=== PATIENT | female | born 1935 | race Caucasian/White ===

== ENCOUNTER → 2017-02-26 | Outpatient (CLI) | payer OTHER ==
[~2017-02-26] MED LIST: ASCO500T3 PO; ASPI-435 PO; ATV/1 PO; B-COTAB18 PO; BNC/40 PO; CALC0.2510 PO; CHOL2000 PO; CITA20TA9 PO; CYAN100020 PO; CYCL0.052 OP; FLAX12003 PO; FURO-85 PO; GABA-112 PO; GARL400T4 PO; GARLTAB3 PO; HYDR25TA4 PO; ISOS-10 PO; LEVO50TA6 PO; LORA0.5T12 PO; LYSI500C2 PO; MECL1TAB42 PO; METO-478 PO; NITR1CAP16 PO; NTRSL3 UT; OLME40TA30 PO; OMEG10007 PO; OMEP20CA59 PO; OXYC-57 PO; PHEN-939 PO; PRAM1TAB47; PTDOPS OP; ROPI1TAB PO; SIMV40TA4 PO; TOLT4CAP PO; ZNTT/150 PO
[2017-02-26 13:13] LABS: ALT/SGPT 25 U/L (12-78); BLOOD UREA NITROGEN 36 mg/dl (7-18); BUN/CREATININE RATIO 25.5 (10-20); CALCIUM 9.7 mg/dl (8.5-10.1); CARBON DIOXIDE 28 mmol/L (21-32); CHLORIDE 105 mmol/L (98-107); CHOLESTEROL 147 mg/dl (0-200); GLUCOSE 88 mg/dl (70-99); POTASSIUM 4.1 mmol/L (3.5-5.1); SODIUM 140 mmol/L (136-145); TRIGLYCERIDES 190 mg/dl (0-150); VERY LOW DENSITY LIPOPROT CALC 38 mg/dl
[2017-02-26 13:14] LABS: ESTIMATED AVERAGE GLUCOSE 123 mg/dl; HA1C FLAG Normal (Normal)
[2017-02-26 13:24] LABS: ALB/GLOB RATIO 1.3 (0.9-2); ALKALINE PHOSPHATASE 35 U/L (45-117); AST/SGOT 17 U/L (15-37); CHOLESTEROL/HDL RATIO 3.5; HDL CHOLESTEROL 42 mg/dl; LDL CHOLESTEROL CALCULATED 67 mg/dl
== END | disposition home or self-care (01) ==
LOC: C.LABPVFM 09:07
PROVIDERS: ATTEND Nurse Practitioner
DX: E03.9 Hypothyroidism, unspecified (principal); E78.5 Hyperlipidemia, unspecified; E55.9 Vitamin D deficiency, unspecified; I10 Essential (primary) hypertension; R73.01 Impaired fasting glucose

== ENCOUNTER → 2017-04-19 | Outpatient (CLI) | payer OTHER ==
[2017-04-19 12:26] LABS: URINE EPITHELIAL CELL AUTO 0-5 /lpf (0-5); ZZInitiateTest Complete
[2017-04-19 12:39] LABS: MANUAL MICROSCOPIC REQUIRED? NO; REVIEW REQ? NO
== END | disposition home or self-care (01) ==
LOC: C.LABPVFM 14:46
PROVIDERS: ATTEND Family Medicine
DX: N39.0 Urinary tract infection, site not specified (principal)

== ENCOUNTER → 2017-06-20 | Outpatient (CLI) | payer OTHER ==
[~2017-06-20] MED LIST changes: -METO-478 PO; +METO1TAB31 PO
== END | disposition home or self-care (01) ==
LOC: C.LABPVFM 11:03
PROVIDERS: ATTEND Nurse Practitioner Family
DX: N39.0 Urinary tract infection, site not specified (principal)

== ENCOUNTER → 2017-06-27 | Outpatient (CLI) | payer OTHER ==
[2017-06-27 17:24] LABS: ZZInitiateTest Complete
[2017-06-27 17:26] LABS: MANUAL MICROSCOPIC REQUIRED? NO; REVIEW REQ? NO
== END | disposition home or self-care (01) ==
LOC: C.LABPVFM 12:17
PROVIDERS: ATTEND Nurse Practitioner Family
DX: N39.0 Urinary tract infection, site not specified (principal)

== ENCOUNTER → 2017-07-24 | Outpatient (CLI) | payer OTHER ==
[2017-07-24 17:58] LABS: BLOOD UREA NITROGEN 36 mg/dl (7-18)
== END | disposition home or self-care (01) ==
LOC: C.LAB 16:23
PROVIDERS: ATTEND Nurse Practitioner Family
DX: R31.0 Gross hematuria (principal)

== ENCOUNTER → 2017-08-01 | Outpatient (CLI) | payer OTHER ==
[~2017-08-01] MED LIST changes: +OPTIRAY 320 IV PRN
--- NOTE | 2017-08-01 14:41 | DIAGNOSTIC IMAGING REPORT ---
ABDOMEN AND PELVIS CT WITH AND WITHOUT IV CONTRAST, UROGRAM PROTOCOL CT DOSE: 2246.18 mGycm HISTORY: R31.0 Gross hematuria TECHNIQUE: Multiaxial CT images of the abdomen and pelvis were performed both before and after the use of intravenous contrast to evaluate the urinary system. Maximal intensity projection images were performed at the workstation by the radiologist. A dose lowering technique was utilized adhering to the principles of ALARA. COMPARISON STUDY: Abdominal ultrasound 09/21/2011. FINDINGS: No renal or ureteral calculi. No hydronephrosis. Best seen on axial image 46 of 106 of the delayed pelvic series there is suggestion of a 9 mm filling defect within the left posterior bladder wall near the ureteral orifice. There are few subcentimeter hypodense lesions within the right kidney which are too small to characterize. The left kidney enhances normally. There are a few small peripelvic cysts within the lower pole of the left kidney. The ureters are normal and course and caliber. No suspicious filling defects seen within the bilateral renal collecting systems or ureters. Bibasilar linear densities favor atelectasis are scarring. The liver, gallbladder, spleen, adrenal glands, and pancreas are unremarkable. No retroperitoneal lymphadenopathy. Hysterectomy. Colonic diverticulosis. No bowel wall thickening or obstruction. IMPRESSION: 1. A possible 9 mm filling defect seen within the left posterior bladder. This may represent a small urothelial neoplasm. Follow-up cystoscopy is recommended for further evaluation. 2. No renal or ureteral stones. No hydronephrosis. 3. Additional findings as described above. Electronically signed by: Rufus Hernández M.D. 08/01/2017 2:39 PM Dictated Date/Time: 08/01/2017 2:25 PM
== END | disposition home or self-care (01) ==
LOC: C.CTS 13:36
PROVIDERS: ATTEND Nurse Practitioner Family
DX: R31.0 Gross hematuria (principal); R93.41 Abnormal radiologic findings on diagnostic imaging of renal pelvis, ureter, or bladder

== ENCOUNTER → 2017-09-06 | Day surgery (SDC) | payer OTHER ==
[2017-08-22 11:13] VITALS: BMI 34.0
--- NOTE | 2017-08-22 11:56 | PAT Medication Instructions ---
Service Date Aug 22, 2017. Current Home Medication List Ascorbic Acid (Vitamin C), 500 MG PO BID Aspirin (Aspirin 81), 81 MG PO BID B-Complex Vitamins (Vitamin B Complex), 1 TAB PO NOON Calcitriol (Rocaltrol Cap), 0.5 MCG PO BID Cholecalciferol (Vitamin D3), 1 CAP PO NOON/HS Citalopram Hydrobromide (Celexa), 20 MG PO HS Cyanocobalamin (Vitamin B12), 500 MCG PO 3XWEEK Cyclosporine (Ophth) (Restasis), 1 DROP OP BID Fish Oil ([place]-3), 1 CAP PO NOON Flaxseed (Linseed) (Flaxseed Oil), 1 TAB PO NOON Furosemide (Lasix), 20 MG PO PRN Gabapentin (Neurontin), 300 MG PO QID Isosorbide Mononitrate (Isosorbide Mononitrate ER), 60 MG PO QAM Levothyroxine Sodium (Levothyroxine Sodium), 1 TAB PO QAM Lysine (Lysine), 500 MG PO PRN Meclizine Hcl (Meclizine Hcl), 25 MG PO DAILY PRN for VERTIGO Metoprolol Succinate (Toprol Xl), 25 MG PO QAM Nitroglycerin (Nitrostat), 0.3 MG UT PRN Olmesartan/Hctz (Benicar Hct 40/12.5), 1 TAB PO QAM Olopatadine Hydrochloride (Pataday), 1 DROPS OP DAILY Omeprazole (Prilosec), 20 MG PO PRN Ranitidine (Zantac), 150 MG PO BID PRN for PRN Ropinirole (Requip), 1 MG PO NOON Ropinirole Hydrochloride (Requip), 2 MG PO HS Simvastatin (Zocor), 40 MG PO QPM Tolterodine Tartrate (Detrol La), 4 MG PO DAILY PRN for FREQ. URINATION [Garlic], 1 TAB PO PRN Medication Instructions For Your Scheduled Surgery - Check with surgeon and pastry decorator for instructions: Aspirin (Aspirin 81), 81 MG PO BID - Hold the following medications 2 weeks prior to surgery: [Garlic], 1 TAB PO PRN Fish Oil ([place]-3), 1 CAP PO NOON Flaxseed (Linseed) (Flaxseed Oil), 1 TAB PO NOON - Hold the following medications 24 hours prior to surgery: Ropinirole Hydrochloride (Requip), 2 MG PO HS Ropinirole (Requip), 1 MG PO NOON - Hold the following medications the morning of surgery: Tolterodine Tartrate (Detrol La), 4 MG PO DAILY PRN for FREQ. URINATION Ranitidine (Zantac), 150 MG PO BID PRN for PRN Olmesartan/Hctz (Benicar Hct 40/12.5), 1 TAB PO QAM Furosemide (Lasix), 20 MG PO PRN Cyanocobalamin (Vitamin B12), 500 MCG PO 3XWEEK Calcitriol (Rocaltrol Cap), 0.5 MCG PO BID B-Complex Vitamins (Vitamin B Complex), 1 TAB PO NOON Ascorbic Acid (Vitamin C), 500 MG PO BID - Take the following medications the morning of surgery with a sip of water: Omeprazole (Prilosec), 20 MG PO PRN Olopatadine Hydrochloride (Pataday), 1 DROPS OP DAILY Nitroglycerin (Nitrostat), 0.3 MG UT PRN Metoprolol Succinate (Toprol Xl), 25 MG PO QAM Meclizine Hcl (Meclizine Hcl), 25 MG PO DAILY PRN for VERTIGO Lysine (Lysine), 500 MG PO PRN Levothyroxine Sodium (Levothyroxine Sodium), 1 TAB PO QAM Isosorbide Mononitrate (Isosorbide Mononitrate ER), 60 MG PO QAM Gabapentin (Neurontin), 300 MG PO QID Cyclosporine (Ophth) (Restasis), 1 DROP OP BID - Take the following medications as scheduled the night before surgery: Tolterodine Tartrate (Detrol La), 4 MG PO DAILY PRN for FREQ. URINATION Simvastatin (Zocor), 40 MG PO QPM Ranitidine (Zantac), 150 MG PO BID PRN for PRN Olmesartan/Hctz (Benicar Hct 40/12.5), 1 TAB PO QAM Nitroglycerin (Nitrostat), 0.3 MG UT PRN Meclizine Hcl (Meclizine Hcl), 25 MG PO DAILY PRN for VERTIGO Lysine (Lysine), 500 MG PO PRN Gabapentin (Neurontin), 300 MG PO QID Furosemide (Lasix), 20 MG PO PRN Cyclosporine (Ophth) (Restasis), 1 DROP OP BID Citalopram Hydrobromide (Celexa), 20 MG PO HS Cholecalciferol (Vitamin D3), 1 CAP PO NOON/HS Calcitriol (Rocaltrol Cap), 0.5 MCG PO BID Ascorbic Acid (Vitamin C), 500 MG PO BID If you have any questions please call us at [phone] or [phone] or [phone]
--- NOTE | 2017-08-22 12:35 | DIAGNOSTIC IMAGING REPORT ---
CHEST PREADMISSION(PA/LAT) HISTORY: Preop. COMPARISON: Chest 07/01/2016. FINDINGS: Small linear scarlike density within left lung base, unchanged. The lungs are otherwise clear. No pleural effusions. No pneumothorax. The heart is normal in size. IMPRESSION: No significant change compared to the prior study. No acute process. Electronically signed by: Rufus Hernández M.D. 08/22/2017 12:34 PM Dictated Date/Time: 08/22/2017 12:32 PM
[2017-08-22 12:41] LABS: BASO % 0.5 %; BASO ABS # 0.03 K/uL (0-0.2); COMPLETE YES; EOS % 4.8 %; HEMATOCRIT 37.6 % (37-47); IG% 0.2 %; LYMPH % 38.1 %; LYMPH ABS # 2.15 K/uL (1.2-3.4); MEAN CELL VOLUME 96.9 fL (80-100); MEAN CORPUSCULAR HEMOGLOBIN 32.2 pg (25-34); MEAN CORPUSCULAR HGB CONC 33.2 g/dl (32-36); MEAN PLATELET VOLUME 9.8 fL (7.4-10.4); MONO % 9.9 %; NEUT % 46.5 %; PLATELET COUNT 234 K/uL (130-400); RED BLOOD COUNT 3.88 M/uL (4.2-5.4); WHITE BLOOD COUNT 5.65 K/uL (4.8-10.8)
[2017-08-22 12:47] LABS: URINE APPEARANCE CLEAR (CLEAR); URINE BILIRUBIN NEG (NEG); URINE COLOR YELLOW; URINE EPITHELIAL CELL AUTO 0-5 /lpf (0-5); URINE NITRITE NEG (NEG); URINE SPECIFIC GRAVITY 1.007 (1.000-1.030); UROBILINOGEN NEG (NEG)
[2017-08-22 12:49] LABS: MANUAL MICROSCOPIC REQUIRED? NO; REVIEW REQ? NO
[2017-08-22 12:56] LABS: BUN/CREATININE RATIO 20.1 (10-20); CALCIUM 9.5 mg/dl (8.5-10.1); CREATININE 1.3 mg/dl (0.60-1.20)
[~2017-09-06] VITALS: Ht 160 cm; Wt 89.3 kg
[~2017-09-06] MED LIST changes: +ATROPINE SULFATE 0.1 MG/ML 5ML SYR IV PRN; -ATV/1 PO; -BNC/40 PO; +CIPROFLOXACIN / D5W 400 MG IV SCH; +EpHEDrine SULFATE 50MG/5ML SYR ONE; +EpHEDrine SULFATE INJ 50 MG/ML AMP IV PRN; +FAMOTIDINE 10 MG/ML 2ML VIAL IV STA; +FENTANYL CITRATE INJ 50 MCG/1 ML 2 ML VIAL IV PRN; +FENTANYL CITRATE INJ 50 MCG/1 ML 2 ML VIAL ONE; -GARL400T4 PO; -HYDR25TA4 PO; +LACTATED RINGER'S 1000ML 1,000 ML IV SCH; +LIDOCAINE HCL 2% 2 ML VIAL (20MG/ML) ONE; -LORA0.5T12 PO; +METOCLOPRAMIDE HCL INJ 5 MG/ML 2 ML VIAL IV STA; +MITOMYCIN FOR IR SCH; +ONDANSETRON INJ 2 MG/ML 2 ML VIAL IV PRN; -OPTIRAY 320 IV PRN; +OXYCODONE/ACETAMINOPHEN 5-325 TAB PO PRN; +PHENAZOPYRIDINE HCL 100 MG TAB PO PRN; -PRAM1TAB47; +PROPOFOL IV EMULSION 10 MG/ML 20 ML VIAL IV ONE
--- NOTE | 2017-09-06 08:07 | History & Physical Bridge Note ---
H&P Re-Evaluation Bridge Note: I have examined the patient, reviewed the History & Physical and in the interval since the performance of the History & Physical I have noted the following changes of clinical significance: No changes noted
[2017-09-06 08:16] VITALS: BP 155/77; PULSE 55; TEMP 37.2; O2SAT 94; Ht 160 cm; Wt 89.3 kg
--- NOTE | 2017-09-06 08:25 | Discharge Instructions ---
Discharge Instructions Date of Service Sep 06, 2017. Admission Reason for Admission: Bladder Tumor Discharge Discharge Diagnosis / Problem: Bladder tumor s/p TURBT, instillation Mitomycin C Discharge Goals Goal(s): Improve disease control, Diagnostic testing, Therapeutic intervention Activity Recommendations Activity Limitations: as noted below Lifting Limitations: no more than 25 pounds, gradually increase as tolerated ( over 3 days) Exercise/Sports Limitations: rest today, gradually increase as tolerated May Resume Sexual Activity: after two weeks Shower/Bathe: no limitations Driving or Machine Use: resume 1 day after discharge . Instructions / Follow-Up Instructions / Follow-Up Antibiotics provided to extend course by 5 days Follow-up in office as scheduled Discharge Diet Recommended Diet: Regular Diet (good fluid intake) Procedures Procedures Performed: Transurethral resection of bladder tumor, instillation of Mitomycin C Pending Studies Studies pending at discharge: yes List of pending studies: Pathology report Medical Emergencies . Who to Call and When: Medical Emergencies: If at any time you feel your situation is an emergency, please call 911 immediately. . Non-Emergent Contact Non-Emergency issues call your: Urologist Call Non-Emergent contact if: you have a fever, temperature is above 101, your pain is not controlled, your pain is worsening, your pain is unusual for you, your pain is concerning you, you have any medication questions . . "Provider Documentation" section prepared by Shlomo Cisse. . VTE Core Measure Inpt VTE Proph given/why not?: SCD's [place] Drug Monitoring Program Search Results: patient reviewed within database, no issues identified
--- NOTE | 2017-09-06 10:31 | [facility] Post Operative Brief Note ---
Immediate Operative Summary Operative Date Sep 06, 2017. Pre-Operative Diagnosis Bladder Tumor Post-Operative Diagnosis Bladder Tumor Procedure(s) Performed Transurethral resection of bladder tumor, instillation of Mitomycin C Surgeon Dr. Isela Cisse Dry Roaster Surgeon(s) None Estimated Blood Loss Miminal Findings 1 cm papillary mass proximolateral to left UO resected in its entirety, 20 mg of Mitomycin in 40 mg instilled Specimens A. LEFT BLADDER MASS Drains 16 fr 10 cc H2O Anesthesia GALMA Complication(s) None Disposition Recovery Room / PACU
--- NOTE | 2017-09-06 10:35 | [facility] Operative Report ---
Operative Report Operative Date Sep 06, 2017. Pre-Operative Diagnosis Bladder Tumor Post-Operative Diagnosis 1 cm Bladder Tumor Procedure(s) Performed Transurethral resection of bladder tumor, instillation of Mitomycin C Surgeon Dr. Isela Cisse Mixing And Dispensing Supervisor Surgeon(s) None Estimated Blood Loss Miminal Findings 1 cm papillary mass proximolateral to left UO resected in its entirety, 20 mg of Mitomycin in 40 mg instilled Specimens A. 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 Please see H&P for further details. She is here today for resection for diagnosis and therapy for her disease. Intravenous ciprofloxacin was provided for antibiotic coverage and SCDs used for DVT prophylaxis. She's been pretreated with nitrofurantoin for a positive culture with enterococcus, 20,000 organisms preoperatively. Description of Procedure Patient was properly identified and brought to the operative suite after identification of appropriate consent of the chart. General anesthesia with laryngeal mask was initiated and patient was prepped and draped in the standard fashion for this procedure. Full timeout procedure was followed. 27 Fijian resectoscope was introduced into the bladder under direct visualization using a visual obturator. Bladder was surveyed in its entirety demonstrating no other intravesical lesions, papillary masses or mucosal abnormalities save for the previously noted left-sided papillary bladder mass. This was estimated to be 1 cm in size. Ureteral orifice was noted to be clear of direct involvement with the tumor. Both ureteral orifices were noted to be effluxing clear urine. Using a bipolar loop the tumor was resected in its entirety. Small amounts of residual tumor were sampled using cold cup and all was sent as left-sided bladder mass. Ureteral orifice was noted to be uninjured at the end of the case. Loop cautery was used as necessary to obtain hemostasis and fulgurate surrounding mucosa. No evidence of bladder perforation was appreciated. Bladder was drained resectoscope was removed. 16 Fijian Sands catheter was placed and 20 mg of mitomycin C and 40 mL of water were instilled bladder which was then clamped. Anesthesia was reversed and patient was transferred to the recovery room in stable condition. Follow-up care: We'll extend the patient's course of nitrofurantoin for approximate 5 days postoperatively. Prescription for Percocet and Pyridium is also provided. Will drained the bladder after approximately 2 hours of mitomycin instillation and proceed with a trial of void prior to discharge home today. Outpatient appointments are confirmed. Patient's instructed to contact us sooner should she note any fevers, chills, nausea, vomiting or other significant difficulties in postoperative period. I attest to the content of the Intraoperative Record and any orders documented therein. Any exceptions are noted below.
[2017-09-06 10:50] VITALS: BP 155/75; PULSE 58; TEMP 36.7; O2SAT 93
--- NOTE | 2017-09-06 10:52 | Anesthesiology Progress Note ---
Anesthesia Post Op Note Date & Time Sep 06, 2017 at 10:52 Vital Signs Pain Intensity: 0 Vital Signs Past 12 Hours Date Time Temp Pulse Resp B/P (MAP) Pulse Ox O2 Delivery O2 Flow Rate FiO2 09/06/17 10:43 36.1 60 17 126/84 95 Room Air 09/06/17 10:35 62 18 139/80 95 Room Air 09/06/17 10:25 61 20 123/77 99 Nasal Cannula 4 09/06/17 10:15 65 20 131/70 99 Nasal Cannula 4 09/06/17 10:07 36.2 68 16 120/68 97 Oxymask 8 09/06/17 08:16 37.2 55 20 155/77 (103) 94 Room Air Notes Mental Status: alert / awake / arousable, participated in evaluation Pt Amnestic to Procedure: Yes Nausea / Vomiting: adequately controlled Pain: adequately controlled Airway Patency, RR, SpO2: stable & adequate BP & HR: stable & adequate Hydration State: stable & adequate Anesthetic Complications: no major complications apparent
[2017-09-06 11:20] VITALS: BP 168/72; PULSE 60; O2SAT 94
[2017-09-06 11:50] VITALS: BP 131/72; PULSE 62; TEMP 36.9; O2SAT 95
[2017-09-06 12:20] VITALS: BP 130/68; PULSE 57; O2SAT 94
== END | disposition home or self-care (01) ==
LOC: C.ACU 07:54
PROVIDERS: ATTEND Urology
DX: C67.9 Malignant neoplasm of bladder, unspecified (principal); R31.0 Gross hematuria; N32.89 Other specified disorders of bladder; I25.10 Atherosclerotic heart disease of native coronary artery without angina pectoris; I10 Essential (primary) hypertension; K21.9 Gastro-esophageal reflux disease without esophagitis; E78.5 Hyperlipidemia, unspecified; E21.3 Hyperparathyroidism, unspecified; E03.9 Hypothyroidism, unspecified; Z98.41 Cataract extraction status, right eye; Z98.42 Cataract extraction status, left eye; Z86.73 Personal history of transient ischemic attack (TIA), and cerebral infarction without residual deficits; Z90.710 Acquired absence of both cervix and uterus; Z96.659 Presence of unspecified artificial knee joint; Z90.89 Acquired absence of other organs; Z79.82 Long term (current) use of aspirin; Z79.899 Other long term (current) drug therapy; E66.9 Obesity, unspecified; Z68.34 Body mass index [BMI] 34.0-34.9, adult; Z82.49 Family history of ischemic heart disease and other diseases of the circulatory system

== ENCOUNTER → 2017-12-17 | Outpatient (CLI) | payer OTHER ==
[~2017-12-17] MED LIST changes: -ATROPINE SULFATE 0.1 MG/ML 5ML SYR IV PRN; -CIPROFLOXACIN / D5W 400 MG IV SCH; -EpHEDrine SULFATE 50MG/5ML SYR ONE; -EpHEDrine SULFATE INJ 50 MG/ML AMP IV PRN; -FAMOTIDINE 10 MG/ML 2ML VIAL IV STA; -FENTANYL CITRATE INJ 50 MCG/1 ML 2 ML VIAL IV PRN; -FENTANYL CITRATE INJ 50 MCG/1 ML 2 ML VIAL ONE; -LACTATED RINGER'S 1000ML 1,000 ML IV SCH; -LIDOCAINE HCL 2% 2 ML VIAL (20MG/ML) ONE; +METO-478 PO; -METO1TAB31 PO; -METOCLOPRAMIDE HCL INJ 5 MG/ML 2 ML VIAL IV STA; -MITOMYCIN FOR IR SCH; -NITR1CAP16 PO; -ONDANSETRON INJ 2 MG/ML 2 ML VIAL IV PRN; -OXYCODONE/ACETAMINOPHEN 5-325 TAB PO PRN; -PHEN-939 PO; -PHENAZOPYRIDINE HCL 100 MG TAB PO PRN; -PROPOFOL IV EMULSION 10 MG/ML 20 ML VIAL IV ONE
--- NOTE | 2017-12-17 10:28 | DIAGNOSTIC IMAGING REPORT ---
LEFT SHOULDER 3 VIEWS HISTORY: Left Shoulder pain, left Muscle spasms of neck left COMPARISON: None. FINDINGS: There is no fracture or dislocation. Soft tissues are unremarkable. The left clavicle is intact. Moderate AC joint arthrosis. IMPRESSION: 1. No fracture or dislocation within the left shoulder. 2. Moderate AC joint arthrosis. Electronically signed by: Rufus Hernández M.D. 12/17/2017 10:27 AM Dictated Date/Time: 12/17/2017 10:26 AM
== END | disposition home or self-care (01) ==
LOC: C.RADPV 10:03
PROVIDERS: ATTEND Nurse Practitioner
DX: M62.838 Other muscle spasm (principal); M25.512 Pain in left shoulder

== ENCOUNTER → 2018-04-09 | Outpatient (CLI) | payer OTHER ==
[~2018-04-09] MED LIST changes: -OXYC-57 PO; +RANI150T85 PO; -ZNTT/150 PO
[2018-04-09 14:45] LABS: ALBUMIN 4.2 gm/dl (3.4-5.0); ALT/SGPT 24 U/L (12-78); AST/SGOT 18 U/L (15-37); BLOOD UREA NITROGEN 35 mg/dl (7-18); CALCIUM 9.6 mg/dl (8.5-10.1); CARBON DIOXIDE 31 mmol/L (21-32); CREATININE 1.34 mg/dl (0.60-1.20); GLUCOSE 91 mg/dl (70-99); POTASSIUM 4.2 mmol/L (3.5-5.1); SODIUM 140 mmol/L (136-145)
[2018-04-09 14:56] LABS: ALKALINE PHOSPHATASE 50 U/L (45-117); CHOLESTEROL 129 mg/dl (0-200); LDL CHOLESTEROL CALCULATED 48 mg/dl; TOTAL PROTEIN 7.1 gm/dl (6.4-8.2)
== END | disposition home or self-care (01) ==
LOC: C.LABPVFM 08:01
PROVIDERS: ATTEND Nurse Practitioner
DX: I10 Essential (primary) hypertension (principal); E78.5 Hyperlipidemia, unspecified; E03.9 Hypothyroidism, unspecified

== ENCOUNTER → 2018-04-11 | Outpatient (CLI) | payer OTHER ==
--- NOTE | 2018-04-11 10:44 | DIAGNOSTIC IMAGING REPORT ---
RIBS UNILATERAL WITH PA CHEST CLINICAL HISTORY: 83 years-old Female presenting with Rib pain on right side right. TECHNIQUE: Frontal and oblique views of the right ribs as well as PA view of the chest were obtained. COMPARISON: 08/22/2017. FINDINGS: Atherosclerosis of aortic arch. Cardiac silhouette mildly enlarged, unchanged. Mild bronchial wall thickening may be present along with mild pulmonary vascular prominence. No focal infiltrate. No large effusion or pneumothorax. Degenerative changes of the spine. Upper abdomen normal. No displaced right rib fracture. IMPRESSION: 1. Cardiomegaly. Mild volume overload or congestive change may be present. 2. No displaced right rib fracture. Electronically signed by: Harjeet Stein M.D. 04/11/2018 10:42 AM Dictated Date/Time: 04/11/2018 10:41 AM
[2018-04-11 12:39] LABS: BASO % 0.5 %; BASO ABS # 0.03 K/uL (0-0.2); EOS % 4.8 %; EOS ABS # 0.28 K/uL (0-0.5); HEMATOCRIT 38.7 % (37-47); HEMOGLOBIN 12.9 g/dL (12.0-16.0); IG# 0.01 K/uL (0.00-0.02); LYMPH % 41.6 %; LYMPH ABS # 2.44 K/uL (1.2-3.4); MEAN CELL VOLUME 97.7 fL (80-100); MEAN CORPUSCULAR HEMOGLOBIN 32.6 pg (25-34); MEAN CORPUSCULAR HGB CONC 33.3 g/dl (32-36); MEAN PLATELET VOLUME 10.3 fL (7.4-10.4); MONO % 9.5 %; MONO ABS # 0.56 K/uL (0.11-0.59); NEUT % 43.4 %; NEUT ABS # 2.55 K/uL (1.4-6.5); PLATELET COUNT 227 K/uL (130-400); RED CELL DISTRIBUTION WIDTH CV 13.2 % (11.5-14.5); WHITE BLOOD COUNT 5.87 K/uL (4.8-10.8)
== END | disposition home or self-care (01) ==
LOC: C.LABPVFM 10:13
PROVIDERS: ATTEND Nurse Practitioner
DX: R07.81 Pleurodynia (principal); I50.9 Heart failure, unspecified; R39.9 Unspecified symptoms and signs involving the genitourinary system; I51.7 Cardiomegaly

== ENCOUNTER 2021-05-18 21:33 | Observation (INO) ==
[2021-05-18] MEDS ORDERED: PIPERACILLIN/TAZOBACTAM 4.5 GM/120 ML BAG IV ONE (21:46)
[2021-05-18] MEDS ORDERED: PIPERACILL/TAZOBAC CONSULT ACTIVE PRN (21:46)
[2021-05-18] MEDS ORDERED: SODIUM CHLORIDE 0.9% 1000ML 1,000 ML IV SCH (22:00)
[2021-05-18 22:08] LABS: Hematocrit (blood only) 38.1 % (37-47); Hemoglobin 12.9 g/dL (12.0-16.0); Mean Corpuscular Hemoglobin 32.7 pg (25-34); Mean Corpuscular Hgb Conc 33.9 g/dL (32-36); Mean Corpuscular Volume 96.5 fL (80-100); Mean Platelet Volume 10.3 fL (7.4-10.4); Platelet Count 183 K/uL (130-400); RDW Coefficient of Variation 14.1 % (11.5-14.5); RDW Standard Deviation 50.4 fL (36.4-46.3); Red Blood Count 3.95 M/uL (4.2-5.4); White Blood Count 17.82 K/uL (4.8-10.8)
[2021-05-18 22:24] LABS: Albumin Level 3.4 gm/dl (3.4-5.0); BUN Creatinine Ratio 17.6 (10-20); Calcium 9.9 mg/dl (8.5-10.1); Creatinine Clr Calc Pharmacy 30.3 ml/min; Est GFR (African American) 38.3 ml/min; Magnesium 1.9 mg/dl (1.8-2.4); Potassium 3.4 mmol/L (3.5-5.1)
[2021-05-18 22:25] LABS: INR 1.1 (0.9-1.1); Partial Thromboplastin Ratio 1.1; Partial Thromboplastin Time 28.5 Seconds (21.0-31.0); Prothrombin Time 11.3 Seconds (9.0-12.0)
[2021-05-18 22:28] LABS: Basophils # (auto) 0.01 K/uL (0-0.2); Basophils % (auto) 0.1 %; Immature Granulocytes # (auto) 0.07 K/uL (0.00-0.02); Immature Granulocytes % (auto) 0.4 %; Lymphocytes # (auto) 1.04 K/uL (1.2-3.4); Lymphocytes % (auto) 5.8 %; Monocytes # (auto) 0.57 K/uL (0.11-0.59); Monocytes % (auto) 3.2 %; Neutrophils # (auto) 16.13 K/uL (1.4-6.5); Neutrophils % (auto) 90.5 %
[2021-05-18 22:29] LABS: Albumin Globulin Ratio 0.9 (0.9-2); Bilirubin,Total 0.4 mg/dl (0.2-1); Globulin 3.8 gm/dl (2.5-4.0); Total Protein 7.2 gm/dl (6.4-8.2); Troponin I 0.025 ng/ml (0-0.045)
[2021-05-18 23:42] LABS: Appearance Urine Clear (Clear); Bacteria Urine Automated Negative (Negative); Bilirubin Urine Negative (Negative); Blood Urine Trace (Negative); Cast Urine Automated 0 /lpf (0-5); Color Urine Yellow; Glucose Urine UA Negative (Negative); Ketones Urine Negative (Negative); Leukocyte Esterase Urine Negative (Negative); Nitrite Urine Negative (Negative); Protein Urine 2+ (Negative); Specific Gravity Urine 1.016 (1.000-1.030); Urobilinogen Urine Negative (Negative); WBC Urine Automated 0 /hpf (0-5)
--- NOTE | 2021-05-19 00:58 | Emergency Department Note ---
History of Present Illness General Chief complaint: Fever Stated complaint: Altered mental status, Lethargic History of Present Illness Maximum Pain Intensity: 0 This 86-year-old from home presents to the ER complaining of fever, lethargy and increased confusion today Location: Generalized Quality: Febrile Severity: Moderate Duration: Today Timing: Today Context: Family was concerned and called EMS Modifying factors: better with rest; worse with activity Patient states that she feels fatigued and achy all over. Patient denies chest pain, abdominal pain, vomiting, diarrhea, urinary symptoms. The redness to her leg is new per patient. Home Medications Medication Instructions Recorded Confirmed Type cyanocobalamin (vitamin B-12) 500 mcg PO QAM 11/14/18 05/18/21 History [Vitamin B-12] nitroglycerin [Nitrostat] 0.3 mg SUBLINGUAL DIRECTED PRN 11/14/18 05/18/21 History MDD 3 DOSES metoprolol succinate 25 mg 25 mg PO QAM #90 tab 07/30/20 05/18/21 Rx tablet,extended release 24 hr levothyroxine 50 mcg tablet 50 mcg PO DAILY #90 tab 09/02/20 05/18/21 Rx famotidine 20 mg tablet 20 mg PO DAILY #90 tab 10/18/20 05/18/21 Rx isosorbide mononitrate 60 mg 60 mg PO QAM #90 tab 11/15/20 05/18/21 Rx tablet,extended release 24 hr meclizine 25 mg tablet 12.5 - 25 mg PO QID PRN #30 tab 11/15/20 05/18/21 Rx simvastatin 40 mg tablet 40 mg PO HS #90 tab 11/15/20 05/18/21 Rx gabapentin 100 mg capsule 200 mg PO TID #180 cap 01/04/21 05/18/21 Rx losartan 50 mg tablet 50 mg PO DAILY #90 tab 01/04/21 05/18/21 Rx aspirin 81 mg PO DAILY 02/28/21 05/18/21 History furosemide 20 mg PO DAILY 02/28/21 05/18/21 History hydrochlorothiazide 12.5 mg PO DAILY 02/28/21 05/18/21 History lifitegrast [Xiidra] 1 drp OPB BID 02/28/21 05/18/21 History mirabegron [Myrbetriq] 25 mg PO DAILY 02/28/21 05/18/21 History ropinirole 1 mg PO QDL 02/28/21 05/18/21 History ropinirole 3 mg PO HS 02/28/21 05/18/21 History tramadol 50 mg tablet 50 mg PO BID PRN #20 tab 03/17/21 05/18/21 Rx diclofenac sodium 1 % topical gel 2 g TOPICAL QID #100 g 04/11/21 05/18/21 Rx Allergies Allergy/AdvReac Type Severity Reaction Status Date / Time atorvastatin [From Lipitor] Allergy Unknown ON [facility] Verified 05/18/21 23:00 LIST celecoxib [From Celebrex] Allergy Unknown ON [facility] Verified 05/18/21 23:00 LIST Iodine and Iodide Containing Allergy Unknown ON [facility] Verified 05/18/21 23:00 Produc LIST Past Med/Surg History Medical History (Updated 05/19/21 @ 00:58 by Carol Eller PA-C) Carotidynia Congestive heart failure Dyspnea on exertion Hypercalcemia Sciatic leg pain Urinary incontinence Surgical History History of appendectomy History of carpal tunnel surgery History of dilatation and curettage History of partial colectomy History of total abdominal hysterectomy and bilateral salpingo-oophorectomy History of total knee arthroplasty Status post laser cataract surgery of both eyes Family History Father Prostate cancer Myocardial infarction Mother Cancer Other No significant family history Denies family history of Ovarian cancer Kidney disease Breast cancer Colorectal cancer Social History Smoking Status: Unknown if ever smoked Second Hand Exposure: No; Hx Alcohol Use: No Hx Substance Use: No marital status: Current Living Situation: Spouse current occupational status: other current occupation: housewife Feels Safe at Home: Yes Childhood Exposure to Second-Hand Smoke: Yes caffeine: Yes Dental Care, Regularly: No Seatbelt Use: sometimes Sunscreen Use: No Review of Systems A total of 10 systems reviewed and were otherwise negative Physical Exam Vital Signs Vital Signs - 24 hr 05/18/21 22:06 05/18/21 22:22 Temperature 37.7 C H Temperature Source Oral Pulse Rate 87 Pulse Rate [Apical] 87 85 Respiratory Rate 29 H 20 Blood Pressure 120/56 L Blood Pressure [Right Arm] 120/56 L Blood Pressure Mean 77 Blood Pressure Mean [Right Arm] 77 Pulse Oximetry 95 96 Oxygen Delivery Method Nasal Cannula Nasal Cannula Oxygen Flow Rate 3 3 Sepsis Recent Fever Within 48 Hours Yes Sepsis New/Unexplained Change in Mental Status Yes Sepsis Action Taken by Nursing Physician Notified VITALS: Vitals are noted on the nurse's note and reviewed by myself. Vital signs febrile, EMS gave Tylenol just prior to arrival. GENERAL: Elderly female ill-appearing SKIN: The skin was without rashes, erythema, edema, or bruising. There is no tenting of the skin. Capillary reflex less than 2 seconds. HEAD: Normocephalic atraumatic. EARS: External auditory canals clear, tympanic membranes pearly craig without erythema or effusion bilaterally. EYES: Pupils equal round and reactive to light and accommodation. Conjunctivae without injection, sclerae without icterus. Extraocular movements intact. NOSE: Patent, turbinates without inflammation or discharge. No sinus tenderness. MOUTH: Mucous membranes mildly dry. Pharynx without erythema or exudate. Uvula midline. Airway patent. Tongue does not deviate. NECK: Supple without nuchal rigidity. No lymphadenopathy. No thyromegaly. Cervical spine is nontender. No JVD. HEART: Regular rate and rhythm LUNGS: Clear to auscultation bilaterally without wheezes, rales or rhonchi. No retractions or accessory muscle use. ABDOMEN: Positive bowel sounds x 4. Normal tympanic percussion. Soft, mild diffuse tenderness, without masses or organomegaly. Gardner sign negative. No guarding or rebound tenderness. No CVA tenderness MUSCULOSKELETAL: No muscle atrophy, noted. Right lower leg erythematous and e dematous concerning for cellulitis. NEURO: Patient was alert and oriented to person place and time. Normal sensation to light and sharp touch. No focal neurological deficits. Course Administered Medications Discontinued Medications Sodium Chloride (Nss 1000ml) 1,000 mls @ 999 mls/hr IV .Q1H1M THI Stop: 05/18/21 23:00 Last Infusion: 05/19/21 00:14 Dose: 0 mls/hr Documented by: [id number] Admin: 05/18/21 22:50 Dose: 999 mls/hr Documented by: [id number] Piperacillin Sod/Tazobactam Sod (Zosyn) 4.5 gm in 120 mls @ 240 mls/hr IV NOW ONE Stop: 05/18/21 22:15 Last Infusion: 05/19/21 00:13 Dose: 0 mls/hr Documented by: [id number] Admin: 05/18/21 22:50 Dose: 240 mls/hr Documented by: [id number] Medical Decision Making Medical Records Attestation: I reviewed the patient's medical records. Home Medications Current Medication List: was personally reviewed by me Laboratory Data Attestation: I reviewed the patient's lab results. Result diagrams: 05/18/21 20:50 05/18/21 20:50 Lab Results 05/18/21 05/18/21 05/18/21 Range/Units 20:50 20:50 20:50 WBC 17.82 H (4.8-10.8) K/uL RBC 3.95 L (4.2-5.4) M/uL Hgb 12.9 (12.0-16.0) g/dL Hct 38.1 (37-47) % MCV 96.5 (80-100) fL MCH 32.7 (25-34) pg MCHC 33.9 (32-36) g/dL RDW Std Deviation 50.4 H (36.4-46.3) fL RDW Coeff of [place] 14.1 (11.5-14.5) % Plt Count 183 (130-400) K/uL MPV 10.3 (7.4-10.4) fL Immature Gran % (Auto) 0.4 % Neut % (Auto) 90.5 % Lymph % (Auto) 5.8 % [place] % (Auto) 3.2 % Eos % (Auto) 0.0 % Baso % (Auto) 0.1 % Neut # (Auto) 16.13 H (1.4-6.5) K/uL Lymph # (Auto) 1.04 L (1.2-3.4) K/uL [place] # (Auto) 0.57 (0.11-0.59) K/uL Eos # (Auto) 0.00 (0-0.5) K/uL Baso # (Auto) 0.01 (0-0.2) K/uL Immature Gran # (Auto) 0.07 H (0.00-0.02) K/uL PT 11.3 (9.0-12.0) Seconds INR 1.1 (0.9-1.1) APTT 28.5 (21.0-31.0) Seconds PTT Ratio 1.1 Sodium 136 (136-145) mmol/L Potassium 3.4 L (3.5-5.1) mmol/L Chloride 104 (98-107) mmol/L Carbon Dioxide 24 (21-32) mmol/L Anion Gap 9.0 (3-11) BUN 25 H (7-18) mg/dl Creatinine 1.44 H (0.6-1.2) mg/dl Est Cr Clr Drug Dosing 30.3 ml/min Est GFR ( Amer) 38.3 ml/min Est GFR (Non-Af Amer) 33.0 ml/min BUN/Creatinine Ratio 17.6 (10-20) Glucose 186 H (70-99) mg/dl Lactate (0.4-2.0) mmol/L Calcium 9.9 (8.5-10.1) mg/dl Magnesium 1.9 (1.8-2.4) mg/dl Total Bilirubin 0.4 (0.2-1) mg/dl AST 14 L (15-37) U/L ALT 19 (12-78) U/L Alkaline Phosphatase 50 (45-117) U/L Troponin I 0.025 (0-0.045) ng/ml Total Protein 7.2 (6.4-8.2) gm/dl Albumin 3.4 (3.4-5.0) gm/dl Globulin 3.8 (2.5-4.0) gm/dl Albumin/Globulin Ratio 0.9 (0.9-2) Urine Color Urine Appearance (Clear) Urine pH (4.5-7.5) Ur Specific [place] (1.000-1.030) Urine Protein (Negative) Urine Glucose (UA) (Negative) Urine Ketones (Negative) Urine Blood (Negative) Urine Nitrite (Negative) Urine Bilirubin (Negative) Urine Urobilinogen (Negative) Ur Leukocyte Esterase (Negative) Urine WBC (Auto) (0-5) /hpf Urine RBC (Auto) (0-4) /hpf U Hyaline Cast (Auto) (0-5) /lpf U Epithel Cells (Auto) (0-5) /lpf Urine Bacteria (Auto) (Negative) COVID-19 Eval Order SARS-CoV-2 (PCR) (Negative) 05/18/21 05/18/21 05/18/21 Range/Units 22:39 22:41 22:41 WBC (4.8-10.8) K/uL RBC (4.2-5.4) M/uL Hgb (12.0-16.0) g/dL Hct (37-47) % MCV (80-100) fL MCH (25-34) pg MCHC (32-36) g/dL RDW Std Deviation (36.4-46.3) fL RDW Coeff of [place] (11.5-14.5) % Plt Count (130-400) K/uL MPV (7.4-10.4) fL Immature Gran % (Auto) % Neut % (Auto) % Lymph % (Auto) % [place] % (Auto) % Eos % (Auto) % Baso % (Auto) % Neut # (Auto) (1.4-6.5) K/uL Lymph # (Auto) (1.2-3.4) K/uL [place] # (Auto) (0.11-0.59) K/uL Eos # (Auto) (0-0.5) K/uL Baso # (Auto) (0-0.2) K/uL Immature Gran # (Auto) (0.00-0.02) K/uL PT (9.0-12.0) Seconds INR (0.9-1.1) APTT (21.0-31.0) Seconds PTT Ratio Sodium (136-145) mmol/L Potassium (3.5-5.1) mmol/L Chloride (98-107) mmol/L Carbon Dioxide (21-32) mmol/L Anion Gap (3-11) BUN (7-18) mg/dl Creatinine (0.6-1.2) mg/dl Est Cr Clr Drug Dosing ml/min Est GFR ( Amer) ml/min Est GFR (Non-Af Amer) ml/min BUN/Creatinine Ratio (10-20) Glucose (70-99) mg/dl Lactate 1.8 (0.4-2.0) mmol/L Calcium (8.5-10.1) mg/dl Magnesium (1.8-2.4) mg/dl Total Bilirubin (0.2-1) mg/dl AST (15-37) U/L ALT (12-78) U/L Alkaline Phosphatase (45-117) U/L Troponin I (0-0.045) ng/ml Total Protein (6.4-8.2) gm/dl Albumin (3.4-5.0) gm/dl Globulin (2.5-4.0) gm/dl Albumin/Globulin Ratio (0.9-2) Urine Color Urine Appearance (Clear) Urine pH (4.5-7.5) Ur Specific [place] (1.000-1.030) Urine Protein (Negative) Urine Glucose (UA) (Negative) Urine Ketones (Negative) Urine Blood (Negative) Urine Nitrite (Negative) Urine Bilirubin (Negative) Urine Urobilinogen (Negative) Ur Leukocyte Esterase (Negative) Urine WBC (Auto) (0-5) /hpf Urine RBC (Auto) (0-4) /hpf U Hyaline Cast (Auto) (0-5) /lpf U Epithel Cells (Auto) (0-5) /lpf Urine Bacteria (Auto) (Negative) COVID-19 Eval Order Covid19 at [facility] SARS-CoV-2 (PCR) NEGATIVE (Negative) 05/18/21 Range/Units 23:00 WBC (4.8-10.8) K/uL RBC (4.2-5.4) M/uL Hgb (12.0-16.0) g/dL Hct (37-47) % MCV (80-100) fL MCH (25-34) pg MCHC (32-36) g/dL RDW Std Deviation (36.4-46.3) fL RDW Coeff of Makeda (11.5-14.5) % Plt Count (130-400) K/uL MPV (7.4-10.4) fL Immature Gran % (Auto) % Neut % (Auto) % Lymph % (Auto) % [place] % (Auto) % Eos % (Auto) % Baso % (Auto) % Neut # (Auto) (1.4-6.5) K/uL Lymph # (Auto) (1.2-3.4) K/uL [place] # (Auto) (0.11-0.59) K/uL Eos # (Auto) (0-0.5) K/uL Baso # (Auto) (0-0.2) K/uL Immature Gran # (Auto) (0.00-0.02) K/uL PT (9.0-12.0) Seconds INR (0.9-1.1) APTT (21.0-31.0) Seconds PTT Ratio Sodium (136-145) mmol/L Potassium (3.5-5.1) mmol/L Chloride (98-107) mmol/L Carbon Dioxide (21-32) mmol/L Anion Gap (3-11) BUN (7-18) mg/dl Creatinine (0.6-1.2) mg/dl Est Cr Clr Drug Dosing ml/min Est GFR ( Amer) ml/min Est GFR (Non-Af Amer) ml/min BUN/Creatinine Ratio (10-20) Glucose (70-99) mg/dl Lactate (0.4-2.0) mmol/L Calcium (8.5-10.1) mg/dl Magnesium (1.8-2.4) mg/dl Total Bilirubin (0.2-1) mg/dl AST (15-37) U/L ALT (12-78) U/L Alkaline Phosphatase (45-117) U/L Troponin I (0-0.045) ng/ml Total Protein (6.4-8.2) gm/dl Albumin (3.4-5.0) gm/dl Globulin (2.5-4.0) gm/dl Albumin/Globulin Ratio (0.9-2) Urine Color Yellow Urine Appearance Clear (Clear) Urine pH 7.0 (4.5-7.5) Ur Specific [place] 1.016 (1.000-1.030) Urine Protein 2+ H (Negative) Urine Glucose (UA) Negative (Negative) Urine Ketones Negative (Negative) Urine Blood Trace H (Negative) Urine Nitrite Negative (Negative) Urine Bilirubin Negative (Negative) Urine Urobilinogen Negative (Negative) Ur Leukocyte Esterase Negative (Negative) Urine WBC (Auto) 0 (0-5) /hpf Urine RBC (Auto) 5-10 H (0-4) /hpf U Hyaline Cast (Auto) 0 (0-5) /lpf U Epithel Cells (Auto) 5-10 H (0-5) /lpf Urine Bacteria (Auto) Negative (Negative) COVID-19 Eval Order SARS-CoV-2 (PCR) (Negative) Imaging Data Attestation: I personally reviewed and interpreted this imaging study as follows: MDM Narrative Prior records/ancillary studies reviewed. Triage Nursing notes reviewed. Additional history obtained from EMS. The patient's history was concerning for fever. Differential diagnosis: Etiologies such as sepsis, UTI, pneumonia, metabolic, electrolyte abnormalities, cardiac sources, intracerebral event, toxicologic, neurologic, as well as others were entertained. Physical examination: As above. Pertinent findings were cellulitis. Vital signs reviewed and revealed febrile. ER treatment provided: IV fluid resuscitation with Normal saline solution, 1000 mL bolus. Zosyn, EMS gave Tylenol in route An order was placed for continuous cardiac monitoring. The monitor shows a rate of 60-1 10 with a sinus rhythm. On reassessment the patient vital signs improved. Diagnostics interpretation by me: ECG: Ordered for sepsis EKG: Normal sinus, normal intervals, no acute ST-T wave changes, rate of 88. Impression normal sinus rhythm interpreted myself I think arrhythmia is unlikely. EKG shows normal sinus rhythm with no interval abnormalities such as QT prolongation or WPW. There are no findings to suggest Brugada syndrome. Cardiac monitoring in the emergency department reveals no tachycardic or bradycardic dysrhythmia. Hypertrophic cardiomyopathy was considered but there are no clear historical elements pointing toward this. EKG is not suggestive. The QRS voltage is not extremely large and there are no suggestive Q waves. The labs revealed leukocytosis on CBC. Chemistry panel revealed creatinine 1.44. LFTs revealed. Cardiac enzymes were negative. Serum Lactate measurement was negative. Blood and urine cultures are pending. Negative Covid Imaging studies: Chest xray revealed no acute consolidation, pneumothorax or free air per my interpretation. CT ABDOMEN & PELVIS Without Contrast: Subcutaneous fat stranding in the right inguinal region as well as along the right pelvic sidewall. Enlarged right inguinal lymph node measuring 1.4 cm in short axis. Small no nspecific lymph nodes along the right pelvic sidewall. The findings may be related to infectious/inf lammatory cellulitis, trauma, or procedure such as recent femoral vein catheter placement. No locula mindy fluid collection in this region. No free fluid, pneumoperitoneum, or loculated fluid collection. Diverticulosis without evidence of acute diverticulitis. No findings to suggest acute appendicitis. Nonspecific distended gallbladder without pericholecystic fat stranding or fluid. No calcified gallstones. No evidence of biliary ductal dilatation on noncontrast CT. Gallbladder distention could be related to fasting state. No hydronephrosis or nephrolithiasis. No acute osseous findings. Radiologist: Shahnaz Mclaughlin M.D. CT CHEST Without Contrast: Mild dependent and streaky opacities in lung bases, likely subsegmental atelectasis or scarring. No pulmonary consolidation. No pleural effusion. No pericardial effusion. Diffuse coronary artery atherosclerotic calcifications. No pathologically enlarged mediastinal or axillary lymph nodes. Aorta is non-aneurysmal. No acute osseous findings. Radiologist: Shahnaz Mclaughlin M.D. US VENOUS RIGHT LOWER EXTREMITY: No evidence of deep venous thrombosis. Radiologist: Shahnaz Mclaughlin M.D. Consultation: A consultation was placed with the hospitalist. The case was discussed and diagnostics were reviewed. The patient was evaluated in the ER for further treatment. Exam and history seem consistent with sepsis from right lower leg cellulitis. Patient no signs of cellulitis on abdominal exam or pelvic external exam. Library Clerical Assistant Carrol nurse present. Patient was started on antibiotics. Medicine was consulted. She will be evaluated for admission. Patient and family are agreeable. Impression & Plan Sepsis, Cellulitis of leg Discharge Plan Visit Data Chief Complaint: Fever Stated Complaint: Altered mental status, Lethargic ED Provider: Danilo Salmeron ED Midlevel Provider: Carol Eller Discharge Problem: Sepsis, Cellulitis of leg Patient Disposition: Being Evaluated by Hospitalist Condition: Fair Forms Stand Alone Forms: [facility] [place] [employer] Prescriptions Prescriptions: No Action metoprolol succinate 25 mg tablet extended release 24 hr 25 mg PO QAM Qty: 90 RF: 3 levothyroxine 50 mcg tablet 50 mcg PO DAILY Qty: 90 RF: 3 famotidine 20 mg tablet 20 mg PO DAILY Qty: 90 RF: 3 isosorbide mononitrate 60 mg tablet extended release 24 hr 60 mg PO QAM Qty: 90 RF: 3 meclizine 25 mg tablet 12.5 - 25 mg PO QID PRN (Reason: Dizziness Or Vertigo) Qty: 30 RF: 5 simvastatin 40 mg tablet 40 mg PO HS Qty: 90 RF: 3 gabapentin 100 mg capsule 200 mg PO TID Qty: 180 RF: 3 losartan 50 mg tablet 50 mg PO DAILY Qty: 90 RF: 3 tramadol 50 mg tablet 50 mg PO BID PRN (Reason: pain) Qty: 20 RF: 0 diclofenac sodium 1 % gel 2 g topical QID Qty: 100 RF: 2 nitroglycerin [Nitrostat] 0.3 mg Tablet, Sublingual 0.3 mg Sublingual DIRECTED MDD 3 DOSES PRN (Reason: Chest Pain) RF: 0 cyanocobalamin (vitamin B-12) [Vitamin B-12] 500 mcg Tablet 500 mcg PO QAM RF: 0 ropinirole 1 mg Tablet 3 mg PO HS RF: 0 aspirin 81 mg Tablet,Delayed Release (Dr/Ec) 81 mg PO DAILY RF: 0 furosemide 20 mg tablet 20 mg PO DAILY RF: 0 hydrochlorothiazide 12.5 mg tablet 12.5 mg PO DAILY RF: 0 Xiidra 5 % dropperette 1 drp OPB BID RF: 0 ropinirole 1 mg tablet 1 mg PO QDL RF: 0 Myrbetriq 25 mg tablet extended release 24 hr 25 mg PO DAILY RF: 0 Referrals Referrals: Salena Ruelas CRNP [Primary Care Provider] - Discharge Problem: Sepsis Qualifiers: Sepsis type: sepsis due to unspecified organism Sepsis acute organ dysfunction status: unspecified Qualified Code(s): A41.9 - Sepsis, unspecified organism Cellulitis of leg Qualifiers: Laterality: right Qualified Code(s): L03.115 - Cellulitis of right lower limb
--- NOTE | 2021-05-19 01:05 | Emergency Department Note ---
ED Visit Note Patient was seen by our PA/BLUNGER MACHINE OPERATOR. I was involved in the patient's care and did evaluate the patient myself. I was involved in the care throughout the ER stay. The patient appears to have a right lower extremity cellulitis. This has caused her leukocytosis and presentation. Hospitalization is warranted. . : Sepsis Qualifiers: Sepsis type: sepsis due to unspecified organism Sepsis acute organ dysfunction status: unspecified Qualified Code(s): A41.9 - Sepsis, unspecified organism Cellulitis of leg Qualifiers: Laterality: right Qualified Code(s): L03.115 - Cellulitis of right lower limb
--- NOTE | 2021-05-19 02:50 | History & Physical Report ---
Date of Service May 19, 2021 Assessment & Plan (1) Sepsis: Mrs. Yu is an 86 yo woman with a PMHX of low grade bladder cancer who presented with malaise, lethargy and confusion several hours after having a surveillance cystoscopy. - SIRS criteria met on admission (WBC, RR) - source: appears to be R LE cellulitis. CXR neg for consolidation. UA without evidence of infection. Cat scan of abdomen and pelvis also noted fat stranding along right pelvic wall with some enlarged lymph nodes in R inguinal region, suggestive of an infectious/inflammatory process. Appendix appeared normal. Given cystoscopy earlier in the day, I will consult urology to have their opinion on possible procedure complication/involvement. - I demarcated the skin to show boundary of erythema on R LE - trend CBC, follow blood cultures - lactate not elevated - procal ordered - continue IVF - continue Zosyn (covers gram positive, which is likely source of cellulitis and anaerobes, which is potentially necessary given findings in pelvis on CT scan) (2) Cellulitis of leg: (3) Hypertension: - continue home HCTZ, losartan (4) Hypothyroidism: - continue home synthroid (5) CAD (coronary artery disease): - history of stent placement - continue ASA, statin, imdur and metoprolol (6) GERD (gastroesophageal reflux disease): - continue home famotidine (7) Peripheral neuropathy: - continue home gabapentin (8) Urinary incontinence: - continue home myrbetriq Diet: Heart Healthy Dispo: Med/Surg DVT ppx: Heparin Code: DNR/DNI History of Present Illness Primary Care Provider: ROSALIE Lopez Mrs. Yu is an 86 yo woman with a PMHx of low grade bladder cancer who presented for lethargy, confusion, malaise and chills. Of note, she underwent a surveillance cystoscopy with Dr. Fowler on 05/18/21 which showed mild urethritis/irritation at bladder neck, but no masses lesions tumors or other areas concern throughout bladder. No complications were noted with this procedure. Presumably, symptoms started after she returned home from the procedure. She denies any known sick contacts. No known recent tick bites. She is a non- smoker, no Etoh use. In the ED, she was mildly febrile to 37.7, HR was normal, sys BP was 120 and RR was 29. Her WBC 17 with neutrophil predom. Her Lactate was 1.8. UA showed no concern for infection. COVID neg. Blood cultures were drawn. Trop was undetectable. Creatine was 1.4 (near her baseline). K was low at 3.4. CXR showed no consolidation. Chest CT showed evidence of dependent atelectasis. A/P CT showed subcutaneous fat stranding in the R inguinal region as well ass R pelvic sidewall inflammation. No abscess formation. No free fluid in the pelvis. A right LE venous duplex showed no evidence of DVT.. She was given 1 liter of NSS and started on Zosyn. Allergies Allergy/AdvReac Type Severity Reaction Status Date / Time atorvastatin [From Lipitor] Allergy Unknown ON [facility] Verified 05/18/21 23:00 LIST celecoxib [From Celebrex] Allergy Unknown ON [facility] Verified 05/18/21 23:00 LIST Iodine and Iodide Containing Allergy Unknown ON [facility] Verified 05/18/21 23:00 Produc LIST Home Medications Medication Instructions Recorded Confirmed Type cyanocobalamin (vitamin B-12) 500 mcg PO QAM 11/14/18 05/18/21 History [Vitamin B-12] nitroglycerin [Nitrostat] 0.3 mg SUBLINGUAL DIRECTED PRN 11/14/18 05/18/21 History MDD 3 DOSES metoprolol succinate 25 mg 25 mg PO QAM #90 tab 07/30/20 05/18/21 Rx tablet,extended release 24 hr levothyroxine 50 mcg tablet 50 mcg PO DAILY #90 tab 09/02/20 05/18/21 Rx famotidine 20 mg tablet 20 mg PO DAILY #90 tab 10/18/20 05/18/21 Rx isosorbide mononitrate 60 mg 60 mg PO QAM #90 tab 11/15/20 05/18/21 Rx tablet,extended release 24 hr meclizine 25 mg tablet 12.5 - 25 mg PO QID PRN #30 tab 11/15/20 05/18/21 Rx simvastatin 40 mg tablet 40 mg PO HS #90 tab 11/15/20 05/18/21 Rx gabapentin 100 mg capsule 200 mg PO TID #180 cap 01/04/21 05/18/21 Rx losartan 50 mg tablet 50 mg PO DAILY #90 tab 01/04/21 05/18/21 Rx aspirin 81 mg PO DAILY 02/28/21 05/18/21 History furosemide 20 mg PO DAILY 02/28/21 05/18/21 History hydrochlorothiazide 12.5 mg PO DAILY 02/28/21 05/18/21 History lifitegrast [Xiidra] 1 drp OPB BID 02/28/21 05/18/21 History mirabegron [Myrbetriq] 25 mg PO DAILY 02/28/21 05/18/21 History ropinirole 1 mg PO QDL 02/28/21 05/18/21 History ropinirole 3 mg PO HS 02/28/21 05/18/21 History tramadol 50 mg tablet 50 mg PO BID PRN #20 tab 03/17/21 05/18/21 Rx diclofenac sodium 1 % topical gel 2 g TOPICAL QID #100 g 04/11/21 05/18/21 Rx Past Med/Surg History Medical History (Updated 05/19/21 @ 17:57 by Verónica Serrato) Carotidynia Congestive heart failure Dyspnea on exertion Hypercalcemia Sciatic leg pain Urinary incontinence Surgical History History of appendectomy History of carpal tunnel surgery History of dilatation and curettage History of partial colectomy History of total abdominal hysterectomy and bilateral salpingo-oophorectomy History of total knee arthroplasty Status post laser cataract surgery of both eyes Family History Father Prostate cancer Myocardial infarction Mother Cancer Other No significant family history Denies family history of Ovarian cancer Kidney disease Breast cancer Colorectal cancer Social History Smoking Status: Never smoker Second Hand Exposure: No; Hx Alcohol Use: No Hx Substance Use: No Preferred Language: Tongan Communication Ability: Effective Goldsmith Apprentice Required: No Beliefs That Will Affect Care: None marital status: Current Living Situation: Spouse Current Living Situation Comment: with current occupational status: other current occupation: housewife How many Children do You have: 3 Other Information That Helps Us Care for You: No Feels Safe at Home: Yes Safety Concerns: Feels Safe At This Time Childhood Exposure to Second-Hand Smoke: Yes caffeine: Yes Dental Care, Regularly: No Seatbelt Use: sometimes Sunscreen Use: No Assistive Devices: Denture - Upper and Denture - Lower Review of Systems Constitutional: + chills, + body aches, + malaise and + weakness Respiratory: no cough Cardiovascular: no chest pain and no dyspnea on exertion Gastrointestinal: no abdominal pain, no nausea, no vomiting and no diarrhea/loose stools Physical Exam Constitutional: WD/WN, vitals as above cooperative; no acute distress Eyes: + anicteric sclerae ENMT: external ear and nose normal, oropharynx normal Neck: normal visual inspection and trachea midline Respiratory: normal respiratory effort; no respiratory distress Auscultation: + wheezes (on expiration in b/l lower lung barakat) Cardiovascular: Rate/Rhythm: regular rate and regular rhythm Heart Sounds: normal S1, normal S2 and + murmur (systolic ejection, radiates to neck) Gastrointestinal (Abdomen): Inspection/Auscultation: abdomen normal to inspection and normal bowel sounds Percussion/Palpation: + abdomen tender (RLQ) and abdomen soft; no guarding Skin: + erythema (confluent area on R LE below the knee. Warm to the touch) Neurologic: moves all extremities Psychiatric: A+Ox3, euthymic affect Genitourinary: There is a pure-wick system in place Results & Data Results & Data ([facility]) Vital Signs (Past 12 Hours) Vital Signs Temp Pulse Pulse Resp BP BP Pulse Ox 05/18/21 22:22 85 20 96 05/18/21 22:06 37.7 C H 87 87 29 H 120/56 L 120/56 L 95 Supervising Physician Co-Signing Physician Notes Attending addendum: I have physically seen this patient, have supervised the medical residents activities, and agree with the H&P unless as otherwise noted. Assessment and Plan: Sepsis/right lower extremity cellulitis- Zosyn 4.5 g IV every 8 hours Famotidine 20 mg IV every 12 hours Zofran 4 mg IV every 6 hours as needed IV fluids CAD/stent placement/hypertension- Continue aspirin, Imdur, losartan and metoprolol with hold parameters Hold HCTZ Remaining orders and notations as noted Resident Activity Tracking Resident Involvement: Resident Care Provided Care Provided: Adult Hospital Medicine (1) Cellulitis of leg Laterality: right Qualified Code(s): L03.115 - Cellulitis of right lower limb (2) Sepsis Sepsis acute organ dysfunction status: unspecified Sepsis type: sepsis due to unspecified organism Qualified Code(s): A41.9 - Sepsis, unspecified organism
[2021-05-19] MEDS ORDERED: NSS + 20MEQ KCL 20 MEQ/1,000 ML BAG IV SCH (03:43)
[2021-05-19] MEDS ORDERED: ONDANSETRON INJ 2 MG/ML 2 ML VIAL IV PRN (03:43)
[2021-05-19] MEDS ORDERED: POLYETHYLENE (MIRALAX) 17 GM PACK PO PRN (03:43)
[2021-05-19] MEDS ORDERED: ACETAMINOPHEN 325 MG TAB PO PRN (03:43)
[2021-05-19] MEDS: LEVOTHYROXINE SODIUM 50 MCG TABLET PO SCH (05:26)
[2021-05-19] MEDS: PIPERACILLIN/TAZOBACTAM 4.5 GM in DEXTROSE 5% 100 ML IV SCH ×2 (05:26→12:22)
--- NOTE | 2021-05-19 06:55 | Ultrasound Report ---
US venous doppler LE RT HISTORY: 86 years-old Female pain/swelling acute pain and swelling of the right lower extremity COMPARISON: 06/06/2016 TECHNIQUE: Multiple real-time sonographic images of the right lower extremity deep venous structures were obtained assessing grayscale appearance, color and spectral flow FINDINGS: Normal flow, compressibility, phasicity and augmentation. IMPRESSION: No sonographic evidence of deep venous thrombosis. ACT 112: Negative or not required by law. The above report was generated using voice recognition software. It may contain grammatical, syntax o r spelling errors. Electronically signed by: Christiano Ricketts M.D. 05/19/2021 6:54 AM
[2021-05-19] MEDS: HEPARIN SOD 5,000 UNIT/0.5 ML VIAL SQ SCH ×2 (08:06→20:30)
[2021-05-19] MEDS: METOPROLOL SUCC 25MG EXT REL TAB PO SCH (08:07)
[2021-05-19] MEDS: hydroCHLOROthiazide 25 MG TAB PO SCH (08:07)
[2021-05-19] MEDS: GABAPENTIN 100 MG CAP PO SCH ×3 (08:07→20:30)
[2021-05-19] MEDS: LOSARTAN POTASSIUM 50 MG TAB PO SCH (08:07)
[2021-05-19] MEDS: ISOSORBIDE MONO EXTENDED REL 60 MG TABCR PO SCH (08:07)
[2021-05-19] MEDS: MIRABEGRON ER 25 MG TAB PO SCH (08:07)
[2021-05-19] MEDS: CYANOCOBALAMIN 500 MCG TABLET (VITAMIN B-12) PO SCH (08:08)
[2021-05-19] MEDS: FAMOTIDINE 20 MG TAB PO SCH (08:08)
[2021-05-19] MEDS: FUROSEMIDE 20 MG TAB PO SCH (08:08)
[2021-05-19] MEDS: ASPIRIN 81 MG ECTAB PO SCH (08:08)
--- NOTE | 2021-05-19 08:26 | XRay Report ---
SINGLE VIEW CHEST CLINICAL HISTORY: Sepsis. FINDINGS: An AP, portable, upright chest radiograph is compared to study dated 04/12/2021. The examina tion is degraded by portable technique and patient rotation. The heart is top normal for projection noting atherosclerotic calcification of the thoracic aorta. There is bibasilar scarring/atelectasis. No airspace consolidation or large pleural effusion is identified. No pneumothorax is seen. The skel etal structures are osteopenic. The bony thorax is grossly intact. IMPRESSION: No active disease in the chest. ACT 112: Negative or not required by law. Electronically signed by: Danilo Benjamin M.D. 05/19/2021 8:24 AM
--- NOTE | 2021-05-19 08:47 | CT Scan Report ---
CT SCAN OF THE CHEST WITHOUT IV CONTRAST CLINICAL HISTORY: Sepsis. COMPARISON STUDY: Chest CT dated 09/25/2018. Chest x-ray dated 05/18/2021. TECHNIQUE: CT scan of the thorax was performed from the thoracic inlet to the upper abdomen. Images are reviewed in the axial, sagittal, and coronal planes. IV contrast was not administered for this ex amination as per the referring clinician. A dose lowering technique was utilized adhering to the reading [facility] of OLIVIA. FINDINGS: Thyroid: Mildly enlarged and heterogeneous. Low-attenuation thyroid nodules measure up to 2 cm. These are similar to the 2018 examination. Thoracic aorta: There is atherosclerotic calcification of the thoracic aorta, which is normal in [place] and demonstrates standard 3-vessel arch anatomy. Heart: The heart is top normal in size and without pericardial effusion. The coronary arteries are de nsely calcified. Lungs and pleural spaces: Evaluation of the lung parenchyma is modestly degraded by motion artifact. There is no airspace consolidation or pleural effusion. The trachea and central airways are clear. Sc arring/atelectasis is noted at the lung bases. Mediastinum: There is no mediastinal lymphadenopathy. Ivonne: Not well assessed without IV contrast. Axillae: There is no axillary lymphadenopathy. Upper abdomen: There is a tiny hiatal hernia. The liver is steatotic. See report of abdominal CT perf ormed concurrently for detailed intra-abdominal findings. Skeletal structures: The skeletal structures are osteopenic. Spondylotic change is seen throughout th e thoracic spine. Arthritic change is noted in the shoulders. No lytic or blastic bony lesions are se en. IMPRESSION: 1. There is no airspace consolidation typical for pneumonia or pleural effusion. 2. No mediastinal adenopathy is identified. 3. Advanced coronary artery calcification. 4. Hepatic steatosis. 5. Additional findings as above. ACT 112: Negative or not required by law. Electronically signed by: Danilo Benjamin M.D. 05/19/2021 8:46 AM
--- NOTE | 2021-05-19 08:49 | CT Scan Report ---
ABDOMEN AND PELVIS CT WITHOUT CONTRAST CT DOSE: 1346.41 mGy.cm HISTORY: Acute fever with generalized abdominal pain fever, abd pain TECHNIQUE: Multiaxial CT images of the abdomen and pelvis were performed without contrast. A dose lo wering technique was utilized adhering to the principles of ALARA. COMPARISON STUDY: Chest CT of same day, CT abdomen and pelvis 08/01/2017 FINDINGS: Limited evaluation of the solid abdominal organs without the use of IV contrast. Hepatic st eatosis. Mildly distended gallbladder. No cholelithiasis or gallbladder wall thickening. Indeterminat e ill-defined 1.6 cm hypoattenuating lesion of the mid to inferior spleen which appears similar in si ze to the 2017 exam, likely benign. Moderate generalized pancreatic atrophy. Unremarkable adrenal gla nds. Nonspecific perinephric stranding is noted bilaterally. No renal or ureteral calculi or hydronephrosi s. Decompressed urinary bladder with mild wall thickening. Air within the nondependent bladder. Uteru s appears surgically absent. Calcified plaque the abdominal aorta. Unremarkable IVC. There are a few prominent iliac chain lymph nodes on the right measuring up to 8 mm. Prominent and mildly enlarged ri ght inguinal chain lymph nodes measure up to 1.8 x 1.1 cm. Mild subcutaneous stranding of the right i nguinal tissues. No fluid collection. There is no bowel obstruction or bowel wall thickening. Extensive colonic diverticulosis. There is mi ld inflammatory stranding adjacent to a diverticulum within the proximal sigmoid on image 197. The ap pendix is not definitively seen. Scattered small large bowel air-fluid levels. Degenerative changes o f the spine, pelvis and hips. Lumbar levoscoliosis. IMPRESSION: 1. Extensive colonic diverticulosis. Mild inflammatory stranding adjacent to the proximal sigmoid is suspicious for acute diverticulitis. This finding was called/faxed to the emergency department at [facility]. 2. Right iliac and inguinal chain adenopathy with inflammatory stranding of the right inguinal tissue s is suspicious for cellulitis. No abscess. 3. Hepatic steatosis. 4. Distended gallbladder without cholelithiasis identified. 5. Air within the urinary bladder may be secondary to recent instrumentation versus gas forming organ ism. Correlate with urinalysis. 6. Additional findings as above. ACT 112: Negative or not required by law. The above report was generated using voice recognition software. It may contain grammatical, syntax o r spelling errors. Electronically signed by: Christiano Ricketts M.D. 05/19/2021 8:47 AM
--- NOTE | 2021-05-19 11:00 | Urology Consultation ---
Date of Consultation May 19, 2021 Assessment & Plan (1) Bladder cancer: 86 year old female with multiple comorbidities admitted for sepsis secondary to right lower extremity cellulitis. - Recent outpatient surveillance cystoscopy on 05/18 - CTAP reviewed with Dr. Fowler - adenopathy unrelated to recent cystoscopy, likely consistent with right lower extremity cellulitis - UA not suggestive of infection - Blood cultures pending - continue antibiotics per primary team - No indication for acute intervention - Recommend bladder scan prn - Continue supportive care and management per primary team - Thank you for allowing us to participate in the acute care of Ms. Yu. Please reconsult us with additional questions, concerns or changes in patient status. History of Present Illness Reason for Consultation: Recent cystoscopy, CT finding of pelvic infection Requesting Physician: Dr. Yepez Attending Physician: Avila Lund DO History of Present Illness This is an 86 year old female with past medical history of bladder cancer, CAD, hyperparathyroidism, impaired fasting glucose, hypertension, CKD stage III, hypothyroidism, GERD, hyperlipidemia, depression and urinary incontinence admitted for sepsis secondary to right lower extremity cellulitis. Patient presented to [facility] ED on 05/19/21 with c/o weakness, lethargy, altered mental status and fever/chills. Patient is known to our service for history of bladder cancer. She had a surveillance cystoscopy on 05/[address] Fowler. Afebrile on arrival. Lab work showed creatinine 1.44, WBC 17.82, Hgb 12.9. UA showed 5-10 RBCS, 5-10 epithelials; negative for nitrates, leukocytes and bacteria. No urine culture collected. Blood cultures obtained. CTAP showed right iliac and inguinal chain adenopathy with inflammatory stranding of the right inguinal tissues is suspicious for cellulitis, no abscess. Air within the urinary bladder c/w recent urological procedure. She met SIRS criteria and was admitted by hospital medicine for sepsis secondary to right lower extremity cellulitis. Our service is consulted due to recent cystoscopy and concern for pelvic infection on CT. Chart review: Afebrile Creatinine 1.20 WBC 12.55 Hgb 11.1 BCx pending On IV Zosyn Patient seen and examined at bedside. She is awake, alert and sitting up in bed eating lunch. Reports feeling improved today. No flank or abdominal pain. No dysuria or hematuria. She voided without difficulty earlier. She feels like her bladder is full now and will void after lunch. No nausea or vomiting. No fever or chills. No leg pain. No additional concerns today. Allergies Allergy/AdvReac Type Severity Reaction Status Date / Time atorvastatin [From Lipitor] Allergy Unknown ON [facility] Verified 05/18/21 23:00 LIST celecoxib [From Celebrex] Allergy Unknown ON [facility] Verified 05/18/21 23:00 LIST Iodine and Iodide Containing Allergy Unknown ON [facility] Verified 05/18/21 23:00 Produc LIST Home Medications Medication Instructions Recorded Confirmed Type cyanocobalamin (vitamin B-12) 500 mcg PO QAM 11/14/18 05/18/21 History [Vitamin B-12] nitroglycerin [Nitrostat] 0.3 mg SUBLINGUAL DIRECTED PRN 11/14/18 05/18/21 History MDD 3 DOSES metoprolol succinate 25 mg 25 mg PO QAM #90 tab 07/30/20 05/18/21 Rx tablet,extended release 24 hr levothyroxine 50 mcg tablet 50 mcg PO DAILY #90 tab 09/02/20 05/18/21 Rx famotidine 20 mg tablet 20 mg PO DAILY #90 tab 10/18/20 05/18/21 Rx isosorbide mononitrate 60 mg 60 mg PO QAM #90 tab 11/15/20 05/18/21 Rx tablet,extended release 24 hr meclizine 25 mg tablet 12.5 - 25 mg PO QID PRN #30 tab 11/15/20 05/18/21 Rx simvastatin 40 mg tablet 40 mg PO HS #90 tab 11/15/20 05/18/21 Rx gabapentin 100 mg capsule 200 mg PO TID #180 cap 01/04/21 05/18/21 Rx losartan 50 mg tablet 50 mg PO DAILY #90 tab 01/04/21 05/18/21 Rx aspirin 81 mg PO DAILY 02/28/21 05/18/21 History furosemide 20 mg PO DAILY 02/28/21 05/18/21 History hydrochlorothiazide 12.5 mg PO DAILY 02/28/21 05/18/21 History lifitegrast [Xiidra] 1 drp OPB BID 02/28/21 05/18/21 History mirabegron [Myrbetriq] 25 mg PO DAILY 02/28/21 05/18/21 History ropinirole 1 mg PO QDL 02/28/21 05/18/21 History ropinirole 3 mg PO HS 02/28/21 05/18/21 History tramadol 50 mg tablet 50 mg PO BID PRN #20 tab 03/17/21 05/18/21 Rx diclofenac sodium 1 % topical gel 2 g TOPICAL QID #100 g 04/11/21 05/18/21 Rx Patient History Medical History Carotidynia Congestive heart failure Dyspnea on exertion Hypercalcemia Sciatic leg pain Urinary incontinence Surgical History History of appendectomy History of carpal tunnel surgery History of dilatation and curettage History of partial colectomy History of total abdominal hysterectomy and bilateral salpingo-oophorectomy History of total knee arthroplasty Status post laser cataract surgery of both eyes Family History Father Prostate cancer Myocardial infarction Mother Cancer Other No significant family history Denies family history of Ovarian cancer Kidney disease Breast cancer Colorectal cancer Social History Smoking Status: Never smoker Second Hand Exposure: No; Hx Alcohol Use: No Hx Substance Use: No Preferred Language: Panamanian Communication Ability: Effective Glass Melt Operator Required: No Beliefs That Will Affect Care: None marital status: Current Living Situation: Spouse Current Living Situation Comment: with current occupational status: other current occupation: housewife How many Children do You have: 3 Other Information That Helps Us Care for You: No Feels Safe at Home: Yes Safety Concerns: Feels Safe At This Time Childhood Exposure to Second-Hand Smoke: Yes caffeine: Yes Dental Care, Regularly: No Seatbelt Use: sometimes Sunscreen Use: No Assistive Devices: Denture - Upper and Denture - Lower Review of Systems Constitutional: as per Subjective / HPI Cardiovascular: as per Subjective / HPI Gastrointestinal: as per Subjective / HPI Genitourinary: as per Subjective / HPI Musculoskeletal: as per Subjective / HPI Integumentary: as per Subjective / HPI Physical Exam Constitutional: well developed, well nourished and comfortable; no acute distress and not ill appearing Respiratory: normal respiratory effort and able to speak in complete sentences; no respiratory distress and no labored breathing Cardiovascular: Bilateral lower extremity edema, right greater than left. Gastrointestinal (Abdomen): Inspection/Auscultation: abdomen normal to inspection; abdomen not distended Percussion/Palpation: abdomen soft; abdomen nontender and no guarding Musculoskeletal: Head/Neck/Chest: normocephalic and head atraumatic Skin: Erythema and warmth to right lower extremity Neurologic: moves all extremities and awake Psychiatric: Orientation: alert and oriented x 3 Genitourinary: no CVA tenderness Results & Data ([facility]) Vital Signs (Past 12 Hours) Vital Signs Temp Pulse Pulse Resp BP BP BP 05/19/21 07:00 36.6 C 69 18 106/69 05/19/21 03:59 36.5 C 69 22 118/66 05/19/21 02:10 74 20 120/66 05/19/21 01:30 70 20 05/19/21 01:00 71 24 05/19/21 00:30 72 23 05/19/21 00:00 75 21 05/18/21 23:30 77 21 05/18/21 23:00 81 25 H Pulse Ox 05/19/21 07:00 99 05/19/21 03:59 97 05/19/21 02:10 96 05/19/21 01:30 95 05/19/21 01:00 96 05/19/21 00:30 97 05/19/21 00:00 98 05/18/21 23:30 96 05/18/21 23:00 96 PG Care Time/CCT Total # of Minutes Spent Total Time Spent with Patient: Total time spent is greater than 50% in coordination of care (as documented) at patient's floor/unit and/or counseling patient: Coding Level of Care Code 03631 Initial Inpt Care Lvl 3 Diagnoses Bladder cancer C67.9
[2021-05-19 11:50] LABS: Basophils # (auto) 0.02 K/uL (0-0.2); Basophils % (auto) 0.2 %; Eosinophils # (auto) 0.04 K/uL (0-0.5); Eosinophils % (auto) 0.3 %; Hematocrit (blood only) 34.4 % (37-47); Hemoglobin 11.1 g/dL (12.0-16.0); Immature Granulocytes # (auto) 0.04 K/uL (0.00-0.02); Immature Granulocytes % (auto) 0.3 %; Lymphocytes # (auto) 1.59 K/uL (1.2-3.4); Lymphocytes % (auto) 12.7 %; Mean Corpuscular Hemoglobin 32.5 pg (25-34); Mean Corpuscular Hgb Conc 32.3 g/dL (32-36); Mean Corpuscular Volume 100.6 fL (80-100); Mean Platelet Volume 9.5 fL (7.4-10.4); Monocytes # (auto) 0.47 K/uL (0.11-0.59); Monocytes % (auto) 3.7 %; Neutrophils # (auto) 10.39 K/uL (1.4-6.5); Neutrophils % (auto) 82.8 %; Platelet Count 151 K/uL (130-400); RDW Coefficient of Variation 14.5 % (11.5-14.5); RDW Standard Deviation 53.6 fL (36.4-46.3); Red Blood Count 3.42 M/uL (4.2-5.4); White Blood Count 12.55 K/uL (4.8-10.8)
[2021-05-19 12:15] LABS: BUN Creatinine Ratio 19.1 (10-20); Creatinine Clr Calc Pharmacy 34.9 ml/min; Est GFR (African American) 47.7 ml/min; Est GFR (Non-African American) 41.2 ml/min; Potassium 3.9 mmol/L (3.5-5.1)
[2021-05-19] MEDS: rOPINIRole HCL 1 MG TABLET PO SCH (12:23)
[2021-05-19] MEDS ORDERED: NITROGLYCERIN SL 0.4 MG/TAB TAB SL STA (14:06)
[2021-05-19] MEDS: cephALEXin 250 MG CAP PO SCH ×2 (17:14→20:29)
--- NOTE | 2021-05-19 17:59 | Medical Student Progress Note ---
Date of Service May 19, 2021 Assessment & Plan (1) Sepsis: Patient is improving (WBC 17 on admission, 12.55 today) with temperature within normal range. Patient's lack of abdominal symptoms make diverticulitis unlikely source of infection, and lack of uninary symptoms make cystoscopy unlikely source of infection. Sepsis due to cellulitis. -Patient is very anxious about going home, plan to stay one more night and monitor. -Trend CBC Sepsis acute organ dysfunction status: unspecified Sepsis type: sepsis due to unspecified organism Qualified Code(s): A41.9 - Sepsis, unspecified organism (2) Cellulitis of leg: Cellulitis is improving with Zosyn. -Switch to oral medication, cefalexin. -Continue to monitor cellulitis for improvement on oral medication before discharge. Laterality: right Qualified Code(s): L03.115 - Cellulitis of right lower limb (3) Jaw pain: -Jaw pain resolved after administration of nitroglycerin. -ECG obtained, normal. (4) Weakness: Patient feels weak and is concerned about her ability to resume normal activities. -PT/OT tomorrow Admission and Anticipated Discharge Date Admission Date: May 19, 2021 Supervising Attestation I personally examined the patient and verified all arora points of history and exam, discussed case, and agree with decision making with Rommel Serrato MS2 Leg less red and swollen. Still hurts some. Mentally seems sound now. Discussed plan, answered all questions to the best my ability. Vitals noted, in general she is awake and alert pleasant no distress. HEENT normocephalic atraumatic mucous membranes moist. Breathing unlabored no accessory muscle use good effort. Extremities show her right lower extremity to have resolving erythema well below prior line of demarcation. Sepsis present on admissionappears to be due to right lower extremity cellulitis, and given her confusion and lethargy on admission, she may have had a mild metabolic encephalopathy present on admission that has since resolved. She is improving on a beta-lactamfortunately while she was started on Zosyn for concerns of both her extremity cellulitis and a question of something intra- abdominal, the choice of utilizing something that would only cover MSSA became very helpful in being able to narrow her antibiotics now that it is clear there is nothing abdominal at play. Will reduce to first generation cephalosporin, hopefully home tomorrow. CKD stage IIIappears to be overall stable. Outpatient follow-up. Morbid obesity with BMI of 40driving her lymphedema/venous stasis, which was probably part of what allowed the portal of entry for her leg cellulitis. Dispositionstable for medical, hopefully home tomorrow. PT/OT eval and treat. Subjective The patient is an 86 year old woman with a history of low grade bladder cancer presented last night for fever and lower right limb cellulitis. At the ED she met SIRS criteria (elevated white count, fever). She was admitted and started on Zosyn. Imaging showed no suspicion of appendicitis, but evidence of diverticulosis and diverticulitis. The patient has no abdominal symptoms. Urology consulted, does not believe urinary source of infection. This morning she felt well, her only complaint is that she is a little cold. Later she reported acute onset of left jaw pain, for which she takes nitroglycerin at home. She was given nitroglycerin and an ECG was performed, which was normal. The pain resolved. Patient is anxious about returning home in her current state. She feels very weak and is unsure about her ability to resume normal activities. Review of Systems Review of Systems: All systems reviewed & are unremarkable except as noted in HPI & below Hematologic / Lymphatic: Patient reports that she has a nurse visit her home for lymphedema therapy. Physical Exam Constitutional: WD/WN, vitals as above Oriented to person, place, and year but not to day. ENMT: external ear and nose normal, oropharynx normal Neck: normal visual inspection Respiratory: normal respiratory effort, lungs clear to auscultation Cardiovascular: Rate/Rhythm: regular rate and regular rhythm Extremities: + pedal edema Gastrointestinal (Abdomen): normal bowel sounds, soft, nontender, no hep atosplenomegaly Musculoskeletal: Right leg is warm, erythematous, and swollen. Redness has retreated somewhat from the latoya placed last night. Skin: Right leg erythematous distally. Psychiatric: A+Ox3, euthymic affect Results & Data ([facility]) Vital Signs (Past 12 Hours) Vital Signs Temp Pulse Resp BP Pulse Ox 05/19/21 15:09 36.6 C 75 18 116/62 90 05/19/21 14:02 37.1 C 72 18 122/71 05/19/21 07:00 36.6 C 69 18 106/69 99
--- NOTE | 2021-05-19 19:34 | Billing Data ---
Date of Service May 19, 2021 Coding Level of Care Code 42959 Subseq Hosp Care Lvl 3
--- NOTE | 2021-05-19 20:03 | Billing Data ---
Date of Service May 19, 2021 Coding Level of Care Code 90485 Initial Inpt Care Lvl 3
[2021-05-19] MEDS ORDERED: SIMVASTATIN 40 MG TAB PO SCH (21:00)
[2021-05-19] MEDS ORDERED: rOPINIRole HCL 1 MG TABLET PO SCH (21:00)
--- NOTE | 2021-05-20 05:53 | Electrocardiogram Report ---
Test Reason : Blood Pressure : / mmHG Vent. Rate : 088 BPM Atrial Rate : 088 BPM P-R Int : 186 ms QRS Dur : 086 ms QT Int : 338 ms P-R-T Axes : 056 046 044 degrees QTc Int : 408 ms Normal sinus rhythm Nonspecific T wave abnormality Abnormal ECG When compared with ECG of 28-FEB-2021 11:22, MO interval has decreased Vent. rate has increased BY 37 BPM Confirmed by Del Finch ([id number]) on 05/20/2021 5:53:23 AM Referred By: REFERRED SELF Confirmed By:Del Finch
[2021-05-20] MEDS: LEVOTHYROXINE SODIUM 50 MCG TABLET PO SCH (06:11)
--- NOTE | 2021-05-20 06:19 | Electrocardiogram Report ---
Test Reason : Blood Pressure : / mmHG Vent. Rate : 070 BPM Atrial Rate : 070 BPM P-R Int : 208 ms QRS Dur : 090 ms QT Int : 384 ms P-R-T Axes : 059 062 047 degrees QTc Int : 414 ms Normal sinus rhythm Nonspecific T wave abnormality Abnormal ECG When compared with ECG of 18-MAY-2021 21:47, No significant change was found Confirmed by Del Finch ([id number]) on 05/20/2021 6:18:47 AM Referred By: REFERRED SELF Confirmed By:Del Finch
[2021-05-20 07:25] LABS: Hematocrit (blood only) 34.5 % (37-47); Hemoglobin 11.3 g/dL (12.0-16.0); Mean Corpuscular Hemoglobin 32.3 pg (25-34); Mean Corpuscular Hgb Conc 32.8 g/dL (32-36); Mean Corpuscular Volume 98.6 fL (80-100); Mean Platelet Volume 9.8 fL (7.4-10.4); Platelet Count 150 K/uL (130-400); RDW Coefficient of Variation 14.5 % (11.5-14.5); RDW Standard Deviation 52.3 fL (36.4-46.3); White Blood Count 8.41 K/uL (4.8-10.8)
[2021-05-20 07:41] LABS: BUN Creatinine Ratio 16.4 (10-20); Calcium 9.7 mg/dl (8.5-10.1); Creatinine Clr Calc Pharmacy 35.8 ml/min; Est GFR (African American) 49.2 ml/min; Est GFR (Non-African American) 42.5 ml/min; Potassium 4.1 mmol/L (3.5-5.1)
[2021-05-20] MEDS: FUROSEMIDE 20 MG TAB PO SCH (08:28)
[2021-05-20] MEDS: cephALEXin 250 MG CAP PO SCH ×2 (08:29→12:54)
[2021-05-20] MEDS: GABAPENTIN 100 MG CAP PO SCH ×2 (08:29→12:54)
[2021-05-20] MEDS: HEPARIN SOD 5,000 UNIT/0.5 ML VIAL SQ SCH (08:29)
[2021-05-20] MEDS: LOSARTAN POTASSIUM 50 MG TAB PO SCH (08:29)
[2021-05-20] MEDS: FAMOTIDINE 20 MG TAB PO SCH (08:29)
[2021-05-20] MEDS: CYANOCOBALAMIN 500 MCG TABLET (VITAMIN B-12) PO SCH (08:30)
[2021-05-20] MEDS: ASPIRIN 81 MG ECTAB PO SCH (08:30)
[2021-05-20] MEDS: METOPROLOL SUCC 25MG EXT REL TAB PO SCH (08:30)
[2021-05-20] MEDS: ISOSORBIDE MONO EXTENDED REL 60 MG TABCR PO SCH (08:30)
[2021-05-20] MEDS: hydroCHLOROthiazide 25 MG TAB PO SCH (08:30)
[2021-05-20] MEDS: MIRABEGRON ER 25 MG TAB PO SCH (08:30)
[2021-05-20] MEDS: rOPINIRole HCL 1 MG TABLET PO SCH (12:55)
--- NOTE | 2021-05-20 13:45 | Med Student Discharge Summary ---
Date of Service May 20, 2021 Admission HPI Per Admitting Provider Mrs. Yu is an 86 yo woman with a PMHx of low grade bladder cancer who presented for lethargy, confusion, malaise and chills. Of note, she underwent a surveillance cystoscopy with Dr. Fowler on 05/18/21 which showed mild urethritis/irritation at bladder neck, but no masses lesions tumors or other areas concern throughout bladder. No complications were noted with this procedure. Presumably, symptoms started after she returned home from the procedure. She denies any known sick contacts. No known recent tick bites. She is a non- smoker, no Etoh use. In the ED, she was mildly febrile to 37.7, HR was normal, sys BP was 120 and RR was 29. Her WBC 17 with neutrophil predom. Her Lactate was 1.8. UA showed no concern for infection. COVID neg. Blood cultures were drawn. Trop was undetectable. Creatine was 1.4 (near her baseline). K was low at 3.4. CXR showed no consolidation. Chest CT showed evidence of dependent atelectasis. A/P CT showed subcutaneous fat stranding in the R inguinal region as well ass R pelvic sidewall inflammation. No abscess formation. No free fluid in the pelvis. A right LE venous duplex showed no evidence of DVT.. She was given 1 liter of NSS and started on Zosyn. Admission Exam (Per Admitting) Constitutional WD/WN, vitals as above ENMT external ear and nose normal, oropharynx normal Neck normal visual inspection Respiratory normal respiratory effort, lungs clear to auscultation Cardiovascular Rate/Rhythm: regular rate and regular rhythm Extremities: + pedal edema Gastrointestinal (Abdomen) normal bowel sounds, soft, nontender, no hepatosplenomegaly Psychiatric A+Ox3, euthymic affect Discharge Data Consultations 05/19/21 00:48 ED Decision to Admit Stat 05/19/21 03:43 Consult Urology Routine Hospital Course (1) Sepsis: Sepsis due to cellulitis as noted below. (2) Cellulitis of leg: Cellulitis initially treated with Zosyn. -Switch to oral medication, cefalexin on 05/19. -Patient continued to show improvement, discharged home on ceflex qid 7 days. -Discussion with patient regarding lymphedema. Patient has home nursing lymphedema treatments regularly. Recommended restarting treatments next week. (3) Jaw pain: During hospitalization patient had one episode of left sided jaw pain. EKG was obtained which showed no acute changes or concerns for ACS. Patient takes n itroglycerin at home for jaw pain. This provided relief of her symptoms. Recommend continued outpatient follow-up. (4) Weakness: Weakness associated with acute illness. Improved over course of hospital stay. Patient already established with home PT. Continue home PT twice a week as scheduled. Discharge Plan Discharge Items Patient Disposition: Home - Home Health Services Reason For Visit: CELLULITIS Discharge Diagnosis: cellulitis Condition on Discharge: Fair Activity: Resume your previous activity Non-emergency contact: Primary Care Provider Call non-emergency contact if: you have any medication questions Follow-up/Referrals: Salena Ruelas CRNP [Primary Care Provider] - 06/03/21 10:30 am Diet: Regular and Heart Healthy Addtl Attending Provider Instructions: Mrs. Mickie Yu, It was our pleasure to care for you at [facility] from 05/19/21 to 05/20/21. You have been diagnosed with cellulitis (a skin infection) of your right lower leg. You have done well with IV antibiotics and were converted to oral antibiotics. It is important that you continue the antibiotic, Keflex, as prescribed and until the course is completed. As we discussed, continue your home nursing and home physical therapy as scheduled. Please follow up with your primary care doctor early next week. Call your doctor or return to the ER for any worsening or concerning symptoms including chest pain or SOB. Pending Studies at Discharge: No Stand-Alone Forms: [employer], Smoking Cessation Medications and DC Order Prescriptions: New cephalexin 250 mg Capsule 250 mg PO QID 7 Days Qty: 28 RF: 0 Continued metoprolol succinate 25 mg tablet extended release 24 hr 25 mg PO QAM Qty: 90 RF: 3 levothyroxine 50 mcg tablet 50 mcg PO DAILY Qty: 90 RF: 3 famotidine 20 mg tablet 20 mg PO DAILY Qty: 90 RF: 3 isosorbide mononitrate 60 mg tablet extended release 24 hr 60 mg PO QAM Qty: 90 RF: 3 meclizine 25 mg tablet 12.5 - 25 mg PO QID PRN (Reason: Dizziness Or Vertigo) Qty: 30 RF: 5 simvastatin 40 mg tablet 40 mg PO HS Qty: 90 RF: 3 gabapentin 100 mg capsule 200 mg PO TID Qty: 180 RF: 3 losartan 50 mg tablet 50 mg PO DAILY Qty: 90 RF: 3 tramadol 50 mg tablet 50 mg PO BID PRN (Reason: pain) Qty: 20 RF: 0 diclofenac sodium 1 % gel 2 g topical QID Qty: 100 RF: 2 nitroglycerin [Nitrostat] 0.3 mg Tablet, Sublingual 0.3 mg Sublingual DIRECTED MDD 3 DOSES PRN (Reason: Chest Pain) RF: 0 cyanocobalamin (vitamin B-12) [Vitamin B-12] 500 mcg Tablet 500 mcg PO QAM RF: 0 ropinirole 1 mg Tablet 3 mg PO HS RF: 0 aspirin 81 mg Tablet,Delayed Release (Dr/Ec) 81 mg PO DAILY RF: 0 furosemide 20 mg tablet 20 mg PO DAILY RF: 0 hydrochlorothiazide 12.5 mg tablet 12.5 mg PO DAILY RF: 0 Xiidra 5 % dropperette 1 drp OPB BID RF: 0 ropinirole 1 mg tablet 1 mg PO QDL RF: 0 Myrbetriq 25 mg tablet extended release 24 hr 25 mg PO DAILY RF: 0 Discharge Orders: Discharge Order (Routine); Ordered 05/20/21 Ordered By: Samira Strauss Admission Data Admit Date/Time: 05/19/21 01:45 Attending Provider: Avila Lund Admit Provider: Al Weller Primary Care Provider: Salena Ruelas Other Providers: Al Weller ; Agustin Ochoa Other Interventions: Discharge Summary Assessment (RN) Last Done: 05/20/21 14:15 Supervising Attestation I personally examined the patient and verified all arora points of history and exam, discussed case, and agree with decision making with Rommel Serrato MS2 Leg less red and swollen. Still hurts some. Mentally seems sound now. Discussed plan, answered all questions to the best my ability. Vitals noted, in general she is awake and alert pleasant no distress. HEENT normocephalic atraumatic mucous membranes moist. Breathing unlabored no accessory muscle use good effort. Extremities show her right lower extremity to have resolving erythema well below prior line of demarcation. Sepsis present on admissionappears to be due to right lower extremity cellulitis, and given her confusion and lethargy on admission, she may have had a mild metabolic encephalopathy present on admission that has since resolved. Improving on cephalexinstable for home on this. Finish out course of therapy. Extensively discussed with patient yesterday and today the nature of inflammatory fluid and cellulitis, particularly as it pertains to her lymphedema, and the fact that ongoing discolored swelling would not be synonymous with ongoing infection, particularly as it starts to fade to a dull maroon and track with gravity. Further encouraged her to resume her lymphedema treatments as soon as she can tolerate. CKD stage IIIappears to be overall stable. Outpatient follow-up. Morbid obesity with BMI of 40driving her lymphedema/venous stasis, which was probably part of what allowed the portal of entry for her leg cellulitis. stable for home Interval History Interval History Discharge Exam Constitutional: Well developed and well nourished ENMT: External ear and nose normal, oropharynx normal Neck: Normal visual inspection Respiratory: Normal respiratory effort; no respiratory distress and no labored breathing Auscultation limited to the front and sides due to patient laying down in bed. Normal breath sounds. Cardiovascular: Rate/Rhythm: regular rate and regular rhythm Heart Sounds: no click, no gallop, no murmur and no cardiac rub Extremities: Right leg is warm, erythematous, and swollen. Redness is significantly less from admission latoya. Gastrointestinal (Abdomen): Inspection/Auscultation: abdomen not distended Percussion/Palpation: abdomen soft; none tender, no guarding and no hepatosplenomegaly.
--- NOTE | 2021-05-20 16:44 | Billing Data ---
Date of Service May 20, 2021 Coding Level of Care Code D/C Day Management <30 mins
== END 2021-05-20 15:08 | disposition home health service (06) ==
LOC: ED 21:33 → 2N 05-19 01:45 → INTOOBSV 05-19 01:45 → SUATTDRO 05-19 01:45 → 2N 05-19 03:13
DX: L03.115 Cellulitis of right lower limb; E03.9 Hypothyroidism, unspecified; A41.9 Sepsis, unspecified organism; G62.9 Polyneuropathy, unspecified; R32 Unspecified urinary incontinence; I13.0 Hypertensive heart and chronic kidney disease with heart failure and stage 1 through stage 4 chronic kidney disease, or unspecified chronic kidney disease; R68.84 Jaw pain; Z68.41 Body mass index [BMI] 40.0-44.9, adult; Z79.890 Hormone replacement therapy; R53.1 Weakness; E66.01 Morbid (severe) obesity due to excess calories; I50.9 Heart failure, unspecified; I25.10 Atherosclerotic heart disease of native coronary artery without angina pectoris; N18.30 Chronic kidney disease, stage 3 unspecified; Z79.899 Other long term (current) drug therapy; K21.9 Gastro-esophageal reflux disease without esophagitis

== ENCOUNTER 2022-04-15 22:15 | Observation (INO) ==
--- NOTE | 2022-04-15 22:35 | Emergency Department Note ---
Impression & Plan Fluid overload, Cellulitis of left leg, Failure of outpatient treatment ED Provider Note Name: CHEYENNE CHAN Age: 87 Sex: F Arrives Via: Walk-In Informant: Patient, family ED Provider: Amaury Tran MD Chief Complaint: Leg swelling Impression: As per impressions above Medical Decision Makin-year-old female with long history of fluid overload issues who has been having worsening weight gain and fluid overload for the last few weeks. She was actually seen in the ER few days ago after an 8-hour obvious of diuretics patient was discharged home in better condition. However over the last few days increasing weight gain to the point she has gained almost 15 pounds in the last week and a half or 2 per patient. She now has developed a left lower leg cellulitis. She is not septic nor bacteremic appearing however I did obtain cultures. She was given IV antibiotics. Given the failure of outpatient treatment the inability to ambulate due to the severity of swelling in her legs I do think it is reasonable bring her in for further diuresis. She and family are comfortable with this plan. I will note I do not feel that this is consistent with bilateral DVTs. Prior Medical Record and Triage/Nursing Notes reviewed by Me Additional history obtained from family Differentials:HF exacerbation, lymphedema, electrolyte imbalance, sepsis, bacteremia, cellulitis, venous stasis amongst other pathologies considered Vital Signs: reviewed and remarkable for no significant abnormalities Interventions: Lasix IV, Rocephin 2 g IV Labs:Reviewed and remarkable for no significant abnormalities Imagin view chest x-ray mild congestive findings increased from previous chest x-ray EKG:Per My Interpretation: Indication weakness: Sinus simon rhythm with first AV block at 69 bpm and a large P wave along with a QRS of 403. No Ectopy. No Ischemia. Compared to EKG April 12, 2022, no significant changes. Cardiac/Tele Monitoring: Cardiac Monitoring: An Order was placed for continuous cardiac monitoring. The monitor shows a rate of 60with a normal sinus rhythm. Consults:Natalia Rankin hospitalist Plan: Disposition:Hospitalization. Condition: Good History of Present Illness:87-year-old female arrives for evaluation of leg swelling. Patient notes that she has been dealing with leg swelling the last few weeks and its been rapidly worsening. She has been seen by her assistant therapy aide and had an echo that does not have the report on that. She was in the ER few days ago and spent 8 hours being diuresed and feeling better went home. She notes since getting home the swelling has returned despite increasing her Lasix dosing. She started having fevers today and noticed a red area on her left lower leg. The red area has spread throughout the afternoon. She notes she is severely short of breath anytime she lays down or tries walking around. She said she had increased her urination with the Lasix the last few days but today she has not had much urine output at all. She notes generalized weakness and fatigue as well. Denies any nausea or vomiting. She has no appetite. ROS: See above HPI for pertinent positives & negatives. A total of 10 systems reviewed and were otherwise negative. Past Medical History:See Below Past Surgical History:See Below Family History:See Below Social History:See Below Home Medications:See Below Allergies:See Below Vitals:Blood Pressure: 145/60, Pulse 62, RR 20, T 37.1 C, O2 96% on RA Physical Exam: GENERAL: Patient is chronically unwell appearing and in mild distress. EYES: No scleral icterus, unremarkable pupils. ENT: Mucous membranes moist, no nasal congestion. NECK: No masses appreciated, nomeningismus, trachea is midline. RESPIRATORY: Mild tachypnea/dyspnea with some crackles at the bases equal bilaterally no wheezing. CARDIOVASCULAR: Regular rate and rhythm.No murmurs, rubs, gallops appreciated. GASTROINTESTINAL: Abdomen soft, non-tender, no peritonitis.Bowel sounds pos itive.No masses appreciated. BACK: No midline tenderness, no CVA tenderness EXTREMITIES: Normal motion all extremities, no cyanosis, bilateral pitting edema 4+ in the legs. There is a weeping sore of the left lower inner leg with surrounding cellulitis that is extending laterally over the anterior molina. Good pulses bilateral feet good cap refill NEUROLOGIC: Alert and oriented, no acute motor or sensory deficits, no focal weakness, cranial nerves grossly intact. SKIN: No rash, no jaundice, no diaphoresis. PSYCH: Appropriate GCS: 15 ED Course: Times/Reassessments: Stable breathing comfortably and agreeable to hospitalization for further management Amaury Tran MD Past Med/Surg History Medical History (Updated 04/18/22 @ 14:08 by Amaury Tran MD) Aortic stenosis Cellulitis of leg Chronic acquired lymphedema Congestive heart failure Dyspnea on exertion Hypercalcemia Hypertension Hypothyroidism Sepsis Urinary incontinence Surgical History History of appendectomy History of carpal tunnel surgery History of dilatation and curettage History of partial colectomy History of total abdominal hysterectomy and bilateral salpingo-oophorectomy History of total knee arthroplasty Status post laser cataract surgery of both eyes Family History Father Prostate cancer Myocardial infarction Mother Cancer Other No significant family history Denies family history of Ovarian cancer Kidney disease Breast cancer Colorectal cancer Social History Smoking Status: Never smoker Second Hand Exposure: No; Hx Alcohol Use: No Hx Substance Use: No Preferred Language: Malaysian Communication Ability: Effective Visual Impairment: No Limitations Hearing Ability: Normal Partner Alliance Manager Required: No Beliefs That Will Affect Care: None marital status: Current Living Situation: Spouse Current Living Situation Comment: with current occupational status: other current occupation: housewife How many Children do You have: 2 Feels Safe at Home: Yes Childhood Exposure to Second-Hand Smoke: Yes caffeine: Yes Dental Care, Regularly: No Physical Activity Frequency: Does not Exercise Seatbelt Use: sometimes Sunscreen Use: No Assistive Devices: Cane and Walker Allergies Allergies Allergy/AdvReac Type Severity Reaction Status Date / Time atorvastatin [From Lipitor] Allergy Unknown ON [facility] Verified 04/15/22 22:31 LIST celecoxib [From Celebrex] Allergy Unknown ON [facility] Verified 04/15/22 22:31 LIST Iodine and Iodide Containing Allergy Unknown ON [facility] Verified 04/15/22 22:31 Produc LIST Home Meds Home Medications Medication Instructions Recorded Confirmed cyanocobalamin (vitamin B-12) 500 500 mcg PO QAM 11/14/18 04/15/22 mcg tablet (Vitamin B-12) lifitegrast 5 % eye drops in a 1 drp OPB BID 02/28/21 04/15/22 dropperette (Xiidra) aspirin 81 mg tablet,delayed 81 mg PO BID tab 05/24/21 04/15/22 release hydrochlorothiazide 12.5 mg tablet 12.5 mg PO QAM 08/25/21 04/15/22 nvytlpm-oithoofdfhcqx-fkmkjwfv 250 2 tab PO Q6H PRN 02/19/22 04/15/22 mg-250 mg-65 mg tablet (Excedrin Extra Strength) furosemide 20 mg tablet 40 mg PO QAM 02/19/22 04/15/22 levothyroxine 50 mcg tablet 50 mcg PO QAM 02/19/22 04/15/22 losartan 25 mg tablet 25 mg PO QAM 02/19/22 04/15/22 lysine 600 mg tablet 0 mg PO QAM 02/19/22 04/15/22 ropinirole 1 mg tablet 1 - 3 mg PO DIRECTED 02/19/22 04/15/22 Previous Rx's Medication Instructions Recorded gabapentin 100 mg capsule 200 mg PO TID 90 Days #540 cap 05/24/21 nitroglycerin 0.3 mg sublingual 0.3 mg SUBLINGUAL DIRECTED PRN 05/27/21 tablet (Nitrostat) #20 tab MDD 3 DOSES metoprolol succinate 25 mg 25 mg PO QAM #90 tab 09/29/21 tablet,extended release 24 hr isosorbide mononitrate 60 mg 60 mg PO QAM #90 tab 11/21/21 tablet,extended release 24 hr simvastatin 40 mg tablet 40 mg PO HS #90 tab 11/21/21 meclizine 25 mg tablet 12.5 - 25 mg PO QID PRN #30 tab 12/08/21 tramadol 50 mg tablet 50 mg PO BID PRN #20 tab 04/10/22 cefdinir 300 mg capsule 300 mg PO BID 5 Days #10 cap 04/18/22 Results & Data (ED) Vital Signs Vital Signs - 24 hr 04/15/22 22:17 04/15/22 22:30 04/16/22 00:00 Temperature 36.2 C L 36.6 C Temperature Source Temporal Artery Scan Oral Pulse Rate 66 Pulse Rate [Apical] 60 67 Pulse Rhythm [Apical] Regular Regular Pulse Strength [Apical] Normal Normal Respiratory Rate 20 18 18 Respiratory Effort / Characteristics Non-Labored Spontaneous Non-Labored Spontaneous Non-Labored Respiratory Depth Normal Normal Normal Respiratory Pattern Regular Regular Blood Pressure 174/67 H Blood Pressure [Left Arm] 182/78 H 127/78 Blood Pressure Mean 102 Blood Pressure Mean [Left Arm] 112 94 Blood Pressure Position [Left Arm] Lying Lying Pulse Oximetry 94 96 98 Oxygen Delivery Method Room Air Room Air Room Air Sepsis New/Unexplained Change in Mental Status N/A Sepsis Action Taken by Nursing No Action Required Laboratory Data Result diagrams: 04/17/22 07:08 04/18/22 10:23 Lab Results 04/15/22 04/15/22 04/15/22 Range/Units 23:15 23:15 23:15 WBC (4.8-10.8) K/uL RBC (4.2-5.4) M/uL Hgb (12.0-16.0) g/dL Hct (37-47) % MCV (80-100) fL MCH (25-34) pg MCHC (32-36) g/dL RDW Std Deviation (36.4-46.3) fL RDW Coeff of Makeda (11.5-14.5) % Plt Count (130-400) K/uL MPV (7.4-10.4) fL Immature Gran % (Auto) % Neut % (Auto) % Lymph % (Auto) % Dewey % (Auto) % Eos % (Auto) % Baso % (Auto) % Neut # (Auto) (1.4-6.5) K/uL Lymph # (Auto) (1.2-3.4) K/uL Dewey # (Auto) (0.11-0.59) K/uL Eos # (Auto) (0-0.5) K/uL Baso # (Auto) (0-0.2) K/uL Immature Gran # (Auto) (0.00-0.02) K/uL Sodium 142 (136-145) mmol/L Potassium 4.1 (3.5-5.1) mmol/L Chloride 107 (98-107) mmol/L Carbon Dioxide 27 (21-32) mmol/L Anion Gap 8 (3-11) BUN 31 H (6-23) mg/dl Creatinine 1.32 H (0.6-1.2) mg/dl Est Cr Clr Drug Dosing 31.1 ml/min Est GFR ( Amer) 42.2 ml/min Est GFR (Non-Af Amer) 36.4 ml/min BUN/Creatinine Ratio 23.5 H (10-20) Glucose 102 H (70-99(Fasting)) mg/dl Lactate 0.9 (0.4-2.0) mmol/L Calcium 10.1 (8.5-10.1) mg/dl Magnesium 2.3 (1.7-2.4) mg/dl Total Bilirubin 0.3 (0.2-1.0) mg/dl Direct Bilirubin 0.0 (0-0.2) mg/dl AST 21 (13-39) U/L ALT 21 (7-52) U/L Alkaline Phosphatase 54 (34-104) U/L Troponin I High Sens 9.2 (0-14) pg/ml C-Reactive Protein < 0.50 (0-0.5) mg/dl B-Natriuretic Peptide 34 (0-100) pg/ml Total Protein 6.8 (6.0-8.3) gm/dl Albumin 4.0 (3.4-5.0) gm/dl Procalcitonin (0-0.5) ng/ml TSH (0.300-4.500) uIu/ml Urine Color Urine Appearance (Clear) Urine pH (4.5-7.5) Ur Specific [place] (1.000-1.030) Urine Protein (Negative) Urine Glucose (UA) (Negative) Urine Ketones (Negative) Urine Blood (Negative) Urine Nitrite (Negative) Urine Bilirubin (Negative) Urine Urobilinogen (Negative) Ur Leukocyte Esterase (Negative) Urine WBC (Auto) (0-5) /hpf Urine RBC (Auto) (0-4) /hpf U Hyaline Cast (Auto) (0-5) /lpf U Epithel Cells (Auto) (0-5) /lpf Urine Bacteria (Auto) (Negative) SARS-CoV-2, RNA, NAAT (NEGATIVE) 04/15/22 04/15/22 04/15/22 Range/Units 23:15 23:15 23:15 WBC 7.03 (4.8-10.8) K/uL RBC 4.01 L (4.2-5.4) M/uL Hgb 12.7 (12.0-16.0) g/dL Hct 39.4 (37-47) % MCV 98.3 (80-100) fL MCH 31.7 (25-34) pg MCHC 32.2 (32-36) g/dL RDW Std Deviation 50.1 H (36.4-46.3) fL RDW Coeff of Makeda 14.1 (11.5-14.5) % Plt Count 221 (130-400) K/uL MPV 10.0 (7.4-10.4) fL Immature Gran % (Auto) 0.3 % Neut % (Auto) 58.6 % Lymph % (Auto) 29.9 % Dewey % (Auto) 8.5 % Eos % (Auto) 2.4 % Baso % (Auto) 0.3 % Neut # (Auto) 4.12 (1.4-6.5) K/uL Lymph # (Auto) 2.10 (1.2-3.4) K/uL Dewey # (Auto) 0.60 H (0.11-0.59) K/uL Eos # (Auto) 0.17 (0-0.5) K/uL Baso # (Auto) 0.02 (0-0.2) K/uL Immature Gran # (Auto) 0.02 (0.00-0.02) K/uL Sodium (136-145) mmol/L Potassium (3.5-5.1) mmol/L Chloride (98-107) mmol/L Carbon Dioxide (21-32) mmol/L Anion Gap (3-11) BUN (6-23) mg/dl Creatinine (0.6-1.2) mg/dl Est Cr Clr Drug Dosing ml/min Est GFR ( Amer) ml/min Est GFR (Non-Af Amer) ml/min BUN/Creatinine Ratio (10-20) Glucose (70-99(Fasting)) mg/dl Lactate (0.4-2.0) mmol/L Calcium (8.5-10.1) mg/dl Magnesium (1.7-2.4) mg/dl Total Bilirubin (0.2-1.0) mg/dl Direct Bilirubin (0-0.2) mg/dl AST (13-39) U/L ALT (7-52) U/L Alkaline Phosphatase (34-104) U/L Troponin I High Sens (0-14) pg/ml C-Reactive Protein (0-0.5) mg/dl B-Natriuretic Peptide (0-100) pg/ml Total Protein (6.0-8.3) gm/dl Albumin (3.4-5.0) gm/dl Procalcitonin < 0.05 (0-0.5) ng/ml TSH (0.300-4.500) uIu/ml Urine Color Yellow Urine Appearance Clear (Clear) Urine pH 7.0 (4.5-7.5) Ur Specific [place] 1.015 (1.000-1.030) Urine Protein Negative (Negative) Urine Glucose (UA) Negative (Negative) Urine Ketones Negative (Negative) Urine Blood Negative (Negative) Urine Nitrite Negative (Negative) Urine Bilirubin Negative (Negative) Urine Urobilinogen Negative (Negative) Ur Leukocyte Esterase 2+ H (Negative) Urine WBC (Auto) 10-30 H (0-5) /hpf Urine RBC (Auto) 0-4 (0-4) /hpf U Hyaline Cast (Auto) 1-5 (0-5) /lpf U Epithel Cells (Auto) >30 H (0-5) /lpf Urine Bacteria (Auto) Negative (Negative) SARS-CoV-2, RNA, NAAT (NEGATIVE) 04/15/22 04/15/22 Range/Units 23:15 23:15 WBC (4.8-10.8) K/uL RBC (4.2-5.4) M/uL Hgb (12.0-16.0) g/dL Hct (37-47) % MCV (80-100) fL MCH (25-34) pg MCHC (32-36) g/dL RDW Std Deviation (36.4-46.3) fL RDW Coeff of Makeda (11.5-14.5) % Plt Count (130-400) K/uL MPV (7.4-10.4) fL Immature Gran % (Auto) % Neut % (Auto) % Lymph % (Auto) % [place]wey % (Auto) % Eos % (Auto) % Baso % (Auto) % Neut # (Auto) (1.4-6.5) K/uL Lymph # (Auto) (1.2-3.4) K/uL [place]wey # (Auto) (0.11-0.59) K/uL Eos # (Auto) (0-0.5) K/uL Baso # (Auto) (0-0.2) K/uL Immature Gran # (Auto) (0.00-0.02) K/uL Sodium (136-145) mmol/L Potassium (3.5-5.1) mmol/L Chloride (98-107) mmol/L Carbon Dioxide (21-32) mmol/L Anion Gap (3-11) BUN (6-23) mg/dl Creatinine (0.6-1.2) mg/dl Est Cr Clr Drug Dosing ml/min Est GFR ( Amer) ml/min Est GFR (Non-Af Amer) ml/min BUN/Creatinine Ratio (10-20) Glucose (70-99(Fasting)) mg/dl Lactate (0.4-2.0) mmol/L Calcium (8.5-10.1) mg/dl Magnesium (1.7-2.4) mg/dl Total Bilirubin (0.2-1.0) mg/dl Direct Bilirubin (0-0.2) mg/dl AST (13-39) U/L ALT (7-52) U/L Alkaline Phosphatase (34-104) U/L Troponin I High Sens (0-14) pg/ml C-Reactive Protein (0-0.5) mg/dl B-Natriuretic Peptide (0-100) pg/ml Total Protein (6.0-8.3) gm/dl Albumin (3.4-5.0) gm/dl Procalcitonin (0-0.5) ng/ml TSH 1.102 (0.300-4.500) uIu/ml Urine Color Urine Appearance (Clear) Urine pH (4.5-7.5) Ur Specific [place] (1.000-1.030) Urine Protein (Negative) Urine Glucose (UA) (Negative) Urine Ketones (Negative) Urine Blood (Negative) Urine Nitrite (Negative) Urine Bilirubin (Negative) Urine Urobilinogen (Negative) Ur Leukocyte Esterase (Negative) Urine WBC (Auto) (0-5) /hpf Urine RBC (Auto) (0-4) /hpf U Hyaline Cast (Auto) (0-5) /lpf U Epithel Cells (Auto) (0-5) /lpf Urine Bacteria (Auto) (Negative) SARS-CoV-2, RNA, NAAT NEGATIVE (NEGATIVE) Administered Medications Discontinued Medications Aspirin (Aspirin 81 Mg Ectab) 81 mg PO BID THI Stop: 05/16/22 08:59 Last Admin: 04/18/22 08:34 Dose: 81 mg Documented by: [id number] Admin: 04/17/22 20:42 Dose: 81 mg Documented by: [id number] Admin: 04/17/22 09:02 Dose: 81 mg Documented by: [id number] Admin: 04/16/22 21:39 Dose: 81 mg Documented by: [id number] Admin: 04/16/22 09:49 Dose: 81 mg Documented by: [id number] Furosemide (Furosemide 40 Mg/4 Ml Vial) 40 mg IV ONE ONE Stop: 04/16/22 00:43 Last Admin: 04/16/22 00:58 Dose: 40 mg Documented by: [id number] Furosemide (Furosemide 40 Mg/4 Ml Vial) 40 mg IV [id number] [facility] Stop: 05/16/22 16:59 Last Admin: 04/18/22 08:29 Dose: 40 mg Documented by: [id number] Admin: 04/17/22 16:30 Dose: 40 mg Documented by: [id number] Admin: 04/17/22 09:02 Dose: 40 mg Documented by: [id number] Admin: 04/16/22 17:29 Dose: 40 mg Documented by: [id number] Furosemide (Furosemide 40 Mg/4 Ml Vial) 40 mg IV ONE ONE Stop: 04/16/22 12:29 Last Admin: 04/16/22 12:49 Dose: 40 mg Documented by: [id number] Gabapentin (Gabapentin 100 Mg Cap) 200 mg PO BID [facility] Stop: 05/16/22 08:59 Last Admin: 04/18/22 08:33 Dose: 200 mg Documented by: [id number] Admin: 04/17/22 20:43 Dose: 200 mg Documented by: [id number] Admin: 04/17/22 09:10 Dose: 200 mg Documented by: [id number] Admin: 04/16/22 21:40 Dose: 200 mg Documented by: [id number] Admin: 04/16/22 09:49 Dose: 200 mg Documented by: [id number] Heparin Sodium (Porcine) (Heparin Sod 5,000 Unit/0.5 Ml Vial) 5,000 units SQ Q12 [facility] Stop: 05/16/22 08:59 Last Admin: 04/18/22 08:31 Dose: 5,000 units Documented by: [id number] Admin: 04/17/22 20:44 Dose: 5,000 units Documented by: [id number] Admin: 04/17/22 09:07 Dose: 5,000 units Documented by: [id number] Admin: 04/16/22 21:38 Dose: 5,000 units Documented by: [id number] Admin: 04/16/22 09:52 Dose: 5,000 units Documented by: [id number] Ceftriaxone Sodium (Rocephin) 2,000 mg in 70 mls @ 140 mls/hr IV NOW STA Stop: 04/16/22 01:04 Last Infusion: 04/16/22 01:05 Dose: 0 mls/hr Documented by: [id number] Admin: 04/16/22 00:41 Dose: 140 mls/hr Documented by: [id number] Ceftriaxone Sodium 2,000 mg/ (Dextrose) 70 mls @ 140 mls/hr IV Q24H [facility]; Protocol Stop: 04/23/22 20:59 Last Infusion: 04/17/22 21:10 Dose: 0 mls/hr Documented by: [id number] Admin: 04/17/22 20:40 Dose: 140 mls/hr Documented by: [id number] Infusion: 04/16/22 23:15 Dose: 140 mls/hr Documented by: [id number] Admin: 04/16/22 21:38 Dose: 140 mls/hr Documented by: [id number] Isosorbide Mononitrate (Isosorbide [place]wey Extended Rel 60 Mg Tabcr) 60 mg PO [facility] Stop: 05/16/22 08:59 Last Admin: 04/18/22 08:34 Dose: 60 mg Documented by: [id number] Admin: 04/17/22 09:10 Dose: 60 mg Documented by: [id number] Admin: 04/16/22 09:52 Dose: 60 mg Documented by: [id number] Levothyroxine Sodium (Levothyroxine Sodium 50 Mcg Tablet) [facility] Stop: 05/16/22 06:29 Last Admin: 04/18/22 05:41 Dose: 50 mcg Documented by: [id number] Admin: 04/17/22 06:05 Dose: 50 mcg Documented by: [id number] Admin: 04/16/22 05:27 Dose: 50 mcg Documented by: [id number] Metoprolol Succinate (Metoprolol Succ 25mg Ext Rel Tab) [facility] Stop: 05/16/22 08:59 Last Admin: 04/18/22 08:33 Dose: 25 mg Documented by: [id number] Admin: 04/17/22 10:28 Dose: 25 mg Documented by: [id number] Admin: 04/16/22 09:55 Dose: 25 mg Documented by: [id number] Miscellaneous (Order Awaiting Action: Lifitegrast [Xiidra] 5 % Dropperette) 1 ea N/A QS [facility] Stop: 05/16/22 07:59 Last Admin: 04/18/22 08:29 Dose: Not Given Documented by: [id number] Admin: 04/17/22 23:01 Dose: Not Given Documented by: [id number] Admin: 04/17/22 15:43 Dose: Not Given Documented by: [id number] Admin: 04/17/22 09:12 Dose: Not Given Documented by: [id number] Admin: 04/17/22 00:22 Dose: Not Given Documented by: [id number] Admin: 04/16/22 16:17 Dose: Not Given Documented by: [id number] Admin: 04/16/22 09:50 Dose: Not Given Documented by: [id number] Ropinirole HCl (Ropinirole Hcl 1 Mg Tablet) 1 mg PO DAILY@1130 [facility] Stop: 05/16/22 11:29 Last Admin: 04/18/22 12:52 Dose: 1 mg Documented by: [id number] Admin: 04/17/22 12:04 Dose: 1 mg Documented by: [id number] Admin: 04/16/22 12:49 Dose: 1 mg Documented by: [id number] Ropinirole HCl (Ropinirole Hcl 1 Mg Tablet) 3 mg PO [facility] Stop: 05/16/22 20:59 Last Admin: 04/17/22 20:43 Dose: 3 mg Documented by: [id number] Admin: 04/16/22 21:40 Dose: 3 mg Documented by: [id number] Simvastatin (Simvastatin 40 Mg Tab) 40 mg PO [facility] Stop: 05/16/22 20:59 Last Admin: 04/17/22 20:43 Dose: 40 mg Documented by: [id number] Admin: 04/16/22 21:40 Dose: 40 mg Documented by: [id number] Tramadol HCl (Tramadol Hcl 50 Mg Tablet) 50 mg PO BID PRN PRN Reason: pain Stop: 05/16/22 03:48 Last Admin: 04/16/22 17:26 Dose: 50 mg Documented by: [id number] Admin: 04/16/22 05:27 Dose: 50 mg Documented by: [id number] Discharge Plan Visit Data Chief Complaint: Skin Problem Stated Complaint: BLISTERS ON L LEG ED Provider: Amaury Tran Discharge Problem: Fluid overload, Cellulitis of left leg, Failure of outpatient treatment Patient Disposition: Admitted As Inpatient Discharge Instructions Interventions: ED Discharge Assessment Last Done: 04/16/22 04:01 Discharge Problem: Fluid overload Qualifiers: Hypervolemia type: unspecified Qualified Code(s): E87.70 - Fluid overload, unspecified
[2022-04-15 23:34] LABS: Appearance Urine Clear (Clear); Bacteria Urine Automated Negative (Negative); Bilirubin Urine Negative (Negative); Blood Urine Negative (Negative); Color Urine Yellow; Epithelial Cell Urine Auto >30 /lpf (0-5); Glucose Urine UA Negative (Negative); Ketones Urine Negative (Negative); Leukocyte Esterase Urine 2+ (Negative); Nitrite Urine Negative (Negative); Protein Urine Negative (Negative); RBC Urine Automated 0-4 /hpf (0-4); Specific Gravity Urine 1.015 (1.000-1.030); Urobilinogen Urine Negative (Negative)
[2022-04-15 23:36] LABS: Basophils # (auto) 0.02 K/uL (0-0.2); Basophils % (auto) 0.3 %; Eosinophils # (auto) 0.17 K/uL (0-0.5); Eosinophils % (auto) 2.4 %; Hematocrit (blood only) 39.4 % (37-47); Hemoglobin 12.7 g/dL (12.0-16.0); Immature Granulocytes # (auto) 0.02 K/uL (0.00-0.02); Immature Granulocytes % (auto) 0.3 %; Lymphocytes % (auto) 29.9 %; Mean Corpuscular Hemoglobin 31.7 pg (25-34); Mean Corpuscular Hgb Conc 32.2 g/dL (32-36); Mean Corpuscular Volume 98.3 fL (80-100); Monocytes % (auto) 8.5 %; Neutrophils # (auto) 4.12 K/uL (1.4-6.5); Neutrophils % (auto) 58.6 %; Platelet Count 221 K/uL (130-400); RDW Coefficient of Variation 14.1 % (11.5-14.5); RDW Standard Deviation 50.1 fL (36.4-46.3); Red Blood Count 4.01 M/uL (4.2-5.4); White Blood Count 7.03 K/uL (4.8-10.8)
[2022-04-16 00:02] LABS: Troponin I High Sensitivity 9.2 pg/ml (0-14)
[2022-04-16 00:24] LABS: Alanine Aminotransferase 21 U/L (7-52); Alkaline Phosphatase 54 U/L (34-104); Anion Gap 8 (3-11); Aspartate Aminotransferase 21 U/L (13-39); BUN Creatinine Ratio 23.5 (10-20); Bilirubin,Total 0.3 mg/dl (0.2-1.0); Blood Urea Nitrogen 31 mg/dl (6-23); C Reactive Protein < 0.50 mg/dl (0-0.5); Calcium 10.1 mg/dl (8.5-10.1); Carbon Dioxide 27 mmol/L (21-32); Chloride 107 mmol/L (98-107); Creatinine Clr Calc Pharmacy 31.1 ml/min; Est GFR (African American) 42.2 ml/min; Est GFR (Non-African American) 36.4 ml/min; Glucose 102 mg/dl (70-99(Fasting)); Magnesium 2.3 mg/dl (1.7-2.4); Potassium 4.1 mmol/L (3.5-5.1); Sodium 142 mmol/L (136-145); Total Protein 6.8 gm/dl (6.0-8.3)
[2022-04-16] MEDS ORDERED: cefTRIAXone SODIUM 2,000 MG/70 ML BAG IV STA (00:35)
[2022-04-16] MEDS ORDERED: FUROSEMIDE 40 MG/4 ML VIAL IV ONE ×2 (00:42→12:28)
--- NOTE | 2022-04-16 01:43 | History & Physical Report ---
Date of Service April 16, 2022 Assessment & Plan (1) Peripheral edema: Plan: 87yo female presenting with report of progressive orthopnea, weight gain, fatigue and edema over the last two weeks. Symptoms progressive despite increased PO lasix as well as IV diuresis in the ER. Lungs are CTA, no hypoxia. Edema of bilateral LE nonpitting. Patient with history of chronic lymphedema Double PO Lasix, 40mg IV given. Patient has urinated x 2 in ER already -Admit to medical -Monitor I/O's, daily weights standing and chemistry/renal function. -Redose Lasix in AM based on chemistry and renal function -Check 2D echo to further assess aortic stenosis (2) Cellulitis of leg: Plan: Mild warmth and redness. No fever, leukocytosis, Procalcitonin is NEGATIVE -Continue Ceftriaxone -Monitor area of redness (3) Hypothyroidism: Plan: Chronic -Check TSH -Continue Synthroid (4) Hypertension: Plan: Blood pressure adequately controlled -Continue metoprolol, isosorbide -Hold HCTZ -Hold Losartan -Repeat chemistry in AM (5) Aortic stenosis: Plan: +murmur -Check 2D echo (6) Chronic kidney disease, stage III (moderate): Plan: Mild elevation in BUN and Cr from prior values -Avoid nephrotoxic agents -Renal dosing where needed -Repeat chemistry in AM (7) CAD (coronary artery disease): Plan: Chronic CAD with stable angina. Remote stent placement in 2003. Stable -Continue ASA, Metoprolol, Simvastatin -Hold Losartan for now - reassess renal function (8) Hyperlipidemia: Plan: Chronic. Stable -Continue Simvastatin History of Present Illness Chief Complaint: LE edema, redness Primary Care Provider: ROSALIE Lopez Mickie Yu is an 87yo female with history of CAD, HTN, aortic stenosis and chronic lymphedema of bilateral LEs presenting with complaint of worsening bilateral LE edema, heaviness, dyspnea on exertion and orthopnea. She reports having a fluid filled blister on her LLE which popped and then developed surrounding warmth and redness. She reports gaining 10 - 15 pounds over the last 1-2 weeks causing difficulty with ambulation. She reports easy fatigability - only active about 1 hour per day. She also reports subjective fevers, chills and rigors as well as dry cough. No additional complaints. Symptoms possibly correlate with patient receiving Meals on Wheels dinners Patient was seen by PCP on 04/11/22 and had her Lasix increased to 40mg daily x 6 days Patient was seen by Cardiology on 04/12/22 with these complaints. Recommended to come to ER for IV diuresis and echo. She was seen in the ER on 04/13/22 and was administered IV Lasix with improvement in symptoms She reports her normal weight with no fluid is appx 195# ER Course: lasix 40mg IV, Ceftriaxone 2gm Allergies Allergy/AdvReac Type Severity Reaction Status Date / Time atorvastatin [From Lipitor] Allergy Unknown ON [facility] Verified 04/15/22 22:31 LIST celecoxib [From Celebrex] Allergy Unknown ON [facility] Verified 04/15/22 22:31 LIST Iodine and Iodide Containing Allergy Unknown ON [facility] Verified 04/15/22 22:31 Produc LIST Home Medications Medication Instructions Recorded Confirmed Type cyanocobalamin (vitamin B-12) 500 500 mcg PO QAM 11/14/18 04/15/22 History mcg tablet (Vitamin B-12) lifitegrast 5 % eye drops in a 1 drp OPB BID 02/28/21 04/15/22 History dropperette (Xiidra) aspirin 81 mg tablet,delayed 81 mg PO BID tab 05/24/21 04/15/22 History release gabapentin 100 mg capsule 200 mg PO TID 90 Days #540 cap 05/24/21 04/15/22 Rx nitroglycerin 0.3 mg sublingual 0.3 mg SUBLINGUAL DIRECTED PRN 05/27/21 04/15/22 Rx tablet (Nitrostat) #20 tab MDD 3 DOSES hydrochlorothiazide 12.5 mg tablet 12.5 mg PO QAM 08/25/21 04/15/22 History metoprolol succinate 25 mg 25 mg PO QAM #90 tab 09/29/21 04/15/22 Rx tablet,extended release 24 hr isosorbide mononitrate 60 mg 60 mg PO QAM #90 tab 11/21/21 04/15/22 Rx tablet,extended release 24 hr simvastatin 40 mg tablet 40 mg PO HS #90 tab 11/21/21 04/15/22 Rx meclizine 25 mg tablet 12.5 - 25 mg PO QID PRN #30 tab 12/08/21 04/15/22 Rx bfjwtot-[id number]-rfvvuuvm 250 2 tab PO Q6H PRN 02/19/22 04/15/22 History mg-250 mg-65 mg tablet (Excedrin Extra Strength) furosemide 20 mg tablet 40 mg PO QAM 02/19/22 04/15/22 History levothyroxine 50 mcg tablet 50 mcg PO QAM 02/19/22 04/15/22 History losartan 25 mg tablet 25 mg PO QAM 02/19/22 04/15/22 History lysine 600 mg tablet 0 mg PO QAM 02/19/22 04/15/22 History ropinirole 1 mg tablet 1 - 3 mg PO DIRECTED 02/19/22 04/15/22 History tramadol 50 mg tablet 50 mg PO BID PRN #20 tab 04/10/22 04/15/22 Rx Past Med/Surg History Medical History (Updated 04/16/22 @ 01:34 by Ariana Adorno DO) Aortic stenosis Cellulitis of leg Chronic acquired lymphedema Congestive heart failure Dyspnea on exertion Hypercalcemia Hypertension Hypothyroidism Sepsis Urinary incontinence Surgical History History of appendectomy History of carpal tunnel surgery History of dilatation and curettage History of partial colectomy History of total abdominal hysterectomy and bilateral salpingo-oophorectomy History of total knee arthroplasty Status post laser cataract surgery of both eyes Family History Father Prostate cancer Myocardial infarction Mother Cancer Other No significant family history Denies family history of Ovarian cancer Kidney disease Breast cancer Colorectal cancer Social History Smoking Status: Unknown if ever smoked Second Hand Exposure: No; Hx Alcohol Use: No Hx Substance Use: No Preferred Language: Lebanese Communication Ability: Effective Visual Impairment: No Limitations Hearing Ability: Normal Fisher Trap Required: No Beliefs That Will Affect Care: None marital status: Current Living Situation: Spouse Current Living Situation Comment: with current occupational status: other current occupation: housewife How many Children do You have: 3 Feels Safe at Home: Yes Childhood Exposure to Second-Hand Smoke: Yes caffeine: Yes Dental Care, Regularly: No Physical Activity Frequency: Does not Exercise Seatbelt Use: sometimes Sunscreen Use: No Assistive Devices: Glasses and Walker Review of Systems Review of Systems: All systems reviewed & are unremarkable except as noted in HPI & below Physical Exam Physical Exam: General: elderly female patient resting comfortably, NAD, non- toxic in appearance Skin: warm, dry, open blister LLE with surrounding warmth and redness HEENT: NC/AT, PERRL, EOMI, anicteric sclera, conjunctiva without injection, external ear normal to inspection and nontender, nares patent, moist mucus membranes, dentition intact, no oropharyngeal lesions, neck supple, trachea midline, no LAD, no thyromegaly, no JVD Heart: +S1/S2, regular, 3/6 MILY across precordium to bilateral carotids Lungs: equal air entry bilaterally, no rales/rhonchi/wheezes Abd: +BS, soft, NT/ND, no masses/organomegaly/ascites Ext: warm, 2+ pulses in UE/LE bilaterally, nonpitting edema of bilateral LE Neuro: nonfocal, patient AA&O x 4, speech intact, no facial droop, moving all extremities on command with equal strength 5/5 Results & Data Results & Data ([facility]) Vital Signs (Past 12 Hours) Vital Signs Temp Pulse Pulse Resp BP BP Pulse Ox 04/16/22 00:00 67 18 127/78 98 04/15/22 22:30 36.6 C 60 18 182/78 H 96 04/15/22 22:17 36.2 C L 66 20 174/67 H 94 Laboratory Results Laboratory Results WBC 7.03 K/uL (4.8-10.8) 04/15/22 23:15 RBC 4.01 M/uL (4.2-5.4) L 04/15/22 23:15 Hgb 12.7 g/dL (12.0-16.0) 04/15/22 23:15 Hct 39.4 % (37-47) 04/15/22 23:15 MCV 98.3 fL (80-100) 04/15/22 23:15 MCH 31.7 pg (25-34) 04/15/22 23:15 MCHC 32.2 g/dL (32-36) 04/15/22 23:15 RDW Std Deviation 50.1 fL (36.4-46.3) H 04/15/22 23:15 RDW Coeff of Makeda 14.1 % (11.5-14.5) 04/15/22 23:15 Plt Count 221 K/uL (130-400) 04/15/22 23:15 MPV 10.0 fL (7.4-10.4) 04/15/22 23:15 Immature Gran % (Auto) 0.3 % 04/15/22 23:15 Neut % (Auto) 58.6 % 04/15/22 23:15 Lymph % (Auto) 29.9 % 04/15/22 23:15 [place] % (Auto) 8.5 % 04/15/22 23:15 Eos % (Auto) 2.4 % 04/15/22 23:15 Baso % (Auto) 0.3 % 04/15/22 23:15 Neut # (Auto) 4.12 K/uL (1.4-6.5) 04/15/22 23:15 Lymph # (Auto) 2.10 K/uL (1.2-3.4) 04/15/22 23:15 [place] # (Auto) 0.60 K/uL (0.11-0.59) H 04/15/22 23:15 Eos # (Auto) 0.17 K/uL (0-0.5) 04/15/22 23:15 Baso # (Auto) 0.02 K/uL (0-0.2) 04/15/22 23:15 Immature Gran # (Auto) 0.02 K/uL (0.00-0.02) 04/15/22 23:15 Sodium 142 mmol/L (136-145) 04/15/22 23:15 Potassium 4.1 mmol/L (3.5-5.1) 04/15/22 23:15 Chloride 107 mmol/L (98-107) 04/15/22 23:15 Carbon Dioxide 27 mmol/L (21-32) 04/15/22 23:15 Anion Gap 8 (3-11) 04/15/22 23:15 BUN 31 mg/dl (6-23) H 04/15/22 23:15 Creatinine 1.32 mg/dl (0.6-1.2) H 04/15/22 23:15 Est Cr Clr Drug Dosing 31.1 ml/min 04/15/22 23:15 Est GFR ( Amer) 42.2 ml/min 04/15/22 23:15 Est GFR (Non-Af Amer) 36.4 ml/min 04/15/22 23:15 BUN/Creatinine Ratio 23.5 (10-20) H 04/15/22 23:15 Glucose 102 mg/dl (70-99(Fasting)) H 04/15/22 23:15 Lactate 0.9 mmol/L (0.4-2.0) 04/15/22 23:15 Calcium 10.1 mg/dl (8.5-10.1) 04/15/22 23:15 Magnesium 2.3 mg/dl (1.7-2.4) 04/15/22 23:15 Total Bilirubin 0.3 mg/dl (0.2-1.0) 04/15/22 23:15 Direct Bilirubin 0.0 mg/dl (0-0.2) 04/15/22 23:15 AST 21 U/L (13-39) 04/15/22 23:15 ALT 21 U/L (7-52) 04/15/22 23:15 Alkaline Phosphatase 54 U/L (34-104) 04/15/22 23:15 Troponin I High Sens 9.2 pg/ml (0-14) 04/15/22 23:15 C-Reactive Protein < 0.50 mg/dl (0-0.5) 04/15/22 23:15 B-Natriuretic Peptide 34 pg/ml (0-100) 04/15/22 23:15 Total Protein 6.8 gm/dl (6.0-8.3) 04/15/22 23:15 Albumin 4.0 gm/dl (3.4-5.0) 04/15/22 23:15 Procalcitonin < 0.05 ng/ml (0-0.5) 04/15/22 23:15 Urine Color Yellow 04/15/22 23:15 Urine Appearance Clear (Clear) 04/15/22 23:15 Urine pH 7.0 (4.5-7.5) 04/15/22 23:15 Ur Specific [place] 1.015 (1.000-1.030) 04/15/22 23:15 Urine Protein Negative (Negative) 04/15/22 23:15 Urine Glucose (UA) Negative (Negative) 04/15/22 23:15 Urine Ketones Negative (Negative) 04/15/22 23:15 Urine Blood Negative (Negative) 04/15/22 23:15 Urine Nitrite Negative (Negative) 04/15/22 23:15 Urine Bilirubin Negative (Negative) 04/15/22 23:15 Urine Urobilinogen Negative (Negative) 04/15/22 23:15 Ur Leukocyte Esterase 2+ (Negative) H 04/15/22 23:15 Urine WBC (Auto) 10-30 /hpf (0-5) H 04/15/22 23:15 Urine RBC (Auto) 0-4 /hpf (0-4) 04/15/22 23:15 U Hyaline Cast (Auto) 1-5 /lpf (0-5) 04/15/22 23:15 U Epithel Cells (Auto) >30 /lpf (0-5) H 04/15/22 23:15 Urine Bacteria (Auto) Negative (Negative) 04/15/22 23:15 SARS-CoV-2, RNA, NAAT NEGATIVE (NEGATIVE) 04/15/22 23:15 Code Status & VTE Plan VTE Prophylaxis Plan VTE Prophylaxis will be ordered: Yes PG Care Time/CCT Total # of Minutes Spent Total Time Spent with Patient: Total time spent is greater than 50% in coordination of care (as documented) at patient's floor/unit and/or counseling patient: Coding Level of Care Code 76128 Initial Inpt Care Lvl 3 Diagnoses Hypothyroidism E03.9 Hypertension I10 Aortic stenosis I35.0 Peripheral edema R60.9 Chronic kidney disease, stage III (moderate) N18.3 CAD (coronary artery disease) I25.10 Hyperlipidemia E78.5 Cellulitis of leg L03.115 Laterality: right (1) Cellulitis of leg Laterality: right Qualified Code(s): L03.115 - Cellulitis of right lower limb
[2022-04-16] MEDS ORDERED: ONDANSETRON INJ 2 MG/ML 2 ML VIAL IV PRN (03:49)
[2022-04-16] MEDS ORDERED: ACETAMINOPHEN 325 MG TAB PO PRN (03:49)
[2022-04-16] MEDS: traMADol HCL 50 MG TABLET PO PRN ×2 (05:27→17:26)
[2022-04-16] MEDS: LEVOTHYROXINE SODIUM 50 MCG TABLET PO SCH (05:27)
--- NOTE | 2022-04-16 08:35 | XRay Report ---
XR chest 1V portable CLINICAL HISTORY: shob, weakness. COMPARISON STUDY: 04/12/2022 TECHNIQUE: 1 view of the chest FINDINGS: Single frontal view of the chest demonstrates the cardiomediastinal silhouette to be within normal li mits. The lungs are clear of alveolar opacities. There is no evidence for pleural effusion. There is no evidence for vascular congestion. There is no acute osseous pathology. IMPRESSION: 1. No acute cardiopulmonary disease. ACT 112: Negative or not required by law. Electronically signed by: Tony Grhaam M.D. 04/16/2022 8:33 AM
[2022-04-16] MEDS: ASPIRIN 81 MG ECTAB PO SCH ×2 (09:49→21:39)
[2022-04-16] MEDS: GABAPENTIN 100 MG CAP PO SCH ×2 (09:49→21:40)
[2022-04-16] MEDS: HEPARIN SOD 5,000 UNIT/0.5 ML VIAL SQ SCH ×2 (09:52→21:38)
[2022-04-16] MEDS: ISOSORBIDE MONO EXTENDED REL 60 MG TABCR PO SCH (09:52)
[2022-04-16] MEDS: METOPROLOL SUCC 25MG EXT REL TAB PO SCH (09:55)
[2022-04-16] MEDS: rOPINIRole HCL 1 MG TABLET PO SCH ×2 (12:49→21:40)
--- NOTE | 2022-04-16 13:43 | Hospitalist Progress Note ---
Date of Service April 16, 2022 Assessment & Plan (1) Peripheral edema: Plan: This is an 87yo female presenting with report of progressive orthopnea, weight gain, fatigue and edema over the last two weeks. Symptoms progressive despite increased PO lasix I am unsure if the patient carries a diagnosis of CHF Her last ECHO showed a preserved EF of 55-60%. Repeat ECHO has been done result pending Upon admission, BNP was not elevated (although she is obese) She complains of orthopnea, PND, weight gain, leg swelling She also follows up with cardiology as outpatient. No mention was made of CHF in their note Will continue Lasix 40mg BID Monitor I/O, daily weight (2) Cellulitis of leg: Plan: Mild warmth and redness. No fever, leukocytosis, Procalcitonin is NEGATIVE -Continue Ceftriaxone -Monitor area of redness (3) Hypothyroidism: Plan: Chronic -Check TSH -Continue Synthroid (4) Hypertension: Plan: Blood pressure adequately controlled -Continue metoprolol, isosorbide -Hold HCTZ -Hold Losartan (5) Aortic stenosis: Plan: +murmur -Check 2D echo (6) Chronic kidney disease, stage III (moderate): Plan: Mild elevation in BUN and Cr from prior values -Avoid nephrotoxic agents -Renal dosing where needed -Repeat chemistry in AM (7) CAD (coronary artery disease): Plan: Chronic CAD with stable angina. Remote stent placement in 2003. Stable -Continue ASA, Metoprolol, Simvastatin -Hold Losartan for now - reassess renal function (8) Hyperlipidemia: Plan: Chronic. Stable -Continue Simvastatin Plan: continue hospitalization Full code Heparin for DVT Admission and Anticipated Discharge Date Admission Date: April 16, 2022 Subjective patient seen and examined today, says her leg swelling has reduced, still short of breath when she lies flat Review of Systems Review of Systems: All systems reviewed are negative, apart from the ones contained in the history. Physical Exam Physical Exam: The patient is awake, alert and oriented 3, well developed and well nourished, normocephalic and atraumatic, lying in bed and in no acute distress. HEENT--PERRL, EOMI, mucous membranes and oropharynx mildly dry Neck--supple. No JVD. No bruits. Thyroid normal, trachea midline, no adenopathy. Heart--normal S1 and S2. systolic murmur, no rubs or gallops. Lungs--clear bilaterally, no respiratory distress, no accessory muscle use. Abdomen--normal bowel sounds and soft. Mild epigastric and left sided abdominal pain Extremities--bilateral leg edema, an area of cellulitis Dermatologic--normal skin turgor, normal color, no abnormal lymph nodes, no rash. Neurologic--cranial nerves II through XII grossly intact. Rheumatologic--normal range of motion. Psychiatric--normal affect. Results & Data Results & Data ([facility]) Vital Signs (Past 12 Hours) Vital Signs Temp Pulse Pulse Resp BP Pulse Ox 04/16/22 09:54 65 124/67 04/16/22 08:56 97.9 F 53 L 18 159/78 H 96 04/16/22 03:53 97.5 F L 53 L 16 162/77 H 95 04/16/22 02:00 98.4 F 57 L 16 182/78 H 92 Laboratory Results Laboratory Results - last 24 hr 04/15/22 04/15/22 04/15/22 23:15 23:15 23:15 WBC RBC Hgb Hct MCV MCH MCHC RDW Std Deviation RDW Coeff of Makeda Plt Count MPV Immature Gran % (Auto) Neut % (Auto) Lymph % (Auto) [place] % (Auto) Eos % (Auto) Baso % (Auto) Neut # (Auto) Lymph # (Auto) [place] # (Auto) Eos # (Auto) Baso # (Auto) Immature Gran # (Auto) Sodium 142 Potassium 4.1 Chloride 107 Carbon Dioxide 27 Anion Gap 8 BUN 31 H Creatinine 1.32 H Est Cr Clr Drug Dosing 31.1 Est GFR ( Amer) 42.2 Est GFR (Non-Af Amer) 36.4 BUN/Creatinine Ratio 23.5 H Glucose 102 H Lactate 0.9 Calcium 10.1 Magnesium 2.3 Total Bilirubin 0.3 Direct Bilirubin 0.0 AST 21 ALT 21 Alkaline Phosphatase 54 Troponin I High Sens 9.2 C-Reactive Protein < 0.50 B-Natriuretic Peptide 34 Total Protein 6.8 Albumin 4.0 Procalcitonin TSH Urine Color Urine Appearance Urine pH Ur Specific [place] Urine Protein Urine Glucose (UA) Urine Ketones Urine Blood Urine Nitrite Urine Bilirubin Urine Urobilinogen Ur Leukocyte Esterase Urine WBC (Auto) Urine RBC (Auto) U Hyaline Cast (Auto) U Epithel Cells (Auto) Urine Bacteria (Auto) SARS-CoV-2, RNA, NAAT 04/15/22 04/15/22 04/15/22 23:15 23:15 23:15 WBC 7.03 RBC 4.01 L Hgb 12.7 Hct 39.4 MCV 98.3 MCH 31.7 MCHC 32.2 RDW Std Deviation 50.1 H RDW Coeff of Maked[place] 14.1 Plt Count 221 MPV 10.0 Immature Gran % (Auto) 0.3 Neut % (Auto) 58.6 Lymph % (Auto) 29.9 [place] % (Auto) 8.5 Eos % (Auto) 2.4 Baso % (Auto) 0.3 Neut # (Auto) 4.12 Lymph # (Auto) 2.10 [place] # (Auto) 0.60 H Eos # (Auto) 0.17 Baso # (Auto) 0.02 Immature Gran # (Auto) 0.02 Sodium Potassium Chloride Carbon Dioxide Anion Gap BUN Creatinine Est Cr Clr Drug Dosing Est GFR ( Amer) Est GFR (Non-Af Amer) BUN/Creatinine Ratio Glucose Lactate Calcium Magnesium Total Bilirubin Direct Bilirubin AST ALT Alkaline Phosphatase Troponin I High Sens C-Reactive Protein B-Natriuretic Peptide Total Protein Albumin Procalcitonin < 0.05 TSH Urine Color Yellow Urine Appearance Clear Urine pH 7.0 Ur Specific [place] 1.015 Urine Protein Negative Urine Glucose (UA) Negative Urine Ketones Negative Urine Blood Negative Urine Nitrite Negative Urine Bilirubin Negative Urine Urobilinogen Negative Ur Leukocyte Esterase 2+ H Urine WBC (Auto) 10-30 H Urine RBC (Auto) 0-4 U Hyaline Cast (Auto) 1-5 U Epithel Cells (Auto) >30 H Urine Bacteria (Auto) Negative SARS-CoV-2, RNA, NAAT 04/15/22 04/15/22 23:15 23:15 WBC RBC Hgb Hct MCV MCH MCHC RDW Std Deviation RDW Coeff of Makeda Plt Count MPV Immature Gran % (Auto) Neut % (Auto) Lymph % (Auto) [place] % (Auto) Eos % (Auto) Baso % (Auto) Neut # (Auto) Lymph # (Auto) [place] # (Auto) Eos # (Auto) Baso # (Auto) Immature Gran # (Auto) Sodium Potassium Chloride Carbon Dioxide Anion Gap BUN Creatinine Est Cr Clr Drug Dosing Est GFR ( Amer) Est GFR (Non-Af Amer) BUN/Creatinine Ratio Glucose Lactate Calcium Magnesium Total Bilirubin Direct Bilirubin AST ALT Alkaline Phosphatase Troponin I High Sens C-Reactive Protein B-Natriuretic Peptide Total Protein Albumin Procalcitonin TSH 1.102 Urine Color Urine Appearance Urine pH Ur Specific [place] Urine Protein Urine Glucose (UA) Urine Ketones Urine Blood Urine Nitrite Urine Bilirubin Urine Urobilinogen Ur Leukocyte Esterase Urine WBC (Auto) Urine RBC (Auto) U Hyaline Cast (Auto) U Epithel Cells (Auto) Urine Bacteria (Auto) SARS-CoV-2, RNA, NAAT NEGATIVE PG Care Time/CCT Total # of Minutes Spent Total Time Spent with Patient: Total time spent is greater than 50% in coordination of care (as documented) at patient's floor/unit and/or counseling patient: Coding Level of Care Code 25357 Subseq Hosp Care Lvl 2 Diagnoses Peripheral edema R60.9 Cellulitis of leg L03.115 Laterality: right Hypothyroidism E03.9 Hypertension I10 Aortic stenosis I35.0 Chronic kidney disease, stage III (moderate) N18.3 CAD (coronary artery disease) I25.10 Hyperlipidemia E78.5 Time Spent (min) 35 (1) Cellulitis of leg Laterality: right Qualified Code(s): L03.115 - Cellulitis of right lower limb
--- NOTE | 2022-04-16 14:43 | XCELERA ---
[id number]
--- NOTE | 2022-04-16 15:02 | Electrocardiogram Report ---
Test Reason : Blood Pressure : / mmHG Vent. Rate : 059 BPM Atrial Rate : 059 BPM P-R Int : 188 ms QRS Dur : 084 ms QT Int : 408 ms P-R-T Axes : 012 034 042 degrees QTc Int : 403 ms Poor data quality, interpretation may be adversely affected Sinus bradycardia Otherwise normal ECG When compared with ECG of 12-APR-2022 11:17, [place] interval has decreased Confirmed by Ben Thomas ([id number]) on 04/16/2022 3:02:38 PM Referred By: REFERRED SELF Confirmed By:Ben Thomas
[2022-04-16] MEDS ORDERED: NITROGLYCERIN 0.3 MG/1 TAB 100 TAB BTL SL STA (16:58)
[2022-04-16] MEDS ORDERED: NITROGLYCERIN SL 0.4 MG/TAB TAB SL PRN (17:14)
[2022-04-16] MEDS: FUROSEMIDE 40 MG/4 ML VIAL IV SCH (17:29)
[2022-04-16] MEDS: cefTRIAXone SODIUM 2,000 MG in DEXTROSE 5% 50 ML IV SCH (21:38)
[2022-04-16] MEDS: SIMVASTATIN 40 MG TAB PO SCH (21:40)
[2022-04-17] MEDS: LEVOTHYROXINE SODIUM 50 MCG TABLET PO SCH (06:05)
[2022-04-17 07:36] LABS: Basophils # (auto) 0.01 K/uL (0-0.2); Basophils % (auto) 0.2 %; Eosinophils # (auto) 0.19 K/uL (0-0.5); Eosinophils % (auto) 3.6 %; Hematocrit (blood only) 39.8 % (37-47); Hemoglobin 13.4 g/dL (12.0-16.0); Immature Granulocytes # (auto) 0.01 K/uL (0.00-0.02); Immature Granulocytes % (auto) 0.2 %; Lymphocytes % (auto) 40.3 %; Mean Corpuscular Hemoglobin 33.1 pg (25-34); Mean Corpuscular Hgb Conc 33.7 g/dL (32-36); Mean Corpuscular Volume 98.3 fL (80-100); Monocytes # (auto) 0.67 K/uL (0.11-0.59); Monocytes % (auto) 12.9 %; Neutrophils # (auto) 2.23 K/uL (1.4-6.5); Neutrophils % (auto) 42.8 %; Platelet Count 194 K/uL (130-400); RDW Coefficient of Variation 13.9 % (11.5-14.5); Red Blood Count 4.05 M/uL (4.2-5.4); White Blood Count 5.21 K/uL (4.8-10.8)
[2022-04-17 07:57] LABS: BUN Creatinine Ratio 22.1 (10-20); Calcium 10.4 mg/dl (8.5-10.1); Creatinine Clr Calc Pharmacy 28.6 ml/min; Est GFR (African American) 39.3 ml/min; Est GFR (Non-African American) 33.9 ml/min; Potassium 3.7 mmol/L (3.5-5.1)
[2022-04-17] MEDS: FUROSEMIDE 40 MG/4 ML VIAL IV SCH ×2 (09:02→16:30)
[2022-04-17] MEDS: ASPIRIN 81 MG ECTAB PO SCH ×2 (09:02→20:42)
[2022-04-17] MEDS: HEPARIN SOD 5,000 UNIT/0.5 ML VIAL SQ SCH ×2 (09:07→20:44)
[2022-04-17] MEDS: ISOSORBIDE MONO EXTENDED REL 60 MG TABCR PO SCH (09:10)
[2022-04-17] MEDS: GABAPENTIN 100 MG CAP PO SCH ×2 (09:10→20:43)
[2022-04-17] MEDS: METOPROLOL SUCC 25MG EXT REL TAB PO SCH (10:28)
[2022-04-17] MEDS: rOPINIRole HCL 1 MG TABLET PO SCH ×2 (12:04→20:43)
--- NOTE | 2022-04-17 13:45 | Hospitalist Progress Note ---
Date of Service April 17, 2022 Assessment & Plan (1) Diastolic CHF: Plan: This is an 87yo female presenting with report of progressive orthopnea, weight gain, fatigue and edema over the last two weeks. Symptoms progressive despite increased PO lasix Repeat ECHO today shows evidence of grade 1 diastolic dysfunction. EF 60-65% SOB and leg swelling have improved Will continue Lasix 40mg BID Monitor I/O, daily weight (2) Peripheral edema: Plan: secondary to CHF (3) Cellulitis of leg: Plan: Mild warmth and redness. No fever, leukocytosis, Procalcitonin is NEGATIVE -Continue Ceftriaxone -Monitor area of redness (4) Hypothyroidism: Plan: Chronic -Check TSH -Continue Synthroid (5) Hypertension: Plan: Blood pressure adequately controlled -Continue metoprolol, isosorbide -Hold HCTZ -Hold Losartan (6) Aortic stenosis: Plan: +murmur -Check 2D echo (7) Chronic kidney disease, stage III (moderate): Plan: Mild elevation in BUN and Cr from prior values -Avoid nephrotoxic agents -Renal dosing where needed -Repeat chemistry in AM (8) CAD (coronary artery disease): Plan: Chronic CAD with stable angina. Remote stent placement in 2003. Stable -Continue ASA, Metoprolol, Simvastatin -Hold Losartan for now - reassess renal function (9) Hyperlipidemia: Plan: Chronic. Stable -Continue Simvastatin Plan: continue hospitalization, likely d/c in the next 24-48 hrs Full code Heparin for DVT Admission and Anticipated Discharge Date Admission Date: April 16, 2022 Subjective patient seen and examined today, says her leg swelling has reduced Review of Systems Review of Systems: All systems reviewed are negative, apart from the ones contained in the history. Physical Exam Physical Exam: The patient is awake, alert and oriented 3, well developed and well nourished, normocephalic and atraumatic, lying in bed and in no acute distress. HEENT--PERRL, EOMI, mucous membranes and oropharynx mildly dry Neck--supple. No JVD. No bruits. Thyroid normal, trachea midline, no adenopathy. Heart--normal S1 and S2. systolic murmur, no rubs or gallops. Lungs--clear bilaterally, no respiratory distress, no accessory muscle use. Abdomen--normal bowel sounds and soft. Mild epigastric and left sided abdominal pain Extremities--bilateral leg edema, an area of cellulitis Dermatologic--normal skin turgor, normal color, no abnormal lymph nodes, no rash. Neurologic--cranial nerves II through XII grossly intact. Rheumatologic--normal range of motion. Psychiatric--normal affect. Results & Data Results & Data ([facility]) Vital Signs (Past 12 Hours) Vital Signs Temp Pulse Pulse Resp BP Pulse Ox 04/17/22 10:28 64 04/17/22 07:45 97.5 F L 54 L 16 142/84 H 92 PG Care Time/CCT Total # of Minutes Spent Total Time Spent with Patient: Total time spent is greater than 50% in coordination of care (as documented) at patient's floor/unit and/or counseling patient: Coding Level of Care Code 10300 Subseq Hosp Care Lvl 2 Diagnoses Peripheral edema R60.9 Cellulitis of leg L03.115 Laterality: right Hypothyroidism E03.9 Hypertension I10 Aortic stenosis I35.0 Chronic kidney disease, stage III (moderate) N18.3 CAD (coronary artery disease) I25.10 Hyperlipidemia E78.5 Diastolic CHF I50.30 Time Spent (min) 35 (1) Cellulitis of leg Laterality: right Qualified Code(s): L03.115 - Cellulitis of right lower limb
--- NOTE | 2022-04-17 14:07 | Electrocardiogram Report ---
Test Reason : Blood Pressure : / mmHG Vent. Rate : 065 BPM Atrial Rate : 065 BPM P-R Int : 218 ms QRS Dur : 092 ms QT Int : 414 ms P-R-T Axes : 043 036 046 degrees QTc Int : 430 ms Sinus rhythm with 1st degree A-V block Otherwise normal ECG When compared with ECG of 15-APR-2022 22:52, [place] interval has increased Confirmed by Ben Thomas ([id number]) on 04/17/2022 2:06:49 PM Referred By: REFERRED SELF Confirmed By:Ben Thomas
[2022-04-17] MEDS: cefTRIAXone SODIUM 2,000 MG in DEXTROSE 5% 50 ML IV SCH (20:40)
[2022-04-17] MEDS: SIMVASTATIN 40 MG TAB PO SCH (20:43)
[2022-04-18] MEDS: LEVOTHYROXINE SODIUM 50 MCG TABLET PO SCH (05:41)
[2022-04-18] MEDS: FUROSEMIDE 40 MG/4 ML VIAL IV SCH (08:29)
[2022-04-18] MEDS: HEPARIN SOD 5,000 UNIT/0.5 ML VIAL SQ SCH (08:31)
[2022-04-18] MEDS: METOPROLOL SUCC 25MG EXT REL TAB PO SCH (08:33)
[2022-04-18] MEDS: GABAPENTIN 100 MG CAP PO SCH (08:33)
[2022-04-18] MEDS: ISOSORBIDE MONO EXTENDED REL 60 MG TABCR PO SCH (08:34)
[2022-04-18] MEDS: ASPIRIN 81 MG ECTAB PO SCH (08:34)
--- NOTE | 2022-04-18 10:55 | Discharge Summary ---
Date of Service April 18, 2022 Admission HPI Per Admitting Provider Mickie Yu is an 87yo female with history of CAD, HTN, aortic stenosis and chronic lymphedema of bilateral LEs presenting with complaint of worsening bilateral LE edema, heaviness, dyspnea on exertion and orthopnea. She reports having a fluid filled blister on her LLE which popped and then developed surrounding warmth and redness. She reports gaining 10 - 15 pounds over the last 1-2 weeks causing difficulty with ambulation. She reports easy fatigability - only active about 1 hour per day. She also reports subjective fevers, chills and rigors as well as dry cough. No additional complaints. Symptoms possibly correlate with patient receiving [employer] Whe[employer] dinners Patient was seen by PCP on 04/11/22 and had her Lasix increased to 40mg daily x 6 days Patient was seen by Cardiology on 04/12/22 with these complaints. Recommended to come to ER for IV diuresis and echo. She was seen in the ER on 04/13/22 and was administered IV Lasix with improvement in symptoms She reports her normal weight with no fluid is appx 195# ER Course: lasix 40mg IV, Ceftriaxone 2gm Principal Diagnosis CHF Exacerbation, right LE cellulitis Discharge Exam The patient is awake, alert and oriented 3, well developed and well nourished, normocephalic and atraumatic, lying in bed and in no acute distress. HEENT--PERRL, EOMI, mucous membranes and oropharynx mildly dry Neck--supple. No JVD. No bruits. Thyroid normal, trachea midline, no adenopathy. Heart--normal S1 and S2. systolic murmur, no rubs or gallops. Lungs--clear bilaterally, no respiratory distress, no accessory muscle use. Abdomen--normal bowel sounds and soft. Mild epigastric and left sided abdominal pain Extremities--bilateral leg edema, an area of cellulitis Dermatologic--normal skin turgor, normal color, no abnormal lymph nodes, no rash. Neurologic--cranial nerves II through XII grossly intact. Rheumatologic--normal range of motion. Psychiatric--normal affect. Discharge Data Allergies Allergy/AdvReac Type Severity Reaction Status Date / Time atorvastatin [From Lipitor] Allergy Unknown ON [facility] Verified 04/15/22 22:31 LIST celecoxib [From Celebrex] Allergy Unknown ON [facility] Verified 05/21/22 22:31 LIST Iodine and Iodide Containing Allergy Unknown ON [facility] Verified 04/15/22 22:31 Produc LIST Consultations 04/16/22 00:34 ED Decision to Admit Stat Hospital Course (1) Diastolic CHF: This is an 87yo female presenting with report of progressive orthopnea, weight gain, fatigue and edema over the last two weeks. Symptoms progressive despite increased PO lasix Repeat ECHO today shows evidence of grade 1 diastolic dysfunction. EF 60-65% SOB and leg swelling have improved Discharge on Home dose of Lasix PO 40mg daily continue to follow up with Cardiology (2) Peripheral edema: secondary to CHF (3) Cellulitis of leg: Mild warmth and redness. No fever, leukocytosis, Procalcitonin is NEGATIVE -much improvement discharge on PO cefdinir 300mg BID for 5 more days (4) Hypothyroidism: Chronic -Check TSH -Continue Synthroid (5) Hypertension: Blood pressure adequately controlled -Continue metoprolol, isosorbide -Hold HCTZ -Hold Losartan (6) Aortic stenosis: +murmur -Check 2D echo (7) Chronic kidney disease, stage III (moderate): Mild elevation in BUN and Cr from prior values -Avoid nephrotoxic agents -Renal dosing where needed -Repeat chemistry in AM (8) CAD (coronary artery disease): Chronic CAD with stable angina. Remote stent placement in 2003. Stable -Continue ASA, Metoprolol, Simvastatin -Hold Losartan for now - reassess renal function (9) Hyperlipidemia: Chronic. Stable -Continue Simvastatin continue hospitalization, likely d/c in the next 24-48 hrs Full code Heparin for DVT Total Time Total Time Spent Total Time Spent (In Minutes): 35 Discharge Plan Discharge Items Patient Disposition: Home - Self-Care Reason For Visit: EDEMA, CELLULITIS Discharge Diagnosis: CHF Exacrbation, left LE cellulitis Activity: Resume your previous activity Non-emergency contact: Primary Care Provider, Hearing Aid Consultant and Ski Instructor Call non-emergency contact if: you have any medication questions Follow-up/Referrals: Salena Ruelas CRNP [Primary Care Provider] - 04/27/22 10:30 am Diet: Low Sodium (2gm) Addtl Attending Provider Instructions: please make appointment to follow up with your regular warper tender, supervisor plating and point assembly, PCP Pending Studies at Discharge: No Stand-Alone Forms: [employer], Smoking Cessation Medications and DC Order Prescriptions: New cefdinir 300 mg capsule 300 mg PO BID 5 Days Qty: 10 RF: 0 Continued nitroglycerin [Nitrostat] 0.3 mg tablet, sublingual 0.3 mg Sublingual DIRECTED MDD 3 DOSES PRN (Reason: Chest Pain) Qty: 20 RF: 2 metoprolol succinate 25 mg tablet extended release 24 hr 25 mg PO QAM Qty: 90 RF: 3 simvastatin 40 mg tablet 40 mg PO HS Qty: 90 RF: 3 isosorbide mononitrate 60 mg tablet extended release 24 hr 60 mg PO QAM Qty: 90 RF: 3 meclizine 25 mg tablet 12.5 - 25 mg PO QID PRN (Reason: Dizziness Or Vertigo) Qty: 30 RF: 5 tramadol 50 mg tablet 50 mg PO BID PRN (Reason: pain) Qty: 20 RF: 0 hydrochlorothiazide 12.5 mg tablet 12.5 mg PO QAM RF: 0 aspirin 81 mg tablet,delayed release (DR/EC) 81 mg PO BID RF: 0 gabapentin 100 mg capsule 200 mg PO TID 90 Days Qty: 540 RF: 3 cyanocobalamin (vitamin B-12) [Vitamin B-12] 500 mcg Tablet 500 mcg PO QAM RF: 0 Xiidra 5 % dropperette 1 drp OPB BID RF: 0 ropinirole 1 mg tablet 1 - 3 mg PO DIRECTED RF: 0 levothyroxine 50 mcg tablet 50 mcg PO QAM RF: 0 losartan 25 mg tablet 25 mg PO QAM RF: 0 furosemide 20 mg tablet 40 mg PO QAM RF: 0 lysine 600 mg Tablet 0 mg PO QAM RF: 0 Excedrin Extra Strength 250-250-65 mg Tablet 2 tab PO Q6H PRN (Reason: Pain) RF: 0 Discharge Orders: Discharge Order (Routine); Ordered 04/18/22 Ordered By: Karla Vicente/Other Patient Handouts: Cellulitis Dc, Heart Failure Dc Admission Data Admit Date/Time: 04/16/22 01:14 Attending Provider: Karla Hicks Admit Provider: Ariana Adorno Primary Care Provider: Salena Ruelas Other Providers: Ariana Adorno Other Interventions: Discharge Summary Assessment (RN) Last Done: 04/18/22 10:48 Coding Level of Care Code D/C DAY MANAGEMENT >30 MINS Diagnoses Diastolic CHF I50.30 Peripheral edema R60.9 Cellulitis of leg L03.115 Laterality: right Hypothyroidism E03.9 Hypertension I10 Aortic stenosis I35.0 Chronic kidney disease, stage III (moderate) N18.3 CAD (coronary artery disease) I25.10 Hyperlipidemia E78.5 Time Spent (min) 35
[2022-04-18 10:59] LABS: BUN Creatinine Ratio 23.9 (10-20); Calcium 10.3 mg/dl (8.5-10.1); Creatinine Clr Calc Pharmacy 29.5 ml/min; Est GFR (African American) 41.5 ml/min; Est GFR (Non-African American) 35.8 ml/min; Potassium 3.9 mmol/L (3.5-5.1)
[2022-04-18] MEDS: rOPINIRole HCL 1 MG TABLET PO SCH (12:52)
== END 2022-04-18 13:24 | disposition home or self-care (01) ==
LOC: ED 22:15 → SUATTDRO 04-16 01:14 → 3W 04-16 01:14 → INTOOBSV 04-16 01:14 → 3W 04-16 04:01

== ENCOUNTER 2024-01-26 16:10 | Inpatient (IN) ==
--- NOTE | 2024-01-26 16:44 | Emergency Department Note ---
Impression & Plan Multiple fractures of ribs of left side, Fall from standing, Cellulitis of left leg ED Provider Note HISTORY OF PRESENT ILLNESS: Patient is an 89-year-old female presenting with left flank and left lateral chest pain after a fall. Patient reports that she ambulates with a walker at baseline. She reports that she got up from the commode and was slightly unbalanced and fell, landing on her left side. She struck the left side of her chest on the tub. She reports that her son had to help her up but she was ambulatory afterwards. Denies striking her head or loss of consciousness. She is on aspirin. She reports she fell around 12 noon today and has taken 4 aspirin secondary to the pain she is having. She denies any numbness or tingling or weakness in her extremities. Currently complaining of pain in her left lateral chest and left flank. ROS: as above PHYSICAL EXAM: Constitutional: Patient appears in no acute distress. HENT: Head: Normocephalic and atraumatic. Eyes: EOMI, PERRL Mouth/Throat: Mucous membranes moist. Neck: Trachea midline. Neck supple. No midline cervical spine tenderness to palpation. Cardiovascular: RRR, No murmurs, rubs or gallops. Intact distal pulses. Pulmonary/Chest: No respiratory distress. Breath sounds clear and equal bilaterally. No wheezes or rales. Left lower lateral chest wall is TTP. No obvious ecchymosis or flail chest. Abdominal: Abdomen soft, no tenderness, rebound or guarding. Left upper abdomen is TTP. No ecchymosis. Musculoskeletal: No edema, tenderness or deformity noted. No tenderness to palpation of the pelvis. Patient is able to straight leg raise bilaterally. Skin: Warm and dry. No rash, erythema, pallor or cyanosis Psychiatric: Appropriate mood and affect for situation. Neurological: Alert and keenly responsive. CN II-XII grossly intact, moving all extremities equally and fully. MDM: - Vitals signs showed hypertension and bradycardia. - History obtained via patient. Patient presents with left lateral chest wall pain and left flank pain after fall. Patient reports she ambulates with a walker at baseline and was getting up off the commode when she became slightly unbalanced and fell to the left, striking her left flank and left chest on the tub. Denies striking her head or loss of consciousness. She is on aspirin. She had to get her and son to help her up off the floor. She reports that the pain continued over the last few hours, prompting her to call 911. - Chronic conditions affecting care: aortic stenosis; HTN; HLD - Differential diagnoses include, but are not limited to: pneumothorax; hemothorax; rib fractures; rib contusion; splenic laceration - Order placed for continuous cardiac monitoring. At this time, monitor showed rate of 56 bpm with normal sinus rhythm, per my interpretation. - External medical records reviewed. Primary care visit note dated 01/25/2024 was reviewed. Patient follows in their clinic for her heart failure and chronic kidney disease. They ordered an outpatient DVT ultrasound for her left lower extremity due to concern for her swelling and erythema. They recommended starting antibiotics for the cellulitis and had ordered Keflex. - EKG interpreted by myself showed normal sinus rhythm. Rate bradycardic at 56 bpm. QT 428. No acute ischemic changes. - Laboratory workup interpreted by myself showed normal WBC; stable electrolytes; slightly elevated troponin (16.8) - UA negative for infection - CT chest wo contrast showed acute comminuted displaced fractures of posterior and posterolateral left 7th, 8th, 9th ribs. Ninth ribs are broken in 2 places. - CT abdomen/pelvis with IV contrast negative for acute pathology. - Patient given 50 mcg IV fentanyl in ER for pain control. - Discussed results with patient. She did report that her fentanyl seem to improve her pain but she is uncomfortable when she moves. - Patient does have swelling and erythema to the LLE. US DVT was ordered. However, physical examination findings are concerning for cellulitis. - Discussion was had with career development associate about patient's case and need for admission - Hospitalist consulted for admission. Requested pulmonary consultation. - Discussed case with Dr. Gonzalez with pulmonary. He reports patient should get pain control. - [facility] ASSESSMENT AND PLAN: Diagnosis: fall from standing; left rib fractures; cellulitis of left leg Plan: admit Past Med/Surg History Medical History (Updated 01/26/24 @ 20:41 by Faiza Felipe MD) COVID-19 Chronic acquired lymphedema Aortic stenosis Sepsis Hypercalcemia Surgical History History of total knee arthroplasty History of total abdominal hysterectomy and bilateral salpingo-oophorectomy History of partial colectomy History of carpal tunnel surgery History of dilatation and curettage Status post laser cataract surgery of both eyes History of appendectomy Family History Father Prostate cancer Myocardial infarction Mother Cancer Other No significant family history Denies family history of Ovarian cancer Kidney disease Breast cancer Colorectal cancer Social History Smoking Status: Never smoker Second Hand Exposure: No; Do You Dip or Chew Tobacco: No; Hx Alcohol Use: No Hx Substance Use: No Preferred Language: Polish Communication Ability: Effective Visual Impairment: Limited Hearing Ability: Normal Flight Communications Specialist Required: No Beliefs That Will Affect Care: None marital status: Current Living Situation: Spouse Current Living Situation Comment: with current occupational status: retired current occupation: housewife How many Children do You have: 3 Feels Safe at Home: Yes Childhood Exposure to Second-Hand Smoke: Yes Diet: regular caffeine: Yes during the past year weight has: remained stable Dental Care, Regularly: No Physical Activity Frequency: Does not Exercise Seatbelt Use: sometimes Sunscreen Use: No Assistive Devices: Cane, Denture - Upper, Denture - Lower, Glasses, Scooter/Electric Scooter and Walker Allergies Allergies Allergy/AdvReac Type Severity Reaction Status Date / Time atorvastatin [From Lipitor] Allergy Unknown ON [facility] Verified 01/25/24 08:06 LIST celecoxib [From Celebrex] Allergy Unknown ON [facility] Verified 01/25/24 08:06 LIST iodine Allergy Unknown Unknown Verified 01/25/24 08:06 Home Meds Home Medications Medication Instructions Recorded Confirmed aspirin 81 mg tablet,delayed 81 mg PO BID 05/24/21 01/26/24 release [id number] 250 2 tab PO Q6H PRN Pain 02/19/22 01/26/24 mg-250 mg-65 mg tablet (Excedrin Extra Strength) lysine 600 mg tablet 1,200 mg PO QAM 04/03/23 01/26/24 losartan 25 mg tablet 25 mg PO QAM 01/26/24 01/26/24 Previous Rx's Medication Instructions Recorded famotidine 20 mg tablet 20 mg PO DAILY #90 tabs 08/21/22 nitroglycerin 0.4 mg sublingual 0.4 mg sublingual Q5M PRN chest 10/31/22 tablet pain #25 tabs escitalopram oxalate 10 mg tablet 10 mg PO DAILY #90 tabs 02/08/23 (Lexapro) isosorbide mononitrate 60 mg 60 mg PO QAM #90 tabs 02/08/23 tablet,extended release 24 hr ropinirole 1 mg tablet 1 - 3 mg (1 - 3 x 1 mg) PO 02/08/23 DIRECTED #360 tabs simvastatin 40 mg tablet 40 mg PO HS #90 tabs 02/08/23 levothyroxine 50 mcg tablet 50 mcg PO QAM #90 tabs 04/20/23 meclizine 25 mg tablet 12.5 - 25 mg (0.5 - 1 x 25 mg) PO 04/30/23 QID PRN Dizziness Or Vertigo #30 tabs tramadol 50 mg tablet 50 mg PO BID PRN pain #60 tabs 05/28/23 furosemide 20 mg tablet 20 mg PO Q2D #45 tabs 07/13/23 gabapentin 100 mg capsule 200 mg (2 x 100 mg) PO TID 90 days 12/10/23 #540 caps cephalexin 500 mg capsule 500 mg PO Q8H #30 caps 01/25/24 furosemide 40 mg tablet 40 mg PO BID #180 tabs 01/25/24 Results & Data (ED) Vital Signs Vital Signs - 24 hr 01/26/24 16:23 01/26/24 16:23 01/26/24 16:24 Temperature 36.7 C Temperature Source Oral Pulse Rate 69 55 L 55 L Pulse Rate from SpO2 Sensor 55 L Respiratory Rate 18 18 Blood Pressure 158/96 H Blood Pressure Mean 116 Pulse Oximetry 96 97 Oxygen Delivery Method Room Air Sepsis Recent Fever Within 48 Hours No Sepsis New/Unexplained Change in Mental Status No Sepsis Action Taken by Nursing No Action Required 01/26/24 16:30 01/26/24 17:00 01/26/24 17:00 Temperature Temperature Source Pulse Rate 64 Pulse Rate from SpO2 Sensor Respiratory Rate 21 Blood Pressure 179/100 H Blood Pressure Mean 140 Pulse Oximetry Oxygen Delivery Method Room Air Sepsis Recent Fever Within 48 Hours Sepsis New/Unexplained Change in Mental Status Sepsis Action Taken by Nursing 01/26/24 17:00 01/26/24 17:30 01/26/24 18:00 Temperature Temperature Source Pulse Rate 55 L 56 L 58 L Pulse Rate from SpO2 Sensor 55 L 56 L 58 L Respiratory Rate 15 14 24 Blood Pressure Blood Pressure Mean Pulse Oximetry 96 97 97 Oxygen Delivery Method Sepsis Recent Fever Within 48 Hours Sepsis New/Unexplained Change in Mental Status Sepsis Action Taken by Nursing 01/26/24 18:00 Temperature Temperature Source Pulse Rate Pulse Rate from SpO2 Sensor Respiratory Rate Blood Pressure 171/87 H Blood Pressure Mean 126 Pulse Oximetry Oxygen Delivery Method Sepsis Recent Fever Within 48 Hours Sepsis New/Unexplained Change in Mental Status Sepsis Action Taken by Nursing Laboratory Data 01/26/24 17:00 01/26/24 17:00 Lab Results 01/26/24 01/26/24 Range/Units 17:00 17:38 WBC 6.20 (4.8-10.8) K/ul RBC 3.78 L (4.20-5.40) M/uL Hgb 12.3 (12.0-16.0) g/dl Hct 38.3 (37.0-47.0) % MCV 101.3 H (80.0-100.0) fL MCH 32.5 (25.0-34.0) pg MCHC 32.1 (32.0-36.0) g/dL RDW Std Deviation 49.9 H (36.4-46.3) fL RDW Coeff of [place] 13.2 (11.5-14.5) % Plt Count 227 (130-400) K/uL MPV 9.7 (9.4-12.4) fL Immature Gran % (Auto) 0.3 % Neut % (Auto) 58.4 % Lymph % (Auto) 28.1 % [place] % (Auto) 10.0 % Eos % (Auto) 2.6 % Baso % (Auto) 0.6 % Neut # (Auto) 3.62 (1.40-6.50) K/uL Lymph # (Auto) 1.74 (1.20-3.40) K/uL [place] # (Auto) 0.62 H (0.11-0.59) K/uL Eos # (Auto) 0.16 (0.00-0.50) K/uL Baso # (Auto) 0.04 (0.00-0.20) K/uL Immature Gran # (Auto) 0.02 (0.01-0.20) K/uL Sodium 140 (136-145) mmol/L Potassium 4.7 (3.5-5.1) mmol/L Chloride 103 (98-107) mmol/L Carbon Dioxide 31 (21-32) mmol/L Anion Gap 6 (3-11) BUN 31 H (6-23) mg/dl Creatinine 1.52 H (0.6-1.2) mg/dl Est Cr Clr Drug Dosing 27.6 ml/min Est GFR ( Amer) 35.1 ml/min Est GFR (Non-Af Amer) 30.3 ml/min BUN/Creatinine Ratio 20.4 H (10-20) Glucose 98 (70-99(Fasting)) mg/dl Calcium 10.2 (8.6-10.3) mg/dl Total Bilirubin 0.4 (0.2-1.0) mg/dl AST 20 (13-39) U/L ALT 20 (7-52) U/L Alkaline Phosphatase 58 (34-104) U/L Troponin I High Sens 16.8 H (0-14) pg/ml Total Protein 6.9 (6.0-8.3) gm/dl Albumin 4.1 (3.4-5.0) gm/dl Globulin 2.8 (2.5-4.0) gm/dl Albumin/Globulin Ratio 1.5 (0.9-2) Urine Color Yellow Urine Appearance Clear (Clear) Urine pH 8.0 H (4.5-7.5) Ur Specific [place] 1.015 (1.000-1.030) Urine Protein Negative (Negative) Urine Glucose (UA) Negative (Negative) Urine Ketones Negative (Negative) Urine Blood Negative (Negative) Urine Nitrite Negative (Negative) Urine Bilirubin Negative (Negative) Urine Urobilinogen Negative (Negative) Ur Leukocyte Esterase Trace H (Negative) Urine WBC (Auto) 5-10 H (0-5) /hpf Urine RBC (Auto) 0-4 (0-4) /hpf U Hyaline Cast (Auto) 1-5 (0-5) /lpf U Epithel Cells (Auto) 10-20 H (0-5) /lpf Urine Bacteria (Auto) Negative (Negative) Administered Medications Discontinued Medications Fentanyl Citrate (Fentanyl Citrate Pf 100 Mcg/2 Ml Vial) 50 mcg IV NOW STA Stop: 01/26/24 16:42 Last Admin: 03/02/24 17:29 Dose: 50 mcg Documented By: [facility] Imaging Data Radiologist's Impression: Abdomen/Pelvis CT 01/26/24 16:41 CT chest diagnostic wo con, CT abd pelvis wo con CT DOSE: 2.63 mGy.cm CLINICAL HISTORY: 89 years-old Female with left lateral chest pain s/p fall. Acute left lateral chest abdominal pain status post TECHNIQUE: Multiaxial CT images of the chest, abdomen and pelvis were performed without contrast. A dose lowering technique was utilized adhering to the principles of ALARA. COMPARISON: CT lumbar spine 03/26/2023, CT chest, abdomen and pelvis 05/18/2021 FINDINGS: CT CHEST: 1.37 m hypodense right-sided thyroid nodule. No lymphadenopathy. Mild cardiomegaly with extensive coronary artery calcifications. Atherosclerosis of the aorta without aneurysm. Trace pleural effusions. No pneumothorax or overt pulmonary edema. Linear bibasilar subsegmental opacities favor atelectasis. Mild bronchial wall thickening. No suspicious pulmonary nodules or masses identified. There is mild cortical regulation involving a few anterior left-sided ribs suggestive of chronic fractures. There is a healing subacute nondisplaced fracture of the left anterior fourth and fifth ribs. Acute comminuted mildly displaced fractures of the posterior and posterolateral aspects of the left seventh through ninth ribs the ninth rib fracture in at least 2 places. Degenerative changes of the spine. CT ABDOMEN/PELVIS: No free air. The unenhanced spleen, moderately atrophic pancreas and adrenal glands are unremarkable. Distended gallbladder. Hepatic steatosis. Cortical thinning of the kidneys without hydronephrosis. Unremarkable urinary bladder. Atherosclerosis of the aorta without aneurysm. Subcentimeter iliac and inguinal lymph nodes are likely physiologic. No bowel obstruction or bowel wall thickening. Extensive colonic diverticulosis. No ascites or mesenteric inflammation. Normal appendix. No free fluid. Degenerative changes of the spine, pelvis and hips. Lumbar levoscoliosis. IMPRESSION: 1. Acute left-sided rib fractures, some of which are mildly displaced and comminuted. 2. No pneumothorax. 3. Trace pleural effusions with bibasilar atelectasis. 4. No acute solid organ injury. 5. Additional findings as above. ACT 112: Negative or not required by law. Electronically signed by: Christiano Ricketts M.D. 01/26/2024 5:[address] 01/26/24 16:41 CT chest diagnostic wo con, CT abd pelvis wo con CT DOSE: 2.63 mGy.cm CLINICAL HISTORY: 89 years-old Female with left lateral chest pain s/p fall. Acute left lateral chest abdominal pain status post TECHNIQUE: Multiaxial CT images of the chest, abdomen and pelvis were performed without contrast. A dose lowering technique was utilized adhering to the principles of ALARA. COMPARISON: CT lumbar spine 03/26/2023, CT chest, abdomen and pelvis 05/18/2021 FINDINGS: CT CHEST: 1.37 m hypodense right-sided thyroid nodule. No lymphadenopathy. Mild cardiomegaly with extensive coronary artery calcifications. Atherosclerosis of the aorta without aneurysm. Trace pleural effusions. No pneumothorax or overt pulmonary edema. Linear bibasilar subsegmental opacities favor atelectasis. Mild bronchial wall thickening. No suspicious pulmonary nodules or masses identified. There is mild cortical regulation involving a few anterior left-sided ribs suggestive of chronic fractures. There is a healing subacute nondisplaced fracture of the left anterior fourth and fifth ribs. Acute comminuted mildly displaced fractures of the posterior and posterolateral aspects of the left seventh through ninth ribs the ninth rib fracture in at least 2 places. Degenerative changes of the spine. CT ABDOMEN/PELVIS: No free air. The unenhanced spleen, moderately atrophic pancreas and adrenal glands are unremarkable. Distended gallbladder. Hepatic steatosis. Cortical thinning of the kidneys without hydronephrosis. Unremarkable urinary bladder. Atherosclerosis of the aorta without aneurysm. Subcentimeter iliac and inguinal lymph nodes are likely physiologic. No bowel obstruction or bowel wall thickening. Extensive colonic diverticulosis. No ascites or mesenteric inflammation. Normal appendix. No free fluid. Degenerative changes of the spine, pelvis and hips. Lumbar levoscoliosis. IMPRESSION: 1. Acute left-sided rib fractures, some of which are mildly displaced and comminuted. 2. No pneumothorax. 3. Trace pleural effusions with bibasilar atelectasis. 4. No acute solid organ injury. 5. Additional findings as above. ACT 112: Negative or not required by law. Electronically signed by: Christiano Ricketts M.D. 01/26/2024 5:28 PM Discharge Plan Visit Data Chief Complaint: Fall ED Provider: Polinski,Faiza Z. Discharge Problem: Multiple fractures of ribs of left side, Fall from standing, Cellulitis of left leg Forms Stand Alone Forms: [facility] Prescriptions Prescriptions: No Action famotidine 20 mg tablet 20 mg PO DAILY Qty: 90 3RF escitalopram oxalate [Lexapro] 10 mg tablet 10 mg PO DAILY Qty: 90 3RF isosorbide mononitrate 60 mg tablet extended release 24 hr 60 mg PO QAM Qty: 90 3RF ropinirole 1 mg tablet 1 - 3 mg PO DIRECTED Qty: 360 3RF Rx Instructions: 1 mg PO pt takes one at lunch and 3 at hs; TAKE 1 TABLET AT LUNCH AND 3 TABS AT HS simvastatin 40 mg tablet 40 mg PO HS Qty: 90 3RF levothyroxine 50 mcg tablet 50 mcg PO QAM Qty: 90 3RF meclizine 25 mg tablet 12.5 - 25 mg PO QID PRN (Reason: Dizziness Or Vertigo) Qty: 30 5RF tramadol 50 mg tablet 50 mg PO BID PRN (Reason: pain) Qty: 60 0RF Rx Instructions: short term only gabapentin 100 mg capsule 200 mg PO TID 90 Days Qty: 540 3RF nitroglycerin 0.4 mg tablet, sublingual 0.4 mg sublingual Q5M PRN (Reason: chest pain) Qty: 25 3RF Rx Instructions: do not exceed 3 doses per episode furosemide 20 mg tablet 20 mg PO Q2D Qty: 45 3RF Rx Instructions: Taken along with 40 mg tablet every other day aspirin 81 mg tablet,delayed release (DR/EC) 81 mg PO BID cephalexin 500 mg capsule 500 mg PO Q8H Qty: 30 0RF furosemide 40 mg tablet 40 mg PO BID Qty: 180 3RF Excedrin Extra Strength 250-250-65 mg Tablet 2 tab PO Q6H PRN (Reason: Pain) lysine 600 mg tablet 1,200 mg PO QAM Rx Instructions: Takes 2 tabs in the morning. losartan 25 mg tablet 25 mg PO QAM Referrals Referrals: Salena Ruelas CRNP [Primary Care Provider] -
[2024-01-26 17:22] LABS: Basophils # (auto) 0.04 K/uL (0.00-0.20); Basophils % (auto) 0.6 %; Eosinophils # (auto) 0.16 K/uL (0.00-0.50); Eosinophils % (auto) 2.6 %; Hematocrit (blood only) 38.3 % (37.0-47.0); Hemoglobin 12.3 g/dl (12.0-16.0); Immature Granulocytes # (auto) 0.02 K/uL (0.01-0.20); Immature Granulocytes % (auto) 0.3 %; Lymphocytes # (auto) 1.74 K/uL (1.20-3.40); Lymphocytes % (auto) 28.1 %; Mean Corpuscular Hemoglobin 32.5 pg (25.0-34.0); Mean Corpuscular Hgb Conc 32.1 g/dL (32.0-36.0); Mean Corpuscular Volume 101.3 fL (80.0-100.0); Mean Platelet Volume 9.7 fL (9.4-12.4); Monocytes # (auto) 0.62 K/uL (0.11-0.59); Neutrophils # (auto) 3.62 K/uL (1.40-6.50); Neutrophils % (auto) 58.4 %; Platelet Count 227 K/uL (130-400); RDW Coefficient of Variation 13.2 % (11.5-14.5); RDW Standard Deviation 49.9 fL (36.4-46.3); Red Blood Count 3.78 M/uL (4.20-5.40)
[2024-01-26] MEDS: fentaNYL citrate PF 100 MCG/2 ML VIAL IV STA (17:29)
--- NOTE | 2024-01-26 17:31 | CT Scan Report ---
CT chest diagnostic wo con, CT abd pelvis wo con CT DOSE: 2032.63 mGy.cm CLINICAL HISTORY: 89 years-old Female with left lateral chest pain s/p fall. Acute left lateral ches t abdominal pain status post TECHNIQUE: Multiaxial CT images of the chest, abdomen and pelvis were performed without contrast. A dose lowering technique was utilized adhering to the principles of ALARA. COMPARISON: CT lumbar spine 03/26/2023, CT chest, abdomen and pelvis 05/18/2021 FINDINGS: CT CHEST: 1.37 m hypodense right-sided thyroid nodule. No lymphadenopathy. Mild cardiomegaly with extensive co ronary artery calcifications. Atherosclerosis of the aorta without aneurysm. Trace pleural effusions. No pneumothorax or overt pulmonary edema. Linear bibasilar subsegmental opacities favor atelectasis. Mild bronchial wall thickening. No suspicious pulmonary nodules or masses identified. There is mild cortical regulation involving a few anterior left-sided ribs suggestive of chronic frac tures. There is a healing subacute nondisplaced fracture of the left anterior fourth and fifth ribs. Acute comminuted mildly displaced fractures of the posterior and posterolateral aspects of the left s eventh through ninth ribs the ninth rib fracture in at least 2 places. Degenerative changes of the sp ine. CT ABDOMEN/PELVIS: No free air. The unenhanced spleen, moderately atrophic pancreas and adrenal glands are unremarkable. Distended gallbladder. Hepatic steatosis. Cortical thinning of the kidneys without hydronephrosis. U nremarkable urinary bladder. Atherosclerosis of the aorta without aneurysm. Subcentimeter iliac and i nguinal lymph nodes are likely physiologic. No bowel obstruction or bowel wall thickening. Extensive colonic diverticulosis. No ascites or mesent shaan inflammation. Normal appendix. No free fluid. Degenerative changes of the spine, pelvis and hips . Lumbar levoscoliosis. IMPRESSION: 1. Acute left-sided rib fractures, some of which are mildly displaced and comminuted. 2. No pneumothorax. 3. Trace pleural effusions with bibasilar atelectasis. 4. No acute solid organ injury. 5. Additional findings as above. ACT 112: Negative or not required by law. Electronically signed by: Christiano Ricketts M.D. 01/26/2024 5:28 PM
[2024-01-26 17:38] LABS: Albumin Globulin Ratio 1.5 (0.9-2); Albumin Level 4.1 gm/dl (3.4-5.0); BUN Creatinine Ratio 20.4 (10-20); Bilirubin,Total 0.4 mg/dl (0.2-1.0); Calcium 10.2 mg/dl (8.6-10.3); Creatinine Clr Calc Pharmacy 27.6 ml/min; Est GFR (African American) 35.1 ml/min; Est GFR (Non-African American) 30.3 ml/min; Globulin 2.8 gm/dl (2.5-4.0); Potassium 4.7 mmol/L (3.5-5.1); Total Protein 6.9 gm/dl (6.0-8.3)
[2024-01-26 17:43] LABS: Troponin I High Sensitivity 16.8 pg/ml (0-14)
[2024-01-26 17:59] LABS: Appearance Urine Clear (Clear); Bacteria Urine Automated Negative (Negative); Bilirubin Urine Negative (Negative); Blood Urine Negative (Negative); Color Urine Yellow; Glucose Urine UA Negative (Negative); Ketones Urine Negative (Negative); Leukocyte Esterase Urine Trace (Negative); Nitrite Urine Negative (Negative); Protein Urine Negative (Negative); RBC Urine Automated 0-4 /hpf (0-4); Specific Gravity Urine 1.015 (1.000-1.030); Urobilinogen Urine Negative (Negative)
[2024-01-26] MEDS ORDERED: cefTRIAXone SODIUM 2,000 MG in DEXTROSE 5 % MINI-B 50 ML IV STA (20:25)
--- NOTE | 2024-01-26 20:27 | History & Physical Report ---
Date of Service January 26, 2024 Assessment & Plan (1) Cellulitis of left leg: (2) Fall from standing: (3) Multiple fractures of ribs of left side: (4) Venous insufficiency: (5) (HFpEF) heart failure with preserved ejection fraction: (6) Mild aortic stenosis: (7) Peripheral edema: (8) Acute kidney injury superimposed on chronic kidney disease: (9) Peripheral neuropathy: (10) Restless leg syndrome: (11) Frequent falls: (12) Imbalance: Plan Multiple left-sided rib fractures- Patient was noted to have old healed left fourth and fifth rib fractures X-rays/CT chest revealed rib fractures 7 through 9 Apply Lidoderm patch Acetaminophen 650 mg by mouth every 6 hours as needed for mild pain or fever Increase tramadol to 50 mg p.o. 4 times daily. Moderate pain Dilaudid 0.2 mg IV every 3 hours as needed for severe pain Frequent falls/imbalance/peripheral neuropathy/RLS/use of walker for ambulatory dysfunction- Patient has had generalized weakness, combined with the above, leading to frequent falls. When pain is improved, will need a PT and OT assessment, and possible inpatient rehab stay Continue Requip, gabapentin Left lower extremity DVT- Venous Doppler revealed DVT and one of the lower extremity veins Patient will be started on heparin drip low-dose no bolus and follow per protocol Acute kidney injury superimposed on CKD- Creatinine 1.52, with baseline 1.20 Continue furosemide due to lower extremity edema Hold losartan Follow serial laboratories History of Present Illness Chief Complaint: The patient presents to the emergency department with complaint of left flank and left lateral chest wall pain after a fall when getting up from the commode earlier this evening. Primary Care Provider: ROSALIE Lopez The patient is an 89-year-old female with a past medical history including frequent falls, mild aortic stenosis, HFpEF, depression, hypertension, hypothyroidism, hyperparathyroidism, CKD stage III, urinary incontinence, GERD and CAD. Patient reports that she has had periodic falls while at home. The fall today occurred when as she was getting up from the commode, and was reaching for a walker and misjudged to the and fell landing on her left side. She developed immediate discomfort in her left flank and left chest wall. Due to the severity of the symptoms she presented to the ED for assessment. X-rays in the emergency department revealed 3 new left rib cage fractures, patient was referred for evaluation for admission. Allergies Allergy/AdvReac Type Severity Reaction Status Date / Time atorvastatin [From Lipitor] Allergy Unknown ON [facility] Verified 01/25/24 08:06 LIST celecoxib [From Celebrex] Allergy Unknown ON [facility] Verified 01/25/24 08:06 LIST iodine Allergy Unknown Unknown Verified 01/25/24 08:06 Home Medications Medication Instructions Recorded Confirmed Type aspirin 81 mg tablet,delayed 81 mg PO BID 05/24/21 01/26/24 History release lmqnodw-medjsgrioeunr-mebtjaeh 250 2 tab PO Q6H PRN Pain 02/19/22 01/26/24 Hi story mg-250 mg-65 mg tablet (Excedrin Extra Strength) famotidine 20 mg tablet 20 mg PO DAILY #90 tabs 08/21/22 01/26/24 Rx nitroglycerin 0.4 mg sublingual 0.4 mg sublingual Q5M PRN chest 10/31/22 01/26/24 Rx tablet pain #25 tabs escitalopram oxalate 10 mg tablet 10 mg PO DAILY #90 tabs 02/08/23 01/26/24 Rx (Lexapro) isosorbide mononitrate 60 mg 60 mg PO QAM #90 tabs 02/08/23 01/26/24 Rx tablet,extended release 24 hr ropinirole 1 mg tablet 1 - 3 mg (1 - 3 x 1 mg) PO 02/08/23 01/26/24 Rx DIRECTED #360 tabs simvastatin 40 mg tablet 40 mg PO HS #90 tabs 02/08/23 01/26/24 Rx lysine 600 mg tablet 1,200 mg PO QAM 04/03/23 01/26/24 History levothyroxine 50 mcg tablet 50 mcg PO QAM #90 tabs 04/20/23 01/26/24 Rx meclizine 25 mg tablet 12.5 - 25 mg (0.5 - 1 x 25 mg) PO 04/30/23 01/26/24 Rx QID PRN Dizziness Or Vertigo #30 tabs tramadol 50 mg tablet 50 mg PO BID PRN pain #60 tabs 05/28/23 01/26/24 Rx furosemide 20 mg tablet 20 mg PO Q2D #45 tabs 07/13/23 01/26/24 Rx gabapentin 100 mg capsule 200 mg (2 x 100 mg) PO TID 90 days 12/10/23 01/26/24 Rx #540 caps cephalexin 500 mg capsule 500 mg PO Q8H #30 caps 01/25/24 01/26/24 Rx furosemide 40 mg tablet 40 mg PO BID #180 tabs 01/25/24 01/26/24 Rx losartan 25 mg tablet 25 mg PO QAM 01/26/24 01/26/24 History Past Med/Surg History Medical History (Updated 01/27/24 @ 02:38 by Al Weller MD) COVID-19 Chronic acquired lymphedema Aortic stenosis Sepsis Hypercalcemia Surgical History History of total knee arthroplasty History of total abdominal hysterectomy and bilateral salpingo-oophorectomy History of partial colectomy History of carpal tunnel surgery History of dilatation and curettage Status post laser cataract surgery of both eyes History of appendectomy Family History Father Prostate cancer Myocardial infarction Mother Cancer Other No significant family history Denies family history of Ovarian cancer Kidney disease Breast cancer Colorectal cancer Social History Smoking Status: Never smoker Second Hand Exposure: No; Do You Dip or Chew Tobacco: No; Hx Alcohol Use: No Hx Substance Use: No Preferred Language: Indonesian Communication Ability: Effective Visual Impairment: Limited Hearing Ability: Normal Balance Sheet Analyst Required: No Beliefs That Will Affect Care: None marital status: Current Living Situation: Spouse Current Living Situation Comment: with current occupational status: retired current occupation: housewife How many Children do You have: 3 Feels Safe at Home: Yes Childhood Exposure to Second-Hand Smoke: Yes Diet: regular caffeine: Yes during the past year weight has: remained stable Dental Care, Regularly: No Physical Activity Frequency: Does not Exercise Seatbelt Use: sometimes Sunscreen Use: No Assistive Devices: Cane, Denture - Upper, Denture - Lower, Glasses, Scooter/Electric Scooter and Walker Review of Systems Review of Systems: The patient denies chest pain, palpitations, cough, sore throat, fevers, chills, sweats, weight change, fatigue, nausea, vomiting, diarrhea , constipation, abdominal pain, pelvic pain, blood in urine or stool, dysuria, urinary frequency or urgency, lightheadedness, dizziness, headache, memory loss, loss of consciousness, rash, abnormal bruising or bleeding, focal weakness, numbness or tingling in arms or legs, generalized arthralgias or myalgias, back or neck pain, or night sweats. The review of systems is otherwise negative other than for that already noted above, and at least 10 systems have been reviewed. Physical Exam Physical Exam: The patient is awake, alert and oriented 3, well developed and well nourished, normocephalic and atraumatic, lying in bed and in no acute distress. HEENT--PERRL, EOMI, mucous membranes and oropharynx dry. Neck--supple. No JVD. No bruits. Thyroid normal, trachea midline, no adenopathy. Heart--normal S1 and S2. No murmurs, rubs or gallops. Lungs/chest wall--clear bilaterally, no respiratory distress, no accessory muscle use. Reproducible pain over left lateral lower rib cage Abdomen--normal bowel sounds and soft. Nontender. Nondistended, no hernias or masses, no organomegaly. Extremities-1+ bilateral pretibial pitting edema, with moderate erythema left lower anterior tibial surface Dermatologic--as above Neurologic--cranial nerves II through XII grossly intact. Rheumatologic--limited exam due to body habitus Psychiatric--normal affect. Results & Data Results & Data Vital Signs (Past 12 Hours) Vital Signs Temp Pulse Resp BP Pulse Ox O2 Del Method 01/26/24 18:00 171/87 H 01/26/24 18:00 58 L 24 97 01/26/24 17:30 56 L 14 97 01/26/24 17:00 55 L 15 96 01/26/24 17:00 179/100 H 01/26/24 17:00 Room Air 01/26/24 16:30 64 21 01/26/24 16:24 55 L 01/26/24 16:23 55 L 18 97 01/26/24 16:23 36.7 C 69 18 158/96 H 96 Room Air Laboratory Results Laboratory Results WBC 6.20 K/ul (4.8-10.8) 01/26/24 17:00 RBC 3.78 M/uL (4.20-5.40) L 01/26/24 17:00 Hgb 12.3 g/dl (12.0-16.0) 01/26/24 17:00 Hct 38.3 % (37.0-47.0) 01/26/24 17:00 MCV 101.3 fL (80.0-100.0) H 01/26/24 17:00 MCH 32.5 pg (25.0-34.0) 01/26/24 17:00 MCHC 32.1 g/dL (32.0-36.0) 01/26/24 17:00 RDW Std Deviation 49.9 fL (36.4-46.3) H 01/26/24 17:00 RDW Coeff of [place] 13.2 % (11.5-14.5) 01/26/24 17:00 Plt Count 227 K/uL (130-400) 01/26/24 17:00 MPV 9.7 fL (9.4-12.4) 01/26/24 17:00 Immature Gran % (Auto) 0.3 % 01/26/24 17:00 Neut % (Auto) 58.4 % 01/26/24 17:00 Lymph % (Auto) 28.1 % 01/26/24 17:00 [place] % (Auto) 10.0 % 01/26/24 17:00 Eos % (Auto) 2.6 % 01/26/24 17:00 Baso % (Auto) 0.6 % 01/26/24 17:00 Neut # (Auto) 3.62 K/uL (1.40-6.50) 01/26/24 17:00 Lymph # (Auto) 1.74 K/uL (1.20-3.40) 01/26/24 17:00 [place] # (Auto) 0.62 K/uL (0.11-0.59) H 01/26/24 17:00 Eos # (Auto) 0.16 K/uL (0.00-0.50) 01/26/24 17:00 Baso # (Auto) 0.04 K/uL (0.00-0.20) 01/26/24 17:00 Immature Gran # (Auto) 0.02 K/uL (0.01-0.20) 01/26/24 17:00 APTT 28 Seconds (21-31) 01/27/24 00:18 PTT Ratio 1.0 01/27/24 00:18 Heparin Anti-Xa, Unfract < 0.10 IU/ml (0.3-0.7) L 01/27/24 00:18 Sodium 140 mmol/L (136-145) 01/26/24 17:00 Potassium 4.7 mmol/L (3.5-5.1) 01/26/24 17:00 Chloride 103 mmol/L (98-107) 01/26/24 17:00 Carbon Dioxide 31 mmol/L (21-32) 01/26/24 17:00 Anion Gap 6 (3-11) 01/26/24 17:00 BUN 31 mg/dl (6-23) H 01/26/24 17:00 Creatinine 1.52 mg/dl (0.6-1.2) H 01/26/24 17:00 Est Cr Clr Drug Dosing 27.6 ml/min 01/26/24 17:00 Est GFR ( Amer) 35.1 ml/min 01/26/24 17:00 Est GFR (Non-Af Amer) 30.3 ml/min 01/26/24 17:00 BUN/Creatinine Ratio 20.4 (10-20) H 01/26/24 17:00 Glucose 98 mg/dl (70-99(Fasting)) 01/26/24 17:00 Calcium 10.2 mg/dl (8.6-10.3) 01/26/24 17:00 Total Bilirubin 0.4 mg/dl (0.2-1.0) 01/26/24 17:00 AST 20 U/L (13-39) 01/26/24 17:00 ALT 20 U/L (7-52) 01/26/24 17:00 Alkaline Phosphatase 58 U/L (34-104) 01/26/24 17:00 Troponin I High Sens 16.8 pg/ml (0-14) H 01/26/24 17:00 Total Protein 6.9 gm/dl (6.0-8.3) 01/26/24 17:00 Albumin 4.1 gm/dl (3.4-5.0) 01/26/24 17:00 Globulin 2.8 gm/dl (2.5-4.0) 01/26/24 17:00 Albumin/Globulin Ratio 1.5 (0.9-2) 01/26/24 17:00 Urine Color Yellow 01/26/24 17:38 Urine Appearance Clear (Clear) 01/26/24 17:38 Urine pH 8.0 (4.5-7.5) H 01/26/24 17:38 Ur Specific [place] 1.015 (1.000-1.030) 01/26/24 17:38 Urine Protein Negative (Negative) 01/26/24 17:38 Urine Glucose (UA) Negative (Negative) 01/26/24 17:38 Urine Ketones Negative (Negative) 01/26/24 17:38 Urine Blood Negative (Negative) 01/26/24 17:38 Urine Nitrite Negative (Negative) 01/26/24 17:38 Urine Bilirubin Negative (Negative) 01/26/24 17:38 Urine Urobilinogen Negative (Negative) 01/26/24 17:38 Ur Leukocyte Esterase Trace (Negative) H 01/26/24 17:38 Urine WBC (Auto) 5-10 /hpf (0-5) H 01/26/24 17:38 Urine RBC (Auto) 0-4 /hpf (0-4) 01/26/24 17:38 U Hyaline Cast (Auto) 1-5 /lpf (0-5) 01/26/24 17:38 U Epithel Cells (Auto) 10-20 /lpf (0-5) H 01/26/24 17:38 Urine Bacteria (Auto) Negative (Negative) 01/26/24 17:38 Impressions Abdomen/Pelvis CT 01/26/24 16:41 CT chest diagnostic wo con, CT abd pelvis wo con CT DOSE: 2.63 mGy.cm CLINICAL HISTORY: 89 years-old Female with left lateral chest pain s/p fall. Acute left lateral chest abdominal pain status post TECHNIQUE: Multiaxial CT images of the chest, abdomen and pelvis were performed without contrast. A dose lowering technique was utilized adhering to the principles of ALARA. COMPARISON: CT lumbar spine 03/26/2023, CT chest, abdomen and pelvis 05/18/2021 FINDINGS: CT CHEST: 1.37 m hypodense right-sided thyroid nodule. No lymphadenopathy. Mild cardiomegaly with extensive coronary artery calcifications. Atherosclerosis of the aorta without aneurysm. Trace pleural effusions. No pneumothorax or overt pulmonary edema. Linear bibasilar subsegmental opacities favor atelectasis. Mild bronchial wall thickening. No suspicious pulmonary nodules or masses identified. There is mild cortical regulation involving a few anterior left-sided ribs suggestive of chronic fractures. There is a healing subacute nondisplaced fracture of the left anterior fourth and fifth ribs. Acute comminuted mildly displaced fractures of the posterior and posterolateral aspects of the left seventh through ninth ribs the ninth rib fracture in at least 2 places. Degenerative changes of the spine. CT ABDOMEN/PELVIS: No free air. The unenhanced spleen, moderately atrophic pancreas and adrenal glands are unremarkable. Distended gallbladder. Hepatic steatosis. Cortical thinning of the kidneys without hydronephrosis. Unremarkable urinary bladder. Atherosclerosis of the aorta without aneurysm. Subcentimeter iliac and inguinal lymph nodes are likely physiologic. No bowel obstruction or bowel wall thickening. Extensive colonic diverticulosis. No ascites or mesenteric inflammation. Normal appendix. No free fluid. Degenerative changes of the spine, pelvis and hips. Lumbar levoscoliosis. IMPRESSION: 1. Acute left-sided rib fractures, some of which are mildly displaced and comminuted. 2. No pneumothorax. 3. Trace pleural effusions with bibasilar atelectasis. 4. No acute solid organ injury. 5. Additional findings as above. ACT 112: Negative or not required by law. Electronically signed by: Christiano Ricketts M.D. 01/26/2024 5:[address] 01/26/24 16:41 CT chest diagnostic wo con, CT abd pelvis wo con CT DOSE: 2032.63 mGy.cm CLINICAL HISTORY: 89 years-old Female with left lateral chest pain s/p fall. Acute left lateral chest abdominal pain status post TECHNIQUE: Multiaxial CT images of the chest, abdomen and pelvis were performed without contrast. A dose lowering technique was utilized adhering to the principles of ALARA. COMPARISON: CT lumbar spine 03/26/2023, CT chest, abdomen and pelvis 05/18/2021 FINDINGS: CT CHEST: 1.37 m hypodense right-sided thyroid nodule. No lymphadenopathy. Mild cardiomegaly with extensive coronary artery calcifications. Atherosclerosis of the aorta without aneurysm. Trace pleural effusions. No pneumothorax or overt pulmonary edema. Linear bibasilar subsegmental opacities favor atelectasis. Mild bronchial wall thickening. No suspicious pulmonary nodules or masses identified. There is mild cortical regulation involving a few anterior left-sided ribs suggestive of chronic fractures. There is a healing subacute nondisplaced fracture of the left anterior fourth and fifth ribs. Acute comminuted mildly displaced fractures of the posterior and posterolateral aspects of the left seventh through ninth ribs the ninth rib fracture in at least 2 places. Degenerative changes of the spine. CT ABDOMEN/PELVIS: No free air. The unenhanced spleen, moderately atrophic pancreas and adrenal glands are unremarkable. Distended gallbladder. Hepatic steatosis. Cortical thin donovan of the kidneys without hydronephrosis. Unremarkable urinary bladder. Atherosclerosis of the aorta without aneurysm. Subcentimeter iliac and inguinal lymph nodes are likely physiologic. No bowel obstruction or bowel wall thickening. Extensive colonic diverticulosis. No ascites or mesenteric inflammation. Normal appendix. No free fluid. Degenerative changes of the spine, pelvis and hips. Lumbar levoscoliosis. IMPRESSION: 1. Acute left-sided rib fractures, some of which are mildly displaced and comminuted. 2. No pneumothorax. 3. Trace pleural effusions with bibasilar atelectasis. 4. No acute solid organ injury. 5. Additional findings as above. ACT 112: Negative or not required by law. Electronically signed by: Christiano Ricketts M.D. 01/26/2024 5:28 PM Venous Doppler Study 01/26/24 19:14 CR Exam(s): US VENOUS LEFT LOWER EXTREMITY EXAM: US Duplex Left Lower Extremity Veins CLINICAL HISTORY: Reason for exam: LLE swelling and redness. TECHNIQUE: Real-time duplex ultrasound scan of the left lower extremity veins integrating B-mode two-dimensional vascular structure, Doppler spectral analysis, color flow Doppler imaging and compression. COMPARISON: 04/12/2022. FINDINGS: Deep veins: Absent compressibility with internal echoes and no flow identified within one of the posterior tibial veins. The peroneal veins could not be visualized. No DVT in the visualized common femoral, femoral, proximal deep femoral or popliteal veins. The veins demonstrate normal color flow, are normally compressible, with normal phasic flow and/or augmentation response. Normal compressibility with normal respiratory variation within the left common femoral vein, superficial vein and popliteal vein. Superficial veins: See above. Soft tissues: Nonspecific calf edema. No popliteal cyst. IMPRESSION: 1. Deep venous thrombosis below the knee seen within one of the posterior tibial veins. 2. No deep venous thrombosis from the left common femoral vein to the popliteal vein. Communications: Call Doctor Other Electronically signed by: María Henry MD 01/26/24 23:45 PM Code Status & VTE Plan Code Status Full code VTE Prophylaxis Plan VTE Prophylaxis will be ordered: Yes PG Care Time/CCT Total # of Minutes Spent Total Time Spent with Patient: Total time spent is greater than 50% in coordination of care (as documented) at patient's floor/unit and/or counseling patient: Coding Level of Care Code 38239 INT INP/OBS CARE 3/75MIN Diagnoses Cellulitis of left leg L03.116 Fall from standing W19.XXXA Multiple fractures of ribs of left side S22.42XA Venous insufficiency I87.2 (HFpEF) heart failure with preserved ejection fraction I50.30 Mild aortic stenosis I35.0 Peripheral edema R60.9 Acute kidney injury superimposed on chronic kidney disease N17.9; N18.9 Peripheral neuropathy G62.9 Restless leg syndrome G25.81 Frequent falls R29.6 Imbalance R26.89
[2024-01-26] MEDS: LIDOCAINE 5% 1 PATCH TD STA (21:04)
[2024-01-26] MEDS ORDERED: MECLIZINE 12.5 MG TAB PO PRN (21:46)
[2024-01-26] MEDS ORDERED: ACETAMINOPHEN 325 MG TAB PO PRN (21:46)
[2024-01-26] MEDS ORDERED: ONDANSETRON INJ 2 MG/ML 2 ML VIAL IV PRN (21:46)
[2024-01-26] MEDS ORDERED: NITROGLYCERIN SL 0.4 MG/TAB TAB SL PRN (21:46)
[2024-01-26] MEDS: HYDROmorphone INJ 0.5 MG/0.5 ML SYR IV PRN (22:59)
[2024-01-26] MEDS: rOPINIRole HCL 1 MG TABLET PO SCH (23:23)
[2024-01-26] MEDS: GABAPENTIN 100 MG CAP PO SCH (23:24)
[2024-01-26] MEDS: FUROSEMIDE 40 MG TAB PO SCH (23:24)
[2024-01-26] MEDS: ASPIRIN 81 MG ECTAB PO SCH (23:25)
[2024-01-26] MEDS: SIMVASTATIN 40 MG TAB PO SCH (23:25)
--- NOTE | 2024-01-26 23:46 | Ultrasound Report ---
Exam(s): US VENOUS LEFT LOWER EXTREMITY EXAM: US Duplex Left Lower Extremity Veins CLINICAL HISTORY: Reason for exam: LLE swelling and redness. TECHNIQUE: Real-time duplex ultrasound scan of the left lower extremity veins integrating B-mode two-dimensional vascular structure, Doppler spectral analysis, color flow Doppler imaging and compression. COMPARISON: 04/12/2022. FINDINGS: Deep veins: Absent compressibility with internal echoes and no flow identified within one of the posterior tibial veins. The peroneal veins could not be visualized. No DVT in the visualized common femoral, femoral, proximal deep femoral or popliteal veins. The veins demonstrate normal color flow, are normally compressible, with normal phasic flow and/or augmentation response. Normal compressibility with normal respiratory variation within the left common femoral vein, superficial vein and popliteal vein. Superficial veins: See above. Soft tissues: Nonspecific calf edema. No popliteal cyst. IMPRESSION: 1. Deep venous thrombosis below the knee seen within one of the posterior tibial veins. 2. No deep venous thrombosis from the left common femoral vein to the popliteal vein. Communications: Call Doctor Other Electronically signed by: María Henry MD 01/26/24 23:45 PM
[2024-01-27] MEDS: Heparin IV Adult Wt-Based Low-Dose *NO* INITIAL Bolus Protocol IV STA (00:06)
[2024-01-27] MEDS: HEPARIN SODIUM/DEXTROSE 25,000 UNITS/500 ML BAG IV SCH (00:20)
[2024-01-27 01:01] LABS: ANTI-Xa, UFH(UnfractionatedHep < 0.10 IU/ml (0.3-0.7); Partial Thromboplastin Time 28 Seconds (21-31)
[2024-01-27] MEDS: LEVOTHYROXINE SODIUM 50 MCG TABLET PO SCH (06:02)
[2024-01-27] MEDS: ISOSORBIDE MONO EXTENDED REL 60 MG TABCR PO SCH (07:22)
[2024-01-27] MEDS: FAMOTIDINE 20 MG TAB PO SCH (07:23)
[2024-01-27] MEDS: ESCITALOPRAM OXALATE 10 MG TAB PO SCH (07:23)
[2024-01-27 07:27] LABS: Albumin Level 3.8 gm/dl (3.4-5.0); Magnesium 2.3 mg/dl (1.7-2.4)
[2024-01-27] MEDS: DICLOFENAC SOD 1% GEL 100 GM TUBE EXT PRN (07:27)
[2024-01-27 07:33] LABS: BUN Creatinine Ratio 21.1 (10-20); Creatinine Clr Calc Pharmacy 32.8 ml/min; Est GFR (African American) 43.2 ml/min; Est GFR (Non-African American) 37.3 ml/min; Phosphorus 3.9 mg/dl (2.5-4.9)
[2024-01-27 07:48] LABS: ANTI-Xa, UFH(UnfractionatedHep 0.23 IU/ml (0.3-0.7)
--- NOTE | 2024-01-27 08:08 | Hospitalist Progress Note ---
Date of Service January 27, 2024 Assessment & Plan (1) Cellulitis of left leg: Plan: 89 yo female with PMHx of frequent falls, mild aortic stenosis, HFpEF, depression, hypertension, hypothyroidism, hyperparathyroidism, CKD stage III, urinary incontinence, GERD and CAD. #Multiple left-sided rib fractures -Secondary to ground level mechanical fall -Patient was noted to have old healed left fourth and fifth rib fractures -X-rays/CT chest revealed rib fractures 7 through 9. Low threshold for repeat imaging (may consider CTA due to DVT as below) if clinically decompensates to assess for pneumothorax. -Pain Control: lidoderm patch, acetaminophen scheduled, tramadol/dilaudid prn #Frequent falls/imbalance/peripheral neuropathy/RLS/use of walker for ambulatory dysfunction -Patient has had generalized weakness, combined with the above, leading to frequent falls. -PT/OT -Continue Requip, gabapentin #Left lower extremity cellulitis -Questionable cellulitis. Cannot exclude chronic venous stasis changes. -Was started on Keflex 01/24 in outpatient setting. Started on rocephin in ED. Continue, plan to treat at least 5 days. If worsens, consider MRSA coverage. #Left lower extremity DVT -Venous Doppler revealed DVT in one of posterior tibial veins -First DVT, likely provoked due to sedentary lifestyle -Started on heparin gtt - transitioned to Eliquis (10mg BID x7 days then 5mg BID) - will need at least 3 months of treatment -consider outpatient hypercoagulable work up #Acute kidney injury superimposed on CKD -On admission Cr 1.52, baseline 1.20 - Cr improving -Continue furosemide due to lower extremity edema -Recently increased from PO 40mg daily to BID in outpatient setting given increased weight - did receive morning dose but now held due to soft BPs - restart when able -Strict I/Os -Hold losartan DVT ppx: Eliquis 10mg BID (loading dose) FEN/GI: HH Code Status: full Dispo: med tele (2) Fall from standing: (3) Multiple fractures of ribs of left side: (4) Venous insufficiency: (5) (HFpEF) heart failure with preserved ejection fraction: (6) Mild aortic stenosis: (7) Peripheral edema: (8) Acute kidney injury superimposed on chronic kidney disease: (9) Peripheral neuropathy: (10) Restless leg syndrome: (11) Frequent falls: (12) Imbalance: Admission and Anticipated Discharge Date Admission Date: January 26, 2024 Supervising Physician Co-Signing Physician Notes I personally examined the patient and verified all arora points of history and exam, discussed case, and agree with decision making with Dr. Castro. Endorsing left-sided pain overlying site of rib fractures. Reports pain worsens with deep inhalation but otherwise denies any shortness of breath. Denies any cough/congestion. Denies any chest pain. Endorsing lower extremity edema, left greater than right with associated pain. Denies any abdominal pain. Vitals reviewedinitially hypertensive then became hypotensive and as of time of dictation, blood pressure has normalized. Afebrile and saturating adequately on room air at this time. Generally nontoxic-appearing and in no acute distress. Heart regular rate and rhythm with positive systolic murmur. Lungs clear to auscultation anteriorly, mild diminished bibasilar lung sounds. Left greater than right lower extremity edema. Left lower extremity with scabbed wound and surrounding erythema. Trace erythema of right lower extremity. Labs reviewed. Notable for elevated creatinine that is downtrending from yesterday Left lower extremity venous Doppler positive for DVT venous Doppler of right lower extremity obtained and negative for DVT Left-sided rib fracturessecondary to mechanical ground-level fall, acute 7 through 9 with fracture in 2 separate places of rib 9. Per ER note, pulmonology consulted. Plan on pain control and incentive spirometry. Will need close clinical monitoring for development of secondary complications. Left lower extremity DVTfirst lifetime DVT with no family history. No signs of obvious malignancy on CT C/A/P. Suspect provoked due to sedentary lifestyle. Will hold hypercoagulable workup at this time, may consider outpatient. Patient started on heparin drip and will transition to Eliquis. Recommend minimum 3- month treatment. Left lower extremity cellulitisuncertain if truly cellulitic process. Was st arted on Keflex outpatient and Rocephin in the ED. Will continue and treat for 5 to 7 days pending course. NO on CKDreceived Lasix dose in the morning, but will hold evening dose due to hypotension. Hold losartan. Continue to monitor Otherwise care as noted above PT/OT Subjective Patient seen at bedside. Moderate-significant pain at L ribs especially with movement 2/2 fx. Denies cp, sob, fever, abd pain, N/V/D. Review of Systems Review of Systems: All systems reviewed & are unremarkable except as noted in HPI & below Physical Exam Physical Exam: Constitutional: in no acute distress, pleasant and normal affect, intact memory. Vitals as above. HEENT: No scleral injection or discharge. Moist mucous membranes. Neck: Supple without lymphadenopathy. Trachea midline. Lungs: mild diminished bibasilar lung sounds, no wheezing/rales/rhonchi Cardiac: Regular rate and rhythm.No murmurs. 2+ lower extremity edema. +lymphedema. Faint distal pedal/post. tib pulses bilaterally 2/2 edema. Abdomen: Soft, nontender, and nondistended.No guarding. MSK: No cyanosis or clubbing. Skin: Bilateral lower extremities tender to deep palpation. L molina erythema without drainage and non painful to light touch. There are also scabbed over wounds on L molina without discharge/pain. Neurologic: no focal deficits Results & Data Results & Data Vital Signs (Past 12 Hours) Vital Signs Temp Pulse Pulse Resp BP Pulse Ox Pulse Ox 01/27/24 07:41 01/27/24 07:41 36.6 C 56 L 20 129/67 92 01/27/24 07:06 55 L 01/27/24 06:22 55 L 18 130/69 98 01/27/24 00:30 36.8 C 58 L 20 139/96 98 01/26/24 23:00 98 01/26/24 23:00 61 20 168/76 H 98 01/26/24 20:22 55 L O2 Del Method O2 Del Method 01/27/24 07:41 Room Air 01/27/24 07:41 Room Air 01/27/24 07:06 01/27/24 06:22 Room Air 01/27/24 00:30 Room Air 01/26/24 23:00 Room Air 01/26/24 23:00 Room Air 01/26/24 20:22 Laboratory Results 01/27/24 01/27/24 01/26/24 Range/Units 05:57 00:18 17:38 WBC (4.8-10.8) K/ul RBC (4.20-5.40) M/uL Hgb (12.0-16.0) g/dl Hct (37.0-47.0) % MCV (80.0-100.0) fL MCH (25.0-34.0) pg MCHC (32.0-36.0) g/dL RDW Std Deviation (36.4-46.3) fL RDW Coeff of Makeda (11.5-14.5) % Plt Count (130-400) K/uL MPV (9.4-12.4) fL Immature Gran % (Auto) % Neut % (Auto) % Lymph % (Auto) % Davidson % (Auto) % Eos % (Auto) % Baso % (Auto) % Neut # (Auto) (1.40-6.50) K/uL Lymph # (Auto) (1.20-3.40) K/uL Davidson # (Auto) (0.11-0.59) K/uL Eos # (Auto) (0.00-0.50) K/uL Baso # (Auto) (0.00-0.20) K/uL Immature Gran # (Auto) (0.01-0.20) K/uL APTT 28 (21-31) Seconds PTT Ratio 1.0 Heparin Anti-Xa, Unfract 0.23 L < 0.10 L (0.3-0.7) IU/ml Sodium 138 (136-145) mmol/L Potassium 4.0 (3.5-5.1) mmol/L Chloride 103 (98-107) mmol/L Carbon Dioxide 29 (21-32) mmol/L Anion Gap 6 (3-11) BUN 27 H (6-23) mg/dl Creatinine 1.28 H (0.6-1.2) mg/dl Est Cr Clr Drug Dosing 32.8 ml/min Est GFR ( Amer) 43.2 ml/min Est GFR (Non-Af Amer) 37.3 ml/min BUN/Creatinine Ratio 21.1 H (10-20) Glucose 93 (70-99(Fasting)) mg/dl Calcium 10.0 (8.6-10.3) mg/dl Phosphorus 3.9 (2.5-4.9) mg/dl Magnesium 2.3 (1.7-2.4) mg/dl Total Bilirubin (0.2-1.0) mg/dl AST (13-39) U/L ALT (7-52) U/L Alkaline Phosphatase (34-104) U/L Troponin I High Sens (0-14) pg/ml Total Protein (6.0-8.3) gm/dl Albumin 3.8 (3.4-5.0) gm/dl Globulin (2.5-4.0) gm/dl Albumin/Globulin Ratio (0.9-2) Urine Color Yellow Urine Appearance Clear (Clear) Urine pH 8.0 H (4.5-7.5) Ur Specific Easley 1.015 (1.000-1.030) Urine Protein Negative (Negative) Urine Glucose (UA) Negative (Negative) Urine Ketones Negative (Negative) Urine Blood Negative (Negative) Urine Nitrite Negative (Negative) Urine Bilirubin Negative (Negative) Urine Urobilinogen Negative (Negative) Ur Leukocyte Esterase Trace H (Negative) Urine WBC (Auto) 5-10 H (0-5) /hpf Urine RBC (Auto) 0-4 (0-4) /hpf U Hyaline Cast (Auto) 1-5 (0-5) /lpf U Epithel Cells (Auto) 10-20 H (0-5) /lpf Urine Bacteria (Auto) Negative (Negative) 01/26/24 Range/Units 17:00 WBC 6.20 (4.8-10.8) K/ul RBC 3.78 L (4.20-5.40) M/uL Hgb 12.3 (12.0-16.0) g/dl Hct 38.3 (37.0-47.0) % MCV 101.3 H (80.0-100.0) fL MCH 32.5 (25.0-34.0) pg MCHC 32.1 (32.0-36.0) g/dL RDW Std Deviation 49.9 H (36.4-46.3) fL RDW Coeff of Makeda 13.2 (11.5-14.5) % Plt Count 227 (130-400) K/uL MPV 9.7 (9.4-12.4) fL Immature Gran % (Auto) 0.3 % Neut % (Auto) 58.4 % Lymph % (Auto) 28.1 % Davidson % (Auto) 10.0 % Eos % (Auto) 2.6 % Baso % (Auto) 0.6 % Neut # (Auto) 3.62 (1.40-6.50) K/uL Lymph # (Auto) 1.74 (1.20-3.40) K/uL Davidson # (Auto) 0.62 H (0.11-0.59) K/uL Eos # (Auto) 0.16 (0.00-0.50) K/uL Baso # (Auto) 0.04 (0.00-0.20) K/uL Immature Gran # (Auto) 0.02 (0.01-0.20) K/uL APTT (21-31) Seconds PTT Ratio Heparin Anti-Xa, Unfract (0.3-0.7) IU/ml Sodium 140 (136-145) mmol/L Potassium 4.7 (3.5-5.1) mmol/L Chloride 103 (98-107) mmol/L Carbon Dioxide 31 (21-32) mmol/L Anion Gap 6 (3-11) BUN 31 H (6-23) mg/dl Creatinine 1.52 H (0.6-1.2) mg/dl Est Cr Clr Drug Dosing 27.6 ml/min Est GFR ( Amer) 35.1 ml/min Est GFR (Non-Af Amer) 30.3 ml/min BUN/Creatinine Ratio 20.4 H (10-20) Glucose 98 (70-99(Fasting)) mg/dl Calcium 10.2 (8.6-10.3) mg/dl Phosphorus (2.5-4.9) mg/dl Magnesium (1.7-2.4) mg/dl Total Bilirubin 0.4 (0.2-1.0) mg/dl AST 20 (13-39) U/L ALT 20 (7-52) U/L Alkaline Phosphatase 58 (34-104) U/L Troponin I High Sens 16.8 H (0-14) pg/ml Total Protein 6.9 (6.0-8.3) gm/dl Albumin 4.1 (3.4-5.0) gm/dl Globulin 2.8 (2.5-4.0) gm/dl Albumin/Globulin Ratio 1.5 (0.9-2) Urine Color Urine Appearance (Clear) Urine pH (4.5-7.5) Ur Specific Easley (1.000-1.030) Urine Protein (Negative) Urine Glucose (UA) (Negative) Urine Ketones (Negative) Urine Blood (Negative) Urine Nitrite (Negative) Urine Bilirubin (Negative) Urine Urobilinogen (Negative) Ur Leukocyte Esterase (Negative) Urine WBC (Auto) (0-5) /hpf Urine RBC (Auto) (0-4) /hpf U Hyaline Cast (Auto) (0-5) /lpf U Epithel Cells (Auto) (0-5) /lpf Urine Bacteria (Auto) (Negative) Resident Activity Tracking Resident Involvement: Resident Care Provided Care Provided: Adult Hospital Medicine
--- NOTE | 2024-01-27 08:50 | Electrocardiogram Report ---
Test Reason : Blood Pressure : / mmHG Vent. Rate : 056 BPM Atrial Rate : 056 BPM P-R Int : 238 ms QRS Dur : 090 ms QT Int : 428 ms P-R-T Axes : 052 037 050 degrees QTc Int : 413 ms Sinus bradycardia with 1st degree A-V block Otherwise normal ECG When compared with ECG of 26-MAR-2023 09:23, UT interval has increased Confirmed by Jose Noel ([id number]) on 01/27/2024 8:50:08 AM Referred By: REFERRED SELF Confirmed By:Jose Noel
[2024-01-27] MEDS: ACETAMINOPHEN 325 MG TAB PO SCH (08:53)
[2024-01-27] MEDS ORDERED: DICLOFENAC SOD 1% GEL 100 GM TUBE EXT SCH (09:00)
[2024-01-27] MEDS ORDERED: LYSINE 600 MG PO SCH (09:00)
--- NOTE | 2024-01-27 10:47 | Ultrasound Report ---
US venous doppler LE RT HISTORY: 89 years-old Female r/o dvt acute pain and swelling of the lower legs COMPARISON: 01/26/2024 TECHNIQUE: Multiple real-time sonographic images of the right lower extremity deep venous structures were obtained assessing grayscale appearance, color and spectral flow. FINDINGS: Normal flow, compressibility, phasicity and augmentation. Subcutaneous edema. IMPRESSION: No sonographic evidence of deep venous thrombosis. ACT 112: Negative or not required by law. The above report was generated using voice recognition software. It may contain grammatical, syntax o r spelling errors. Electronically signed by: Christiano Ricketts M.D. 01/27/2024 10:45 AM
[2024-01-27] MEDS: rOPINIRole HCL 1 MG TABLET PO SCH (11:41)
[2024-01-27] MEDS: APIXABAN 5 MG TABLET PO SCH (14:33)
--- NOTE | 2024-01-27 15:15 | Billing Data ---
Date of Service January 27, 2024 Coding Level of Care Code 24886 SUB INP/OBS CARE
[2024-01-27 15:30] LABS: ANTI-Xa, UFH(UnfractionatedHep 0.23 IU/ml (0.3-0.7)
[2024-01-27] MEDS: traMADol HCL 50 MG TABLET PO PRN (16:03)
[2024-01-27] MEDS: HYDROmorphone INJ 0.5 MG/0.5 ML SYR IV STA (17:36)
[2024-01-27] MEDS ORDERED: APIXABAN 5 MG TABLET PO SCH (21:00)
[2024-01-27] MEDS: LIDOCAINE 5% 1 PATCH TD SCH (21:28)
[2024-01-28] MEDS: HYDROmorphone INJ 0.5 MG/0.5 ML SYR IV PRN (04:28)
[2024-01-28 06:49] LABS: Albumin Level 3.6 gm/dl (3.4-5.0); Calcium 9.7 mg/dl (8.6-10.3); Creatinine Clr Calc Pharmacy 27.4 ml/min; Est GFR (African American) 34.8 ml/min; Est GFR (Non-African American) 30.1 ml/min; Magnesium 2.2 mg/dl (1.7-2.4); Phosphorus 3.7 mg/dl (2.5-4.9); Potassium 4.2 mmol/L (3.5-5.1)
--- NOTE | 2024-01-28 08:37 | Hospitalist Progress Note ---
Date of Service January 28, 2024 Assessment & Plan (1) Cellulitis of left leg: (2) Fall from standing: (3) Multiple fractures of ribs of left side: (4) Venous insufficiency: (5) (HFpEF) heart failure with preserved ejection fraction: (6) Mild aortic stenosis: (7) Peripheral edema: (8) Acute kidney injury superimposed on chronic kidney disease: (9) Peripheral neuropathy: (10) Restless leg syndrome: (11) Frequent falls: (12) Imbalance: Plan 89 yo female with PMHx of frequent falls, mild aortic stenosis, HFpEF, depression, hypertension, hypothyroidism, hyperparathyroidism, CKD stage III, urinary incontinence, GERD and CAD. #Multiple left-sided rib fractures -Secondary to ground level mechanical fall -Patient was noted to have old healed left fourth and fifth rib fractures -X-rays/CT chest revealed rib fractures 7 through 9. Low threshold for repeat imaging (may consider CTA due to DVT as below) if clinically decompensates to assess for pneumothorax. -Pain Control: lidoderm patch, acetaminophen scheduled, tramadol/dilaudid prn #Frequent falls/imbalance/peripheral neuropathy/RLS/use of walker for ambulatory dysfunction -Patient has had generalized weakness, combined with the above, leading to frequent falls. -PT/OT: OT recommend rehab, PT to see -Continue Requip, gabapentin #Left lower extremity cellulitis -Questionable cellulitis. Cannot exclude chronic venous stasis changes. -Was started on Keflex 3/ in outpatient setting. Started on rocephin in ED. Continue, plan to treat at least 5 days. If worsens, consider MRSA coverage. #Left lower extremity DVT -Venous Doppler revealed DVT in one of posterior tibial veins -First DVT, likely provoked due to sedentary lifestyle -Started on heparin gtt - transitioned to Eliquis (10mg BID x7 days then 5mg BID) - will need at least 3 months of treatment -consider outpatient hypercoagulable work up #Acute kidney injury superimposed on CKD -On admission CR 1.53 -Will continue furosemide 40mg IV BID today, reassess Cr in am -Losartan held -Strict I/Os DVT ppx: Eliquis 10mg BID (loading dose) FEN/GI: HH Code Status: full Dispo: med tele Admission and Anticipated Discharge Date Admission Date: January 26, 2024 Supervising Physician Co-Signing Physician Notes Attending Physician Supervision Note: I independently interviewed and examined the patient and verified the arora history and physical, reviewed labs and image studies and agree with findings and care plan noted above. + left-sided pain overlying site of rib fractures. Left-sided rib fracturessecondary to mechanical ground-level fall, acute 7 through 9 with fracture in 2 separate places of rib 9. no concern for development of secondary complications. continue pain control and incentive spirometry. receiving dilaudid IV for pain control. will transition to PO meds. Left lower extremity DVTfirst lifetime DVT with no family history. No signs of obvious malignancy on CT C/A/P. Suspect provoked due to sedentary lifestyle. Will hold hypercoagulable workup at this time. Heparin drip transitioned to Eliquis. Recommend minimum 3-month treatment. Left lower extremity cellulitis Was started on Keflex outpatient and Rocephin in the ED. continue for 5 to 7 days. suspect venous stasis causing the presentation. NO on CKDmonitor creatinine while resumed lasix this am. holding losartan due to hypotension. Otherwise care as noted above PT/OT Subjective Patient seen at bedside. Continues with pain at L ribs especially with movement 2/2 fx. Denies cp, sob, fever, abd pain, N/V/D. Review of Systems Review of Systems: reviewed, per HPI Physical Exam Physical Exam: Constitutional: no acute distress HEENT: NCAT, no conjunctival injection CV: regular rhythm, no murmur appreciated, extremities well-perfused, no LE edema Resp: CTABL, no wheezes/rales/rhonchi appreciated, no increased work of breathing GI: soft, nondistended, nontender, BS normoactive MSK: no gross deformities appreciated Skin: warm, dry, no rash appreciated Neuro: alert, oriented, no focal neurologic deficit appreciated Results & Data Results & Data Vital Signs (Past 12 Hours) Vital Signs Temp Pulse Pulse Resp BP BP Pulse Ox 01/28/24 08:00 36.6 C 56 L 18 137/88 95 01/28/24 07:58 01/28/24 07:00 53 L 01/28/24 03:17 36.8 C 67 18 147/84 H 92 01/27/24 23:36 36.9 C 60 18 119/78 92 01/27/24 21:15 O2 Del Method 01/28/24 08:00 Room Air 01/28/24 07:58 Room Air 03/04/24 07:00 01/28/24 03:17 Room Air 01/27/24 23:36 Room Air 01/27/24 21:15 Room Air Resident Activity Tracking Resident Involvement: Resident Care Provided Care Provided: Adult Hospital Medicine
[2024-01-28] MEDS: FUROSEMIDE 40 MG/4 ML VIAL IV ONE (10:40)
[2024-01-28] MEDS ORDERED: oxyCODONE HCL IR 5 MG TAB (IMMEDIATE RELEASE) PO PRN (15:24)
[2024-01-28] MEDS: FUROSEMIDE 40 MG/4 ML VIAL IV SCH (16:39)
--- NOTE | 2024-01-29 07:53 | Hospitalist Progress Note ---
Date of Service January 29, 2024 Assessment & Plan (1) Cellulitis of left leg: (2) Fall from standing: (3) Multiple fractures of ribs of left side: (4) Venous insufficiency: (5) (HFpEF) heart failure with preserved ejection fraction: (6) Mild aortic stenosis: (7) Peripheral edema: (8) Acute kidney injury superimposed on chronic kidney disease: (9) Peripheral neuropathy: (10) Restless leg syndrome: (11) Frequent falls: (12) Imbalance: Plan 89 yo female with PMHx of frequent falls, mild aortic stenosis, HFpEF, depression, hypertension, hypothyroidism, hyperparathyroidism, CKD stage III, urinary incontinence, GERD and CAD. #Multiple left-sided rib fractures -Secondary to ground level mechanical fall -Patient was noted to have old healed left fourth and fifth rib fractures -X-rays/CT chest revealed rib fractures 7 through 9. Low threshold for repeat imaging (may consider CTA due to DVT as below) if clinically decompensates to assess for pneumothorax. -Pain Control: lidoderm patch, acetaminophen scheduled, tramadol/dilaudid prn #Frequent falls/imbalance/peripheral neuropathy/RLS/use of walker for ambulatory dysfunction -Patient has had generalized weakness, combined with the above, leading to frequent falls. -PT/OT: OT recommend rehab, PT to see -Continue Requip, gabapentin #Left lower extremity cellulitis -Questionable cellulitis. Cannot exclude chronic venous stasis changes. -Abx course complete #Left lower extremity DVT -Venous Doppler revealed DVT in one of posterior tibial veins -First DVT, likely provoked due to sedentary lifestyle -Started on heparin gtt - transitioned to Eliquis (10mg BID x7 days then 5mg BID) - will need at least 3 months of treatment -consider outpatient hypercoagulable work up #Acute kidney injury superimposed on CKD -On admission CR 1.53 -Will continue furosemide 40mg IV BID today, reassess Cr in am -Losartan held -Strict I/Os DVT ppx: Eliquis 10mg BID (loading dose) FEN/GI: HH Code Status: full Dispo: med tele Admission and Anticipated Discharge Date Admission Date: January 26, 2024 Supervising Physician Co-Signing Physician Notes Attending Physician Supervision Note: I independently interviewed and examined the patient and verified the arora history and physical, reviewed labs and image studies and agree with findings and care plan noted above. left-sided pain overlying site of rib fractures is better controlled. no IV med needed since last evening. Left-sided rib fracturessecondary to mechanical ground-level fall, acute 7 through 9 with fracture in 2 separate places of rib 9. no concern for development of secondary complications. continue pain control and incentive spirometry. prn tramadol/oxycodone for pain control. Left lower extremity DVTfirst lifetime DVT with no family history. No concern of malignancy on CT C/A/P. Suspect provoked due to sedentary lifestyle. Held hypercoagulable workup at this time. Heparin drip transitioned to Eliquis. Recommend minimum 3-month treatment. Left lower extremity cellulitis Was started on Keflex outpatient and Rocephin in the ED. continue for 5 to 7 days. suspect venous stasis causing the presentation. NO on CKD creatinine stable after resuming lasix. holding losartan due to hypotension. Otherwise care as noted above PT/OT Subjective Patient seen at bedside. Continues with pain at L ribs especially with movement 2/2 fx. Denies cp, sob, fever, abd pain, N/V/D. Review of Systems Review of Systems: reviewed, per HPI Physical Exam Physical Exam: Constitutional: no acute distress HEENT: NCAT, no conjunctival injection CV: regular rhythm, no murmur appreciated, extremities well-perfused, no LE edema Resp: CTABL, no wheezes/rales/rhonchi appreciated, no increased work of breathing GI: soft, nondistended, nontender, BS normoactive MSK: no gross deformities appreciated Skin: warm, dry, no rash appreciated Neuro: alert, oriented, no focal neurologic deficit appreciated Results & Data Results & Data Vital Signs (Past 12 Hours) Vital Signs Temp Pulse Pulse Resp BP BP Pulse Ox 01/29/24 07:00 63 01/29/24 04:42 36.8 C 61 18 124/79 90 01/29/24 02:47 74 01/28/24 23:40 36.8 C 71 18 128/73 91 01/28/24 19:57 36.7 C 68 18 119/68 90 O2 Del Method 01/29/24 07:00 01/29/24 04:42 Room Air 01/29/24 02:47 01/28/24 23:40 Room Air 01/28/24 19:57 Room Air Resident Activity Tracking Resident Involvement: Resident Care Provided Care Provided: Adult Hospital Medicine
[2024-01-29 08:15] LABS: Albumin Level 3.4 gm/dl (3.4-5.0); Anion Gap 4 (3-11); BUN Creatinine Ratio 20.5 (10-20); Blood Urea Nitrogen 31 mg/dl (6-23); Calcium 9.6 mg/dl (8.6-10.3); Carbon Dioxide 30 mmol/L (21-32); Chloride 102 mmol/L (98-107); Creatinine Clr Calc Pharmacy 27.8 ml/min; Est GFR (African American) 35.4 ml/min; Est GFR (Non-African American) 30.5 ml/min; Glucose 95 mg/dl (70-99(Fasting)); Magnesium 2.2 mg/dl (1.7-2.4); Phosphorus 3.6 mg/dl (2.5-4.9); Sodium 136 mmol/L (136-145)
[2024-01-29] MEDS: oxyCODONE HCL IR 5 MG TAB (IMMEDIATE RELEASE) PO PRN (13:14)
[2024-01-30 08:32] LABS: Albumin Level 3.6 gm/dl (3.4-5.0); BUN Creatinine Ratio 20.5 (10-20); Calcium 9.9 mg/dl (8.6-10.3); Est GFR (Non-African American) 29.4 ml/min; Phosphorus 3.6 mg/dl (2.5-4.9); Potassium 4.1 mmol/L (3.5-5.1)
[2024-01-30] MEDS: FUROSEMIDE 40 MG TAB PO SCH (10:39)
--- NOTE | 2024-01-30 14:40 | Hospitalist Progress Note ---
Date of Service January 30, 2024 Assessment & Plan (1) Cellulitis of left leg: (2) Fall from standing: (3) Multiple fractures of ribs of left side: (4) Venous insufficiency: (5) (HFpEF) heart failure with preserved ejection fraction: (6) Mild aortic stenosis: (7) Peripheral edema: (8) Acute kidney injury superimposed on chronic kidney disease: (9) Peripheral neuropathy: (10) Restless leg syndrome: (11) Frequent falls: (12) Imbalance: Plan 89 yo female with PMHx of frequent falls, mild aortic stenosis, HFpEF, depression, hypertension, hypothyroidism, hyperparathyroidism, CKD stage III, urinary incontinence, GERD and CAD. #Multiple left-sided rib fractures -Secondary to ground level mechanical fall -Patient was noted to have old healed left fourth and fifth rib fractures -X-rays/CT chest revealed rib fractures 7 through 9. Low threshold for repeat imaging (may consider CTA due to DVT as below) if clinically decompensates to assess for pneumothorax. -Pain Control: lidoderm patch, acetaminophen scheduled, tramadol/oxycodone PRN -Okay for discharge to rehab #Frequent falls/imbalance/peripheral neuropathy/RLS/use of walker for ambulatory dysfunction -Patient has had generalized weakness, combined with the above, leading to frequent falls. -PT/OT: OT recommend rehab, PT to see -Continue Requip, gabapentin #Left lower extremity cellulitis -Questionable cellulitis. Cannot exclude chronic venous stasis changes. -Abx course complete #Left lower extremity DVT -Venous Doppler revealed DVT in one of posterior tibial veins -First DVT, likely provoked due to sedentary lifestyle -Started on heparin gtt - transitioned to Eliquis (10mg BID x7 days then 5mg BID) - will need at least 3 months of treatment -consider outpatient hypercoagulable work up #Acute kidney injury superimposed on CKD -On admission CR 1.53 -Will continue furosemide 40mg IV BID today, reassess Cr in am -Losartan held -Strict I/Os DVT ppx: Eliquis 10mg BID (loading dose) FEN/GI: HH Code Status: full Dispo: med tele Admission and Anticipated Discharge Date Admission Date: January 26, 2024 Supervising Physician Co-Signing Physician Notes Attending Physician Supervision Note: I independently interviewed and examined the patient and verified the arora history and physical, reviewed labs and image studies and agree with findings and care plan noted above. sitting in chair. left-sided pain overlying site of rib fractures continues to be better controlled. Left-sided rib fracturessecondary to mechanical ground-level fall, acute 7 through 9 with fracture in 2 separate places of rib 9. no concern for development of secondary complications. continue pain control and incentive spirometry. prn tramadol/oxycodone for pain control. Left lower extremity DVTfirst lifetime DVT with no family history. No concern of malignancy on CT C/A/P. Likely provoked due to sedentary lifestyle. Held hypercoagulable workup at this time. Heparin drip transitioned to Eliquis. Recommend minimum 3-month treatment. Left lower extremity cellulitis Was started on Keflex outpatient and Rocephin in the ED. continue for 5 to 7 days. suspect venous stasis causing the presentation. NO on CKD creatinine stable after resuming lasix. holding losartan due to hypotension. Otherwise care as noted above PT/OT. awaiting placement Subjective Patient seen at bedside. Rib pain improving. Seated in chair this AM. Denies cp, sob, fever, abd pain, N/V/D. Review of Systems Review of Systems: reviewed, per HPI Physical Exam Physical Exam: Constitutional: no acute distress HEENT: NCAT, no conjunctival injection CV: regular rhythm, no murmur appreciated, extremities well-perfused, no LE edema Resp: CTABL, no wheezes/rales/rhonchi appreciated, no increased work of breathing GI: soft, nondistended, nontender, BS normoactive MSK: no gross deformities appreciated, TTP L ribs Skin: warm, dry, no rash appreciated Neuro: alert, oriented, no focal neurologic deficit appreciated Results & Data Results & Data Vital Signs (Past 12 Hours) Vital Signs Temp Pulse Pulse Pulse Resp BP BP 01/30/24 12:15 36.6 C 62 16 128/80 01/30/24 07:32 36.5 C 57 L 18 172/98 H 01/30/24 07:00 57 L 01/30/24 03:55 36.6 C 62 18 126/76 Pulse Ox O2 Del Method 01/30/24 12:15 95 Room Air 01/30/24 07:32 95 Room Air 01/30/24 07:00 01/30/24 03:55 92 Room Air Resident Activity Tracking Resident Involvement: Resident Care Provided Care Provided: Adult [facility]
[2024-01-31 05:17] LABS: Albumin Level 3.3 gm/dl (3.4-5.0); BUN Creatinine Ratio 19.9 (10-20); Calcium 9.6 mg/dl (8.6-10.3); Creatinine Clr Calc Pharmacy 26.6 ml/min; Est GFR (African American) 38.5 ml/min; Est GFR (Non-African American) 33.2 ml/min; Phosphorus 3.5 mg/dl (2.5-4.9)
--- NOTE | 2024-01-31 14:58 | Hospitalist Progress Note ---
Date of Service January 31, 2024 Assessment & Plan (1) Cellulitis of left leg: (2) Fall from standing: (3) Multiple fractures of ribs of left side: (4) Venous insufficiency: (5) (HFpEF) heart failure with preserved ejection fraction: (6) Mild aortic stenosis: (7) Peripheral edema: (8) Acute kidney injury superimposed on chronic kidney disease: (9) Peripheral neuropathy: (10) Restless leg syndrome: (11) Frequent falls: (12) Imbalance: Plan 89 yo female with PMHx of frequent falls, mild aortic stenosis, HFpEF, depression, hypertension, hypothyroidism, hyperparathyroidism, CKD stage III, urinary incontinence, GERD and CAD. #Multiple left-sided rib fractures -Secondary to ground level mechanical fall -Patient was noted to have old healed left fourth and fifth rib fractures -X-rays/CT chest revealed rib fractures 7 through 9. Low threshold for repeat imaging (may consider CTA due to DVT as below) if clinically decompensates to assess for pneumothorax. -Pain Control: lidoderm patch, acetaminophen scheduled, tramadol/oxycodone PRN -Okay for discharge to rehab #Frequent falls/imbalance/peripheral neuropathy/RLS/use of walker for ambulatory dysfunction -Patient has had generalized weakness, combined with the above, leading to frequent falls. -PT/OT: OT recommend rehab, PT to see -Continue Requip, gabapentin #Left lower extremity cellulitis -Questionable cellulitis. Cannot exclude chronic venous stasis changes. -Abx course complete #Left lower extremity DVT -Venous Doppler revealed DVT in one of posterior tibial veins -First DVT, likely provoked due to sedentary lifestyle -Started on heparin gtt - transitioned to Eliquis (10mg BID x7 days then 5mg BID) - will need at least 3 months of treatment -consider outpatient hypercoagulable work up #Acute kidney injury superimposed on CKD -On admission CR 1.53 -Will continue furosemide 40mg IV BID today, reassess Cr in am -Losartan held -Strict I/Os DVT ppx: Eliquis 10mg BID (loading dose) FEN/GI: HH Code Status: full Dispo: med tele Admission and Anticipated Discharge Date Admission Date: January 26, 2024 Supervising Physician Co-Signing Physician Notes Attending Physician Supervision Note: I independently interviewed and examined the patient and verified the arora history and physical, reviewed labs and image studies and agree with findings and care plan noted above. didn't have good night sleep. left chest pain continues to be better controlled overall. Left-sided rib fracturessecondary to mechanical ground-level fall, acute 7 through 9 with fracture in 2 separate places of rib 9. no concern for developm ent of secondary complications. continue pain control and incentive spirometry. prn tramadol/oxycodone for pain control. Left lower extremity DVTfirst lifetime DVT with no family history. No concern of malignancy on CT C/A/P. Likely provoked due to sedentary lifestyle. Held hypercoagulable workup at this time. Heparin drip transitioned to Eliquis. Recommend minimum 3-month treatment. Left lower extremity cellulitis Was started on Keflex outpatient and Rocephin in the ED. finished course of keflex. site improved. suspect venous stasis causing the presentation. NO on CKD creatinine stable after resuming lasix. held losartan due to hypotension - BP now rising - will resume. Morbid obesity BMI 44.1 Otherwise care as noted above PT/OT. awaiting placement Subjective Patient seen at bedside. Rib pain improving. Resting comfortably in bed. Denies cp, sob, fever, abd pain, N/V/D. Review of Systems Review of Systems: reviewed, per HPI Physical Exam Physical Exam: Constitutional: no acute distress HEENT: NCAT, no conjunctival injection CV: regular rhythm, no murmur appreciated, extremities well-perfused, no LE edema Resp: CTABL, no wheezes/rales/rhonchi appreciated, no increased work of breathing GI: soft, nondistended, nontender, BS normoactive MSK: no gross deformities appreciated, TTP L ribs Skin: warm, dry, no rash appreciated Neuro: alert, oriented, no focal neurologic deficit appreciated Results & Data Results & Data Vital Signs (Past 12 Hours) Vital Signs Temp Pulse Pulse Resp BP Pulse Ox O2 Del Method 01/31/24 11:55 Room Air 01/31/24 11:30 36.6 C 65 18 148/85 H 94 Room Air 01/31/24 08:03 36.6 C 61 18 159/89 H 94 Room Air 01/31/24 07:59 64 01/31/24 03:54 36.9 C 62 16 129/77 93 Room Air Resident Activity Tracking Resident Involvement: Resident Care Provided Care Provided: Adult [facility]
[2024-01-31] MEDS: LOSARTAN POTASSIUM 25 MG TAB PO SCH (16:48)
[2024-02-01 06:45] LABS: Albumin Level 3.6 gm/dl (3.4-5.0); Calcium 10.1 mg/dl (8.6-10.3); Creatinine Clr Calc Pharmacy 28.2 ml/min; Est GFR (African American) 41.3 ml/min; Est GFR (Non-African American) 35.6 ml/min; Phosphorus 3.3 mg/dl (2.5-4.9); Potassium 4.3 mmol/L (3.5-5.1)
--- NOTE | 2024-02-01 08:28 | Hospitalist Progress Note ---
Date of Service February 01, 2024 Assessment & Plan (1) Cellulitis of left leg: (2) Fall from standing: (3) Multiple fractures of ribs of left side: (4) Venous insufficiency: (5) (HFpEF) heart failure with preserved ejection fraction: (6) Mild aortic stenosis: (7) Peripheral edema: (8) Acute kidney injury superimposed on chronic kidney disease: (9) Peripheral neuropathy: (10) Restless leg syndrome: (11) Frequent falls: (12) Imbalance: Plan 89 yo female with PMHx of frequent falls, mild aortic stenosis, HFpEF, depression, hypertension, hypothyroidism, hyperparathyroidism, CKD stage III, urinary incontinence, GERD and CAD. #Multiple left-sided rib fractures -Secondary to ground level mechanical fall -Patient was noted to have old healed left fourth and fifth rib fractures -X-rays/CT chest revealed rib fractures 7 through 9. Low threshold for repeat imaging (may consider CTA due to DVT as below) if clinically decompensates to assess for pneumothorax. -Pain Control: lidoderm patch, acetaminophen scheduled, tramadol/oxycodone PRN -Okay for discharge to rehab #Frequent falls/imbalance/peripheral neuropathy/RLS/use of walker for ambulatory dysfunction -Patient has had generalized weakness, combined with the above, leading to frequent falls. -PT/OT: OT recommend rehab, PT to see -Continue Requip, gabapentin #Left lower extremity cellulitis -Questionable cellulitis. Cannot exclude chronic venous stasis changes. -Abx course complete #Left lower extremity DVT -Venous Doppler revealed DVT in one of posterior tibial veins -First DVT, likely provoked due to sedentary lifestyle -Started on heparin gtt - transitioned to Eliquis (10mg BID x7 days then 5mg BID) - will need at least 3 months of treatment -consider outpatient hypercoagulable work up #Acute kidney injury superimposed on CKD -On admission CR 1.53 -Will continue furosemide 40mg IV BID today, reassess Cr in am -Losartan held -Strict I/Os DVT ppx: Eliquis 10mg BID (loading dose) FEN/GI: HH Code Status: full Dispo: med tele Admission and Anticipated Discharge Date Admission Date: January 26, 2024 Review of Systems Review of Systems: All systems reviewed & are unremarkable except as noted in HPI & below Physical Exam Physical Exam: Constitutional: no acute distress HEENT: NCAT, no conjunctival injection CV: regular rhythm, no murmur appreciated, extremities well-perfused, no LE edema Resp: CTABL, no wheezes/rales/rhonchi appreciated, no increased work of breathing GI: soft, nondistended, nontender, BS normoactive MSK: no gross deformities appreciated, TTP L ribs Skin: warm, dry, no rash appreciated Neuro: alert, oriented, no focal neurologic deficit appreciated Results & Data Results & Data Vital Signs (Past 12 Hours) Vital Signs Temp Pulse Pulse Resp BP BP Pulse Ox 02/01/24 08:03 36.4 C L 70 16 137/73 94 02/01/24 07:41 66 02/01/24 03:29 36.6 C 70 16 124/69 94 01/31/24 23:25 64 01/31/24 23:17 36.6 C 64 16 130/81 92 01/31/24 23:00 01/31/24 22:50 Pulse Ox O2 Del Method O2 Del Method 02/01/24 08:03 Room Air 02/01/24 07:41 02/01/24 03:29 Room Air 01/31/24 23:25 01/31/24 23:17 Room Air 01/31/24 23:00 92 Room Air 01/31/24 22:50 Room Air Laboratory Results 02/01/24 Range/Units 05:31 Sodium 140 (136-145) mmol/L Potassium 4.3 (3.5-5.1) mmol/L Chloride 105 (98-107) mmol/L Carbon Dioxide 30 (21-32) mmol/L Anion Gap 5 (3-11) BUN 24 H (6-23) mg/dl Creatinine 1.33 H (0.6-1.2) mg/dl Est Cr Clr Drug Dosing 28.2 ml/min Est GFR ( Amer) 41.3 ml/min Est GFR (Non-Af Amer) 35.6 ml/min BUN/Creatinine Ratio 18.0 (10-20) Glucose 86 (70-99(Fasting)) mg/dl Calcium 10.1 (8.6-10.3) mg/dl Phosphorus 3.3 (2.5-4.9) mg/dl Albumin 3.6 (3.4-5.0) gm/dl
--- NOTE | 2024-02-01 11:39 | Discharge Summary ---
Date of Service February 01, 2024 Admission HPI Per Admitting Provider The patient is an 89-year-old female with a past medical history including frequent falls, mild aortic stenosis, HFpEF, depression, hypertension, hypothyroidism, hyperparathyroidism, CKD stage III, urinary incontinence, GERD and CAD. Patient reports that she has had periodic falls while at home. The fall today occurred when as she was getting up from the commode, and was reaching for a walker and misjudged to the and fell landing on her left side. She developed immediate discomfort in her left flank and left chest wall. Due to the severity of the symptoms she presented to the ED for assessment. X-rays in the emergency department revealed 3 new left rib cage fractures, patient was referred for evaluation for admission. Principal Diagnosis rib fx s/p fall, ambulatory dysfunction Discharge Exam Constitutional: in no acute distress, pleasant and normal affect, intact memory. Vitals as above. HEENT: No scleral injection or discharge. Moist mucous membranes. Neck: Supple without lymphadenopathy. Trachea midline. Lungs: CTAB, no wheezing/rales/rhonchi Cardiac: RRR.No murmurs. 1+ lower extremity edema. +lymphedema. Faint distal pedal/post. tib pulses bilaterally 2/2 edema. Abdomen: Soft, nontender, and nondistended.No guarding. MSK: No cyanosis or clubbing. Skin: Bilateral lower extremities tender to deep palpation. L molina erythema without drainage and non painful to light touch which is improved from previous. There are also scabbed over wounds on L molina without discharge/pain. Neurologic: no focal deficits Discharge Data Allergies Allergy/AdvReac Type Severity Reaction Status Date / Time atorvastatin [From Lipitor] Allergy Unknown ON [facility] Verified 01/25/24 08:06 LIST celecoxib [From Celebrex] Allergy Unknown ON [facility] Verified 01/25/24 08:06 LIST iodine Allergy Unknown Unknown Verified 01/25/24 08:06 Consultations 01/26/24 19:21 ED Decision to Admit Stat Ordered Studies Laboratory Results WBC 6.20 K/ul (4.8-10.8) 01/26/24 17:00 RBC 3.78 M/uL (4.20-5.40) L 01/26/24 17:00 Hgb 12.3 g/dl (12.0-16.0) 01/26/24 17:00 Hct 38.3 % (37.0-47.0) 01/26/24 17:00 MCV 101.3 fL (80.0-100.0) H 01/26/24 17:00 MCH 32.5 pg (25.0-34.0) 01/26/24 17:00 MCHC 32.1 g/dL (32.0-36.0) 01/26/24 17:00 RDW Std Deviation 49.9 fL (36.4-46.3) H 01/26/24 17:00 RDW Coeff of [place] 13.2 % (11.5-14.5) 01/26/24 17:00 Plt Count 227 K/uL (130-400) 01/26/24 17:00 MPV 9.7 fL (9.4-12.4) 01/26/24 17:00 Immature Gran % (Auto) 0.3 % 01/26/24 17:00 Neut % (Auto) 58.4 % 01/26/24 17:00 Lymph % (Auto) 28.1 % 01/26/24 17:00 [place] % (Auto) 10.0 % 01/26/24 17:00 Eos % (Auto) 2.6 % 01/26/24 17:00 Baso % (Auto) 0.6 % 01/26/24 17:00 Neut # (Auto) 3.62 K/uL (1.40-6.50) 01/26/24 17:00 Lymph # (Auto) 1.74 K/uL (1.20-3.40) 01/26/24 17:00 [place] # (Auto) 0.62 K/uL (0.11-0.59) H 01/26/24 17:00 Eos # (Auto) 0.16 K/uL (0.00-0.50) 01/26/24 17:00 Baso # (Auto) 0.04 K/uL (0.00-0.20) 01/26/24 17:00 Immature Gran # (Auto) 0.02 K/uL (0.01-0.20) 01/26/24 17:00 APTT 28 Seconds (21-31) 01/27/24 00:18 PTT Ratio 1.0 01/27/24 00:18 Heparin Anti-Xa, Unfract 0.23 IU/ml (0.3-0.7) L 01/27/24 14:41 Sodium 140 mmol/L (136-145) 02/01/24 05:31 Potassium 4.3 mmol/L (3.5-5.1) 02/01/24 05:31 Chloride 105 mmol/L (98-107) 02/01/24 05:31 Carbon Dioxide 30 mmol/L (21-32) 02/01/24 05:31 Anion Gap 5 (3-11) 02/01/24 05:31 BUN 24 mg/dl (6-23) H 02/01/24 05:31 Creatinine 1.33 mg/dl (0.6-1.2) H 02/01/24 05:31 Est Cr Clr Drug Dosing 28.2 ml/min 02/01/24 05:31 Est GFR ( Amer) 41.3 ml/min 02/01/24 05:31 Est GFR (Non-Af Amer) 35.6 ml/min 02/01/24 05:31 BUN/Creatinine Ratio 18.0 (10-20) 02/01/24 05:31 Glucose 86 mg/dl (70-99(Fasting)) 02/01/24 05:31 Calcium 10.1 mg/dl (8.6-10.3) 02/01/24 05:31 Phosphorus 3.3 mg/dl (2.5-4.9) 02/01/24 05:31 Magnesium 2.2 mg/dl (1.7-2.4) 01/29/24 07:08 Total Bilirubin 0.4 mg/dl (0.2-1.0) 01/26/24 17:00 AST 20 U/L (13-39) 01/26/24 17:00 ALT 20 U/L (7-52) 01/26/24 17:00 Alkaline Phosphatase 58 U/L (34-104) 01/26/24 17:00 Troponin I High Sens 16.8 pg/ml (0-14) H 01/26/24 17:00 Total Protein 6.9 gm/dl (6.0-8.3) 01/26/24 17:00 Albumin 3.6 gm/dl (3.4-5.0) 02/01/24 05:31 Globulin 2.8 gm/dl (2.5-4.0) 01/26/24 17:00 Albumin/Globulin Ratio 1.5 (0.9-2) 01/26/24 17:00 Urine Color Yellow 01/26/24 17:38 Urine Appearance Clear (Clear) 01/26/24 17:38 Urine pH 8.0 (4.5-7.5) H 01/26/24 17:38 Ur Specific [place] 1.015 (1.000-1.030) 01/26/24 17:38 Urine Protein Negative (Negative) 01/26/24 17:38 Urine Glucose (UA) Negative (Negative) 01/26/24 17:38 Urine Ketones Negative (Negative) 01/26/24 17:38 Urine Blood Negative (Negative) 01/26/24 17:38 Urine Nitrite Negative (Negative) 01/26/24 17:38 Urine Bilirubin Negative (Negative) 01/26/24 17:38 Urine Urobilinogen Negative (Negative) 01/26/24 17:38 Ur Leukocyte Esterase Trace (Negative) H 01/26/24 17:38 Urine WBC (Auto) 5-10 /hpf (0-5) H 01/26/24 17:38 Urine RBC (Auto) 0-4 /hpf (0-4) 01/26/24 17:38 U Hyaline Cast (Auto) 1-5 /lpf (0-5) 01/26/24 17:38 U Epithel Cells (Auto) 10-20 /lpf (0-5) H 01/26/24 17:38 Urine Bacteria (Auto) Negative (Negative) 01/26/24 17:38 Impressions Abdomen/Pelvis CT 01/26/24 16:41 CT chest diagnostic wo con, CT abd pelvis wo con CT DOSE: 2032.63 mGy.cm CLINICAL HISTORY: 89 years-old Female with left lateral chest pain s/p fall. Acute left lateral chest abdominal pain status post TECHNIQUE: Multiaxial CT images of the chest, abdomen and pelvis were performed without contrast. A dose lowering technique was utilized adhering to the principles of ALARA. COMPARISON: CT lumbar spine 03/26/2023, CT chest, abdomen and pelvis 05/18/2021 FINDINGS: CT CHEST: 1.37 m hypodense right-sided thyroid nodule. No lymphadenopathy. Mild cardiomegaly with extensive coronary artery calcifications. Atherosclerosis of the aorta without aneurysm. Trace pleural effusions. No pneumothorax or overt pulmonary edema. Linear bibasilar subsegmental opacities favor atelectasis. Mild bronchial wall thickening. No suspicious pulmonary nodules or masses identified. There is mild cortical regulation involving a few anterior left-sided ribs suggestive of chronic fractures. There is a healing subacute nondisplaced fracture of the left anterior fourth and fifth ribs. Acute comminuted mildly displaced fractures of the posterior and posterolateral aspects of the left seventh through ninth ribs the ninth rib fracture in at least 2 places. Degenerative changes of the spine. CT ABDOMEN/PELVIS: No free air. The unenhanced spleen, moderately atrophic pancreas and adrenal glands are unremarkable. Distended gallbladder. Hepatic steatosis. Cortical thinning of the kidneys without hydronephrosis. Unremarkable urinary bladder. Atherosclerosis of the aorta without aneurysm. Subcentimeter iliac and inguinal lymph nodes are likely physiologic. No bowel obstruction or bowel wall thickening. Extensive colonic diverticulosis. No ascites or mesenteric inflammation. Normal appendix. No free fluid. Degenerative changes of the spine, pelvis and hips. Lumbar levoscoliosis. IMPRESSION: 1. Acute left-sided rib fractures, some of which are mildly displaced and comminuted. 2. No pneumothorax. 3. Trace pleural effusions with bibasilar atelectasis. 4. No acute solid organ injury. 5. Additional findings as above. ACT 112: Negative or not required by law. Electronically signed by: Christiano Ricketts M.D. 01/26/2024 5:[address] 01/26/24 16:41 CT chest diagnostic wo con, CT abd pelvis wo con CT DOSE: 2032.63 mGy.cm CLINICAL HISTORY: 89 years-old Female with left lateral chest pain s/p fall. Acute left lateral chest abdominal pain status post TECHNIQUE: Multiaxial CT images of the chest, abdomen and pelvis were performed without contrast. A dose lowering technique was utilized adhering to the principles of ALARA. COMPARISON: CT lumbar spine 03/26/2023, CT chest, abdomen and pelvis 05/18/2021 FINDINGS: CT CHEST: 1.37 m hypodense right-sided thyroid nodule. No lymphadenopathy. Mild cardiomegaly with extensive coronary artery calcifications. Atherosclerosis of the aorta without aneurysm. Trace pleural effusions. No pneumothorax or overt pulmonary edema. Linear bibasilar subsegmental opacities favor atelectasis. Mild bronchial wall thickening. No suspicious pulmonary nodules or masses identified. There is mild cortical regulation involving a few anterior left-sided ribs suggestive of chronic fractures. There is a healing subacute nondisplaced fracture of the left anterior fourth and fifth ribs. Acute comminuted mildly displaced fractures of the posterior and posterolateral aspects of the left seventh through ninth ribs the ninth rib fracture in at least 2 places. Degenerative changes of the spine. CT ABDOMEN/PELVIS: No free air. The unenhanced spleen, moderately atrophic pancreas and adrenal glands are unremarkable. Distended gallbladder. Hepatic steatosis. Cortical thinning of the kidneys without hydronephrosis. Unremarkable urinary bladder. Atherosclerosis of the aorta without aneurysm. Subcentimeter iliac and inguinal lymph nodes are likely physiologic. No bowel obstruction or bowel wall thickening. Extensive colonic diverticulosis. No ascites or mesenteric inflammation. Normal appendix. No free fluid. Degenerative changes of the spine, pelvis and hips. Lumbar levoscoliosis. IMPRESSION: 1. Acute left-sided rib fractures, some of which are mildly displaced and comminuted. 2. No pneumothorax. 3. Trace pleural effusions with bibasilar atelectasis. 4. No acute solid organ injury. 5. Additional findings as above. ACT 112: Negative or not required by law. Electronically signed by: Christiano Ricketts M.D. 01/26/2024 5:28 PM Venous Doppler Study 01/27/24 09:31 US venous doppler LE RT HISTORY: 89 years-old Female r/o dvt acute pain and swelling of the lower legs COMPARISON: 01/26/2024 TECHNIQUE: Multiple real-time sonographic images of the right lower extremity deep venous structures were obtained assessing grayscale appearance, color and spectral flow. FINDINGS: Normal flow, compressibility, phasicity and augmentation. Subcutaneous edema. IMPRESSION: No sonographic evidence of deep venous thrombosis. ACT 112: Negative or not required by law. The above report was generated using voice recognition software. It may contain grammatical, syntax or spelling errors. Electronically signed by: Christiano Ricketts M.D. 01/27/2024 10:45 AM Hospital Course (1) Cellulitis of left le yo female with PMHx of frequent falls, mild aortic stenosis, HFpEF, depression, hypertension, hypothyroidism, hyperparathyroidism, CKD stage III, urinary incontinence, GERD and CAD. #Multiple left-sided rib fractures -Secondary to ground level mechanical fall -Patient was noted to have old healed left fourth and fifth rib fractures -X-rays/CT chest revealed rib fractures 7 through 9 -Pain Control: lidoderm patch, acetaminophen 1000mg q8h scheduled. Has not required opioids for the past 2 days. -PT/OT - discharge to [facility] #Frequent falls/imbalance/peripheral neuropathy/RLS/use of walker for ambulatory dysfunction -Patient has had generalized weakness, combined with the above, leading to frequent falls. -Continue Requip, gabapentin #Left lower extremity cellulitis -Questionable cellulitis however more likely due to chronic venous stasis changes. -did receive a few doses of abx in the outpatient and inpatient setting. Discontinued. #Left lower extremity DVT -Venous Doppler revealed DVT in one of posterior tibial veins -First DVT, likely provoked due to sedentary lifestyle -Started on heparin gtt - transitioned to Eliquis (10mg BID x7 days (last dose evening of 02/02/2024) and then 5mg BID there after) - will need at least 3 months of treatment #Acute kidney injury superimposed on CKD -On admission CR 1.53, improved, now near baseline -Continue furosemide 40mg PO BID -Restarted losartan, continue. (2) Fall from standing: (3) Multiple fractures of ribs of left side: (4) Venous insufficiency: (5) (HFpEF) heart failure with preserved ejection fraction: (6) Mild aortic stenosis: (7) Peripheral edema: (8) Acute kidney injury superimposed on chronic kidney disease: (9) Peripheral neuropathy: (10) Restless leg syndrome: (11) Frequent falls: (12) Imbalance: Total Time Total Time Spent Total Time Spent (In Minutes): 30 Discharge Plan Discharge Items Patient Disposition: Transfer [facility] Reason For Visit: RIB FRACTURES, LLE CELLULITIS Discharge Diagnosis: rib fx s/p fall, ambulatory dysfunction Activity: Per Instructions section Non-emergency contact: Primary Care Provider Call non-emergency contact if: you have any medication questions Follow-up/Referrals: Salena Ruelas CRNP [Primary Care Provider] - Diet: Heart Healthy Addtl Attending Provider Instructions: #Multiple left-sided rib fractures -Secondary to ground level mechanical fall -Patient was noted to have old healed left fourth and fifth rib fractures -X-rays/CT chest revealed rib fractures 7 through 9 -Pain Control: lidoderm patch, acetaminophen 1000mg q8h scheduled. Has not required opioids for the past 2 days. -PT/OT - discharge to [facility] #Frequent falls/imbalance/peripheral neuropathy/RLS/use of walker for ambulatory dysfunction -Patient has had generalized weakness, combined with the above, leading to frequent falls. -Continue Requip, gabapentin #Left lower extremity cellulitis -Questionable cellulitis however more likely due to chronic venous stasis changes. -did receive a few doses of abx in the outpatient and inpatient setting. Discontinued. #Left lower extremity DVT -Venous Doppler revealed DVT in one of posterior tibial veins -First DVT, likely provoked due to sedentary lifestyle -Started on heparin gtt - transitioned to Eliquis (10mg BID x7 days (last dose evening of 02/02/2024) and then 5mg BID there after) - will need at least 3 months of treatment #Acute kidney injury superimposed on CKD -On admission CR 1.53, improved, now near baseline -Continue furosemide 40mg PO BID -Restarted losartan, continue. Pending Studies at Discharge: No Stand-Alone Forms: My [facility] Skilled Items Patient informed of condition?: Yes DNR: No Discharge Level of Care: Skilled Communicable Disease: No Discharge Prognosis: Stable Lines: None Urinary Catheter: No Medications and DC Order Prescriptions: New Eliquis 5 mg tablet 5 mg PO BID Qty: 30 0RF Continued famotidine 20 mg tablet 20 mg PO DAILY Qty: 90 3RF escitalopram oxalate [Lexapro] 10 mg tablet 10 mg PO DAILY Qty: 90 3RF isosorbide mononitrate 60 mg tablet extended release 24 hr 60 mg PO QAM Qty: 90 3RF ropinirole 1 mg tablet 1 - 3 mg PO DIRECTED Qty: 360 3RF Rx Instructions: 1 mg PO pt takes one at lunch and 3 at hs; TAKE 1 TABLET AT LUNCH AND 3 TABS AT HS simvastatin 40 mg tablet 40 mg PO HS Qty: 90 3RF levothyroxine 50 mcg tablet 50 mcg PO QAM Qty: 90 3RF meclizine 25 mg tablet 12.5 - 25 mg PO QID PRN (Reason: Dizziness Or Vertigo) Qty: 30 5RF tramadol 50 mg tablet 50 mg PO BID PRN (Reason: pain) Qty: 60 0RF Rx Instructions: short term only gabapentin 100 mg capsule 200 mg PO TID 90 Days Qty: 540 3RF nitroglycerin 0.4 mg tablet, sublingual 0.4 mg sublingual Q5M PRN (Reason: chest pain) Qty: 25 3RF Rx Instructions: do not exceed 3 doses per episode aspirin 81 mg tablet,delayed release (DR/EC) 81 mg PO BID furosemide 40 mg tablet 40 mg PO BID Qty: 180 3RF Excedrin Extra Strength 250-250-65 mg Tablet 2 tab PO Q6H PRN (Reason: Pain) lysine 600 mg tablet 1,200 mg PO QAM Rx Instructions: Takes 2 tabs in the morning. losartan 25 mg tablet 25 mg PO QAM Discontinued furosemide 20 mg tablet 20 mg PO Q2D Qty: 45 3RF Rx Instructions: Taken along with 40 mg tablet every other day cephalexin 500 mg capsule 500 mg PO Q8H Qty: 30 0RF Discharge Orders: Discharge Order- CHF (Routine); Ordered 02/01/24 Ordered By: Arturo Castro Admission Data Admit Date/Time: 01/26/24 20:27 Attending Provider: Mia Bacon Admit Provider: Al Weller Primary Care Provider: Salena Ruelas Other Providers: Al Weller; Katelynn Schafer; [facility]; [facility]; [facility] Other Interventions: Discharge Summary Assessment (RN) Last Done: 02/01/24 13:49 Supervising Physician Co-Signing Physician Notes Attending Physician Supervision Note: I independently interviewed and examined the patient and verified the raora history and physical, reviewed labs and image studies and agree with findings and care plan noted above. stable on day of discharge. Left-sided rib fracturessecondary to mechanical ground-level fall, acute 7 through 9 with fracture in 2 separate places of rib 9. no concern for development of secondary complications. continue pain control and incentive spirometry. prn tramadol/oxycodone for pain control. Left lower extremity DVTfirst lifetime DVT with no family history. No concern of malignancy on CT C/A/P. Likely provoked due to sedentary lifestyle. Held hypercoagulable workup at this time. Heparin drip transitioned to Eliquis. Recommend minimum 3-month treatment. Left lower extremity cellulitis Was started on Keflex outpatient and Rocephin in the ED. finished course of keflex. site improved. suspect venous stasis causing the presentation. NO on CKD creatinine stable after resuming lasix. held losartan due to hypotension - BP now rising - will resume. Morbid obesity BMI 44.1 d/c to SNF Resident Activity Tracking Resident Involvement: Resident Care Provided Care Provided: Adult Hospital Medicine
== END 2024-02-01 14:36 | DRG 184 ==
LOC: ED 16:10 → SUATTDRO 20:27 → EDINP 20:27 → 2W 21:47

== ENCOUNTER 2024-06-11 13:25 | Inpatient (IN) ==
--- NOTE | 2024-06-11 13:31 | Emergency Department Note ---
Impression & Plan NO (acute kidney injury), Acute buttock pain, Fall, Bilateral leg weakness, Acute dehydration ED Provider Note NAME: CHEYENNE CHAN AGE: 89 SEX: F : 1935 ARRIVES VIA: Ambulance INFORMANT: Patient, triage note, prior records ED PROVIDER(S): Jamel Salinas MD CHIEF COMPLAINT: Weakness, buttock pain MEDICAL DECISION MAKING: Patient presents due to concern for fall and lower extremity weakness with associated hypotension. Patient does have a known history of heart failure. Clinically the patient appears to be dry. Patient did receive 250 of IV fluid around was ordered an additional 250. IV was established and blood work was obtained. Blood work with a normal white count hemoglobin of 10. The patient does have hematoma to the right buttock which could be the cause of the patient's anemia given the patient's Eliquis use. Patient did have plain x-rays completed of the hip and pelvis. No obvious fractures. Patient's creatinine is elevated from prior. Troponin of 39 and repeat was 64. Patient denies any chest pains or shortness of breath. Urinalysis is negative for blood or infection. I did speak to the on-call hospital service after informing the patient of the findings and recommendations and she is comfortable plan of care. While the patient had complained of some leg weakness do believe that this is secondary to her hypertension and dehydration not necessarily because the patient has an acute neurologic process. Patient has no reproducible midline lumbar spine pain. CT of the head is negative and chest x-ray does not show obvious pneumonia or pneumothorax. Patient was admitted to the hospital service by Dr. Rosario. Patient did have improvement in her blood pressure after IV fluid administration. Discussion w/ other healthcare providers: Dr. Rosario inpatient medicine service Prior /Outside records reviewed: I reviewed a primary care visit from today. Patient was seen for generalized weakness syncope and hypotension. Known history of CAD GERD hyperlipidemia bladder cancer hypertension hypothyroidism heart failure aortic stenosis and DVT. Reportedly have some balance issues yesterday and associated shakiness. No fevers or chills. Patient was seen by Katelynn Torres. Patient reportedly has had this weakness and a couple of falls recently to this week where she feels like she is lightheaded and passing out. Differential diagnosis: Infection, dehydration, metabolic abnormality, hypo/hyperglycemia, electrolyte imbalance, anemia, UTI, pneumonia, thyroid dysfunction among others were considered. Diagnostics, as interpreted by me: ECG: Sinus with first-degree AV block, rate of 70, normal QRS, normal axis no ST elevations T wave version in V2. Cardiac monitoring: An order was placed for continuous cardiac monitoring. The monitor shows a rate of 75 with sinus rhythm. Patient was placed on pulse oximetry Medical decision rules: None Imaging studies: I informally interpreted the patient's right hip and pelvis x-ray does not show obvious fracture or dislocation with formal report to follow. HPI: Patient presents due to concern for increasing weakness fatigue and associated falls. Patient reports that she was seen here recently might of had some sort of rib issue and then subsequently sent to rehab. The patient was discharged home several days ago and did have a PCP appointment today. The patient states that when she tries to stand up and walk her legs get very heavy and fatigued and she is unable to bear weight. Patient states that she did fall onto her right buttock earlier today. The patient thinks that she may have had some medication changes at the time of her discharge and is unsure as if they may be affecting her blood pressure as it was noted to be lower in clinic today. Patient denies any vomiting or diarrhea. The patient denies any head strike or LOC. Review of the patient's medication list shows Eliquis. Patient states that when she did fall the patient was helped up by her . The patient was ambulated to ambulate but gingerly. Patient states that she has been eating and drinking enough. Patient reportedly was hypotensive at the clinic as well as via EMS 80s over 50s but did receive 250 saline bolus in route. Patient states that she is not passing out but that she is getting lightheaded and having weakness in her legs which is causing the falls. Patient does state that she is thirsty and feels as though her mouth is dry. PAST MEDICAL HISTORY: See Below PAST SURGICAL HISTORY: See Below SOCIAL HISTORY: See Below HOME MEDICATIONS: See Below ALLERGIES: See Below VITALS: See Below PHYSICAL EXAMINATION: GENERAL: NAD, non-toxic. EYE EXAM: Normal conjunctiva. PERRL, no anisocoria and EOM's grossly intact w/o pain. OROPHARYNX: Dry mucous membranes mucus membranes, grossly normal dentition. NECK: Trachea midline, no stridor. Supple, no nuchal rigidity, no adenopathy, non-tender. No signs of meningismus. FROM of the neck with good chin to chest and neck extension. LUNGS: Clear to auscultation. Normal chest wall mechanics. HEART: NSR, no MRG. ABDOMEN: Abdomen soft, non-tender, no masses, no rebound or guarding. BACK: No CVA TTP. SKIN: No rashes and no bruising. UPPER EXTREMITIES: Upper extremities are grossly normal. LOWER EXTREMITIES: Ecchymosis noted to the right buttock. TTP noted. No pain to the midline lumbar spine. NEURO EXAM: A&O x3, cranial nerves II-XII grossly intact, normal speech, moves all 4 extremities. Past Med/Surg History Problem List (Updated 06/11/24 @ 17:42 by Jamel Salinas MD) Acute dehydration (Acute) Bilateral leg weakness (Acute) Fall (Acute) Acute buttock pain (Acute) NO (acute kidney injury) (Acute) Hematoma of right buttock NO (acute kidney injury) Orthostasis Hypotension Cellulitis of left leg Wounds, multiple Medication non-compliance due to excessive pill burden Lower leg DVT (deep venous thromboembolism), acute Provoked due to sedentary lifestyle, on Eliquis to treat for 3 months Imbalance Frequent falls Multiple fractures of ribs of left side (Acute 01/26/24) mildly displaced fractures of the posterior and posterolateral aspects of the left seventh through ninth ribs the ninth rib fracture in at least 2 places from a fall-was admitted to [facility] for pain control per ED note Venous insufficiency Chronic stable angina Mild aortic stenosis (HFpEF) heart failure with preserved ejection fraction Depression Hypothyroidism (Chronic) Hypertension (Chronic) Peripheral edema Fatigue Vertigo Osteoarthritis Hyperparathyroidism (Chronic) Impaired fasting glucose (Chronic) Osteoporosis (Acute) Lymph edema Dyspnea on exertion (Acute) Vitamin D deficiency (Chronic) Chronic kidney disease, stage III (moderate) (Chronic) Urinary incontinence (Chronic) Restless leg syndrome (Chronic) Dry eye syndrome (Chronic) Incomplete bladder emptying (Chronic) Peripheral neuropathy (Chronic) Hyperlipidemia (Chronic) GERD (gastroesophageal reflux disease) (Chronic) CAD (coronary artery disease) (Chronic) Medical History COVID-19 Chronic acquired lymphedema Aortic stenosis Sepsis Hypercalcemia Surgical History History of total knee arthroplasty History of total abdominal hysterectomy and bilateral salpingo-oophorectomy History of partial colectomy History of carpal tunnel surgery History of dilatation and curettage Status post laser cataract surgery of both eyes History of appendectomy Family History Father Prostate cancer Myocardial infarction Mother Cancer Other No significant family history Denies family history of Ovarian cancer Kidney disease Breast cancer Colorectal cancer Social History Smoking Status: Never smoker Second Hand Exposure: No; Do You Dip or Chew Tobacco: No; Hx Alcohol Use: No Hx Substance Use: No Preferred Language: Persian Communication Ability: Effective Visual Impairment: Limited Hearing Ability: Normal Program Specialist Required: No Beliefs That Will Affect Care: None marital status: Current Living Situation: Spouse Current Living Situation Comment: with current occupational status: retired current occupation: housewife How many Children do You have: 3 Feels Safe at Home: Yes Childhood Exposure to Second-Hand Smoke: Yes Diet: regular caffeine: Yes during the past year weight has: remained stable Dental Care, Regularly: No Physical Activity Frequency: Does not Exercise Seatbelt Use: sometimes Sunscreen Use: No Do you think of yourself as: straight/heterosexual Gender Identity: Female Assistive Devices: Cane, Denture - Upper, Denture - Lower, Glasses, Lift Chair, Walker and Wheelchair Allergies Allergies Allergy/AdvReac Type Severity Reaction Status Date / Time atorvastatin [From Lipitor] Allergy Unknown ON [facility] Verified 06/11/24 16:14 LIST celecoxib [From Celebrex] Allergy Unknown ON [facility] Verified 06/11/24 16:14 LIST iodine Allergy Unknown Unknown Verified 06/11/24 16:14 Home Meds Home Medications Medication Instructions Recorded Confirmed [id number] 250 2 tab PO Q6H PRN Pain 02/19/22 06/11/24 mg-250 mg-65 mg tablet (Excedrin Extra Strength) Previous Rx's Medication Instructions Recorded nitroglycerin 0.4 mg sublingual 0.4 mg sublingual Q5M PRN chest 10/31/22 tablet pain #25 tabs meclizine 25 mg tablet 12.5 - 25 mg (0.5 - 1 x 25 mg) PO 04/30/23 QID PRN Dizziness Or Vertigo #30 tabs tramadol 50 mg tablet 50 mg PO BID PRN pain #60 tabs 05/28/23 aspirin 81 mg tablet,delayed 81 mg PO BID #60 tabs 03/20/24 release escitalopram oxalate 10 mg tablet 10 mg PO DAILY #30 tabs 03/20/24 (Lexapro) famotidine 20 mg tablet 20 mg PO DAILY #30 tabs 03/20/24 furosemide 40 mg tablet 40 mg PO BID #60 tabs 03/20/24 gabapentin 100 mg capsule 200 mg (2 x 100 mg) PO TID 90 days 03/20/24 #180 caps levothyroxine 50 mcg tablet 50 mcg PO QAM #30 tabs 03/20/24 losartan 25 mg tablet 25 mg PO QAM #30 tabs 03/20/24 lysine 600 mg tablet 1,200 mg (2 x 600 mg) PO QAM #60 03/20/24 tabs ropinirole 1 mg tablet 1 mg PO .COMPLEX #120 tabs 03/20/24 silver sulfadiazine 1 % topical 1 applic topical DAILY #25 grams 05/01/24 cream (Silvadene) atorvastatin 20 mg tablet 20 mg PO DAILY #90 tabs 05/16/24 isosorbide mononitrate 60 mg 60 mg PO QAM #30 tabs 05/26/24 tablet,extended release 24 hr apixaban 5 mg tablet (Eliquis) 5 mg PO BID #60 tabs 05/28/24 Results & Data (ED) Vital Signs Vital Signs - 24 hr 06/11/24 13:09 06/11/24 13:09 06/11/24 13:51 Temperature 36.4 C L Temperature Source Oral Pulse Rate 82 67 Pulse Rate [Apical] Pulse Rhythm Regular Pulse Strength Normal Respiratory Rate 22 Respiratory Effort / Characteristics Non-Labored Spontaneous Respiratory Depth Normal Respiratory Pattern Regular Blood Pressure 108/53 L Blood Pressure [Right Arm] Blood Pressure Mean 71 Blood Pressure Mean [Right Arm] Blood Pressure Position Sitting Pulse Oximetry 92 Oxygen Delivery Method Room Air Room Air Sepsis Recent Fever Within 48 Hours No Sepsis New/Unexplained Change in Mental Status No Sepsis Action Taken by Nursing No Action Required 06/11/24 14:10 06/11/24 15:09 Temperature Temperature Source Pulse Rate 74 Pulse Rate [Apical] 69 Pulse Rhythm Regular Pulse Strength Respiratory Rate 20 21 Respiratory Effort / Characteristics Respiratory Depth Respiratory Pattern Blood Pressure Blood Pressure [Right Arm] 124/84 Blood Pressure Mean Blood Pressure Mean [Right Arm] 97 Blood Pressure Position Pulse Oximetry 92 90 Oxygen Delivery Method Room Air Room Air Sepsis Recent Fever Within 48 Hours Sepsis New/Unexplained Change in Mental Status Sepsis Action Taken by [facility] Medications Current Medication List: was personally reviewed by me Laboratory Data Attestation: I reviewed the patient's lab results. 06/11/24 13:38 06/11/24 13:38 Lab Results 06/11/24 06/11/24 06/11/24 Range/Units 13:38 16:04 17:17 WBC 8.79 (4.8-10.8) K/ul RBC 3.00 L (4.20-5.40) M/uL Hgb 10.0 L (12.0-16.0) g/dl Hct 30.3 L (37.0-47.0) % MCV 101.0 H (80.0-100.0) fL MCH 33.3 (25.0-34.0) pg MCHC 33.0 (32.0-36.0) g/dL RDW Std Deviation 51.1 H (36.4-46.3) fL RDW Coeff of Maked[place] 13.8 (11.5-14.5) % Plt Count 203 (130-400) K/uL MPV 9.5 (9.4-12.4) fL Immature Gran % (Auto) 0.3 % Neut % (Auto) 76.6 % Lymph % (Auto) 14.8 % Rose[place] % (Auto) 7.2 % Eos % (Auto) 0.8 % Baso % (Auto) 0.3 % Neut # (Auto) 6.73 H (1.40-6.50) K/uL Lymph # (Auto) 1.30 (1.20-3.40) K/uL Rosebud # (Auto) 0.63 H (0.11-0.59) K/uL Eos # (Auto) 0.07 (0.00-0.50) K/uL Baso # (Auto) 0.03 (0.00-0.20) K/uL Immature Gran # (Auto) 0.03 (0.01-0.20) K/uL Sodium 136 (136-145) mmol/L Potassium 4.7 (3.5-5.1) mmol/L Chloride 104 (98-107) mmol/L Carbon Dioxide 25 (21-32) mmol/L Anion Gap 7 (3-11) BUN 57 H (6-23) mg/dl Creatinine 2.55 H (0.6-1.2) mg/dl Est Cr Clr Drug Dosing 16.4 ml/min Est GFR ( Amer) 18.8 ml/min Est GFR (Non-Af Amer) 16.2 ml/min BUN/Creatinine Ratio 22.4 H (10-20) Glucose 102 H (70-99(Fasting)) mg/dl Calcium 9.7 (8.6-10.3) mg/dl Magnesium 2.8 H (1.7-2.4) mg/dl Total Bilirubin 0.4 (0.2-1.0) mg/dl AST 21 (13-39) U/L ALT 18 (7-52) U/L Alkaline Phosphatase 47 (34-104) U/L Troponin I High Sens 39.5 H 64.1 H* D (0-14) pg/ml Total Protein 6.2 (6.0-8.3) gm/dl Albumin 3.7 (3.4-5.0) gm/dl Globulin 2.5 (2.5-4.0) gm/dl Albumin/Globulin Ratio 1.5 (0.9-2) TSH 0.643 (0.300-4.500) uIu/ml Urine Color Yellow Urine Appearance Clear (Clear) Urine pH 6.0 (4.5-7.5) Ur Specific [place] 1.011 (1.000-1.030) Urine Protein Negative (Negative) Urine Glucose (UA) Negative (Negative) Urine Ketones Negative (Negative) Urine Blood Negative (Negative) Urine Nitrite Negative (Negative) Urine Bilirubin Negative (Negative) Urine Urobilinogen Negative (Negative) Ur Leukocyte Esterase Negative (Negative) Administered Medications Discontinued Medications Acetaminophen (Acetaminophen 500 Mg Tab) 1,000 mg PO NOW STA Stop: 06/11/24 16:11 Last Admin: 06/11/24 16:28 Dose: 1,000 mg Documented By: GUERA Fentanyl Citrate (Fentanyl Citrate Pf 100 Mcg/2 Ml Vial) 25 mcg IV NOW STA Stop: 06/11/24 16:11 Last Admin: 06/11/24 16:29 Dose: 25 mcg Documented By: GUERA Sodium Chloride (Nss) 250 mls @ 999 mls/hr IV .Q16M THI Stop: 06/11/24 14:30 Last Infusion: 06/11/24 14:55 Dose: Infused Documented By: Admin: 06/11/24 14:35 Dose: 999 mls/hr Documented By: Infusion: 06/11/24 14:35 Dose: Infused Documented By: Admin: 06/11/24 14:34 Dose: 999 mls/hr Documented By: CYNDEE Imaging Data Radiologist's Impression: Chest X-Ray 06/11/24 13:56 XR chest 1V portable CLINICAL HISTORY: weakness TECHNIQUE: Single frontal radiograph of the chest was obtained. Comparison: Comparison is made to chest radiograph 03/26/2023 FINDINGS: No lines and tubes are seen. Cardiomegaly is noted. The aortic arch is calcified. The lungs are clear. No evidence of pleural effusion or pneumothorax. IMPRESSION: No acute chest disease. ACT 112: Negative or not required by law. Electronically signed by: Kevin Angeles M.D. 06/11/2024 2:[address] 06/11/24 13:56 CT SCAN OF THE BRAIN WITHOUT IV CONTRAST CLINICAL HISTORY: Falls. COMPARISON STUDY: CT of the brain dated 02/28/2021. TECHNIQUE: Unenhanced axial CT scan of the brain is performed from the vertex to the skull base. A dose lowering technique was utilized adhering to the principles of ALARA. CT DOSE: 625.8 mGy.cm FINDINGS: Brain parenchyma: There is age-related involutional change noting mild/moderate subcortical and periventricular microangiopathic disease. There is no hemorrhage, mass effect, or evidence of acute territorial ischemia by CT criteria. Johnson-white matter differentiation is preserved. No extra-axial fluid collection is seen. Ventricles, sulci, cisterns: Prominent secondary to involutional change. Intracranial vasculature: There is atherosclerotic calcification of the cavernous carotid and vertebral arteries. Calvarium: The skeletal structures are osteopenic. No depressed calvarial fracture is seen. Sinuses and mastoids: The paranasal sinuses are clear. The mastoid air cells are well pneumatized. Orbits: The bony orbits are grossly intact. There are bilateral ocular lens implants IMPRESSION: There is no hemorrhage, mass effect, or evidence of acute territorial ischemia by CT criteria. ACT 112: Negative or not required by law. Electronically signed by: Danilo Benjamin M.D. 06/11/2024 2:46 PM Hip/Pelvis X-Ray 06/11/24 14:17 XR hip RT 2V w pelvis CLINICAL HISTORY: fall, hip/buttock pain TECHNIQUE: 2 views of the right hip and single frontal view of the pelvis were obtained. Comparison: Comparison is made to hip radiographs 09/25/2019 FINDINGS: There is no evidence of an acute fracture. Degenerative changes are seen in the hip joint. Soft tissue swelling is seen. IMPRESSION: Degenerative changes without evidence of acute abnormality. ACT 112: Negative or not required by law. Electronically signed by: Kevin Angeles M.D. 06/11/2024 4:07 PM Discharge Plan Visit Data Chief Complaint: Weakness ED Provider: Jamel Salinas Discharge Problem: NO (acute kidney injury), Acute buttock pain, Fall, Bilateral leg weakness, Acute dehydration Forms Stand Alone Forms: [facility] [employer] Prescriptions Prescriptions: No Action meclizine 25 mg tablet 12.5 - 25 mg PO QID PRN (Reason: Dizziness Or Vertigo) Qty: 30 5RF tramadol 50 mg tablet 50 mg PO BID PRN (Reason: pain) Qty: 60 0RF Rx Instructions: short term only Eliquis 5 mg tablet 5 mg PO BID Qty: 60 2RF Rx Instructions: put in med pack nitroglycerin 0.4 mg tablet, sublingual 0.4 mg sublingual Q5M PRN (Reason: chest pain) Qty: 25 3RF Rx Instructions: do not exceed 3 doses per episode aspirin 81 mg tablet,delayed release (DR/EC) 81 mg PO BID Qty: 60 11RF Rx Instructions: put in med pack escitalopram oxalate [Lexapro] 10 mg tablet 10 mg PO DAILY Qty: 30 11RF Rx Instructions: put in med pack famotidine 20 mg tablet 20 mg PO DAILY Qty: 30 11RF Rx Instructions: put in med pack furosemide 40 mg tablet 40 mg PO BID Qty: 60 11RF Rx Instructions: med pack gabapentin 100 mg capsule 200 mg PO TID 90 Days Qty: 180 11RF Rx Instructions: med pack levothyroxine 50 mcg tablet 50 mcg PO QAM Qty: 30 11RF Rx Instructions: med pack losartan 25 mg tablet 25 mg PO QAM Qty: 30 11RF Hold Instructions: hypotensive Rx Instructions: med pack lysine 600 mg tablet 1,200 mg PO QAM Qty: 60 11RF Rx Instructions: Takes 2 tabs in the morning. med pack ropinirole 1 mg tablet 1 mg PO .COMPLEX Qty: 120 11RF Rx Instructions: 1 mg orally TAKE 1 TABLET AT LUNCH AND 3 TABS AT HS; med pack isosorbide mononitrate 60 mg tablet extended release 24 hr 60 mg PO QAM Qty: 30 11RF Rx Instructions: med pack silver sulfadiazine [Silvadene] 1 % cream 1 applic topical DAILY Qty: 25 1RF Hold Instructions: not using Rx Instructions: apply a 1.5 mm thickness atorvastatin 20 mg tablet 20 mg PO DAILY Qty: 90 3RF Excedrin Extra Strength 250-250-65 mg Tablet 2 tab PO Q6H PRN (Reason: Pain) Referrals Referrals: Salena Ruelas CRNP [Primary Care Provider] - Discharge Problem: Fall Qualifiers: Encounter type: initial encounter Qualified Code(s): W19.XXXA - Unspecified fall, initial encounter
[2024-06-11 14:09] LABS: Basophils # (auto) 0.03 K/uL (0.00-0.20); Basophils % (auto) 0.3 %; Eosinophils # (auto) 0.07 K/uL (0.00-0.50); Eosinophils % (auto) 0.8 %; Hematocrit (blood only) 30.3 % (37.0-47.0); Immature Granulocytes # (auto) 0.03 K/uL (0.01-0.20); Immature Granulocytes % (auto) 0.3 %; Lymphocytes % (auto) 14.8 %; Mean Corpuscular Hemoglobin 33.3 pg (25.0-34.0); Mean Platelet Volume 9.5 fL (9.4-12.4); Monocytes # (auto) 0.63 K/uL (0.11-0.59); Monocytes % (auto) 7.2 %; Neutrophils # (auto) 6.73 K/uL (1.40-6.50); Neutrophils % (auto) 76.6 %; Platelet Count 203 K/uL (130-400); RDW Coefficient of Variation 13.8 % (11.5-14.5); RDW Standard Deviation 51.1 fL (36.4-46.3); White Blood Count 8.79 K/ul (4.8-10.8)
[2024-06-11 14:17] LABS: Albumin Globulin Ratio 1.5 (0.9-2); Albumin Level 3.7 gm/dl (3.4-5.0); BUN Creatinine Ratio 22.4 (10-20); Bilirubin,Total 0.4 mg/dl (0.2-1.0); Calcium 9.7 mg/dl (8.6-10.3); Creatinine Clr Calc Pharmacy 16.4 ml/min; Est GFR (African American) 18.8 ml/min; Est GFR (Non-African American) 16.2 ml/min; Globulin 2.5 gm/dl (2.5-4.0); Magnesium 2.8 mg/dl (1.7-2.4); Potassium 4.7 mmol/L (3.5-5.1); Total Protein 6.2 gm/dl (6.0-8.3)
[2024-06-11 14:24] LABS: Troponin I High Sensitivity 39.5 pg/ml (0-14)
[2024-06-11 14:33] LABS: Thyroid Stimulating Hormone 0.643 uIu/ml (0.300-4.500)
[2024-06-11] MEDS: SODIUM CHLORIDE 0.9% 250 ML IV SCH (14:34)
--- NOTE | 2024-06-11 14:47 | CT Scan Report ---
CT SCAN OF THE BRAIN WITHOUT IV CONTRAST CLINICAL HISTORY: Falls. COMPARISON STUDY: CT of the brain dated 02/28/2021. TECHNIQUE: Unenhanced axial CT scan of the brain is performed from the vertex to the skull base. A do se lowering technique was utilized adhering to the principles of ALARA. CT DOSE: 625.8 mGy.cm FINDINGS: Brain parenchyma: There is age-related involutional change noting mild/moderate subcortical and periv entricular microangiopathic disease. There is no hemorrhage, mass effect, or evidence of acute territ orial ischemia by CT criteria. Johnson-white matter differentiation is preserved. No extra-axial fluid c ollection is seen. Ventricles, sulci, cisterns: Prominent secondary to involutional change. Intracranial vasculature: There is atherosclerotic calcification of the cavernous carotid and vertebr al arteries. Calvarium: The skeletal structures are osteopenic. No depressed calvarial fracture is seen. Sinuses and mastoids: The paranasal sinuses are clear. The mastoid air cells are well pneumatized. Orbits: The bony orbits are grossly intact. There are bilateral ocular lens implants IMPRESSION: There is no hemorrhage, mass effect, or evidence of acute territorial ischemia by CT christopher gan. ACT 112: Negative or not required by law. Electronically signed by: Danilo Benjamin M.D. 06/11/2024 2:46 PM
--- NOTE | 2024-06-11 14:50 | Electrocardiogram Report ---
Test Reason : Blood Pressure : / mmHG Vent. Rate : 070 BPM Atrial Rate : 070 BPM P-R Int : 206 ms QRS Dur : 082 ms QT Int : 392 ms P-R-T Axes : 049 047 065 degrees QTc Int : 423 ms Normal sinus rhythm Normal ECG When compared with ECG of 26-JAN-2024 16:49, VT interval has decreased Confirmed by Ben Thomas ([id number]) on 06/11/2024 2:50:27 PM Referred By: Confirmed By:Ben Thomas
--- NOTE | 2024-06-11 14:53 | XRay Report ---
XR chest 1V portable CLINICAL HISTORY: weakness TECHNIQUE: Single frontal radiograph of the chest was obtained. Comparison: Comparison is made to chest radiograph 03/26/2023 FINDINGS: No lines and tubes are seen. Cardiomegaly is noted. The aortic arch is calcified. The lungs are clear . No evidence of pleural effusion or pneumothorax. IMPRESSION: No acute chest disease. ACT 112: Negative or not required by law. Electronically signed by: Kevin Angeles M.D. 06/11/2024 2:52 PM
--- NOTE | 2024-06-11 16:08 | XRay Report ---
XR hip RT 2V w pelvis CLINICAL HISTORY: fall, hip/buttock pain TECHNIQUE: 2 views of the right hip and single frontal view of the pelvis were obtained. Comparison: Comparison is made to hip radiographs 09/25/2019 FINDINGS: There is no evidence of an acute fracture. Degenerative changes are seen in the hip joint. Soft tissu e swelling is seen. IMPRESSION: Degenerative changes without evidence of acute abnormality. ACT 112: Negative or not required by law. Electronically signed by: Kevin Angeles M.D. 06/11/2024 4:07 PM
[2024-06-11] MEDS: ACETAMINOPHEN 500 MG TAB PO STA (16:28)
[2024-06-11] MEDS: fentaNYL citrate PF 100 MCG/2 ML VIAL IV STA (16:29)
--- NOTE | 2024-06-11 16:46 | History & Physical Report ---
Date of Service June 11, 2024 Assessment & Plan (1) Orthostasis: Plan: Orthostatic hypotension, presyncope With PCP BP 80s/50s. She is on losartan, isosorbide, and Lasix. Suspect prerenal/volume contracted given dry mucous membranes, no pulmonary edema on x- ray, no JVD, NO with elevated ratio. She does have significant chronic and severe bilateral lower extremity edema, suspect comorbid venous stasis with CHF BP 124/84 at hospitalist assessment following to 50 cc NSS Continue gentle rehydration, trend BMP daily, losartan/Lasix held PT/OT TSH normal - Echo 12/2022: EF 60-65%. Mild (2) (HFpEF) heart failure with preserved ejection fraction: Plan: CAD, heart failure with preserved ejection fraction No chest pain, no EKG changes. Troponin mildly up trended, trended overnight. No pulmonary edema, no orthopnea, no JVD. She does have bilateral extensive pitting edema of the lower extremity suspect venous stasis with additional CHF Lasix held as noted. Venous stasis mobilization, SCDs/compression/elevation to mobilize lower extremity following Denies angina EKG normal sinus rhythm without acute ST/T wave change Troponin 39.5, repeat pending. Suspect demand vs clearance with NO Continue atorvastatin Heart healthy diet, monitor ins and outs Isosorbide continued (3) Lower leg DVT (deep venous thromboembolism), acute: Plan: History of DVT DVT 02/01/2024. Has been on continuous anticoagulation for over 4 months. Will hold temporarily pending hemoglobin stability, resume 06/12/2024 if doing well (4) NO (acute kidney injury): Plan: NO Suspect prerenal Baseline creatinine 1.41.6. Creatinine on admission 2.55 with contracted BUN/creatinine ratio. No evidence of pulmonary edema 500 cc IV FM added in addition to 250 already received, patient normotensive in the room Encourage p.o. BMP daily Losartan held (5) Hematoma of right buttock: Plan: R buttock hematoma - wound care - Apixaban temporarily held Hemoglobin 10.0, last 12.3.? Hematoma No melena/hematochezia Macrocytic, B12/folate added Plan Chronic stable issues: Hypothyroidism: Continue Synthroid Peripheral neuropathy: Continue gabapentin Anxiety/depression: Continue Lexapro DVT prophylaxis: SCDs, resume Icthaband when hemoglobin stable Diet: Heart healthy Disposition: Medical telemetry for elevated troponin and near syncope CODE STATUS: Full code History of Present Illness Primary Care Provider: ROSALIE Lopez Mickie is an 89-year-old female with a past medical history of CKD 3, DVT, CAD, GERD, peripheral neuropathy, hyperlipidemia, hypothyroidism, hypertension who presents to the ER with weakness, syncope, and hypotension. Is on multiple falls this week due to lightheadedness and subsequent syncope. Dizziness and lightheadedness is provoked by standing. She saw her PCP BP 80s/50s and continued to feel weak and like her strength is too weak to ambulate safely at home. Is recommended for admission, PT/OT, and antihypertensive management PCP note reviewed. Symmetric weakness, BP 80s/50s. She is on Lasix twice daily, losartan currently on hold. She is anticoagulated with Eliquis X-ray of the hip is without fracture, CThead without acute findings, chest x-r ay is without pulmonary edema. Creatinine is 2.55, baseline approximately 1.41.6. Contracted BUN/creatinine ratio Mickie seen at the bedside. She is not a good historian of her medications, but notes that she has been lightheaded both in the mornings and when attempting to ambulate. She does have chronic swelling in her legs bilaterally. She normally takes Lasix twice a day. Recently she has felt that her mouth has been very dry and that she is more thirsty than normal. Denies changes in urination. Denies fever, chills, sweats. No chest pain or chest pressure at any point. She is not short of breath but endorses that she fatigues easily. She has had falls due to weakness and feeling lightheaded after standing, she reports she has not hit her head or lost consciousness completely. Medical History: Reviewed Medications: Reviewed Surgical History: Reviewed Family history: Reviewed Allergies: Reviewed Social History: Reviewed Code Status: Full Allergies Allergy/AdvReac Type Severity Reaction Status Date / Time atorvastatin [From Lipitor] Allergy Unknown ON [facility] Verified 06/11/24 16:14 LIST celecoxib [From Celebrex] Allergy Unknown ON [facility] Verified 06/11/24 16:14 LIST iodine Allergy Unknown Unknown Verified 06/11/24 16:14 Home Medications Medication Instructions Recorded Confirmed Type [id number]-[id number]-kvarcqev 250 2 tab PO Q6H PRN Pain 02/19/22 06/11/24 History mg-250 mg-65 mg tablet (Excedrin Extra Strength) nitroglycerin 0.4 mg sublingual 0.4 mg sublingual Q5M PRN chest 10/31/22 06/11/24 Rx tablet pain #25 tabs meclizine 25 mg tablet 12.5 - 25 mg (0.5 - 1 x 25 mg) PO 04/30/23 06/11/24 Rx QID PRN Dizziness Or Vertigo #30 tabs tramadol 50 mg tablet 50 mg PO BID PRN pain #60 tabs 05/28/23 06/11/24 Rx aspirin 81 mg tablet,delayed 81 mg PO BID #60 tabs 03/20/24 06/11/24 Rx release escitalopram oxalate 10 mg tablet 10 mg PO DAILY #30 tabs 03/20/24 06/11/24 Rx (Lexapro) famotidine 20 mg tablet 20 mg PO DAILY #30 tabs 03/20/24 06/11/24 Rx furosemide 40 mg tablet 40 mg PO BID #60 tabs 03/20/24 06/11/24 Rx gabapentin 100 mg capsule 200 mg (2 x 100 mg) PO TID 90 days 03/20/24 06/11/24 Rx #180 caps levothyroxine 50 mcg tablet 50 mcg PO QAM #30 tabs 03/20/24 06/11/24 Rx losartan 25 mg tablet 25 mg PO QAM #30 tabs 03/20/24 06/11/24 Rx lysine 600 mg tablet 1,200 mg (2 x 600 mg) PO QAM #60 03/20/24 06/11/24 Rx tabs ropinirole 1 mg tablet 1 mg PO .COMPLEX #120 tabs 03/20/24 06/11/24 Rx silver sulfadiazine 1 % topical 1 applic topical DAILY #25 grams 05/01/24 06/11/24 Rx cream (Silvadene) atorvastatin 20 mg tablet 20 mg PO DAILY #90 tabs 05/16/24 06/11/24 Rx isosorbide mononitrate 60 mg 60 mg PO QAM #30 tabs 05/26/24 06/11/24 Rx tablet,extended release 24 hr apixaban 5 mg tablet (Eliquis) 5 mg PO BID #60 tabs 05/28/24 06/11/24 Rx Past Med/Surg History Problem List (Updated 06/11/24 @ 16:43 by Harjeet Rosario MD) Hematoma of right buttock NO (acute kidney injury) Orthostasis Hypotension Cellulitis of left leg Wounds, multiple Medication non-compliance due to excessive pill burden Lower leg DVT (deep venous thromboembolism), acute Provoked due to sedentary lifestyle, on Eliquis to treat for 3 months Imbalance Frequent falls Multiple fractures of ribs of left side (Acute 01/26/24) mildly displaced fractures of the posterior and posterolateral aspects of the left seventh through ninth ribs the ninth rib fracture in at least 2 places from a fall-was admitted to [facility] for pain control per ED note Venous insufficiency Chronic stable angina Mild aortic stenosis (HFpEF) heart failure with preserved ejection fraction Depression Hypothyroidism (Chronic) Hypertension (Chronic) Peripheral edema Fatigue Vertigo Osteoarthritis Hyperparathyroidism (Chronic) Impaired fasting glucose (Chronic) Osteoporosis (Acute) Lymph edema Dyspnea on exertion (Acute) Vitamin D deficiency (Chronic) Chronic kidney disease, stage III (moderate) (Chronic) Urinary incontinence (Chronic) Restless leg syndrome (Chronic) Dry eye syndrome (Chronic) Incomplete bladder emptying (Chronic) Peripheral neuropathy (Chronic) Hyperlipidemia (Chronic) GERD (gastroesophageal reflux disease) (Chronic) CAD (coronary artery disease) (Chronic) Medical History COVID-19 Chronic acquired lymphedema Aortic stenosis Sepsis Hypercalcemia Surgical History History of total knee arthroplasty History of total abdominal hysterectomy and bilateral salpingo-oophorectomy History of partial colectomy History of carpal tunnel surgery History of dilatation and curettage Status post laser cataract surgery of both eyes History of appendectomy Family History Father Prostate cancer Myocardial infarction Mother Cancer Other No significant family history Denies family history of Ovarian cancer Kidney disease Breast cancer Colorectal cancer Social History Smoking Status: Never smoker Second Hand Exposure: No; Do You Dip or Chew Tobacco: No; Hx Alcohol Use: No Hx Substance Use: No Preferred Language: Andorran Communication Ability: Effective Visual Impairment: Limited Hearing Ability: Normal Supervisor Car Installations Required: No Beliefs That Will Affect Care: None marital status: Current Living Situation: Spouse Current Living Situation Comment: with current occupational status: retired current occupation: housewife How many Children do You have: 3 Feels Safe at Home: Yes Childhood Exposure to Second-Hand Smoke: Yes Diet: regular caffeine: Yes during the past year weight has: remained stable Dental Care, Regularly: No Physical Activity Frequency: Does not Exercise Seatbelt Use: sometimes Sunscreen Use: No Do you think of yourself as: straight/heterosexual Gender Identity: Female Assistive Devices: Cane, Denture - Upper, Denture - Lower, Glasses, Lift Chair, Walker and Wheelchair Physical Exam Physical Exam: General: A&Ox3. NAD. Cooperative. HEENT: Atraumatic, normocephalic. Vision/hearing intact Pulm: CTAB A&P. -wheezes, -rales, -rhonchi. Symmetrical chest rise. No increased work of breathing. No respiratory distress. Cardiac: RRR, -mrg. Radial pulses intact and symmetrical. Abdominal: Nontender, nondistended, soft. BS present. Ext: bilateral 3-4+ pitting edema, weeping anterior molina wounds. Buttock with scarred RIGHT sided contusions, small hematoma. Results & Data Results & Data Vital Signs (Past 12 Hours) Vital Signs Temp Pulse Pulse Resp BP BP Pulse Ox 06/11/24 15:09 69 21 124/84 90 06/11/24 14:10 74 20 92 06/11/24 13:51 67 06/11/24 13:09 06/11/24 13:09 36.4 C L 82 22 108/53 L 92 O2 Del Method 06/11/24 15:09 Room Air 06/11/24 14:10 Room Air 06/11/24 13:51 06/11/24 13:09 Room Air 06/11/24 13:09 Room Air PG Care Time/CCT Total # of Minutes Spent Total Time Spent with Patient: Total time spent is greater than 50% in coordination of care (as documented) at patient's floor/unit and/or counseling patient: Coding Level of Care Code 92898 INT INP/OBS CARE 3/75MIN Diagnoses Orthostasis I95.1 (HFpEF) heart failure with preserved ejection fraction I50.30 Acute venous embolism and thrombosis of deep vessels of distal end of left lower extremity I82.4Z2 Laterality: left NO (acute kidney injury) N17.9 Hematoma of right buttock S30.0XXA (3) Lower leg DVT (deep venous thromboembolism), acute Laterality: left Qualified Code(s): I82.4Z2 - Acute embolism and thrombosis of unspecified deep veins of left distal lower extremity
[2024-06-11 17:26] LABS: Appearance Urine Clear (Clear); Bilirubin Urine Negative (Negative); Blood Urine Negative (Negative); Color Urine Yellow; Glucose Urine UA Negative (Negative); Ketones Urine Negative (Negative); Leukocyte Esterase Urine Negative (Negative); Nitrite Urine Negative (Negative); Protein Urine Negative (Negative); Specific Gravity Urine 1.011 (1.000-1.030); Urobilinogen Urine Negative (Negative)
[2024-06-11] MEDS ORDERED: NITROGLYCERIN SL 0.4 MG/TAB TAB SL PRN (18:56)
[2024-06-11] MEDS: LACTATED RINGER'S 1,000 ML IV SCH (20:09)
[2024-06-11] MEDS: GABAPENTIN 100 MG CAP PO SCH (20:17)
[2024-06-11] MEDS: rOPINIRole HCL 1 MG TABLET PO SCH (20:17)
[2024-06-11] MEDS: ASPIRIN 81 MG ECTAB PO SCH (20:17)
[2024-06-11] MEDS: traMADol HCL 50 MG TABLET PO PRN (23:03)
[2024-06-11] MEDS: ACETAMINOPHEN 325 MG TAB PO PRN (23:03)
[2024-06-12] MEDS: LEVOTHYROXINE SODIUM 50 MCG TABLET PO SCH (05:43)
[2024-06-12 07:52] LABS: Basophils # (auto) 0.03 K/uL (0.00-0.20); Basophils % (auto) 0.6 %; Eosinophils # (auto) 0.18 K/uL (0.00-0.50); Eosinophils % (auto) 3.5 %; Hematocrit (blood only) 28.2 % (37.0-47.0); Hemoglobin 9.1 g/dl (12.0-16.0); Immature Granulocytes # (auto) 0.02 K/uL (0.01-0.20); Immature Granulocytes % (auto) 0.4 %; Lymphocytes # (auto) 1.48 K/uL (1.20-3.40); Lymphocytes % (auto) 29.1 %; Mean Corpuscular Hemoglobin 33.1 pg (25.0-34.0); Mean Corpuscular Hgb Conc 32.3 g/dL (32.0-36.0); Mean Corpuscular Volume 102.5 fL (80.0-100.0); Mean Platelet Volume 9.8 fL (9.4-12.4); Monocytes # (auto) 0.57 K/uL (0.11-0.59); Monocytes % (auto) 11.2 %; Neutrophils % (auto) 55.2 %; Platelet Count 163 K/uL (130-400); RDW Coefficient of Variation 13.9 % (11.5-14.5); RDW Standard Deviation 52.4 fL (36.4-46.3); Red Blood Count 2.75 M/uL (4.20-5.40); White Blood Count 5.08 K/ul (4.8-10.8)
[2024-06-12] MEDS: ISOSORBIDE MONO EXTENDED REL 60 MG TABCR PO SCH (08:01)
[2024-06-12] MEDS: FAMOTIDINE 20 MG TAB PO SCH (08:01)
[2024-06-12] MEDS: ESCITALOPRAM OXALATE 10 MG TAB PO SCH (08:01)
[2024-06-12] MEDS: ATORVASTATIN 20 MG TAB PO SCH (08:01)
[2024-06-12] MEDS: SILVER SULFADIAZINE 1% CR 50 GM JAR TOP SCH (08:04)
[2024-06-12 08:05] LABS: BUN Creatinine Ratio 24.2 (10-20); Calcium 9.5 mg/dl (8.6-10.3); Creatinine Clr Calc Pharmacy 17.8 ml/min; Est GFR (African American) 23.1 ml/min; Est GFR (Non-African American) 19.9 ml/min; Potassium 4.3 mmol/L (3.5-5.1)
[2024-06-12] MEDS: ALBUT/IPRATROP 3MG/0.5MG NEB 3 ML VIAL NEB PRN (12:00)
[2024-06-12] MEDS: rOPINIRole HCL 1 MG TABLET PO SCH (12:16)
--- NOTE | 2024-06-12 13:11 | Hospitalist Progress Note ---
Date of Service June 12, 2024 Assessment & Plan (1) Orthostasis: Plan: Orthostatic hypotension, presyncope With PCP BP 80s/50s. She is on losartan, isosorbide, and Lasix. Suspect prerenal/volume contracted given dry mucous membranes, no pulmonary edema on x- ray, no JVD, NO with elevated ratio. She does have significant chronic and severe bilateral lower extremity edema, suspect comorbid venous stasis with CHF - Recieved 500cc IVF - BPs improving while lying, but patient has not been able to reliably stand - Daily orthostatic VS - TSH WNL. Vitamin B1 level pending - Resp biofire negative - prn nebs added for wheezing - lasix held PT/OT - recommending rehab, CM following (2) (HFpEF) heart failure with preserved ejection fraction: Plan: - Echo 12/2022: EF 60-65%. Mild Troponin mildly elevated, peaked at 64. Suspect Demand ischemia vs poor clearance with NO. Denies CP. No pulmonary edema, no orthopnea, no JVD. She does have bilateral extensive pitting edema of the lower extremity suspect venous stasis with additional CHF Venous stasis mobilization, SCDs/compression/elevation to mobilize lower extremity following Isosorbide continued - Lasix Held Patient does not know her dry weight. (3) NO (acute kidney injury): Plan: Suspect prerenal Baseline creatinine 1.41.6. Creatinine on admission 2.55 with contracted BUN/creatinine ratio. No evidence of pulmonary edema Received 750ml IVF, cautious to add more with CHF - lasix and losartan held - reviewed PCP note, patient has been holding losartan for the last few weeks. Cr improving AM BMP (4) Lower leg DVT (deep venous thromboembolism), acute: Plan: History of DVT DVT 02/01/2024. Has been on continuous anticoagulation for over 4 months. Will hold temporarily pending hemoglobin stability Recheck CBC AM (5) Hematoma of right buttock: Plan: R buttock hematoma - wound care - Apixaban temporarily held No melena/hematochezia Macrocytic, check B12 and Folate Plan Chronic stable issues: Hypothyroidism: Continue Synthroid Peripheral neuropathy: Continue gabapentin Anxiety/depression: Continue Lexapro - HLD: continue statin DVT prophylaxis: SCDs, resume apixaban when hemoglobin stable Disposition: continued inpatient stay updated at bedside 06/12 Admission and Anticipated Discharge Date Admission Date: June 11, 2024 Supervising Physician Co-Signing Physician Notes Attending Attestation - Chart reviewed, care plan d/w PENNY Kincaid. I agree w/ the arora components of her documentation. Keyur Conner MD Subjective Patient seen prior to lunch, was alert and oriented x3 during my visit but per nursing she has not been that oriented all morning. Reports pain in her legs near her wounds audibly wheezing - this is not normal for her States that she has had a good appetite at home, but then goes on to tell me when her and her dont cook they eat ice cream and they have over 20 flavors at home Patient is very stuck on the fact that she had a shaking episode at home and wants to know what it is from. She has not had another episode since being in the hospital Tele SR 70s Review of Systems Review of Systems: All systems reviewed & are unremarkable except as noted in Subjective Physical Exam Physical Exam: General: NAD, VS as above, sitting in bed, short of breath with conversation Resp: accessory muscle use, wheezing throughout out CV: RRR, no murmur, Abd: normal bowel sounds, non tender, no hepatosplenomegaly Extremities: Moves all extremities, b/l LE wounds dressed by wound care, not completely uncovered, 2+ edema bilateral lower extremities Neuro: A&O x3, however when revisited this afternoon she was not this alert Results & Data Results & Data Vital Signs (Past 12 Hours) Vital Signs Temp Pulse Pulse Resp BP Pulse Ox O2 Del Method 06/12/24 12:30 36.5 C 63 16 109/54 L 94 Room Air 06/12/24 12:03 62 18 93 Room Air 06/12/24 10:37 Room Air 06/12/24 07:52 60 06/12/24 07:31 36.4 C L 59 L 18 117/71 95 Room Air 06/12/24 03:42 36.6 C 63 18 114/70 92 Room Air Laboratory Results CBC, chemistry, troponin and UA reviewed PG Care Time/CCT Total # of Minutes Spent Total Time Spent with Patient: Total time spent is greater than 50% in coordination of care (as documented) at patient's floor/unit and/or counseling patient: Coding Level of Care Code 54010 SUB INP/OBS CARE 3/50MIN Diagnoses Orthostasis I95.1 (HFpEF) heart failure with preserved ejection fraction I50.30 NO (acute kidney injury) N17.9 Acute venous embolism and thrombosis of deep vessels of distal end of left lower extremity I82.4Z2 Laterality: left Hematoma of right buttock S30.0XXA (4) Lower leg DVT (deep venous thromboembolism), acute Laterality: left Qualified Code(s): I82.4Z2 - Acute embolism and thrombosis of unspecified deep veins of left distal lower extremity
[2024-06-12 13:54] LABS: Adenovirus PCR Not Detected (NotDetected); Bordetella parapertussis PCR Not Detected (NotDetected); Bordetella pertussis PCR Not Detected (NotDetected); Chlamydia pneumoniae PCR Not Detected (NotDetected); Coronavirus 229E PCR Not Detected (NotDetected); Coronavirus CoV-2 (COVID19)PCR Not Detected (NotDetected); Coronavirus HKU1 PCR Not Detected (NotDetected); Coronavirus NL63 PCR Not Detected (NotDetected); Coronavirus OC43PCR Not Detected (NotDetected); Human Metapneumovirus PCR Not Detected (NotDetected); Influenza A PCR Not Detected (NotDetected); Influenza B PCR Not Detected (NotDetected); Mycoplasma pneumoniae PCR Not Detected (NotDetected); Parainfluenza Virus 1 PCR Not Detected (NotDetected); Parainfluenza Virus 2 PCR Not Detected (NotDetected); Parainfluenza Virus 3 PCR Not Detected (NotDetected); Parainfluenza Virus 4 PCR Not Detected (NotDetected); Respiratory Syncytial VirusPCR Not Detected (NotDetected); Rhinovirus/Enterovirus PCR Not Detected (NotDetected)
--- NOTE | 2024-06-13 16:38 | Hospitalist Progress Note ---
Date of Service June 13, 2024 Assessment & Plan (1) Orthostasis: Plan: Orthostatic hypotension, presyncope With PCP BP 80s/50s. She is on losartan, isosorbide, and Lasix. Suspect prerenal/volume contracted given dry mucous membranes, no pulmonary edema on x- ray, no JVD, NO with elevated ratio. She does have significant chronic and severe bilateral lower extremity edema, suspect comorbid venous stasis with CHF - Recieved 500cc IVF - BPs improving while lying, but patient has not been able to reliably stand - Daily orthostatic VS - unable to get reliable numbers due to inability to stand - TSH WNL. Vitamin B1 level pending - thiamine 200mg IV x1 given - Resp biofire negative - prn nebs added for wheezing - lasix held Low grade fever 06/13 - blood cultures ordered - check tick panel and LFT - consider gall bladder or possible R hip as source if needing further workup PT/OT - recommending rehab, CM following (2) (HFpEF) heart failure with preserved ejection fraction: Plan: - Echo 12/2022: EF 60-65%. Mild Troponin mildly elevated, peaked at 64. Suspect Demand ischemia vs poor clearance with NO. Denies CP. No pulmonary edema, no orthopnea, no JVD. She does have bilateral extensive pitting edema of the lower extremity suspect venous stasis with additional CHF Venous stasis mobilization, SCDs/compression/elevation to mobilize lower extremity following Isosorbide continued - Lasix Held Patient does not know her dry weight. (3) NO (acute kidney injury): Plan: Suspect prerenal Received 750ml IVF, cautious to add more with CHF Baseline creatinine 1.41.6. Creatinine on admission 2.55 with contracted BUN/creatinine ratio. No evidence of pulmonary edema - Creatine improved to 1.67 - lasix and losartan held - reviewed PCP note, patient has been holding losartan for the last few weeks. AM BMP (4) Lower leg DVT (deep venous thromboembolism), acute: Plan: History of DVT DVT 02/01/2024. Has been on continuous anticoagulation for over 4 months. - hgb stable resume anticoagulation Recheck CBC AM (5) Hematoma of right buttock: Plan: R buttock hematoma - wound care No melena/hematochezia Macrocytic, check B12 and Folate - pending Plan Chronic stable issues: Hypothyroidism: Continue Synthroid Peripheral neuropathy: Continue gabapentin Anxiety/depression: Continue Lexapro - HLD/CAD: continue statin, ASA decreased to QAM DVT prophylaxis:Resume eliquis Disposition: continued inpatient stay updated at bedside 06/12 LM for daughter 06/13 Admission and Anticipated Discharge Date Admission Date: June 11, 2024 Supervising Physician Co-Signing Physician Notes Attending Attestation - Chart reviewed, care plan d/w PENNY Kincaid. I agree w/ the arora components of her documentation. Low-grade fever this afternoon - obtain blood cx's, consider tickborne infection w/u, consider biliary disease w/u (ultrasound, etc). Previous infectious work-up including biofire resp panel was negative. Keyur Conner MD Subjective Patient seen this morning after breakfast. Denies pain, has not been out of bed again asking why she was shaking when she came in - has not had further episodes No other complaints Review of Systems Review of Systems: All systems reviewed & are unremarkable except as noted in Subjective Physical Exam Physical Exam: General: NAD, VS as above, sitting in bed, short of breath with conversation Resp: no accessory muscle use, mild wheezing upper lobes, diminished in the bases CV: RRR, no murmur, Abd: normal bowel sounds, non tender, no hepatosplenomegaly Extremities: Moves all extremities, b/l LE wounds dressed by wound care, not completely uncovered, 2+ edema bilateral lower extremities Neuro: A&O x3, Results & Data Results & Data Vital Signs (Past 12 Hours) Vital Signs Temp Pulse Resp BP Pulse Ox O2 Del Method 06/13/24 15:41 37.6 C H 73 16 146/80 H 93 Room Air Laboratory Results CBC and chemistry reviewed PG Care Time/CCT Total # of Minutes Spent Total Time Spent with Patient: Total time spent is greater than 50% in coordination of care (as documented) at patient's floor/unit and/or counseling patient: Coding Level of Care Code 30056 SUB INP/OBS CARE 3/50MIN Diagnoses Orthostasis I95.1 (HFpEF) heart failure with preserved ejection fraction I50.30 NO (acute kidney injury) N17.9 Acute venous embolism and thrombosis of deep vessels of distal end of left lower extremity I82.4Z2 Laterality: left Hematoma of right buttock S30.0XXA (4) Lower leg DVT (deep venous thromboembolism), acute Laterality: left Qualified Code(s): I82.4Z2 - Acute embolism and thrombosis of unspecified deep veins of left distal lower extremity
[2024-06-13] MEDS: THIAMINE HCL 200 MG in SODIUM CHLORIDE 0.9% 50 ML IV STA (16:59)
[2024-06-13 17:34] LABS: Albumin Globulin Ratio 1.3 (0.9-2); Albumin Level 3.3 gm/dl (3.4-5.0); BUN Creatinine Ratio 22.2 (10-20); Bilirubin,Total 0.6 mg/dl (0.2-1.0); Calcium 9.6 mg/dl (8.6-10.3); Creatinine Clr Calc Pharmacy 22.9 ml/min; Est GFR (African American) 31.3 ml/min; Globulin 2.5 gm/dl (2.5-4.0); Potassium 4.5 mmol/L (3.5-5.1); Total Protein 5.8 gm/dl (6.0-8.3)
[2024-06-13 17:42] LABS: Basophils # (auto) 0.03 K/uL (0.00-0.20); Basophils % (auto) 0.5 %; Eosinophils # (auto) 0.22 K/uL (0.00-0.50); Eosinophils % (auto) 3.9 %; Hemoglobin 8.8 g/dl (12.0-16.0); Immature Granulocytes # (auto) 0.02 K/uL (0.01-0.20); Immature Granulocytes % (auto) 0.4 %; Lymphocytes # (auto) 1.28 K/uL (1.20-3.40); Lymphocytes % (auto) 22.8 %; Mean Corpuscular Hemoglobin 33.6 pg (25.0-34.0); Mean Corpuscular Hgb Conc 32.6 g/dL (32.0-36.0); Mean Corpuscular Volume 103.1 fL (80.0-100.0); Mean Platelet Volume 9.5 fL (9.4-12.4); Monocytes # (auto) 0.52 K/uL (0.11-0.59); Monocytes % (auto) 9.3 %; Neutrophils # (auto) 3.54 K/uL (1.40-6.50); Neutrophils % (auto) 63.1 %; Platelet Count 172 K/uL (130-400); RDW Coefficient of Variation 13.7 % (11.5-14.5); RDW Standard Deviation 52.1 fL (36.4-46.3); Red Blood Count 2.62 M/uL (4.20-5.40); White Blood Count 5.61 K/ul (4.8-10.8)
[2024-06-13] MEDS: DICLOFENAC SOD 1% GEL 100 GM TUBE EXT SCH (18:31)
[2024-06-13 18:34] LABS: Folate (Folic Acid),Ser orPlas > 22.30 ng/ml (>5.38)
[2024-06-13 18:35] LABS: Vitamin B12 484 pg/ml (180-914)
[2024-06-13] MEDS: APIXABAN 5 MG TABLET PO SCH (20:15)
[2024-06-14 06:22] LABS: Basophils # (auto) 0.01 K/uL (0.00-0.20); Basophils % (auto) 0.2 %; Eosinophils % (auto) 3.8 %; Hemoglobin 8.4 g/dl (12.0-16.0); Immature Granulocytes # (auto) 0.01 K/uL (0.01-0.20); Immature Granulocytes % (auto) 0.2 %; Lymphocytes # (auto) 1.58 K/uL (1.20-3.40); Lymphocytes % (auto) 29.8 %; Mean Corpuscular Hemoglobin 33.2 pg (25.0-34.0); Mean Corpuscular Hgb Conc 32.3 g/dL (32.0-36.0); Mean Corpuscular Volume 102.8 fL (80.0-100.0); Mean Platelet Volume 9.5 fL (9.4-12.4); Monocytes # (auto) 0.51 K/uL (0.11-0.59); Monocytes % (auto) 9.6 %; Neutrophils # (auto) 2.99 K/uL (1.40-6.50); Neutrophils % (auto) 56.4 %; Platelet Count 172 K/uL (130-400); RDW Coefficient of Variation 13.6 % (11.5-14.5); RDW Standard Deviation 51.8 fL (36.4-46.3); Red Blood Count 2.53 M/uL (4.20-5.40)
[2024-06-14] MEDS: ASPIRIN 81 MG ECTAB PO SCH (08:10)
[2024-06-14 10:51] LABS: BUN Creatinine Ratio 19.9 (10-20); Calcium 9.6 mg/dl (8.6-10.3); Creatinine Clr Calc Pharmacy 26.5 ml/min; Est GFR (African American) 38.5 ml/min; Est GFR (Non-African American) 33.2 ml/min; Potassium 4.4 mmol/L (3.5-5.1)
--- NOTE | 2024-06-14 15:32 | Ultrasound Report ---
US gallbladder CLINICAL HISTORY: fever, malaise; cholecystitis? TECHNIQUE: Multiple real-time sonographic images of the right upper quadrant were obtained. Comparison: Comparison is made to CT abdomen pelvis 01/26/2024 FINDINGS: The liver is diffusely echogenic in appearance with poor ultrasound penetration, with normal contour, which is consistent with fatty infiltration. No focal mass lesions are seen. No intrahepatic duct al dilatation is seen. Low level internal echoes are identified layering dependently within the gall bladder, which is consistent with gallbladder sludge. The gallbladder wall is not thickened. There is no pericholecystic fluid present. A sonographic Gardner's sign was not elicited by the imaging aide. The common duct measures 0.2 cm in diameter at the level of the hepatic artery. The visualized port ions of the pancreas appear normal. The right kidney shows normal echogenicity, cortical thickness and renal contour. The right kidney sh ows no evidence of hydronephrosis or mass. No ascites or free fluid is seen in Gooden's pouch. IMPRESSION: 1. Gallbladder sludge without evidence of acute cholecystitis. 2. Hepatic steatosis. ACT 112: Negative or not required by law. Electronically signed by: Kevin Angeles M.D. 06/14/2024 3:30 PM
--- NOTE | 2024-06-14 17:07 | XRay Report ---
XR chest 1V portable CLINICAL HISTORY: fever, malaise, developing pneumonia? TECHNIQUE: Single frontal radiograph of the chest was obtained. Comparison: Comparison is made to chest radiograph 06/11/2024 FINDINGS: No lines and tubes are seen. Calcified aortic knob is seen. The lungs are clear. No evidence of pleur al effusion or pneumothorax. IMPRESSION: No acute abnormalities and in particular no radiographic evidence of pneumonia. ACT 112: Negative or not required by law. Electronically signed by: Kevin Angeles M.D. 06/14/2024 5:05 PM
--- NOTE | 2024-06-14 19:40 | Hospitalist Progress Note ---
Date of Service June 14, 2024 Assessment & Plan (1) Orthostasis: Plan: significant orthostatic hypotension at time of admission was on multiple BP meds at home including imdur, lasix, losartan by report was volume contracted at presentation low BP, etc led to NO (see below) lasix & losartan remain on hold imdur has been continued TSH wnl. B12 wnl. Vitamin B1 level pending -- thiamine 200mg IV x1 given BPs have improved with hydration and holding the above meds Orthos today - SBP 143 supine, SBP 114 with standing Will cont imdur but lower dose to 30mg/day Recheck orthos in am Of note - thus far extensive work-up looking for an infectious cause of her presentation has not been found (repeat COVID today neg; repeat cxr today neg; RUQ u/s without findings to suggest acute cholecystitis) (2) Acute blood loss anemia: Plan: Hb at presentation was 10, falling to 8.4 today Hb was 12.3 in January 2024 acute blood loss anemia was 2nd to #3 below plan repeat CBC am (3) Hematoma of right buttock: Plan: R buttock, flank, hip region Start heat therapy to promote clearance of bruising (4) (HFpEF) heart failure with preserved ejection fraction: Plan: Echo 12/2022: EF 60-65%. 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 Has been on Eliquis since that time Eliquis was placed on hold at time of this admission due to fall with extensive buttock/hip/back bruising on right Eliquis resumed last pm Trend H/H carefully (7) Acute metabolic encephalopathy: Plan: had low-grade fever on 06/13/24 extensive infectious w/u has not revealed source for the low-grade fever repeat COVID today neg repeat cxr today neg for pneumonia RUQ u/s with GB sludge but nothing to suggest acute cholecystitis send anaplasmosis DNA in am (smear was negative babesia smear negative; DNA test pending lyme screen negative blood cx's negative to date hematomas can cause low-grade temps in some cases cont to monitor carefully Plan Hypothyroidism: Continue Synthroid; TSH wnl this admission Peripheral neuropathy: Continue gabapentin Anxiety/depression: Continue Lexapro - HLD/CAD: continue statin, ASA, imdur (but at lower dose) DVT prophylaxis: Eliquis Disposition: continued inpatient stay Left message for pt's on his voicemail this evening - 06/14 Admission and Anticipated Discharge Date Admission Date: June 11, 2024 Subjective tele overnight wnl during the visit the patient was resting in bed comfortably per nursing flowsheets only ate 25% of breakfast per staff she did sit in the chair for a few hours her main complaint was that of right hip/flank pain the pain is a little better than yesterday denies abd pain denies headache denies chest pain denies dyspnea or cough denies abd pain or N/V had bowel movement yesterday Review of Systems Review of Systems: gen - no fevers or chills skin - "what caused those things down there?" (lesions on shins) cv - no orthopnea pulm - no cough Physical Exam Physical Exam: gen - NAD, but looks tired mouth - MM slightly dry, no thrush neck - no JVD heart - RRR, s1 s2, 1-2/6 systolic murmur RUSB lungs - end-exp wheezes b/l - mild; no rales; no increased work of breathing; no coughing abd - slightly tender RUQ with deep palpation; otherwise, NT, ND, BS+, soft ext - 1-2+ edema b/l shins/ankles; pulses 2+ b/l skin - no cellulitis either molina; dressings intact b/l shins; extensive bruising noted over right flank and right hip region musculo - passive flexion of right hip - mild pain noted in the hip itself; passive rotation/abduction also with mild pain psych - pleasant confusion noted Results & Data Results & Data Vital Signs (Past 12 Hours) Vital Signs Temp Pulse Pulse Resp BP Pulse Ox O2 Del Method 06/14/24 15:46 36.5 C 62 18 159/80 H 95 Room Air 06/14/24 15:01 61 07/20/24 08:50 Room Air 06/14/24 07:49 36.3 C L 77 18 151/76 H 94 Room Air 06/14/24 07:45 65 Laboratory Results Laboratory Results - last 24 hr 06/14/24 06/14/24 05:44 11:15 WBC 5.30 RBC 2.53 L Hgb 8.4 L Hct 26.0 L MCV 102.8 H MCH 33.2 MCHC 32.3 RDW Std Deviation 51.8 H RDW Coeff of Makeda 13.6 Plt Count 172 MPV 9.5 Immature Gran % (Auto) 0.2 Neut % (Auto) 56.4 Lymph % (Auto) 29.8 Maury % (Auto) 9.6 Eos % (Auto) 3.8 Baso % (Auto) 0.2 Neut # (Auto) 2.99 Lymph # (Auto) 1.58 Maury # (Auto) 0.51 Eos # (Auto) 0.20 Baso # (Auto) 0.01 Immature Gran # (Auto) 0.01 Sodium 139 Potassium 4.4 Chloride 106 Carbon Dioxide 25 Anion Gap 8 BUN 28 H Creatinine 1.41 H Est Cr Clr Drug Dosing 26.5 Est GFR ( Amer) 38.5 Est GFR (Non-Af Amer) 33.2 BUN/Creatinine Ratio 19.9 Glucose 96 Calcium 9.6 SARS-CoV-2 (PCR) NEGATIVE Diagnostic Findings Gallbladder Ultrasound 06/14/24 10:40 US gallbladder CLINICAL HISTORY: fever, malaise; cholecystitis? TECHNIQUE: Multiple real-time sonographic images of the right upper quadrant were obtained. Comparison: Comparison is made to CT abdomen pelvis 01/26/2024 FINDINGS: The liver is diffusely echogenic in appearance with poor ultrasound penetration, with normal contour, which is consistent with fatty infiltration. No focal mass lesions are seen. No intrahepatic ductal dilatation is seen. Low level internal echoes are identified layering dependently within the gallbladder, which is consistent with gallbladder sludge. The gallbladder wall is not thickened. There is no pericholecystic fluid present. A sonographic Gardner's sign was not elicited by the receptionist doctor's office. The common duct measures 0.2 cm in diameter at the level of the hepatic artery. The visualized portions of the pancreas appear normal. The right kidney shows normal echogenicity, cortical thickness and renal contour. The right kidney shows no evidence of hydronephrosis or mass. No ascites or free fluid is seen in Gooden's pouch. IMPRESSION: 1. Gallbladder sludge without evidence of acute cholecystitis. 2. Hepatic steatosis. ACT 112: Negative or not required by law. Electronically signed by: Kevin Angeles M.D. 06/14/2024 3:30 PM Chest X-Ray 06/14/24 11:03 XR chest 1V portable CLINICAL HISTORY: fever, malaise, developing pneumonia? TECHNIQUE: Single frontal radiograph of the chest was obtained. Comparison: Comparison is made to chest radiograph 06/11/2024 FINDINGS: No lines and tubes are seen. Calcified aortic knob is seen. The lungs are clear. No evidence of pleural effusion or pneumothorax. IMPRESSION: No acute abnormalities and in particular no radiographic evidence of pneumonia. ACT 112: Negative or not required by law. Electronically signed by: Kevin Angeles M.D. 06/14/2024 5:05 PM PG Care Time/CCT Total # of Minutes Spent Total Time Spent with Patient: Total time spent is greater than 50% in coordination of care (as documented) at patient's floor/unit and/or counseling patient: Coding Level of Care Code 44123 SUB INP/OBS CARE 3/50MIN Diagnoses Orthostasis I95.1 Acute blood loss anemia D62 Hematoma of right buttock S30.0XXA (HFpEF) heart failure with preserved ejection fraction I50.30 NO (acute kidney injury) N17.9 Acute venous embolism and thrombosis of deep vessels of distal end of left lower extremity I82.4Z2 Laterality: left Acute metabolic encephalopathy G93.41 (6) Lower leg DVT (deep venous thromboembolism), acute Laterality: left Qualified Code(s): I82.4Z2 - Acute embolism and thrombosis of unspecified deep veins of left distal lower extremity
[2024-06-14] MEDS: ONDANSETRON INJ 2 MG/ML 2 ML VIAL IV PRN (23:30)
[2024-06-15 06:31] LABS: Hematocrit (blood only) 26.1 % (37.0-47.0); Hemoglobin 8.5 g/dl (12.0-16.0); Mean Corpuscular Hemoglobin 33.6 pg (25.0-34.0); Mean Corpuscular Hgb Conc 32.6 g/dL (32.0-36.0); Mean Corpuscular Volume 103.2 fL (80.0-100.0); Mean Platelet Volume 9.4 fL (9.4-12.4); Platelet Count 189 K/uL (130-400); RDW Coefficient of Variation 13.5 % (11.5-14.5); RDW Standard Deviation 51.7 fL (36.4-46.3); Red Blood Count 2.53 M/uL (4.20-5.40); White Blood Count 5.22 K/ul (4.8-10.8)
[2024-06-15 06:34] LABS: BUN Creatinine Ratio 19.3 (10-20); Calcium 9.6 mg/dl (8.6-10.3); Creatinine Clr Calc Pharmacy 25.8 ml/min; Est GFR (African American) 37.2 ml/min; Est GFR (Non-African American) 32.1 ml/min; Potassium 4.8 mmol/L (3.5-5.1)
[2024-06-15] MEDS: ISOSORBIDE MONO EXTENDED REL 30 MG TABCR PO SCH (07:51)
--- NOTE | 2024-06-15 12:18 | Hospitalist Progress Note ---
Date of Service June 15, 2024 Assessment & Plan (1) Orthostasis: Plan: Orthostatic hypotension, presyncope With PCP BP 80s/50s. She is on losartan, isosorbide, and Lasix. Suspect prerenal/volume contracted given dry mucous membranes, no pulmonary edema on x- ray, no JVD, NO with elevated ratio. She does have significant chronic and severe bilateral lower extremity edema, suspect comorbid venous stasis with CHF - Recieved 500cc IVF - Daily orthostatic VS - unable to get reliable numbers due to inability to stand - overall improving, 20mg IV lasix given today - TSH WNL. Vitamin B1 level pending - thiamine 200mg IV x1 given - Resp biofire negative - prn nebs added for wheezing PT/OT - recommending rehab, CM following (2) Acute metabolic encephalopathy: Plan: had low-grade fever on 06/13/24 extensive infectious w/u has not revealed source for the low-grade fever repeat COVID today neg repeat cxr today neg for pneumonia RUQ u/s with GB sludge but nothing to suggest acute cholecystitis anaplasmosis DNA, pending (smear was negative) babesia smear negative; DNA test pending lyme screen negative blood cx's negative to date (3) (HFpEF) heart failure with preserved ejection fraction: Plan: Echo 12/2022: EF 60-65%. Mild Troponin mildly elevated, peaked at 64. Suspect Demand ischemia vs poor clearance with NO. Denies CP. She does have ongoing LE edema but her record lists lymphedema as a long-st anding diagnosis Isosorbide continue at reduced dose Creatinine stable lasix 20mg IV given (home dose is 40mg PO BID) Venous stasis mobilization, SCDs/compression/elevation to mobilize lower extr emity following Patient does not know her dry weight. 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 Hgb has remained stable Plan Hypothyroidism: Continue Synthroid; TSH wnl this admission Peripheral neuropathy: Continue gabapentin Anxiety/depression: Continue Lexapro - HLD/CAD: continue statin, ASA, imdur (but at lower dose) DVT prophylaxis: Eliquis Disposition: continued inpatient stay Left message for pt's on his voicemail 06/14 Admission and Anticipated Discharge Date Admission Date: June 11, 2024 Supervising Physician Co-Signing Physician Notes Attending Attestation - Chart reviewed, care plan d/w PENNY Kincaid. I agree w/ the arora components of her documentation. Keyur Conner MD Subjective Patient seen sitting in bed. tells me shes in [facility] and its 1923. is able to recall her birthdate Report aching pain in her back Agreeable to get up to the chair Tele - SR 1st degree AV block 60-70s Review of Systems Review of Systems: All systems reviewed & are unremarkable except as noted in Subjective Physical Exam Physical Exam: General: NAD, VS as above, sitting in bed, Resp: no accessory muscle use, wheezing has improved, not conversationally dyspneic today, diminished in the bases CV: RRR, no murmur, Abd: normal bowel sounds, non tender, no hepatosplenomegaly Extremities: Moves all extremities, b/l LE wounds dressed by wound care, not completely uncovered, 2+ edema bilateral lower extremities Neuro: A&O x3, Results & Data Results & Data Vital Signs (Past 12 Hours) Vital Signs Temp Pulse Pulse Resp BP Pulse Ox O2 Del Method 06/15/24 11:23 36.9 C 96 H 18 122/82 99 Room Air 06/15/24 07:47 36.9 C 61 18 116/75 92 Room Air 06/15/24 07:22 67 06/15/24 03:52 36.7 C 68 18 118/71 93 Room Air Laboratory Results CBC and chemistry reviewed PG Care Time/CCT Total # of Minutes Spent Total Time Spent with Patient: Total time spent is greater than 50% in coordination of care (as documented) at patient's floor/unit and/or counseling patient: Coding Level of Care Code 31670 SUB INP/OBS CARE 3/50MIN Diagnoses Orthostasis I95.1 Acute metabolic encephalopathy G93.41 (HFpEF) heart failure with preserved ejection fraction I50.30 Hematoma of right buttock S30.0XXA ON (acute kidney injury) N17.9 Acute venous embolism and thrombosis of deep vessels of distal end of left lower extremity I82.4Z2 Laterality: left (6) Lower leg DVT (deep venous thromboembolism), acute Laterality: left Qualified Code(s): I82.4Z2 - Acute embolism and thrombosis of unspecified deep veins of left distal lower extremity
[2024-06-15] MEDS: FUROSEMIDE INJ 20 MG/2 ML VIAL IV ONE (13:12)
--- NOTE | 2024-06-16 11:13 | Hospitalist Progress Note ---
Date of Service June 16, 2024 Assessment & Plan (1) Orthostasis: Plan: Orthostatic hypotension, presyncope With PCP BP 80s/50s. She is on losartan, isosorbide, and Lasix. Suspect prerenal/volume contracted given dry mucous membranes, no pulmonary edema on x- ray, no JVD, NO with elevated ratio. She does have significant chronic and severe bilateral lower extremity edema, suspect comorbid venous stasis with CHF - Received 500cc IVF - Daily orthostatic VS - unable to get reliable numbers due to inability to stand - overall improving - TSH WNL. Vitamin B1 level pending - thiamine 200mg IV x1 given - Resp biofire negative - prn nebs added for wheezing PT/OT - recommending rehab, CM following (2) Acute metabolic encephalopathy: Plan: had low-grade fever on 06/13/24 extensive infectious w/u has not revealed source for the low-grade fever repeat COVID today neg repeat cxr today neg for pneumonia RUQ u/s with GB sludge but nothing to suggest acute cholecystitis anaplasmosis DNA, pending (smear was negative) babesia smear negative; DNA test pending lyme screen negative blood cx's negative to date Given increased wound drainage, cultured wound 06/16, await results. Reviewed CBC 06/16: WBC WNL (3) (HFpEF) heart failure with preserved ejection fraction: Plan: Echo 12/2022: EF 60-65%. Mild Troponin mildly elevated, peaked at 64. Suspect Demand ischemia vs poor clearance with NO. Denies CP. She does have ongoing LE edema but her record lists lymphedema as a long- standing diagnosis Isosorbide continue at reduced dose Creatinine stable lasix 20mg IV given 06/15 (home dose is 40mg PO BID) -reviewed BMP 06/16: creatinine increased slightly 1.45, BUN stable 28 -Will await BMP 06/17 prior to another dose of Lasix Venous stasis mobilization, SCDs/compression/elevation to mobilize lower extremity following Patient does not know her dry weight. 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 Hgb has remained stable Plan Hypothyroidism: Continue Synthroid; TSH wnl this admission Peripheral neuropathy: Continue gabapentin Anxiety/depression: Continue Lexapro - HLD/CAD: continue statin, ASA, imdur (but at lower dose) DVT prophylaxis: Eliquis Disposition: continued inpatient stay Admission and Anticipated Discharge Date Admission Date: June 11, 2024 Supervising Physician Co-Signing Physician Notes The patient was not seen by me. The chart was reviewed. Case discussed with PENNY Molina. Agree with assessment and plan. Subjective Patient seen and examined this morning. Patient was AxO x3 at time of encounter. She was complaining of left leg pain and states her wound has never been this red before. She states a retired nurse was previously coming in to bandage it up for her at home. She denied chest pain or SOB. Physical Exam 2 Constitutional: WD/WN, vitals as above Eyes: PERRL, conjunctivae normal, anicteric sclerae Respiratory: normal respiratory effort, lungs clear to auscultation Cardiovascular: RRR, no murmur, no edema Skin: left leg wound with saturated bandage pad. Discharge red/dark brown in color. Surrounding area of wound tender to touch. Results & Data Results & Data Vital Signs (Past 12 Hours) Vital Signs Temp Pulse Pulse Resp BP Pulse Ox O2 Del Method 06/16/24 07:50 36.7 C 61 16 153/66 H 92 Room Air 06/16/24 07:06 59 L 06/16/24 03:53 36.7 C 66 18 145/68 H 93 Room Air 06/15/24 23:58 36.7 C 66 16 146/75 H 95 Room Air 06/15/24 23:41 64 Laboratory Results 06/15/24 05:59 06/15/24 05:59 PG Care Time/CCT Total # of Minutes Spent Total Time Spent with Patient: Total time spent is greater than 50% in coordination of care (as documented) at patient's floor/unit and/or counseling patient: Coding Level of Care Code 24803 SUB INP/OBS CARE 2/35MIN Diagnoses Orthostasis I95.1 Acute metabolic encephalopathy G93.41 Chronic heart failure with preserved ejection fraction I50.32 Heart failure chronicity: chronic Hematoma of right buttock S30.0XXA NO (acute kidney injury) N17.9 Acute venous embolism and thrombosis of deep vessels of distal end of left lower extremity I82.4Z2 Laterality: left (3) (HFpEF) heart failure with preserved ejection fraction Heart failure chronicity: chronic Qualified Code(s): I50.32 - Chronic diastolic (congestive) heart failure (6) Lower leg DVT (deep venous thromboembolism), acute Laterality: left Qualified Code(s): I82.4Z2 - Acute embolism and thrombosis of unspecified deep veins of left distal lower extremity
[2024-06-17 06:35] LABS: Basophils # (auto) 0.03 K/uL (0.00-0.20); Basophils % (auto) 0.6 %; Eosinophils # (auto) 0.19 K/uL (0.00-0.50); Hematocrit (blood only) 26.1 % (37.0-47.0); Hemoglobin 8.4 g/dl (12.0-16.0); Immature Granulocytes # (auto) 0.01 K/uL (0.01-0.20); Immature Granulocytes % (auto) 0.2 %; Lymphocytes # (auto) 1.66 K/uL (1.20-3.40); Lymphocytes % (auto) 34.7 %; Mean Corpuscular Hemoglobin 33.2 pg (25.0-34.0); Mean Corpuscular Hgb Conc 32.2 g/dL (32.0-36.0); Mean Corpuscular Volume 103.2 fL (80.0-100.0); Mean Platelet Volume 9.2 fL (9.4-12.4); Monocytes # (auto) 0.58 K/uL (0.11-0.59); Monocytes % (auto) 12.1 %; Neutrophils # (auto) 2.32 K/uL (1.40-6.50); Neutrophils % (auto) 48.4 %; Platelet Count 208 K/uL (130-400); RDW Coefficient of Variation 13.6 % (11.5-14.5); RDW Standard Deviation 51.8 fL (36.4-46.3); Red Blood Count 2.53 M/uL (4.20-5.40); White Blood Count 4.79 K/ul (4.8-10.8)
[2024-06-17 06:57] LABS: C Reactive Protein 3.89 mg/dl (0-0.5); Calcium 9.9 mg/dl (8.6-10.3); Creatinine Clr Calc Pharmacy 26.3 ml/min; Est GFR (African American) 37.5 ml/min; Est GFR (Non-African American) 32.3 ml/min; Potassium 4.6 mmol/L (3.5-5.1)
--- NOTE | 2024-06-17 12:18 | Hospitalist Progress Note ---
Date of Service June 17, 2024 Assessment & Plan (1) Orthostasis: Plan: Orthostatic hypotension, presyncope With PCP BP 80s/50s. She is on losartan, isosorbide, and Lasix. Suspect prerenal/volume contracted given dry mucous membranes, no pulmonary edema on x- ray, no JVD, ON with elevated ratio. She does have significant chronic and severe bilateral lower extremity edema, suspect comorbid venous stasis with CHF - Received 500cc IVF - Daily orthostatic VS - unable to get reliable numbers due to inability to stand - overall improving - TSH WNL. Vitamin B1 level pending - thiamine 200mg IV x1 given - Resp biofire negative - prn nebs added for wheezing PT/OT - recommending rehab, CM following -[facility], [facility] bed, awaiting insurance auth (2) Acute metabolic encephalopathy: Plan: had low-grade fever on 06/13/24 extensive infectious w/u has not revealed source for the low-grade fever repeat COVID neg repeat cxr neg for pneumonia RUQ u/s with GB sludge but nothing to suggest acute cholecystitis anaplasmosis DNA, pending (smear was negative) babesia smear negative; DNA test pending lyme screen negative blood cx's negative to date Given increased wound drainage, cultured wound 06/16, await results. -prelim results growing staph -Started patient on Linezolid 600mg BID 06/17 until sensitives return Reviewed CBC 06/17: WBC WNL (3) (HFpEF) heart failure with preserved ejection fraction: Plan: Echo 12/2022: EF 60-65%. Mild Troponin mildly elevated, peaked at 64. Suspect Demand ischemia vs poor clearance with NO. Denies CP. She does have ongoing LE edema but her record lists lymphedema as a long- standing diagnosis Isosorbide continue at reduced dose Creatinine stable lasix 20mg IV given 06/15 (home dose is 40mg PO BID) -reviewed BMP 06/17: creatinine stable at 1.44, BUN 23 -starting Lasix 40mg once daily 06/18. Venous stasis mobilization, SCDs/compression/elevation to mobilize lower extremity following Patient does not know her dry weight. (4) Hematoma of right buttock: Plan: R buttock, flank, hip region Start heat therapy to promote clearance of bruising Likely related to acute blood loss anemia -Reviewed CBC 06/16: hgb stable at 8.5 AM CBC (5) NO (acute kidney injury): Plan: Peak Cr 2.55 at time of admission Baseline creatinine 1.41.6 Creatinine 1.44 (06/17) NO resolved Losartan remain on hold resume lasix 40mg once daily 06/18 AM. (6) Lower leg DVT (deep venous thromboembolism), acute: Plan: History of DVT LLE in January 2024 Has been on Eliquis since eliquis initally held, but since resumed. Hgb has remained stable Plan Hypothyroidism: Continue Synthroid; TSH wnl this admission Peripheral neuropathy: Continue gabapentin Anxiety/depression: Continue Lexapro - HLD/CAD: continue statin, ASA, imdur (but at lower dose) DVT prophylaxis: Eliquis Disposition: continued inpatient stay. Awaiting insurance auth for rehab. Admission and Anticipated Discharge Date Admission Date: June 11, 2024 Supervising Physician Co-Signing Physician Notes The patient was not seen by me. The chart was reviewed. Case discussed with PENNY Molina. Agree with assessment and plan Subjective Patient seen and examined this afternoon. Patient reports her left leg is tender to touch but thinks her wound looks better than yesterday. Still has some drainage. She reports overall left leg pain has decreased. She feels better today overall. Denies any additional complaints. Physical Exam 2 Constitutional: WD/WN, vitals as above Eyes: PERRL, conjunctivae normal, anicteric sclerae Respiratory: normal respiratory effort, lungs clear to auscultation Cardiovascular: RRR, no murmur, no edema Skin: LLE wound with drainage. covered with bandage Results & Data Results & Data Vital Signs (Past 12 Hours) Vital Signs Temp Pulse Pulse Resp BP BP Pulse Ox 06/17/24 11:45 36.7 C 72 18 132/78 95 06/17/24 07:50 36.7 C 59 L 16 135/73 95 06/17/24 07:45 06/17/24 07:00 60 06/17/24 02:31 36.8 C 68 16 115/68 93 O2 Del Method 06/17/24 11:45 Room Air 06/17/24 07:50 Room Air 06/17/24 07:45 Room Air 06/17/24 07:00 07/23/24 02:31 Room Air Laboratory Results 06/17/24 06:08 06/17/24 06:08 PG Care Time/CCT Total # of Minutes Spent Total Time Spent with Patient: Total time spent is greater than 50% in coordination of care (as documented) at patient's floor/unit and/or counseling patient: Coding Level of Care Code 04163 SUB INP/OBS CARE 2/35MIN Diagnoses Orthostasis I95.1 Acute metabolic encephalopathy G93.41 Chronic heart failure with preserved ejection fraction I50.32 Heart failure chronicity: chronic Hematoma of right buttock S30.0XXA NO (acute kidney injury) N17.9 Acute venous embolism and thrombosis of deep vessels of distal end of left lower extremity I82.4Z2 Laterality: left (3) (HFpEF) heart failure with preserved ejection fraction Heart failure chronicity: chronic Qualified Code(s): I50.32 - Chronic diastolic (congestive) heart failure (6) Lower leg DVT (deep venous thromboembolism), acute Laterality: left Qualified Code(s): I82.4Z2 - Acute embolism and thrombosis of unspecified deep veins of left distal lower extremity
[2024-06-17] MEDS: LINEZOLID 600 MG TAB PO SCH (20:50)
[2024-06-17 23:42] LABS: Babesia microti DNA Not Detected (Not Detected)
[2024-06-18 07:09] LABS: Basophils # (auto) 0.03 K/uL (0.00-0.20); Basophils % (auto) 0.7 %; Eosinophils # (auto) 0.25 K/uL (0.00-0.50); Eosinophils % (auto) 5.4 %; Hematocrit (blood only) 26.2 % (37.0-47.0); Hemoglobin 8.5 g/dl (12.0-16.0); Immature Granulocytes # (auto) 0.01 K/uL (0.01-0.20); Immature Granulocytes % (auto) 0.2 %; Mean Corpuscular Hemoglobin 33.2 pg (25.0-34.0); Mean Corpuscular Hgb Conc 32.4 g/dL (32.0-36.0); Mean Corpuscular Volume 102.3 fL (80.0-100.0); Mean Platelet Volume 9.2 fL (9.4-12.4); Monocytes # (auto) 0.52 K/uL (0.11-0.59); Monocytes % (auto) 11.3 %; Neutrophils # (auto) 2.09 K/uL (1.40-6.50); Neutrophils % (auto) 45.4 %; Platelet Count 233 K/uL (130-400); RDW Coefficient of Variation 13.5 % (11.5-14.5); RDW Standard Deviation 50.4 fL (36.4-46.3); Red Blood Count 2.56 M/uL (4.20-5.40)
[2024-06-18 07:36] LABS: BUN Creatinine Ratio 15.6 (10-20); Calcium 10.1 mg/dl (8.6-10.3); Creatinine Clr Calc Pharmacy 25.8 ml/min; Est GFR (African American) 36.6 ml/min; Est GFR (Non-African American) 31.5 ml/min; Potassium 4.7 mmol/L (3.5-5.1)
[2024-06-18] MEDS: FUROSEMIDE 40 MG TAB PO SCH (08:29)
--- NOTE | 2024-06-18 12:43 | Hospitalist Progress Note ---
Date of Service June 18, 2024 Assessment & Plan (1) Orthostasis: Plan: Orthostatic hypotension, presyncope With PCP BP 80s/50s. She is on losartan, isosorbide, and Lasix. Suspect prerenal/volume contracted given dry mucous membranes, no pulmonary edema on x- ray, no JVD, NO with elevated ratio. She does have significant chronic and severe bilateral lower extremity edema, suspect comorbid venous stasis with CHF - Recieved 500cc IVF - Daily orthostatic VS - unable to get reliable numbers due to inability to stand - overall improving, 20mg IV lasix given today - TSH WNL. Vitamin B1 level pending - thiamine 200mg IV x1 given - Resp biofire negative - prn nebs added for wheezing PT/OT - recommending rehab, CM following -plan for patient to go to [facility] 06/19 at 10:30AM (2) Acute metabolic encephalopathy: Plan: had low-grade fever on 06/13/24 repeat COVID neg repeat cxr neg for pneumonia RUQ u/s with GB sludge but nothing to suggest acute cholecystitis anaplasmosis DNA, pending (smear was negative) babesia smear negative; DNA test pending lyme screen negative blood cx's negative to date wound culture positive for MRSA -started on Linezolid 600mg BID on evening of 05/18. reviewed CBC 06/18: WBC WNL (3) (HFpEF) heart failure with preserved ejection fraction: Plan: Echo 12/2022: EF 60-65%. Mild Troponin mildly elevated, peaked at 64. Suspect Demand ischemia vs poor clearance with NO. Denies CP. She does have ongoing LE edema but her record lists lymphedema as a long- standing diagnosis Isosorbide continue at reduced dose Creatinine stable lasix 20mg IV given 06/15 (home dose is 40mg PO BID) -reviewed BMP 06/18: creatinine stable at 1.47, BUN 23 -starting Lasix 40mg once daily 06/18. Venous stasis mobilization, SCDs/compression/elevation to mobilize lower extremity following Patient does not know her dry weight. 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 Hgb has remained stable Plan Hypothyroidism: Continue Synthroid; TSH wnl this admission Peripheral neuropathy: Continue gabapentin Anxiety/depression: Continue Lexapro - HLD/CAD: continue statin, ASA, imdur (but at lower dose) DVT prophylaxis: Eliquis Disposition: Discharge to [facility] on 06/19. Admission and Anticipated Discharge Date Admission Date: June 11, 2024 Supervising Physician Co-Signing Physician Notes The patient was not seen by me. The chart was reviewed. Case discussed with PENNY Molina. Agree with assessment and plan Subjective Patient seen and examined this afternoon at bedside. Patient denied any complaints today. She noted decreased pain in her leg wound. She denied any chest pain, shortness of breath. She notes right sided shoulder pain with movement. Physical Exam 2 Constitutional: WD/WN, vitals as above Eyes: PERRL, conjunctivae normal, anicteric sclerae Respiratory: normal respiratory effort, lungs clear to auscultation Cardiovascular: RRR, no murmur, no edema Skin: no rashes, warm and dry Psychiatric: A+Ox3, euthymic affect Results & Data Results & Data Vital Signs (Past 12 Hours) Vital Signs Temp Pulse Pulse Resp BP BP Pulse Ox 06/18/24 11:26 55 L 06/18/24 11:19 36.4 C L 69 15 114/66 94 06/18/24 07:51 06/18/24 07:40 36.5 C 55 L 16 181/87 H 96 06/18/24 03:41 36.5 C 56 L 16 141/85 H 96 06/18/24 01:00 70 O2 Del Method 06/18/24 11:26 06/18/24 11:19 Room Air 06/18/24 07:51 Room Air 06/18/24 07:40 Room Air 06/18/24 03:41 Room Air 06/18/24 01:00 Laboratory Results 06/18/24 06:36 06/18/24 06:36 PG Care Time/CCT Total # of Minutes Spent Total Time Spent with Patient: Total time spent is greater than 50% in coordination of care (as documented) at patient's floor/unit and/or counseling patient: Coding Level of Care Code 62342 SUB INP/OBS CARE 2/35MIN Diagnoses Orthostasis I95.1 Acute metabolic encephalopathy G93.41 Chronic heart failure with preserved ejection fraction I50.32 Heart failure chronicity: chronic Hematoma of right buttock S30.0XXA NO (acute kidney injury) N17.9 Acute venous embolism and thrombosis of deep vessels of distal end of left lower extremity I82.4Z2 Laterality: left (3) (HFpEF) heart failure with preserved ejection fraction Heart failure chronicity: chronic Qualified Code(s): I50.32 - Chronic diastolic (congestive) heart failure (6) Lower leg DVT (deep venous thromboembolism), acute Laterality: left Qualified Code(s): I82.4Z2 - Acute embolism and thrombosis of unspecified deep veins of left distal lower extremity
--- NOTE | 2024-06-18 19:31 | Electrocardiogram Report ---
Test Reason : Blood Pressure : / mmHG Vent. Rate : 064 BPM Atrial Rate : 064 BPM P-R Int : 202 ms QRS Dur : 090 ms QT Int : 390 ms P-R-T Axes : 048 051 067 degrees QTc Int : 402 ms Normal sinus rhythm Normal ECG When compared with ECG of 11-JUN-2024 13:37, No significant change was found Confirmed by Agustin Kim ([id number]) on 06/18/2024 7:31:33 PM Referred By: REFERRED SELF Confirmed By:Agustin Kim
[2024-06-19 06:01] LABS: Basophils # (auto) 0.04 K/uL (0.00-0.20); Basophils % (auto) 0.7 %; Eosinophils # (auto) 0.26 K/uL (0.00-0.50); Eosinophils % (auto) 4.6 %; Hematocrit (blood only) 25.3 % (37.0-47.0); Hemoglobin 8.3 g/dl (12.0-16.0); Immature Granulocytes # (auto) 0.01 K/uL (0.01-0.20); Immature Granulocytes % (auto) 0.2 %; Lymphocytes # (auto) 1.79 K/uL (1.20-3.40); Lymphocytes % (auto) 31.7 %; Mean Corpuscular Hemoglobin 33.2 pg (25.0-34.0); Mean Corpuscular Hgb Conc 32.8 g/dL (32.0-36.0); Mean Corpuscular Volume 101.2 fL (80.0-100.0); Mean Platelet Volume 9.2 fL (9.4-12.4); Monocytes # (auto) 0.57 K/uL (0.11-0.59); Monocytes % (auto) 10.1 %; Neutrophils # (auto) 2.98 K/uL (1.40-6.50); Neutrophils % (auto) 52.7 %; Platelet Count 249 K/uL (130-400); RDW Coefficient of Variation 13.6 % (11.5-14.5); RDW Standard Deviation 50.9 fL (36.4-46.3); White Blood Count 5.65 K/ul (4.8-10.8)
[2024-06-19 06:19] LABS: BUN Creatinine Ratio 15.2 (10-20); Creatinine Clr Calc Pharmacy 23.1 ml/min; Est GFR (African American) 31.8 ml/min; Est GFR (Non-African American) 27.4 ml/min; Potassium 4.4 mmol/L (3.5-5.1)
--- NOTE | 2024-06-19 09:02 | Discharge Summary ---
Date of Service June 19, 2024 Admission HPI Per Admitting Provider Mickie is an 89-year-old female with a past medical history of CKD 3, DVT, CAD, GERD, peripheral neuropathy, hyperlipidemia, hypothyroidism, hypertension who presents to the ER with weakness, syncope, and hypotension. Is on multiple falls this week due to lightheadedness and subsequent syncope. Dizziness and lightheadedness is provoked by standing. She saw her PCP BP 80s/50s and continued to feel weak and like her strength is too weak to ambulate safely at home. Is recommended for admission, PT/OT, and antihypertensive management PCP note reviewed. Symmetric weakness, BP 80s/50s. She is on Lasix twice da mallory, losartan currently on hold. She is anticoagulated with Eliquis X-ray of the hip is without fracture, CThead without acute findings, chest x- ray is without pulmonary edema. Creatinine is 2.55, baseline approximately 1.41.6. Contracted BUN/creatinine ratio Mickie seen at the bedside. She is not a good historian of her medications, but notes that she has been lightheaded both in the mornings and when attempting to ambulate. She does have chronic swelling in her legs bilaterally. She normally takes Lasix twice a day. Recently she has felt that her mouth has been very dry and that she is more thirsty than normal. Denies changes in urination. Denies fever, chills, sweats. No chest pain or chest pressure at any point. She is not short of breath but endorses that she fatigues easily. She has had falls due to weakness and feeling lightheaded after standing, she reports she has not hit her head or lost consciousness completely. Medical History: Reviewed Medications: Reviewed Surgical History: Reviewed Family history: Reviewed Allergies: Reviewed Social History: Reviewed Code Status: Full Discharge Data Allergies Allergy/AdvReac Type Severity Reaction Status Date / Time atorvastatin [From Lipitor] Allergy Unknown ON [facility] Verified 06/11/24 16:14 LIST celecoxib [From Celebrex] Allergy Unknown ON [facility] Verified 06/11/24 16:14 LIST iodine Allergy Unknown Unknown Verified 06/11/24 16:14 Consultations 06/11/24 16:09 ED Decision to Admit Stat Ordered Studies 06/11/24 13:56 CT head/brain wo con Stat 06/14/24 10:40 US gallbladder Urgent Hospital Course (1) Orthostasis: Orthostatic hypotension, presyncope With PCP BP 80s/50s. She is on losartan, isosorbide, and Lasix. Suspect prerenal/volume contracted given dry mucous membranes, no pulmonary edema on x- ray, no JVD, NO with elevated ratio. She does have significant chronic and severe bilateral lower extremity edema, suspect comorbid venous stasis with CHF - Recieved 500cc IVF - Daily orthostatic VS - unable to get reliable numbers due to inability to stand - overall improving, 20mg IV lasix given today - TSH WNL. Vitamin B1 level pending - thiamine 200mg IV x1 given - Resp biofire negative - prn nebs added for wheezing PT/OT - recommending rehab, CM following -plan for patient to go to [facility] 06/19 at 10:30AM (2) Acute metabolic encephalopathy: had low-grade fever on 06/13/24 repeat COVID neg repeat cxr neg for pneumonia RUQ u/s with GB sludge but nothing to suggest acute cholecystitis anaplasmosis DNA, pending (smear was negative) babesia smear negative; DNA test pending lyme screen negative blood cx's negative to date wound culture positive for MRSA -started on Linezolid 600mg BID on evening of 05/18. reviewed CBC 06/18: WBC WNL (3) (HFpEF) heart failure with preserved ejection fraction: Echo 12/2022: EF 60-65%. Mild Troponin mildly elevated, peaked at 64. Suspect Demand ischemia vs poor clearance with NO. Denies CP. She does have ongoing LE edema but her record lists lymphedema as a long- standing diagnosis Isosorbide continue at reduced dose Creatinine stable lasix 20mg IV given 06/15 (home dose is 40mg PO BID) -reviewed BMP 06/18: creatinine stable at 1.47, BUN 23 -starting Lasix 40mg once daily 06/18. Venous stasis mobilization, SCDs/compression/elevation to mobilize lower extremity following Patient does not know her dry weight. (4) Hematoma of right buttock: R buttock, flank, hip region Start heat therapy to promote clearance of bruising Likely related to acute blood loss anemia reviewed CBC 06/18: hemoglobin stable at 8.5 AM CBC (5) NO (acute kidney injury): Peak Cr 2.55 at time of admission Baseline creatinine 1.41.6 Creatinine 06/18 1.47 NO resolved Losartan remain on hold resume low dose lasix as above (6) Lower leg DVT (deep venous thromboembolism), acute: History of DVT LLE in January 2024 Has been on Eliquis since eliquis initally held, but since resumed. Hgb has remained stable Plan Hypothyroidism: Continue Synthroid; TSH wnl this admission Peripheral neuropathy: Continue gabapentin Anxiety/depression: Continue Lexapro - HLD/CAD: continue statin, ASA, imdur (but at lower dose) DVT prophylaxis: Eliquis Disposition: Discharge to [facility] on 06/19. Discharge Plan Discharge Items Patient Disposition: Transfer Inpatient Rehab Fac Reason For Visit: HYPOTENSION, NEAR SYNCOPE Discharge Diagnosis: MRSA infection left lower extremity wound, hypotension Activity: Per Instructions section Activity Comment: per rehab facility Non-emergency contact: Primary Care Provider Call non-emergency contact if: you have any medication questions, your symptoms worsen and you have a fever Follow-up/Referrals: Salena Ruelas CRNP [Primary Care Provider] - Diet: Heart Healthy Ambulatory Orders: Basic Metabolic Panel (Routine) Timeframe: [id number] Location: Determined by Patient Ordered By: Hermila Benton Attending Provider Instructions: Mrs. Yu, You were recently hospitalized for low blood pressure and dizziness. While hospitalized you developed a low grade fever and underwent a workup. You were found to have your wound infected on your left lower extremity. Please see instructions below regarding your discharge. 1. Please take Linezolid with food twice daily for 10 days. Your next dose is this evening 06/19. 2. Please change wound dressing daily and cover with Aquacel, ABD, and Kerlix. 3. Please stop taking Losartan 4. We have adjusted your Lasix to 40mg once daily. Please continue at this dosage until seen by PCP 5. We have adjusted your Isosorbide Mononitrate to 30mg once daily. Please continue at this dosage until seen by your PCP. 6. We have reduce your Aspirin to once a day. Please continue at this dosage until seen by your PCP. 7. Please continue Eliquis 8. Please continue Levothyroxine for your thyroid, gabapentin for your neuropathy, Lexapro for anxiety, atorvastatin for your heart, and famotidine for GERD. 9. Please obtain labs in 1 week to reassess your kidney function. Please follow up with your PCP within 1-2 weeks of discharge. Sincerely, Hermila Carpenter PA-C Pending Studies at Discharge: No Stand-Alone Forms: My [facility] Skilled Items Patient informed of condition?: Yes DNR: No Discharge Level of Care: Acute rehab Communicable Disease: No Discharge Prognosis: Stable Lines: None Urinary Catheter: No Medications and DC Order Prescriptions: New furosemide 40 mg Tablet 40 mg PO QAM 30 Days Qty: 30 0RF isosorbide mononitrate 30 mg Tablet Extended Release 24 Hr 30 mg PO QAM Qty: 30 0RF aspirin 81 mg Tablet,Delayed Release (Dr/Ec) 81 mg PO QAM Qty: 30 0RF linezolid 600 mg Tablet 600 mg PO BID 10 Days Qty: 20 0RF Continued meclizine 25 mg tablet 12.5 - 25 mg PO QID PRN (Reason: Dizziness Or Vertigo) Qty: 30 5RF tramadol 50 mg tablet 50 mg PO BID PRN (Reason: pain) Qty: 60 0RF Rx Instructions: short term only Eliquis 5 mg tablet 5 mg PO BID Qty: 60 2RF Rx Instructions: put in med pack nitroglycerin 0.4 mg tablet, sublingual 0.4 mg sublingual Q5M PRN (Reason: chest pain) Qty: 25 3RF Rx Instructions: do not exceed 3 doses per episode escitalopram oxalate [Lexapro] 10 mg tablet 10 mg PO DAILY Qty: 30 11RF Rx Instructions: put in med pack famotidine 20 mg tablet 20 mg PO DAILY Qty: 30 11RF Rx Instructions: put in med pack gabapentin 100 mg capsule 200 mg PO TID 90 Days Qty: 180 11RF Rx Instructions: med pack levothyroxine 50 mcg tablet 50 mcg PO QAM Qty: 30 11RF Rx Instructions: med pack lysine 600 mg tablet 1,200 mg PO QAM Qty: 60 11RF Rx Instructions: Takes 2 tabs in the morning. med pack ropinirole 1 mg tablet 1 mg PO .COMPLEX Qty: 120 11RF Rx Instructions: 1 mg orally TAKE 1 TABLET AT LUNCH AND 3 TABS AT HS; med pack silver sulfadiazine [Silvadene] 1 % cream 1 applic topical DAILY Qty: 25 1RF Hold Instructions: not using Rx Instructions: apply a 1.5 mm thickness atorvastatin 20 mg tablet 20 mg PO DAILY Qty: 90 3RF Excedrin Extra Strength 250-250-65 mg Tablet 2 tab PO Q6H PRN (Reason: Pain) Discontinued aspirin 81 mg tablet,delayed release (DR/EC) 81 mg PO BID Qty: 60 11RF Rx Instructions: put in med pack furosemide 40 mg tablet 40 mg PO BID Qty: 60 11RF Rx Instructions: med pack losartan 25 mg tablet 25 mg PO QAM Qty: 30 11RF Hold Instructions: hypotensive Rx Instructions: med pack isosorbide mononitrate 60 mg tablet extended release 24 hr 60 mg PO QAM Qty: 30 11RF Rx Instructions: med pack Discharge Orders: Discharge Order (Routine); Ordered 06/19/24 Ordered By: Hermila Carpenter Admission Data Admit Date/Time: 06/11/24 16:48 Attending Provider: Agustín Cardona Admit Provider: Harjeet Rosario Primary Care Provider: Salena Ruelas Other Providers: Harjeet Rosario; Alyssa Mcmanus at [facility]; [place],[facility]; IRB Approved Study,[place] Coding Diagnoses Orthostasis I95.1 Acute metabolic encephalopathy G93.41 Chronic heart failure with preserved ejection fraction I50.32 Heart failure chronicity: chronic Hematoma of right buttock S30.0XXA NO (acute kidney injury) N17.9 Acute venous embolism and thrombosis of deep vessels of distal end of left lower extremity I82.4Z2 Laterality: left
--- NOTE | 2024-06-19 09:36 | Hospitalist Progress Note ---
Date of Service June 19, 2024 Assessment & Plan (1) Orthostasis: Plan: Orthostatic hypotension, presyncope With PCP BP 80s/50s. She is on losartan, isosorbide, and Lasix. Suspect prerenal/volume contracted given dry mucous membranes, no pulmonary edema on x- ray, no JVD, NO with elevated ratio. She does have significant chronic and severe bilateral lower extremity edema, suspect comorbid venous stasis with CHF - Recieved 500cc IVF - Daily orthostatic VS - unable to get reliable numbers due to inability to stand - overall improving, 20mg IV lasix given today - TSH WNL. Vitamin B1 level pending - thiamine 200mg IV x1 given - Resp biofire negative - prn nebs added for wheezing PT/OT - recommending rehab, CM following -awaiting isolation bed at [facility] due to MRSA infection. (2) Acute metabolic encephalopathy: Plan: had low-grade fever on 06/13/24 repeat COVID neg repeat cxr neg for pneumonia RUQ u/s with GB sludge but nothing to suggest acute cholecystitis anaplasmosis DNA, pending (smear was negative) babesia smear negative; DNA test pending lyme screen negative blood cx's negative to date wound culture positive for MRSA -started on Linezolid 600mg BID on evening of 05/18. reviewed CBC 06/19: WBC WNL AM CBC (3) (HFpEF) heart failure with preserved ejection fraction: Plan: Echo 12/2022: EF 60-65%. Mild Troponin mildly elevated, peaked at 64. Suspect Demand ischemia vs poor clearance with NO. Denies CP. She does have ongoing LE edema but her record lists lymphedema as a long- standing diagnosis Isosorbide continue at reduced dose Creatinine stable lasix 20mg IV given 06/15 (home dose is 40mg PO BID) -reviewed BMP 06/18: creatinine stable at 1.47, BUN 23 -starting Lasix 40mg once daily 06/18. Venous stasis mobilization, SCDs/compression/elevation to mobilize lower extremity following Patient does not know her dry weight. (4) Hematoma of right buttock: Plan: R buttock, flank, hip region Start heat therapy to promote clearance of bruising Likely related to acute blood loss anemia reviewed CBC 06/19: hemoglobin stable at 8.3 (5) NO (acute kidney injury): Plan: Peak Cr 2.55 at time of admission Baseline creatinine 1.41.6 Creatinine 06/19 1.65 -will continue to monitor NO resolved Losartan remain on hold 40mg Lasix daily resumed AM BMP (6) Lower leg DVT (deep venous thromboembolism), acute: Plan: History of DVT 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 Hgb has remained stable Plan Hypothyroidism: Continue Synthroid; TSH wnl this admission Peripheral neuropathy: Continue gabapentin Anxiety/depression: Continue Lexapro - HLD/CAD: continue statin, ASA, imdur (but at lower dose) DVT prophylaxis: Eliquis Disposition: continue inpatient stay until bed becomes available at [facility] Admission and Anticipated Discharge Date Admission Date: June 11, 2024 Supervising Physician Co-Signing Physician Notes The patient was not seen by me. The chart was reviewed. Case discussed with PENNY Molina. Agree with assessment and plan Subjective Patient seen and examined this morning. She was doing well and had no complaints. Notes the pain in her leg has decreased. She was originally supposed to go to [facility] today but unfortunately due to MRSA infection no isolation beds available for her. Physical Exam 2 Constitutional: WD/WN, vitals as above Eyes: PERRL, conjunctivae normal, anicteric sclerae Respiratory: normal respiratory effort, lungs clear to auscultation Cardiovascular: RRR, no murmur, no edema Skin: no rashes, warm and dry Psychiatric: A+Ox3, euthymic affect Results & Data Results & Data Vital Signs (Past 12 Hours) Vital Signs Temp Pulse Pulse Resp BP Pulse Ox O2 Del Method 06/19/24 07:35 36.8 C 62 20 155/82 H 95 Room Air 06/19/24 07:26 67 06/19/24 03:06 36.5 C 65 16 128/79 96 Room Air 06/18/24 23:30 36.5 C 77 16 117/74 95 Room Air 06/18/24 23:03 Room Air, Nebulizer 06/18/24 22:00 74 Laboratory Results 06/19/24 05:26 06/19/24 05:26 PG Care Time/CCT Total # of Minutes Spent Total Time Spent with Patient: Total time spent is greater than 50% in coordination of care (as documented) at patient's floor/unit and/or counseling patient: Coding Level of Care Code 29326 SUB INP/OBS CARE 235MIN Diagnoses Orthostasis I95.1 Acute metabolic encephalopathy G93.41 Chronic heart failure with preserved ejection fraction I50.32 Heart failure chronicity: chronic Hematoma of right buttock S30.0XXA NO (acute kidney injury) N17.9 Acute venous embolism and thrombosis of deep vessels of distal end of left lower extremity I82.4Z2 Laterality: left (3) (HFpEF) heart failure with preserved ejection fraction Heart failure chronicity: chronic Qualified Code(s): I50.32 - Chronic diastolic (congestive) heart failure (6) Lower leg DVT (deep venous thromboembolism), acute Laterality: left Qualified Code(s): I82.4Z2 - Acute embolism and thrombosis of unspecified deep veins of left distal lower extremity
[2024-06-20 06:51] LABS: Basophils # (auto) 0.04 K/uL (0.00-0.20); Basophils % (auto) 0.9 %; Eosinophils # (auto) 0.25 K/uL (0.00-0.50); Eosinophils % (auto) 5.5 %; Hematocrit (blood only) 26.1 % (37.0-47.0); Hemoglobin 8.4 g/dl (12.0-16.0); Immature Granulocytes # (auto) 0.02 K/uL (0.01-0.20); Immature Granulocytes % (auto) 0.4 %; Lymphocytes # (auto) 1.61 K/uL (1.20-3.40); Lymphocytes % (auto) 35.5 %; Mean Corpuscular Hemoglobin 33.3 pg (25.0-34.0); Mean Corpuscular Hgb Conc 32.2 g/dL (32.0-36.0); Mean Corpuscular Volume 103.6 fL (80.0-100.0); Mean Platelet Volume 9.1 fL (9.4-12.4); Monocytes # (auto) 0.48 K/uL (0.11-0.59); Monocytes % (auto) 10.6 %; Neutrophils # (auto) 2.14 K/uL (1.40-6.50); Neutrophils % (auto) 47.1 %; Platelet Count 268 K/uL (130-400); RDW Coefficient of Variation 13.8 % (11.5-14.5); Red Blood Count 2.52 M/uL (4.20-5.40); White Blood Count 4.54 K/ul (4.8-10.8)
[2024-06-20 07:11] LABS: BUN Creatinine Ratio 16.8 (10-20); Calcium 9.9 mg/dl (8.6-10.3); Creatinine Clr Calc Pharmacy 23.7 ml/min; Est GFR (African American) 32.8 ml/min; Est GFR (Non-African American) 28.3 ml/min; Potassium 4.4 mmol/L (3.5-5.1)
--- NOTE | 2024-06-20 14:16 | Hospitalist Progress Note ---
Date of Service June 20, 2024 Assessment & Plan (1) Orthostasis: Plan: Orthostatic hypotension, presyncope With PCP BP 80s/50s. She is on losartan, isosorbide, and Lasix. Suspect prerenal/volume contracted given dry mucous membranes, no pulmonary edema on x- ray, no JVD, NO with elevated ratio. She does have significant chronic and severe bilateral lower extremity edema, suspect comorbid venous stasis with CHF - Recieved 500cc IVF - Daily orthostatic VS - unable to get reliable numbers due to inability to stand - overall improving, 20mg IV lasix given today - TSH WNL. Vitamin B1 level pending - thiamine 200mg IV x1 given - Resp biofire negative - prn nebs added for wheezing PT/OT - recommending rehab, CM following -awaiting isolation bed at [facility] due to MRSA infection. (2) Acute metabolic encephalopathy: Plan: had low-grade fever on 06/13/24 repeat COVID neg repeat cxr neg for pneumonia RUQ u/s with GB sludge but nothing to suggest acute cholecystitis anaplasmosis DNA, pending (smear was negative) babesia smear negative; DNA test pending lyme screen negative blood cx's negative to date wound culture positive for MRSA -started on Linezolid 600mg BID on evening of 05/18. reviewed CBC 06/20: WBC stable AM CBC (3) (HFpEF) heart failure with preserved ejection fraction: Plan: Echo 12/2022: EF 60-65%. Mild Troponin mildly elevated, peaked at 64. Suspect Demand ischemia vs poor clearance with NO. Denies CP. She does have ongoing LE edema but her record lists lymphedema as a long- standing diagnosis Isosorbide continue at reduced dose Creatinine stable lasix 20mg IV given 06/15 (home dose is 40mg PO BID) -reviewed BMP 06/18: creatinine stable at 1.47, BUN 23 -starting Lasix 40mg once daily 06/18. Venous stasis mobilization, SCDs/compression/elevation to mobilize lower extremity following Patient does not know her dry weight. 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 Hgb has remained stable Plan Hypothyroidism: Continue Synthroid; TSH wnl this admission Peripheral neuropathy: Continue gabapentin Anxiety/depression: Continue Lexapro - HLD/CAD: continue statin, ASA, imdur (but at lower dose) DVT prophylaxis: Eliquis Disposition: continue inpatient stay until bed becomes available at [facility] Admission and Anticipated Discharge Date Admission Date: June 11, 2024 Supervising Physician Co-Signing Physician Notes The patient was not seen by me. The chart was reviewed. Case discussed with PENNY Molina. Agree with assessment and plan Subjective Patient seen and examined this afternoon at bedside. Patient is doing well. She notes improvement in her left leg pain compared to yesterday. She was seen by wound nurse this morning as well. She denied any further complaints. Physical Exam 2 Constitutional: WD/WN, vitals as above Eyes: PERRL, conjunctivae normal, anicteric sclerae Respiratory: normal respiratory effort, lungs clear to auscultation Cardiovascular: RRR, no murmur, no edema Skin: no rashes, warm and dry left leg wrapped Psychiatric: A+Ox3, euthymic affect Results & Data Results & Data Vital Signs (Past 12 Hours) Vital Signs Temp Pulse Resp BP Pulse Ox O2 Del Method 06/20/24 11:57 37.1 C 70 20 127/70 94 Room Air 06/20/24 08:16 37.0 C 58 L 18 173/92 H 94 Room Air 06/20/24 03:11 36.5 C 65 18 146/79 H 95 Room Air Laboratory Results 06/20/24 05:40 06/20/24 05:40 PG Care Time/CCT Total # of Minutes Spent Total Time Spent with Patient: Total time spent is greater than 50% in coordination of care (as documented) at patient's floor/unit and/or counseling patient: Coding Level of Care Code 29162 SUB INP/OBS CARE 2/35MIN Diagnoses Orthostasis I95.1 Acute metabolic encephalopathy G93.41 Chronic heart failure with preserved ejection fraction I50.32 Heart failure chronicity: chronic Hematoma of right buttock S30.0XXA NO (acute kidney injury) N17.9 Acute venous embolism and thrombosis of deep vessels of distal end of left lower extremity I82.4Z2 Laterality: left (3) (HFpEF) heart failure with preserved ejection fraction Heart failure chronicity: chronic Qualified Code(s): I50.32 - Chronic diastolic (congestive) heart failure (6) Lower leg DVT (deep venous thromboembolism), acute Laterality: left Qualified Code(s): I82.4Z2 - Acute embolism and thrombosis of unspecified deep veins of left distal lower extremity
[2024-06-20] MEDS: HYDROmorphone INJ 0.5 MG/0.5 ML SYR IV STA (20:56)
[2024-06-21 07:00] LABS: Hematocrit (blood only) 25.9 % (37.0-47.0); Hemoglobin 8.5 g/dl (12.0-16.0); Mean Corpuscular Hemoglobin 33.5 pg (25.0-34.0); Mean Corpuscular Hgb Conc 32.8 g/dL (32.0-36.0); Mean Platelet Volume 9.1 fL (9.4-12.4); Platelet Count 284 K/uL (130-400); RDW Coefficient of Variation 13.8 % (11.5-14.5); RDW Standard Deviation 51.2 fL (36.4-46.3); Red Blood Count 2.54 M/uL (4.20-5.40); White Blood Count 4.79 K/ul (4.8-10.8)
[2024-06-21 07:34] LABS: BUN Creatinine Ratio 18.4 (10-20); Calcium 10.1 mg/dl (8.6-10.3); Creatinine Clr Calc Pharmacy 23.4 ml/min; Est GFR (African American) 32.3 ml/min; Est GFR (Non-African American) 27.8 ml/min; Potassium 4.7 mmol/L (3.5-5.1)
--- NOTE | 2024-06-21 12:49 | Hospitalist Progress Note ---
Date of Service June 21, 2024 Assessment & Plan (1) Orthostasis: Plan: Orthostatic hypotension, presyncope With PCP BP 80s/50s. She is on losartan, isosorbide, and Lasix. Suspect prerenal/volume contracted given dry mucous membranes, no pulmonary edema on x- ray, no JVD, NO with elevated ratio. She does have significant chronic and severe bilateral lower extremity edema, suspect comorbid venous stasis with CHF - Recieved 500cc IVF - Daily orthostatic VS - unable to get reliable numbers due to inability to stand - TSH WNL. Vitamin B1 level pending - thiamine 200mg IV x1 given - Resp biofire negative - prn nebs added for wheezing PT/OT - recommending rehab, CM following -awaiting isolation bed at [facility] due to MRSA infection. (2) Acute metabolic encephalopathy: Plan: had low-grade fever on 06/13/24 repeat COVID neg repeat cxr neg for pneumonia RUQ u/s with GB sludge but nothing to suggest acute cholecystitis anaplasmosis DNA, pending (smear was negative) babesia smear negative; DNA test pending lyme screen negative blood cx's negative to date wound culture positive for MRSA -started on Linezolid 600mg BID on evening of 05/18. Plan to continue for at least 10-14 days. reviewed CBC 06/21: WBC stable AM CBC (3) (HFpEF) heart failure with preserved ejection fraction: Plan: Echo 12/2022: EF 60-65%. Mild Troponin mildly elevated, peaked at 64. Suspect Demand ischemia vs poor clearance with NO. Denies CP. She does have ongoing LE edema but her record lists lymphedema as a long- standing diagnosis Isosorbide continue at reduced dose -reviewed BMP 06/21: creatinine stable at 1.63, BUN 30 -starting Lasix 40mg once daily 06/18. Venous stasis mobilization, SCDs/compression/elevation to mobilize lower extremity following Patient does not know her dry weight. 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 Hgb has remained stable Plan Hypothyroidism: Continue Synthroid; TSH wnl this admission Peripheral neuropathy: Continue gabapentin Anxiety/depression: Continue Lexapro - HLD/CAD: continue statin, ASA, imdur (but at lower dose) DVT prophylaxis: Eliquis Disposition: continue inpatient stay until bed becomes available at [facility] Admission and Anticipated Discharge Date Admission Date: June 11, 2024 Supervising Physician Co-Signing Physician Notes The patient was not seen by me. The chart was reviewed. Case discussed with PENNY Molina. Agree with assessment and plan Subjective Patient seen and examined this afternoon. Patient is disgruntled she does not have bed placement yet at rehab center. She is becoming frustrated as she would like to go home. She states she did experience left leg pain this morning but her pain medication did help. she denies any other complaints. Physical Exam 2 Constitutional: WD/WN, vitals as above Eyes: PERRL, conjunctivae normal, anicteric sclerae Respiratory: normal respiratory effort, lungs clear to auscultation Cardiovascular: RRR, no murmur, no edema Skin: no rashes, warm and dry left leg dressing Results & Data Results & Data Vital Signs (Past 12 Hours) Vital Signs Temp Pulse Resp BP Pulse Ox O2 Del Method 06/21/24 08:00 Room Air 06/21/24 07:24 36.7 C 60 18 153/77 H 96 Room Air Laboratory Results 06/21/24 06:17 06/21/24 06:17 PG Care Time/CCT Total # of Minutes Spent Total Time Spent with Patient: Total time spent is greater than 50% in coordination of care (as documented) at patient's floor/unit and/or counseling patient: Coding Level of Care Code 87460 SUB INP/OBS CARE 2/35MIN Diagnoses Orthostasis I95.1 Acute metabolic encephalopathy G93.41 Chronic heart failure with preserved ejection fraction I50.32 Heart failure chronicity: chronic Hematoma of right buttock S30.0XXA NO (acute kidney injury) N17.9 Acute venous embolism and thrombosis of deep vessels of distal end of left lower extremity I82.4Z2 Laterality: left (3) (HFpEF) heart failure with preserved ejection fraction Heart failure chronicity: chronic Qualified Code(s): I50.32 - Chronic diastolic (congestive) heart failure (6) Lower leg DVT (deep venous thromboembolism), acute Laterality: left Qualified Code(s): I82.4Z2 - Acute embolism and thrombosis of unspecified deep veins of left distal lower extremity
[2024-06-22 07:34] LABS: Hematocrit (blood only) 26.8 % (37.0-47.0); Hemoglobin 8.7 g/dl (12.0-16.0); Mean Corpuscular Hemoglobin 32.6 pg (25.0-34.0); Mean Corpuscular Hgb Conc 32.5 g/dL (32.0-36.0); Mean Corpuscular Volume 100.4 fL (80.0-100.0); Mean Platelet Volume 8.8 fL (9.4-12.4); Platelet Count 300 K/uL (130-400); RDW Coefficient of Variation 13.8 % (11.5-14.5); Red Blood Count 2.67 M/uL (4.20-5.40); White Blood Count 4.58 K/ul (4.8-10.8)
[2024-06-22 07:57] LABS: BUN Creatinine Ratio 18.6 (10-20); Creatinine Clr Calc Pharmacy 24.5 ml/min; Est GFR (Non-African American) 29.4 ml/min; Potassium 4.4 mmol/L (3.5-5.1)
[2024-06-22 12:10] LABS: Magnesium 2.2 mg/dl (1.7-2.4)
[2024-06-22 12:31] LABS: Ferritin 169.9 ng/ml (8-388)
--- NOTE | 2024-06-22 13:05 | Hospitalist Progress Note ---
Date of Service June 22, 2024 Assessment & Plan (1) Orthostasis: Plan: Orthostatic hypotension, presyncope With PCP BP 80s/50s. She is on losartan, isosorbide, and Lasix. Suspect prerenal/volume contracted given dry mucous membranes, no pulmonary edema on x- ray, no JVD, NO with elevated ratio. She does have significant chronic and severe bilateral lower extremity edema, suspect comorbid venous stasis with CHF - Recieved 500cc IVF - Daily orthostatic VS - unable to get reliable numbers due to inability to stand - TSH WNL. Vitamin B1 level pending - thiamine 200mg IV x1 given - Resp biofire negative - prn nebs added for wheezing PT/OT - recommending rehab, CM following -awaiting isolation bed at [facility] due to MRSA infection. (2) Acute metabolic encephalopathy: Plan: had low-grade fever on 06/13/24 repeat COVID neg repeat cxr neg for pneumonia RUQ u/s with GB sludge but nothing to suggest acute cholecystitis anaplasmosis DNA, pending (smear was negative) Babesia smear negative; DNA test pending lyme screen negative blood cx's negative to date wound culture positive for MRSA -started on Linezolid 600mg BID on evening of 05/18. Plan to continue for at least 10-14 days. reviewed CBC 06/23: WBC stable AM CBC (3) (HFpEF) heart failure with preserved ejection fraction: Plan: Echo 12/2022: EF 60-65%. Mild Troponin mildly elevated, peaked at 64. Suspect Demand ischemia vs poor clearance with NO. Denies CP. She does have ongoing LE edema but her record lists lymphedema as a long- standing diagnosis Isosorbide continue at reduced dose -reviewed BMP 06/22: creatinine stable at 1.56, BUN 29 -starting Lasix 40mg once daily 06/18. Venous stasis mobilization, SCDs/compression/elevation to mobilize lower extremity following Patient does not know her dry weight. 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 Hgb has remained stable Plan Hypothyroidism: Continue Synthroid; TSH wnl this admission Peripheral neuropathy: Continue gabapentin Anxiety/depression: Continue Lexapro - HLD/CAD: continue statin, ASA, imdur (but at lower dose) -restless leg syndrome: Requip -patient complained of worsened RLS 06/22. Checked magnesium, ferritin, and CPK all WNL. -continue Requip at noon and bedtime DVT prophylaxis: Eliquis Disposition: continue inpatient stay until bed becomes available at [facility] Admission and Anticipated Discharge Date Admission Date: June 11, 2024 Supervising Physician Co-Signing Physician Notes The patient was not seen by me. The chart was reviewed. Case discussed with PENNY Molina. Agree with assessment and plan Subjective Patient seen and examined this morning at bedside. patient reports her legs have felt restless and "antsy" this morning. She was given her scheduled gabapentin and tramadol prn. No relief of her symptoms following these medications. Patient has hx of RLS and routinely takes Requip at noon and prior to bed. Noon dose was given. She denied any other complaints. She denied chest pain or SOB. Patient is hopeful she will get to go to rehab soon. Physical Exam 2 Constitutional: WD/WN, vitals as above Eyes: PERRL, conjunctivae normal, anicteric sclerae Respiratory: normal respiratory effort, lungs clear to auscultation Cardiovascular: RRR, no murmur, no edema Skin: no rashes, warm and dry Psychiatric: A+Ox3, euthymic affect Results & Data Results & Data Vital Signs (Past 12 Hours) Vital Signs Temp Pulse Resp BP Pulse Ox O2 Del Method 06/22/24 07:57 36.8 C 66 18 171/94 H 93 Room Air 06/22/24 07:40 Room Air Laboratory Results 06/22/24 06:58 06/22/24 06:58 PG Care Time/CCT Total # of Minutes Spent Total Time Spent with Patient: Total time spent is greater than 50% in coordination of care (as documented) at patient's floor/unit and/or counseling patient: Coding Level of Care Code 82417 SUB INP/OBS CARE 235MIN Diagnoses Orthostasis I95.1 Acute metabolic encephalopathy G93.41 Chronic heart failure with preserved ejection fraction I50.32 Heart failure chronicity: chronic Hematoma of right buttock S30.0XXA NO (acute kidney injury) N17.9 Acute venous embolism and thrombosis of deep vessels of distal end of left lower extremity I82.4Z2 Laterality: left (3) (HFpEF) heart failure with preserved ejection fraction Heart failure chronicity: chronic Qualified Code(s): I50.32 - Chronic diastolic (congestive) heart failure (6) Lower leg DVT (deep venous thromboembolism), acute Laterality: left Qualified Code(s): I82.4Z2 - Acute embolism and thrombosis of unspecified deep veins of left distal lower extremity
[2024-06-23 08:56] LABS: Hematocrit (blood only) 28.1 % (37.0-47.0); Hemoglobin 9.2 g/dl (12.0-16.0); Mean Corpuscular Hemoglobin 33.1 pg (25.0-34.0); Mean Corpuscular Hgb Conc 32.7 g/dL (32.0-36.0); Mean Corpuscular Volume 101.1 fL (80.0-100.0); Mean Platelet Volume 8.7 fL (9.4-12.4); Platelet Count 302 K/uL (130-400); RDW Coefficient of Variation 13.8 % (11.5-14.5); RDW Standard Deviation 50.7 fL (36.4-46.3); Red Blood Count 2.78 M/uL (4.20-5.40); White Blood Count 5.17 K/ul (4.8-10.8)
[2024-06-23 09:11] LABS: BUN Creatinine Ratio 18.4 (10-20); Calcium 9.8 mg/dl (8.6-10.3); Creatinine Clr Calc Pharmacy 23.4 ml/min; Est GFR (African American) 32.3 ml/min; Est GFR (Non-African American) 27.8 ml/min; Potassium 4.3 mmol/L (3.5-5.1)
--- NOTE | 2024-06-23 13:54 | Hospitalist Progress Note ---
Date of Service June 23, 2024 Assessment & Plan (1) Orthostasis: Plan: Orthostatic hypotension, presyncope with episodes of shaking at home With PCP BP 80s/50s. Home meds: losartan, isosorbide, and Lasix. Suspect prerenal/volume contracted given dry mucous membranes, no pulmonary edema on x- ray, no JVD, NO with elevated ratio. She does have significant chronic and severe bilateral lower extremity edema, suspect comorbid venous stasis with CHF - Recieved 500cc IVF - orthostatic VS - WNL 06/20 - TSH WNL. Vitamin B1 level WNL ( received thiamine x1 after lab drawn) - Resp biofire negative PT/OT - recommending rehab, CM following -awaiting isolation bed at [facility] due to MRSA infection. (2) Acute metabolic encephalopathy: Plan: had low-grade fever on 06/13/24 repeat COVID neg repeat cxr neg for pneumonia RUQ u/s with GB sludge but nothing to suggest acute cholecystitis anaplasmosis DNA negative, Babesia smear and DNA negative; lyme screen negative blood cx's negative finalized wound culture positive for MRSA -started on Linezolid 600mg BID 06/17. Plan to continue for at least 10-14 days. mental status improved from when I took care of Mickie a week ago (3) (HFpEF) heart failure with preserved ejection fraction: Plan: Echo 12/2022: EF 60-65%. Mild Troponin mildly elevated, peaked at 64. Suspect Demand ischemia vs poor clearance with NO. Denies CP. She does have ongoing LE edema but her record lists lymphedema as a long- standing diagnosis Isosorbide continue at reduced dose Venous stasis mobilization, SCDs/compression/elevation to mobilize lower extremity following - Kidney function has remained stable, weight up to 89.9kg today --> increase lasix to BID (home dose) and recheck ortho VS and BMP tomorrow - losartan on hold from NO on admission, will monitor BPs with increased lasix if able to resume Patient does not know her dry weight. (4) Hematoma of right buttock: Plan: R buttock, flank, hip region Start heat therapy to promote clearance of bruising Likely related to acute blood loss anemia hgb stable (5) NO (acute kidney injury): Plan: Peak Cr 2.55 at time of admission Baseline creatinine 1.41.6 NO resolved Losartan remain on hold - BP stable 40mg Lasix increased to BID AM BM (6) Lower leg DVT (deep venous thromboembolism), acute: Plan: History of DVT 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 Hgb has remained stable Plan Hypothyroidism: Continue Synthroid; TSH wnl this admission Peripheral neuropathy: Continue gabapentin Anxiety/depression: Continue Lexapro - HLD/CAD: continue statin, ASA, imdur (but at lower dose) -restless leg syndrome: Requip DVT prophylaxis: Eliquis Disposition: continue inpatient stay until bed becomes available at [facility] Admission and Anticipated Discharge Date Admission Date: June 11, 2024 Supervising Physician Co-Signing Physician Notes PA Supervision Note: I did not personally see or examine the patient today, but I verified all raora points of PENNY Kincaid's assessment and plan with the following exceptions/additions: None Subjective Patient seen sitting up in the chair prior to lunch, no family present at bedside. Feeling well, legs feel much better than they did yesterday. No acute complaints Review of Systems Review of Systems: All systems reviewed & are unremarkable except as noted in Subjective Physical Exam Physical Exam: General: NAD, VS as above, sitting up in the chair Resp: no accessory muscle use, no wheezing CV: RRR, no murmur, Abd: normal bowel sounds, non tender, no hepatosplenomegaly Extremities: Moves all extremities, R LE wounds dressed by wound care, not completely uncovered, 2+ edema bilateral lower extremities Neuro: A&O x3, Results & Data Results & Data Vital Signs (Past 12 Hours) Vital Signs Temp Pulse Resp BP Pulse Ox O2 Del Method 06/23/24 07:28 36.4 C L 59 L 16 136/70 95 Room Air 06/23/24 07:20 Room Air Laboratory Results CBC and chemistry reviewed PG Care Time/CCT Total # of Minutes Spent Total Time Spent with Patient: Total time spent is greater than 50% in coordination of care (as documented) at patient's floor/unit and/or counseling patient: Coding Level of Care Code 21253 SUB INP/OBS CARE 2/35MIN Diagnoses Orthostasis I95.1 Acute metabolic encephalopathy G93.41 Chronic heart failure with preserved ejection fraction I50.32 Heart failure chronicity: chronic Hematoma of right buttock S30.0XXA NO (acute kidney injury) N17.9 Acute venous embolism and thrombosis of deep vessels of distal end of left lower extremity I82.4Z2 Laterality: left (3) (HFpEF) heart failure with preserved ejection fraction Heart failure chronicity: chronic Qualified Code(s): I50.32 - Chronic diastolic (congestive) heart failure (6) Lower leg DVT (deep venous thromboembolism), acute Laterality: left Qualified Code(s): I82.4Z2 - Acute embolism and thrombosis of unspecified deep veins of left distal lower extremity
[2024-06-23] MEDS: FUROSEMIDE 40 MG TAB PO SCH (20:17)
[2024-06-24 08:41] LABS: BUN Creatinine Ratio 18.5 (10-20); Calcium 9.8 mg/dl (8.6-10.3); Creatinine Clr Calc Pharmacy 24.5 ml/min; Est GFR (African American) 32.5 ml/min; Est GFR (Non-African American) 28.1 ml/min; Potassium 4.3 mmol/L (3.5-5.1)
[2024-06-24] MEDS: LOSARTAN POTASSIUM 25 MG TAB PO SCH (11:07)
--- NOTE | 2024-06-24 14:23 | Hospitalist Progress Note ---
Date of Service June 24, 2024 Assessment & Plan (1) Orthostasis: Plan: Orthostatic hypotension, presyncope with episodes of shaking at home With PCP BP 80s/50s. Home meds: losartan, isosorbide, and Lasix. Suspect prerenal/volume contracted given dry mucous membranes, no pulmonary edema on x- ray, no JVD, NO with elevated ratio. She does have significant chronic and severe bilateral lower extremity edema, suspect comorbid venous stasis with CHF - Recieved 500cc IVF - orthostatic VS - WNL 06/20 - TSH WNL. Vitamin B1 level WNL ( received thiamine x1 after lab drawn) - Resp biofire negative PT/OT - recommending rehab, CM following -awaiting isolation bed at [facility] due to MRSA infection. (2) Acute metabolic encephalopathy: Plan: had low-grade fever on 06/13/24 - repeat COVID neg - repeat cxr neg for pneumonia - RUQ u/s with GB sludge but nothing to suggest acute cholecystitis - anaplasmosis DNA negative, Babesia smear and DNA negative; lyme screen negative blood cx's negative finalized wound culture positive for MRSA -Completed 7 day course of Linezolid with wound improvement metabolic encephalopathy resolved Check CBC with completion of linezolid cours for cytopenias (3) (HFpEF) heart failure with preserved ejection fraction: Plan: Echo 12/2022: EF 60-65%. Mild Troponin mildly elevated, peaked at 64. Suspect Demand ischemia vs poor clearance with NO. Denies CP. Isosorbide continue at reduced dose Venous stasis mobilization, SCDs/compression/elevation to mobilize lower extremity following - Kidney function has remained stable - continue lasix 40mg BID - resume losartan 06/24 Patient does not know her dry weight. 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 Hgb has remained stable Plan Hypothyroidism: Continue Synthroid; TSH wnl this admission Peripheral neuropathy: Continue gabapentin Anxiety/depression: Continue Lexapro - HLD/CAD: continue statin, ASA, imdur (but at lower dose) -restless leg syndrome: Requip DVT prophylaxis: Eliquis Disposition: continue inpatient stay until bed becomes available at [facility] monitoring kidney function Admission and Anticipated Discharge Date Admission Date: June 11, 2024 Supervising Physician Co-Signing Physician Notes PA Supervision Note: I did not personally see or examine the patient today, but I verified all arora points of PENNY Kincaid's assessment and plan with the following exceptions/additions: None Subjective Patient reported leg pain over night that improved with pain medicaiton. no acute complaints this morning, telling me abut [place] Dressing changed with mining analyst of Systems Review of Systems: All systems reviewed & are unremarkable except as noted in Subjective Physical Exam Physical Exam: General: NAD, VS as above, sitting in bed Resp: no accessory muscle use, no wheezing CV: RRR, no murmur, Abd: normal bowel sounds, non tender, no hepatosplenomegaly Extremities: Moves all extremities,dressing change done with RN - erythema much improved, no drainage or signs of worsening infection. Bilateral 2+ edema Neuro: A&O x3, Results & Data Results & Data Vital Signs (Past 12 Hours) Vital Signs Temp Pulse Resp BP BP Pulse Ox O2 Del Method 06/24/24 06:59 37.0 C 58 L 16 176/85 H 177/97 H 99 Room Air Laboratory Results BMP reviewed PG Care Time/CCT Total # of Minutes Spent Total Time Spent with Patient: Total time spent is greater than 50% in coordination of care (as documented) at patient's floor/unit and/or counseling patient: Coding Level of Care Code 04318 SUB INP/OBS CARE 2/35MIN Diagnoses Orthostasis I95.1 Acute metabolic encephalopathy G93.41 Chronic heart failure with preserved ejection fraction I50.32 Heart failure chronicity: chronic Hematoma of right buttock S30.0XXA NO (acute kidney injury) N17.9 Acute venous embolism and thrombosis of deep vessels of distal end of left lower extremity I82.4Z2 Laterality: left (3) (HFpEF) heart failure with preserved ejection fraction Heart failure chronicity: chronic Qualified Code(s): I50.32 - Chronic d iastolic (congestive) heart failure (6) Lower leg DVT (deep venous thromboembolism), acute Laterality: left Qualified Code(s): I82.4Z2 - Acute embolism and thrombosis of unspecified deep veins of left distal lower extremity
[2024-06-25 08:35] LABS: Basophils # (auto) 0.02 K/uL (0.00-0.20); Basophils % (auto) 0.4 %; Eosinophils # (auto) 0.17 K/uL (0.00-0.50); Eosinophils % (auto) 3.1 %; Hematocrit (blood only) 27.3 % (37.0-47.0); Hemoglobin 8.7 g/dl (12.0-16.0); Immature Granulocytes # (auto) 0.01 K/uL (0.01-0.20); Immature Granulocytes % (auto) 0.2 %; Lymphocytes # (auto) 1.48 K/uL (1.20-3.40); Mean Corpuscular Hemoglobin 32.8 pg (25.0-34.0); Mean Corpuscular Hgb Conc 31.9 g/dL (32.0-36.0); Mean Platelet Volume 8.6 fL (9.4-12.4); Monocytes # (auto) 0.41 K/uL (0.11-0.59); Monocytes % (auto) 7.5 %; Neutrophils % (auto) 61.8 %; Platelet Count 274 K/uL (130-400); RDW Coefficient of Variation 13.9 % (11.5-14.5); Red Blood Count 2.65 M/uL (4.20-5.40); White Blood Count 5.49 K/ul (4.8-10.8)
[2024-06-25 08:54] LABS: BUN Creatinine Ratio 20.5 (10-20); Calcium 9.9 mg/dl (8.6-10.3); Creatinine Clr Calc Pharmacy 24.8 ml/min; Est GFR (African American) 32.8 ml/min; Est GFR (Non-African American) 28.3 ml/min; Potassium 4.3 mmol/L (3.5-5.1)
--- NOTE | 2024-06-25 16:11 | Hospitalist Progress Note ---
Date of Service June 25, 2024 Assessment & Plan (1) Orthostasis: Plan: Orthostatic hypotension, presyncope with episodes of shaking at home With PCP BP 80s/50s. Home meds: losartan, isosorbide, and Lasix. Suspect prerenal/volume contracted given dry mucous membranes, no pulmonary edema on x- ray, no JVD, NO with elevated ratio. She does have significant chronic and severe bilateral lower extremity edema, suspect comorbid venous stasis with CHF - Recieved 500cc IVF - orthostatic VS - WNL 06/20 - TSH WNL. Vitamin B1 level WNL ( received thiamine x1 after lab drawn) - Resp biofire negative PT/OT - recommending rehab, CM following - no longer needs isolation bed, no family needs to decide on facility. (2) Acute metabolic encephalopathy: Plan: had low-grade fever on 06/13/24 - repeat COVID neg - repeat cxr neg for pneumonia - RUQ u/s with GB sludge but nothing to suggest acute cholecystitis - anaplasmosis DNA negative, Babesia smear and DNA negative; lyme screen neg ative blood cx's negative finalized wound culture positive for MRSA -Completed 7 day course of Linezolid with wound improvement metabolic encephalopathy resolved Check CBC with completion of linezolid course - no worsening cytopenias (3) (HFpEF) heart failure with preserved ejection fraction: Plan: Echo 12/2022: EF 60-65%. Mild Troponin mildly elevated, peaked at 64. Suspect Demand ischemia vs poor clearance with NO. Denies CP. 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 Hgb has remained stable Plan Hypothyroidism: Continue Synthroid; TSH wnl this admission Peripheral neuropathy: Continue gabapentin Anxiety/depression: Continue Lexapro - HLD/CAD: continue statin, ASA, imdur (but at lower dose) -restless leg syndrome: Requip DVT prophylaxis: Eliquis Disposition: continue inpatient stay until bed becomes available, monitoring kidney function Admission and Anticipated Discharge Date Admission Date: June 11, 2024 Supervising Physician Co-Signing Physician Notes PA Supervision Note: I did not personally see or examine the patient today, but I verified all arora points of PENNY Kincaid's assessment and plan with the following exceptions/additions: None Subjective Patient lying in bed, better pain control last night but starting up again. Good appetite. no fevers or chills Review of Systems Review of Systems: All systems reviewed & are unremarkable except as noted in Subjective Physical Exam Physical Exam: General: NAD, VS as above, sitting in bed Resp: no accessory muscle use, no wheezing CV: RRR, no murmur, Abd: normal bowel sounds, non tender, no hepatosplenomegaly Extremities: Moves all extremities, wound not undressed today, wound care notes reviewed. Bilateral 2+ edema Neuro: A&O x3, Results & Data Results & Data Vital Signs (Past 12 Hours) Vital Signs Temp Pulse Resp BP BP Pulse Ox O2 Del Method 06/25/24 14:44 36.8 C 75 16 106/63 93 Room Air 06/25/24 07:20 Room Air 06/25/24 07:02 36.8 C 61 16 157/87 H 95 Room Air Laboratory Results CBC and chemistry reviewed PG Care Time/CCT Total # of Minutes Spent Total Time Spent with Patient: Total time spent is greater than 50% in coordination of care (as documented) at patient's floor/unit and/or counseling patient: Coding Level of Care Code 44839 SUB INP/OBS CARE 2/35MIN Diagnoses Orthostasis I95.1 Acute metabolic encephalopathy G93.41 Chronic heart failure with preserved ejection fraction I50.32 Heart failure chronicity: chronic Hematoma of right buttock S30.0XXA NO (acute kidney injury) N17.9 Acute venous embolism and thrombosis of deep vessels of distal end of left lower extremity I82.4Z2 Laterality: left (3) (HFpEF) heart failure with preserved ejection fraction Heart failure chronicity: chronic Qualified Code(s): I50.32 - Chronic diastolic (congestive) heart failure (6) Lower leg DVT (deep venous thromboembolism), acute Laterality: left Qualified Code(s): I82.4Z2 - Acute embolism and thrombosis of unspecified deep veins of left distal lower extremity
[2024-06-26 07:28] LABS: BUN Creatinine Ratio 23.8 (10-20); Calcium 9.7 mg/dl (8.6-10.3); Creatinine Clr Calc Pharmacy 26.4 ml/min; Est GFR (African American) 35.4 ml/min; Est GFR (Non-African American) 30.5 ml/min; Potassium 4.1 mmol/L (3.5-5.1)
--- NOTE | 2024-06-26 15:44 | Hospitalist Progress Note ---
Date of Service June 26, 2024 Assessment & Plan (1) Orthostasis: Plan: Orthostatic hypotension, presyncope with episodes of shaking at home With PCP BP 80s/50s. Home meds: losartan, isosorbide, and Lasix. Suspect prerenal/volume contracted given dry mucous membranes, no pulmonary edema on x- ray, no JVD, NO with elevated ratio. She does have significant chronic and severe bilateral lower extremity edema, suspect comorbid venous stasis with CHF - Recieved 500cc IVF - orthostatic VS - WNL 06/20 - TSH WNL. Vitamin B1 level WNL ( received thiamine x1 after lab drawn) - Resp biofire negative PT/OT - recommending rehab, CM following - no longer needs isolation bed, awaitng bed for [facility] (has auth) (2) Acute metabolic encephalopathy: Plan: had low-grade fever on 06/13/24 - repeat COVID neg - repeat cxr neg for pneumonia - RUQ u/s with GB sludge but nothing to suggest acute cholecystitis - anaplasmosis DNA negative, Babesia smear and DNA negative; lyme screen negative blood cx's negative finalized wound culture positive for MRSA -Completed 7 day course of Linezolid with wound improvement metabolic encephalopathy resolved Check CBC with completion of linezolid course - no worsening cytopenias (3) (HFpEF) heart failure with preserved ejection fraction: Plan: Echo 12/2022: EF 60-65%. Mild Troponin mildly elevated, peaked at 64. ECGs without ischemic changes. Suspect Demand ischemia vs poor clearance with NO. Denies CP. Isosorbide continue at reduced dose Venous stasis mobilization, SCDs/compression/elevation to mobilize lower extremity following - Kidney function has remained stable with increased lasix - continue lasix 40mg BID - resumed losartan 06/24 (4) Anemia: Plan: Macrocytic anemia, hemoglobin stable in the 8-9 range but is decreased from pre vious baseline. Could be related to acute blood loss anemia from hematoma in the right buttock B12 and folate are normal TSH normal, check iron studies in the morning Most likely anemia of chronic disease but could consider MDS given macrocytosis Check peripheral smear in the morning (5) Hematoma of right buttock: Plan: R buttock, flank, hip region Start heat therapy to promote clearance of bruising Likely related to acute blood loss anemia hgb stable (6) NO (acute kidney injury): Plan: NO on CKD stage 3 Peak Cr 2.55 at time of admission Baseline creatinine 1.41.6 NO resolved (7) Lower leg DVT (deep venous thromboembolism), acute: Plan: History of DVT 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 Hgb has remained stable Plan Hypothyroidism: Continue Synthroid; TSH wnl this admission Peripheral neuropathy: Continue gabapentin Anxiety/depression: Continue Lexapro - HLD/CAD: continue statin, ASA, imdur (but at lower dose) -restless leg syndrome: Requip DVT prophylaxis: Eliquis Disposition: continue inpatient stay until bed becomes available, monitoring kidney function updated at bedside 06/26 Admission and Anticipated Discharge Date Admission Date: June 11, 2024 Supervising Physician Co-Signing Physician Notes PA Supervision Note: I did not personally see or examine the patient today, but I verified all arora points of PENNY Kincaid's assessment and plan with the following exceptions/additions: None Subjective Sitting up in the chair, present at bedside. leg is feeling better had a BM today Review of Systems Review of Systems: All systems reviewed & are unremarkable except as noted in Subjective Physical Exam Physical Exam: General: NAD, VS as above, sitting in bed Resp: no accessory muscle use, no wheezing CV: RRR, no murmur, Abd: normal bowel sounds, non tender, no hepatosplenomegaly Extremities: Moves all extremities, wound not undressed today, wound care notes reviewed. Bilateral 2+ edema Neuro: A&O x3, Results & Data Results & Data Vital Signs (Past 12 Hours) Vital Signs Temp Pulse Resp BP Pulse Ox O2 Del Method 06/26/24 14:07 36.7 C 77 18 111/66 95 Room Air 06/26/24 08:47 Room Air 06/26/24 07:31 36.9 C 69 16 139/72 94 Room Air Laboratory Results BMP reviewed PG Care Time/CCT Total # of Minutes Spent Total Time Spent with Patient: Total time spent is greater than 50% in coordination of care (as documented) at patient's floor/unit and/or counseling patient: Coding Level of Care Code 80861 SUB INP/OBS CARE 2/35MIN Diagnoses Orthostasis I95.1 Acute metabolic encephalopathy G93.41 Chronic heart failure with preserved ejection fraction I50.32 Heart failure chronicity: chronic Anemia D64.9 Hematoma of right buttock S30.0XXA NO (acute kidney injury) N17.9 Acute venous embolism and thrombosis of deep vessels of distal end of left lower extremity I82.4Z2 Laterality: left (3) (HFpEF) heart failure with preserved ejection fraction Heart failure chronicity: chronic Qualified Code(s): I50.32 - Chronic diastolic (congestive) heart failure (7) Lower leg DVT (deep venous thromboembolism), acute Laterality: left Qualified Code(s): I82.4Z2 - Acute embolism and thrombosis of unspecified deep veins of left distal lower extremity
[2024-06-27 07:50] LABS: Basophils # (auto) 0.04 K/uL (0.00-0.20); Eosinophils # (auto) 0.25 K/uL (0.00-0.50); Eosinophils % (auto) 6.1 %; Hematocrit (blood only) 27.1 % (37.0-47.0); Hemoglobin 8.7 g/dl (12.0-16.0); Immature Granulocytes # (auto) 0.01 K/uL (0.01-0.20); Immature Granulocytes % (auto) 0.2 %; Lymphocytes # (auto) 1.47 K/uL (1.20-3.40); Lymphocytes % (auto) 35.8 %; Mean Corpuscular Hemoglobin 32.8 pg (25.0-34.0); Mean Corpuscular Hgb Conc 32.1 g/dL (32.0-36.0); Mean Corpuscular Volume 102.3 fL (80.0-100.0); Mean Platelet Volume 8.8 fL (9.4-12.4); Monocytes # (auto) 0.48 K/uL (0.11-0.59); Monocytes % (auto) 11.7 %; Neutrophils # (auto) 1.86 K/uL (1.40-6.50); Neutrophils % (auto) 45.2 %; Platelet Count 248 K/uL (130-400); RDW Standard Deviation 52.3 fL (36.4-46.3); Red Blood Count 2.65 M/uL (4.20-5.40); White Blood Count 4.11 K/ul (4.8-10.8)
[2024-06-27 08:12] LABS: BUN Creatinine Ratio 23.1 (10-20); Calcium 9.9 mg/dl (8.6-10.3); Est GFR (Non-African American) 28.5 ml/min; Potassium 4.3 mmol/L (3.5-5.1)
[2024-06-27 08:33] LABS: Ferritin 200.1 ng/ml (8-388)
--- NOTE | 2024-06-27 16:44 | Discharge Summary ---
Discharge Summary Date of Service June 27, 2024 Principal Dx & Hospital Course #1 = Principal Diagnosis (1) Orthostasis: Orthostatic hypotension, presyncope with episodes of shaking at home With PCP BP 80s/50s. Home meds: losartan, isosorbide, and Lasix. Suspect prerenal/volume contracted given dry mucous membranes, no pulmonary edema on x- ray, no JVD, NO with elevated ratio. She does have significant chronic and severe bilateral lower extremity edema, suspect comorbid venous stasis with CHF - orthostatic VS - WNL 06/20 - TSH WNL. Vitamin B1 level WNL ( received thiamine x1 after lab drawn) - Resp biofire negative PT/OT --> recommend rehab. - Patient was discharged to [facility] on 06/27/2024 (2) Acute metabolic encephalopathy: had low-grade fever on 06/13/24 - repeat COVID neg - repeat cxr neg for pneumonia - RUQ u/s with GB sludge but nothing to suggest acute cholecystitis - anaplasmosis DNA negative, Babesia smear and DNA negative; lyme screen negative blood cx's negative finalized wound culture positive for MRSA -Completed 7 day course of Linezolid with wound improvement metabolic encephalopathy resolved CBC with completion of linezolid course --> no worsening cytopenias (3) (HFpEF) heart failure with preserved ejection fraction: Echo 12/2022: EF 60-65%. Mild Troponin mildly elevated, peaked at 64. ECGs without ischemic changes. Suspect Demand ischemia vs poor clearance with NO. Denies CP. Isosorbide continue at reduced dose Venous stasis mobilization, SCDs/compression/elevation to mobilize lower extremity following - Kidney function has remained stable with increased lasix - continue lasix 40mg BID - resumed losartan 06/24 (4) Anemia: Macrocytic anemia, hemoglobin stable in the 8-9 range but is decreased from previous baseline. Could be related to acute blood loss anemia from hematoma in the right buttock B12 and folate are normal TSH normal, check iron studies in the morning Most likely anemia of chronic disease but could consider MDS given macrocytosis > Peripheral smear revealed no mild chronic/microcytic red blood cells, unremarkable leukocytes and unremarkable platelets. This favors anemia of chronic disease as the cytologic features of myelodysplasia are not seen on microscopy. 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 Hgb has remained stable Plan Hypothyroidism: Continue Synthroid; TSH wnl this admission Peripheral neuropathy: Continue gabapentin Anxiety/depression: Continue Lexapro - HLD/CAD: continue statin, ASA, imdur (but at lower dose) -restless leg syndrome: Requip DVT prophylaxis: Eliquis Notes For Next Care Provider Medication Changes From Visit Lasix INCREASED to 40 mg twice daily Isosorbide mononitrate DECREASED to 30 mg once daily Admission Exam Per Admitting Provider General: A&Ox3. NAD. Cooperative. HEENT: Atraumatic, normocephalic. Vision/hearing intact Pulm: CTAB A&P. -wheezes, -rales, -rhonchi. Symmetrical chest rise. No increased work of breathing. No respiratory distress. Cardiac: RRR, -mrg. Radial pulses intact and symmetrical. Abdominal: Nontender, nondistended, soft. BS present. Ext: bilateral 3-4+ pitting edema, weeping anterior molina wounds. Buttock with scarred RIGHT sided contusions, small hematoma. Discharge Exam General: NAD Resp: no accessory muscle use, no wheezing CV: RRR, no murmur, Abd: normal bowel sounds, non tender, no hepatosplenomegaly Extremities: Moves all extremities, wound not undressed today, wound care notes reviewed. Bilateral 2+ edema Neuro: A&O x3, Updated Medication List Medication Instructions Recorded Confirmed Type alailji-fjobkegtoxchl-ibfrljlb 250 2 tab PO Q6H PRN Pain 02/19/22 06/11/24 History mg-250 mg-65 mg tablet (Excedrin Extra Strength) nitroglycerin 0.4 mg sublingual 0.4 mg sublingual Q5M PRN chest 10/31/22 06/11/24 Rx tablet pain #25 tabs meclizine 25 mg tablet 12.5 - 25 mg (0.5 - 1 x 25 mg) PO 04/30/23 06/11/24 Rx QID PRN Dizziness Or Vertigo #30 tabs tramadol 50 mg tablet 50 mg PO BID PRN pain #60 tabs 05/28/23 06/11/24 Rx escitalopram oxalate 10 mg tablet 10 mg PO DAILY #30 tabs 03/20/24 06/11/24 Rx (Lexapro) famotidine 20 mg tablet 20 mg PO DAILY #30 tabs 03/20/24 06/11/24 Rx furosemide 40 mg tablet 40 mg PO BID #60 tabs 03/20/24 06/11/24 Rx gabapentin 100 mg capsule 200 mg (2 x 100 mg) PO TID 90 days 03/20/24 06/11/24 Rx #180 caps losartan 25 mg tablet 25 mg PO QAM #30 tabs 03/20/24 06/11/24 Rx lysine 600 mg tablet 1,200 mg (2 x 600 mg) PO QAM #60 03/20/24 06/11/24 Rx tabs ropinirole 1 mg tablet 1 mg PO .COMPLEX #120 tabs 03/20/24 06/11/24 Rx silver sulfadiazine 1 % topical 1 applic topical DAILY #25 grams 05/01/24 06/11/24 Rx cream (Silvadene) atorvastatin 20 mg tablet 20 mg PO DAILY #90 tabs 05/16/24 06/11/24 Rx apixaban 5 mg tablet (Eliquis) 5 mg PO BID #60 tabs 05/28/24 06/11/24 Rx aspirin 81 mg tablet,delayed 81 mg PO QAM #30 tabs 06/19/24 Rx release isosorbide mononitrate 30 mg 30 mg PO QAM #30 tabs 06/19/24 Rx tablet,extended release 24 hr levothyroxine 50 mcg tablet 50 mcg PO QAM #30 tabs 06/19/24 Rx Hospital Stay Data Consultations 06/11/24 16:09 ED Decision to Admit Stat Diagnostic Imagining Performed Laboratory Results WBC 4.11 K/ul (4.8-10.8) L 06/27/24 07:11 RBC 2.65 M/uL (4.20-5.40) L 06/27/24 07:11 Hgb 8.7 g/dl (12.0-16.0) L 06/27/24 07:11 Hct 27.1 % (37.0-47.0) L 06/27/24 07:11 MCV 102.3 fL (80.0-100.0) H 06/27/24 07:11 MCH 32.8 pg (25.0-34.0) 06/27/24 07:11 MCHC 32.1 g/dL (32.0-36.0) 06/27/24 07:11 RDW Std Deviation 52.3 fL (36.4-46.3) H 06/27/24 07:11 RDW Coeff of Maked[place] 14.0 % (11.5-14.5) 06/27/24 07:11 Plt Count 248 K/uL (130-400) 06/27/24 07:11 MPV 8.8 fL (9.4-12.4) L 06/27/24 07:11 Immature Gran % (Auto) 0.2 % 06/27/24 07:11 Neut % (Auto) 45.2 % 06/27/24 07:11 Lymph % (Auto) 35.8 % 06/27/24 07:11 Sutter % (Auto) 11.7 % 06/27/24 07:11 Eos % (Auto) 6.1 % 06/27/24 07:11 Baso % (Auto) 1.0 % 06/27/24 07:11 Neut # (Auto) 1.86 K/uL (1.40-6.50) 06/27/24 07:11 Lymph # (Auto) 1.47 K/uL (1.20-3.40) 06/27/24 07:11 Sutter # (Auto) 0.48 K/uL (0.11-0.59) 06/27/24 07:11 Eos # (Auto) 0.25 K/uL (0.00-0.50) 06/27/24 07:11 Baso # (Auto) 0.04 K/uL (0.00-0.20) 06/27/24 07:11 Immature Gran # (Auto) 0.01 K/uL (0.01-0.20) 06/27/24 07:11 Peripher Smr Path Cons 06/27/24 07:11 Sodium 138 mmol/L (136-145) 06/27/24 07:11 Potassium 4.3 mmol/L (3.5-5.1) 06/27/24 07:11 Chloride 104 mmol/L (98-107) 06/27/24 07:11 Carbon Dioxide 30 mmol/L (21-32) 06/27/24 07:11 Anion Gap 4 (3-11) 06/27/24 07:11 BUN 37 mg/dl (6-23) H 06/27/24 07:11 Creatinine 1.60 mg/dl (0.6-1.2) H 06/27/24 07:11 Est Cr Clr Drug Dosing 25.0 ml/min 06/27/24 07:11 Est GFR ( Amer) 33.0 ml/min 06/27/24 07:11 Est GFR (Non-Af Amer) 28.5 ml/min 06/27/24 07:11 BUN/Creatinine Ratio 23.1 (10-20) H 06/27/24 07:11 Glucose 87 mg/dl (70-99(Fasting)) 06/27/24 07:11 Calcium 9.9 mg/dl (8.6-10.3) 06/27/24 07:11 Magnesium 2.2 mg/dl (1.7-2.4) 06/22/24 06:58 Iron 127 mcg/dl (35-150) 06/27/24 07:11 TIBC 245 mcg/dl (250-450) L 06/27/24 07:11 Unsaturated IBC 118 mcg/dl (155-355) L 06/27/24 07:11 Transferrin % Sat 52 % (15-50) H 06/27/24 07:11 Ferritin 200.1 ng/ml (8-388) 06/27/24 07:11 Total Bilirubin 0.6 mg/dl (0.2-1.0) 06/13/24 10:09 AST 17 U/L (13-39) 06/13/24 10:09 ALT 15 U/L (7-52) 06/13/24 10:09 Alkaline Phosphatase 39 U/L (34-104) 06/13/24 10:09 Total Creatine Kinase 25 U/L (26-192) L 06/22/24 12:42 Troponin I High Sens 8.6 pg/ml (0-14) 06/17/24 17:24 C-Reactive Protein 3.89 mg/dl (0-0.5) H 06/17/24 06:08 Total Protein 5.8 gm/dl (6.0-8.3) L 06/13/24 10:09 Albumin 3.3 gm/dl (3.4-5.0) L 06/13/24 10:09 Globulin 2.5 gm/dl (2.5-4.0) 06/13/24 10:09 Albumin/Globulin Ratio 1.3 (0.9-2) 06/13/24 10:09 Vitamin B1 25 nmol/L (8-30) 06/12/24 08:35 Vitamin B12 484 pg/ml (180-914) 06/13/24 17:23 Folate > 22.30 ng/ml (>5.38) 06/13/24 17:23 Procalcitonin 0.06 ng/ml (0-0.5) 06/17/24 06:08 TSH 0.643 uIu/ml (0.300-4.500) 06/11/24 13:38 Urine Color Yellow 06/11/24 17:17 Urine Appearance Clear (Clear) 06/11/24 17:17 Urine pH 6.0 (4.5-7.5) 06/11/24 17:17 Ur Specific [place] 1.011 (1.000-1.030) 06/11/24 17:17 Urine Protein Negative (Negative) 06/11/24 17:17 Urine Glucose (UA) Negative (Negative) 06/11/24 17:17 Urine Ketones Negative (Negative) 06/11/24 17:17 Urine Blood Negative (Negative) 06/11/24 17:17 Urine Nitrite Negative (Negative) 06/11/24 17:17 Urine Bilirubin Negative (Negative) 06/11/24 17:17 Urine Urobilinogen Negative (Negative) 06/11/24 17:17 Ur Leukocyte Esterase Negative (Negative) 06/11/24 17:17 Adenovirus (PCR) Not Detected (NotDetected) 06/12/24 12:45 Anaplasma Smear See Comment 06/13/24 17:23 A. phagocytophilum DNA Negative (Negative) 06/15/24 05:59 Babesia Smear See Comment 06/13/24 17:23 Babesia microti DNA PCR Not Detected (Not Detected) 06/13/24 17:23 B. pertussis DNA (PCR) Not Detected (NotDetected) 06/12/24 12:45 B.parapertussis DNA PCR Not Detected (NotDetected) 06/12/24 12:45 Lyme Disease Screen Negative (Negative) 06/13/24 17:23 C. pneumoniae DNA (PCR) Not Detected (NotDetected) 06/12/24 12:45 Coronavirus OC43 (PCR) Not Detected (NotDetected) 06/12/24 12:45 Coronavirus HKU1 (PCR) Not Detected (NotDetected) 06/12/24 12:45 Coronavirus 229E (PCR) Not Detected (NotDetected) 06/12/24 12:45 SARS-CoV-2 (PCR) NEGATIVE (Negative) 06/14/24 11:15 Coronavirus NL63 (PCR) Not Detected (NotDetected) 06/12/24 12:45 Human Metapneumovir PCR Not Detected (NotDetected) 06/12/24 12:45 Influenza Type A (PCR) Not Detected (NotDetected) 06/12/24 12:45 Influenza Type B (PCR) Not Detected (NotDetected) 06/12/24 12:45 M. pneumoniae (PCR) Not Detected (NotDetected) 06/12/24 12:45 Parainfluenza 1 (PCR) Not Detected (NotDetected) 06/12/24 12:45 Parainfluenza 2 (PCR) Not Detected (NotDetected) 06/12/24 12:45 Parainfluenza 3 (PCR) Not Detected (NotDetected) 06/12/24 12:45 Parainfluenza 4 (PCR) Not Detected (NotDetected) 06/12/24 12:45 RSV (PCR) Not Detected (NotDetected) 06/12/24 12:45 Entero/Rhino (PCR) Not Detected (NotDetected) 06/12/24 12:[address] 06/11/24 13:56 CT SCAN OF THE BRAIN WITHOUT IV CONTRAST CLINICAL HISTORY: Falls. COMPARISON STUDY: CT of the brain dated 02/28/2021. TECHNIQUE: Unenhanced axial CT scan of the brain is performed from the vertex to the skull base. A dose lowering technique was utilized adhering to the principles of ALARA. CT DOSE: 625.8 mGy.cm FINDINGS: Brain parenchyma: There is age-related involutional change noting mild/moderate subcortical and periventricular microangiopathic disease. There is no hemorrhage, mass effect, or evidence of acute territorial ischemia by CT criteria. Johnson-white matter differentiation is preserved. No extra-axial fluid collection is seen. Ventricles, sulci, cisterns: Prominent secondary to involutional change. Intracranial vasculature: There is atherosclerotic calcification of the cavernous carotid and vertebral arteries. Calvarium: The skeletal structures are osteopenic. No depressed calvarial fracture is seen. Sinuses and mastoids: The paranasal sinuses are clear. The mastoid air cells are well pneumatized. Orbits: The bony orbits are grossly intact. There are bilateral ocular lens implants IMPRESSION: There is no hemorrhage, mass effect, or evidence of acute territorial ischemia by CT criteria. ACT 112: Negative or not required by law. Electronically signed by: Danilo Benjamin M.D. 06/11/2024 2:46 PM Hip/Pelvis X-Ray 06/11/24 14:17 XR hip RT 2V w pelvis CLINICAL HISTORY: fall, hip/buttock pain TECHNIQUE: 2 views of the right hip and single frontal view of the pelvis were obtained. Comparison: Comparison is made to hip radiographs 09/25/2019 FINDINGS: There is no evidence of an acute fracture. Degenerative changes are seen in the hip joint. Soft tissue swelling is seen. IMPRESSION: Degenerative changes without evidence of acute abnormality. ACT 112: Negative or not required by law. Electronically signed by: Kevin Angeles M.D. 06/11/2024 4:07 PM Gallbladder Ultrasound 06/14/24 10:40 US gallbladder CLINICAL HISTORY: fever, malaise; cholecystitis? TECHNIQUE: Multiple real-time sonographic images of the right upper quadrant were obtained. Comparison: Comparison is made to CT abdomen pelvis 01/26/2024 FINDINGS: The liver is diffusely echogenic in appearance with poor ultrasound penetration, with normal contour, which is consistent with fatty infiltration. No focal mass lesions are seen. No intrahepatic ductal dilatation is seen. Low level internal echoes are identified layering dependently within the gallbladder, which is consistent with gallbladder sludge. The gallbladder wall is not thickened. There is no pericholecystic fluid present. A sonographic Gardner's sign was not elicited by the kitman. The common duct measures 0.2 cm in diameter at the level of the hepatic artery. The visualized portions of the pancreas appear normal. The right kidney shows normal echogenicity, cortical thickness and renal contour. The right kidney shows no evidence of hydronephrosis or mass. No ascites or free fluid is seen in Gooden's pouch. IMPRESSION: 1. Gallbladder sludge without evidence of acute cholecystitis. 2. Hepatic steatosis. ACT 112: Negative or not required by law. Electronically signed by: Kevin Angeles M.D. 06/14/2024 3:30 PM Chest X-Ray 06/14/24 11:03 XR chest 1V portable CLINICAL HISTORY: fever, malaise, developing pneumonia? TECHNIQUE: Single frontal radiograph of the chest was obtained. Comparison: Comparison is made to chest radiograph 06/11/2024 FINDINGS: No lines and tubes are seen. Calcified aortic knob is seen. The lungs are clear. No evidence of pleural effusion or pneumothorax. IMPRESSION: No acute abnormalities and in particular no radiographic evidence of pneumonia. ACT 112: Negative or not required by law. Electronically signed by: Kevin Angeles M.D. 06/14/2024 5:05 PM Pending Results Patient Have Any Pending Studies at Discharge: No Discharge Instructions Given to Patient (Per Discharging Provider) FOR HEARTHSIDE: Mrs. Yu was hospitalized for orthostatic hypotension and metabolic encephalopathy, both of which have resolved. She had MRSA positive wound culture and completed 7-day course of linezolid with wound improvement. Continue all medications as prescribed, specifically: Continue Lasix 40 mg twice daily Continue reduced isosorbide mononitrate dose at 30 mg once daily Continue reduced aspirin dose at 81 mg once daily Continue losartan 25 mg once daily Continue Eliquis 5 mg BID Total Time Total Time Spent Total Time Spent (In Minutes): Greater than 30 minutes spent completing this discharge process including direct patient care, medication reconciliation, documentation, review of labs and images, and coordination of care. Coding Level of Care Code 83375 INP/OBS DISCH >30 MIN Diagnoses Orthostasis I95.1 Acute metabolic encephalopathy G93.41 Chronic heart failure with preserved ejection fraction I50.32 Heart failure chronicity: chronic Anemia D64.9 Hematoma of right buttock S30.0XXA NO (acute kidney injury) N17.9 Acute venous embolism and thrombosis of deep vessels of distal end of left lower extremity I82.4Z2 Laterality: left
== END 2024-06-27 13:23 | DRG 312 ==
LOC: ED 13:25 → SUATTDRO 16:48 → 2N 16:48 → 3N 06-20 21:28

== ENCOUNTER 2024-09-25 15:24 | Observation (INO) ==
--- NOTE | 2024-09-25 15:51 | Emergency Department Note ---
Impression & Plan Weakness, Anemia, Acute dehydration, Shakiness, Acute UTI, Elevated troponin ED Provider Note NAME: CHEYENNE CHAN AGE: 89 SEX: F : 1935 ARRIVES VIA: Ambulance INFORMANT: [Patient][ems] ED PROVIDER(S): [Danilo Salmeron MD] CHIEF COMPLAINT: Illness HISTORY OF PRESENT ILLNESS: The patient is an 89-year-old female who states that she has had a week of feeling tired and has noticed leg weakness. She also has had all over body shaking and she states it is hard to control. There has been no chest pain, no shortness of breath. No fever. No urinary complaints. No nausea or vomiting, no diarrhea. The patient had some outpatient laboratory work done today through her doctor's office, she was then referred to the ER, she presents by ambulance. She is unsure of the results from the laboratory testing. PMHx/PSHx/Social Hx: See Below PHYSICAL EXAM: GENERAL: Patient is in no acute distress. HEENT: No acute trauma, normocephalic atraumatic, mucous membranes moist, no nasal congestion. NECK: No stridor, no adenopathy, no meningismus, trachea is midline. LUNGS: Crackles bilaterally, worse on the left. No wheezing, no respiratory distress. HEART: Without murmurs gallops or rubs, regular rate and rhythm. Heart tones distant. ABDOMEN: Soft, nontender, no peritonitis. EXTREMITIES: No cyanosis, full range of motion of all the joints without pain or difficulty. Mild bilateral pedal edema. There is a bandage on the left lower extremity, the wound is dry. NEUROLOGIC: Oriented x 3, no acute motor or sensory deficits, no focal weakness. No speech slur. SKIN: No jaundice, no diaphoresis. DIFFERENTIAL DIAGNOSIS: Dehydration, anemia, UTI, electrolyte imbalance, renal or liver failure, among others. EMERGENCY DEPARTMENT PROCEDURES: MEDICAL DECISION MAKING: There is no leukocytosis. The patient is anemic however, this appears to be baseline when looking back at previous testing. There is a normal platelet count. There is some elevation to the creatinine above her baseline likely consistent with some dehydration. No concerning liver enzyme elevation. Total CK was not elevated making rhabdomyolysis unlikely. The patient appeared to be in a euthyroid state. ECG showed a normal sinus rhythm, no acute ischemia. Cardiac enzyme testing x 2 is slightly elevated but stable and thus, does not demonstrate evidence for acute cardiac injury. Urinalysis does show findings of infection. Chest x-ray does not show pneumonia or CHF. On exam, patient did not have any focal neurologic findings. She was not febrile or toxic. The patient was given IV saline, 500 cc. She was given 2 g of IV ceftriaxone as antibiotic coverage. The patient's arrived at bedside. He states that she is too weak right now for him to be responsible for her. She really has gone downhill in the last week. I suspect the UTI and dehydration are responsible for her presentation and complaints. Hospitalization is indicated. I spoke with case management. The on-call hospitalist was consulted. Prior/Outside records/notes reviewed: Today's EMS notes describing her presentation and transport to this hospital. ECG per my interpretation: Indication was weakness. The ECG shows a normal sinus rhythm with a rate of 65. There is some nonspecific ST change, there is some baseline artifact. There is no acute ST elevation, no PVCs. The QTc is 440. Continuous Cardiac Monitoring per my interpretation: An order was placed for continuous cardiac monitoring. The monitor shows a rate of 68 with normal sinus rhythm. Imaging/x-ray results per my interpretation: Chest x-ray does not show mediastinal widening, pneumonia or pneumothorax. Chronic Medical/Social conditions affecting care: Advanced age. Care/Management discussed with: Case management, the on-call hospitalist. Level of care consideration(s): After review of the information above and other included data: --I believe the patient requires escalation of care to admission DISPOSITION: Admission Past Med/Surg History Problem List (Updated 09/25/24 @ 19:36 by Danilo Salmeron MD) Elevated troponin (Acute) Acute UTI (Acute) Shakiness (Acute) Acute dehydration (Acute) Anemia (Acute) Weakness (Acute) Ambulatory dysfunction Urinary tract infection Anemia Bilateral leg weakness (Acute) Acute buttock pain (Acute) Hematoma of right buttock Orthostasis Hypotension Cellulitis of left leg Wounds, multiple Medication non-compliance due to excessive pill burden Imbalance Frequent falls Multiple fractures of ribs of left side (Acute 01/26/24) mildly displaced fractures of the posterior and posterolateral aspects of the left seventh through ninth ribs the ninth rib fracture in at least 2 places from a fall-was admitted to [facility] for pain control per ED note Venous insufficiency Chronic stable angina Mild aortic stenosis (HFpEF) heart failure with preserved ejection fraction Depression Hypothyroidism (Chronic) Hypertension (Chronic) Peripheral edema Fatigue Vertigo Osteoarthritis Hyperparathyroidism (Chronic) Impaired fasting glucose (Chronic) Osteoporosis (Acute) Lymph edema Dyspnea on exertion (Acute) Vitamin D deficiency (Chronic) Chronic kidney disease, stage III (moderate) (Chronic) Urinary incontinence (Chronic) Restless leg syndrome (Chronic) Dry eye syndrome (Chronic) Incomplete bladder emptying (Chronic) Peripheral neuropathy (Chronic) Hyperlipidemia (Chronic) GERD (gastroesophageal reflux disease) (Chronic) CAD (coronary artery disease) (Chronic) Medical History Acute metabolic encephalopathy Acute blood loss anemia Acute dehydration Fall NO (acute kidney injury) Lower leg DVT (deep venous thromboembolism), acute Provoked due to sedentary lifestyle, on Eliquis to treat for 3 months COVID-19 Chronic acquired lymphedema Aortic stenosis Sepsis Hypercalcemia Surgical History History of total knee arthroplasty History of total abdominal hysterectomy and bilateral salpingo-oophorectomy History of partial colectomy History of carpal tunnel surgery History of dilatation and curettage Status post laser cataract surgery of both eyes History of appendectomy Family History Father Prostate cancer Myocardial infarction Mother Cancer Other No significant family history Denies family history of Ovarian cancer Kidney disease Breast cancer Colorectal cancer Social History Smoking Status: Never smoker Second Hand Exposure: No; Do You Dip or Chew Tobacco: No; Hx Alcohol Use: No Hx Substance Use: No Preferred Language: Maori Communication Ability: Effective Visual Impairment: Limited Hearing Ability: Normal Microwave Oven Assembler Required: No Beliefs That Will Affect Care: None marital status: Current Living Situation: Family Current Living Situation Comment: with current occupational status: retired current occupation: housewife How many Children do You have: 3 Feels Safe at Home: Yes Childhood Exposure to Second-Hand Smoke: Yes Diet: regular caffeine: Yes during the past year weight has: remained stable Dental Care, Regularly: No Physical Activity Frequency: Does not Exercise Seatbelt Use: sometimes Sunscreen Use: No Do you think of yourself as: straight/heterosexual Gender Identity: Female Assistive Devices: Walker Allergies Allergies Allergy/AdvReac Type Severity Reaction Status Date / Time atorvastatin [From Lipitor] Allergy Unknown ON [facility] Verified 09/25/24 10:41 LIST celecoxib [From Celebrex] Allergy Unknown ON [facility] Verified 09/25/24 10:41 LIST iodine Allergy Unknown Unknown Verified 09/25/24 10:41 Home Meds Home Medications Medication Instructions Recorded Confirmed [id number]-[id number] 250 2 tab PO Q6H PRN Pain 02/19/22 09/25/24 mg-250 mg-65 mg tablet (Excedrin Extra Strength) atorvastatin 20 mg tablet 0 mg PO DAILY 09/25/24 09/25/24 diclofenac sodium 1 % topical gel 1 g topical Q6H PRN Left Shoulder 09/25/24 09/25/24 Pain lysine 500 mg tablet (L-Lysine) 2,000 mg PO DAILY 09/25/24 09/25/24 ropinirole 1 mg tablet 1 mg PO QDL 09/25/24 09/25/24 ropinirole 3 mg tablet 3 mg PO HS 09/25/24 09/25/24 Previous Rx's Medication Instructions Recorded nitroglycerin 0.4 mg sublingual 0.4 mg sublingual Q5M PRN chest 10/31/22 tablet pain #25 tabs meclizine 25 mg tablet 12.5 - 25 mg (0.5 - 1 x 25 mg) PO 04/30/23 QID PRN Dizziness Or Vertigo #30 tabs tramadol 50 mg tablet 50 mg PO BID PRN pain #60 tabs 05/28/23 escitalopram oxalate 10 mg tablet 10 mg PO DAILY #30 tabs 03/20/24 (Lexapro) famotidine 20 mg tablet 20 mg PO DAILY #30 tabs 03/20/24 furosemide 40 mg tablet 40 mg PO BID #60 tabs 03/20/24 gabapentin 100 mg capsule 200 mg (2 x 100 mg) PO TID 90 days 03/20/24 #180 caps silver sulfadiazine 1 % topical 1 applic topical DAILY #25 grams 05/01/24 cream (Silvadene) apixaban 5 mg tablet (Eliquis) 5 mg PO BID #60 tabs 05/28/24 aspirin 81 mg tablet,delayed 81 mg PO QAM #30 tabs 06/19/24 release isosorbide mononitrate 30 mg 30 mg PO QAM #30 tabs 06/19/24 tablet,extended release 24 hr levothyroxine 50 mcg tablet 50 mcg PO QAM #30 tabs 06/19/24 losartan 25 mg tablet 25 mg PO QAM #30 tabs 09/25/24 Results & Data (ED) Vital Signs Vital Signs - 24 hr 09/25/24 15:32 09/25/24 15:36 09/25/24 15:50 Temperature 36.7 C Temperature Source Oral Pulse Rate 68 66 65 Pulse Rate from SpO2 Sensor 66 Pulse Rhythm Regular Pulse Strength Normal Respiratory Rate 16 21 22 Respiratory Effort / Characteristics Non-Labored Spontaneous Respiratory Depth Normal Respiratory Pattern Regular Blood Pressure 132/71 132/71 Blood Pressure Mean 91 91 Blood Pressure Position Sitting Pulse Oximetry 97 96 97 Oxygen Delivery Method Room Air Room Air Sepsis Recent Fever Within 48 Hours No Sepsis New/Unexplained Change in Mental Status No Sepsis Action Taken by Nursing No Action Required 09/25/24 16:03 09/25/24 16:16 09/25/24 17:06 Temperature Temperature Source Pulse Rate 64 65 63 Pulse Rate from SpO2 Sensor 64 62 Pulse Rhythm Pulse Strength Respiratory Rate 20 16 Respiratory Effort / Characteristics Respiratory Depth Respiratory Pattern Blood Pressure 124/66 116/68 Blood Pressure Mean 85 84 Blood Pressure Position Pulse Oximetry 96 95 Oxygen Delivery Method Sepsis Recent Fever Within 48 Hours Sepsis New/Unexplained Change in Mental Status Sepsis Action Taken by Nursing 09/25/24 17:45 09/25/24 18:00 Temperature Temperature Source Pulse Rate 61 Pulse Rate from SpO2 Sensor 62 Pulse Rhythm Pulse Strength Respiratory Rate 24 Respiratory Effort / Characteristics Respiratory Depth Respiratory Pattern Blood Pressure 122/83 Blood Pressure Mean 89 Blood Pressure Position Pulse Oximetry 96 Oxygen Delivery Method Sepsis Recent Fever Within 48 Hours Sepsis New/Unexplained Change in Mental Status Sepsis Action Taken by Alf Medications Current Medication List: was personally reviewed by me Laboratory Data Attestation: I reviewed the patient's lab results. 09/25/24 15:35 09/25/24 15:35 Lab Results 09/25/24 09/25/24 09/25/24 Range/Units 15:35 17:10 17:26 WBC 6.68 (4.8-10.8) K/ul RBC 3.12 L (4.20-5.40) M/uL Hgb 10.0 L (12.0-16.0) g/dl Hct 31.4 L (37.0-47.0) % MCV 100.6 H (80.0-100.0) fL MCH 32.1 (25.0-34.0) pg MCHC 31.8 L (32.0-36.0) g/dL RDW Std Deviation 51.4 H (36.4-46.3) fL RDW Coeff of Makeda 14.0 (11.5-14.5) % Plt Count 225 (130-400) K/uL MPV 9.4 (9.4-12.4) fL Immature Gran % (Auto) 0.1 % Neut % (Auto) 52.4 % Lymph % (Auto) 35.9 % Fleming % (Auto) 7.2 % Eos % (Auto) 4.0 % Baso % (Auto) 0.4 % Neut # (Auto) 3.49 (1.40-6.50) K/uL Lymph # (Auto) 2.40 (1.20-3.40) K/uL Fleming # (Auto) 0.48 (0.11-0.59) K/uL Eos # (Auto) 0.27 (0.00-0.50) K/uL Baso # (Auto) 0.03 (0.00-0.20) K/uL Immature Gran # (Auto) 0.01 (0.01-0.20) K/uL Sodium 140 (136-145) mmol/L Potassium 3.8 (3.5-5.1) mmol/L Chloride 103 (98-107) mmol/L Carbon Dioxide 32 (21-32) mmol/L Anion Gap 5 (3-11) BUN 30 H (6-23) mg/dl Creatinine 1.70 H (0.6-1.2) mg/dl Est Cr Clr Drug Dosing 26.9 ml/min eGFR 28.67 BUN/Creatinine Ratio 17.6 (10-20) Glucose 130 H (70-99(Fasting)) mg/dl Calcium 9.8 (8.6-10.3) mg/dl Magnesium 2.2 (1.7-2.4) mg/dl Total Bilirubin 0.3 (0.2-1.0) mg/dl AST 10 L (13-39) U/L ALT 8 (7-52) U/L Alkaline Phosphatase 72 (34-104) U/L Total Creatine Kinase 32 (26-192) U/L Troponin I High Sens 25.7 H 21.3 H (0-14) pg/ml Total Protein 6.3 (6.0-8.3) gm/dl Albumin 3.7 (3.4-5.0) gm/dl Globulin 2.6 (2.5-4.0) gm/dl Albumin/Globulin Ratio 1.4 (0.9-2) TSH 1.253 (0.300-4.500) uIu/ml Urine Color Yellow Urine Appearance Clear (Clear) Urine pH 5.5 (4.5-7.5) Ur Specific Dawson 1.011 (1.000-1.030) Urine Protein Negative (Negative) Urine Glucose (UA) Negative (Negative) Urine Ketones Negative (Negative) Urine Blood Negative (Negative) Urine Nitrite Positive A (Negative) Urine Bilirubin Negative (Negative) Urine Urobilinogen Negative (Negative) Ur Leukocyte Esterase 2+ H (Negative) Urine WBC (Auto) 21-50 H (0-5) /hpf Urine RBC (Auto) 0-2 (0-2) /hpf U Hyaline Cast (Auto) 3-5 H (0-2) /lpf U Epithel Cells (Auto) 0-2 (0-2) /hpf Urine Bacteria (Auto) 4+ H (None Seen) Administered Medications Discontinued Medications Sodium Chloride (Nss) 500 mls @ 999 mls/hr IV .Q31M ONE Stop: 09/25/24 16:49 Last Infusion: 09/25/24 16:58 Dose: Infused Documented By: Admin: 09/25/24 16:24 Dose: 999 mls/hr Documented By: CEF Ceftriaxone Sodium (Rocephin) 2,000 mg in 50 mls @ 100 mls/hr IV NOW STA Stop: 09/25/24 18:04 Last Infusion: 09/25/24 18:41 Dose: Infused Documented By: Admin: 09/25/24 17:46 Dose: 100 mls/hr Documented By: SNS Imaging Data Radiologist's Impression: Chest X-Ray 09/25/24 15:45 XR chest 1V portable CLINICAL HISTORY: weakness COMPARISON STUDY: Chest CT January 26, 2024. Chest radiograph June 14, 2024. FINDINGS: Lung volumes are normal. There is no consolidation to chest pneumonia. There is no pneumothorax or pleural effusion. Cardiomegaly is unchanged. Mediastinal contours are normal. There is no evidence for pulmonary edema. IMPRESSION: No acute cardiopulmonary findings. No significant change in appearance of the chest. ACT 112: Negative or not required by law. Electronically signed by: Tucker Mathis M.D. 09/25/2024 4:56 PM Discharge Plan Visit Data Chief Complaint: Illness Stated Complaint: REFERRED BY PCP OFFICE ED Provider: Danilo Salmeron Discharge Problem: Weakness, Anemia, Acute dehydration, Shakiness, Acute UTI, Elevated troponin Patient Disposition: Admitted As Inpatient Condition: Fair Forms Stand Alone Forms: [facility], Important Visit Information Prescriptions Prescriptions: No Action meclizine 25 mg tablet 12.5 - 25 mg PO QID PRN (Reason: Dizziness Or Vertigo) Qty: 30 5RF tramadol 50 mg tablet 50 mg PO BID PRN (Reason: pain) Qty: 60 0RF Rx Instructions: short term only Eliquis 5 mg tablet 5 mg PO BID Qty: 60 2RF Rx Instructions: Per preferred pharmacy, this script was sent to them from rehab but they haven't filled it as pt hasn't requested it. levothyroxine 50 mcg tablet 50 mcg PO QAM Qty: 30 11RF Rx Instructions: Per preferred pharmacy, this script was sent to them from rehab but they haven't filled it as pt hasn't requested it. nitroglycerin 0.4 mg tablet, sublingual 0.4 mg sublingual Q5M PRN (Reason: chest pain) Qty: 25 3RF Rx Instructions: do not exceed 3 doses per episode escitalopram oxalate [Lexapro] 10 mg tablet 10 mg PO DAILY Qty: 30 11RF Rx Instructions: Per preferred pharmacy, this script was sent to them from rehab but they haven't filled it as pt hasn't requested it. famotidine 20 mg tablet 20 mg PO DAILY Qty: 30 11RF Rx Instructions: Per preferred pharmacy, this script was sent to them from rehab but they haven't filled it as pt hasn't requested it. furosemide 40 mg tablet 40 mg PO BID Qty: 60 11RF Rx Instructions: Per preferred pharmacy, this script was sent to them from rehab but they haven't filled it as pt hasn't requested it. gabapentin 100 mg capsule 200 mg PO TID 90 Days Qty: 180 11RF Rx Instructions: Per preferred pharmacy, this script was sent to them from rehab but they haven't filled it as pt hasn't requested it. silver sulfadiazine [Silvadene] 1 % cream 1 applic topical DAILY Qty: 25 1RF Hold Instructions: not using Rx Instructions: apply a 1.5 mm thickness. Unable to verify med at this date/time. Not on file w/ pharmacy losartan 25 mg tablet 25 mg PO QAM Qty: 30 11RF Hold Instructions: hypotensive Rx Instructions: Per preferred pharmacy, this script was sent to them from rehab but they haven't filled it as pt hasn't requested it. Excedrin Extra Strength 250-250-65 mg Tablet 2 tab PO Q6H PRN (Reason: Pain) Rx Instructions: Unable to verify OTC meds at this date/time. ropinirole 3 mg tablet 3 mg PO HS Rx Instructions: Per preferred pharmacy, this script was sent to them from rehab but they haven't filled it as pt hasn't requested it. lysine [L-Lysine] 500 mg Tablet 2,000 mg PO DAILY diclofenac sodium 1 % gel 1 g TOPICAL Q6H PRN (Reason: Left Shoulder Pain) atorvastatin 20 mg tablet 0 mg PO DAILY Rx Instructions: Original Directions: 20mg by mouth daily: Listed on allergy list, but preferred pharmacy and old list from personal care facility states the same. Pt has filled recently ropinirole 1 mg tablet 1 mg PO QDL Rx Instructions: Per preferred pharmacy, this script was sent to them from rehab but they haven't filled it as pt hasn't requested it. isosorbide mononitrate 30 mg Tablet Extended Release 24 Hr 30 mg PO QAM Qty: 30 0RF Rx Instructions: Per preferred pharmacy, this script was sent to them from rehab but they haven't filled it as pt hasn't requested it. aspirin 81 mg Tablet,Delayed Release (Dr/Ec) 81 mg PO QAM Qty: 30 0RF Rx Instructions: Unable to verify OTC meds at this date/time. Referrals Referrals: Salena Ruelas CRNP [Primary Care Provider] - Discharge Problem: Anemia Qualifiers: Anemia type: unspecified type Qualified Code(s): D64.9 - Anemia, unspecified
[2024-09-25 16:00] LABS: Basophils # (auto) 0.03 K/uL (0.00-0.20); Basophils % (auto) 0.4 %; Eosinophils # (auto) 0.27 K/uL (0.00-0.50); Hematocrit (blood only) 31.4 % (37.0-47.0); Immature Granulocytes # (auto) 0.01 K/uL (0.01-0.20); Immature Granulocytes % (auto) 0.1 %; Lymphocytes % (auto) 35.9 %; Mean Corpuscular Hemoglobin 32.1 pg (25.0-34.0); Mean Corpuscular Hgb Conc 31.8 g/dL (32.0-36.0); Mean Corpuscular Volume 100.6 fL (80.0-100.0); Mean Platelet Volume 9.4 fL (9.4-12.4); Monocytes # (auto) 0.48 K/uL (0.11-0.59); Monocytes % (auto) 7.2 %; Neutrophils # (auto) 3.49 K/uL (1.40-6.50); Neutrophils % (auto) 52.4 %; Platelet Count 225 K/uL (130-400); RDW Standard Deviation 51.4 fL (36.4-46.3); Red Blood Count 3.12 M/uL (4.20-5.40); White Blood Count 6.68 K/ul (4.8-10.8)
[2024-09-25 16:16] LABS: Albumin Globulin Ratio 1.4 (0.9-2); Albumin Level 3.7 gm/dl (3.4-5.0); BUN Creatinine Ratio 17.6 (10-20); Bilirubin,Total 0.3 mg/dl (0.2-1.0); Calcium 9.8 mg/dl (8.6-10.3); Creatinine Clr Calc Pharmacy 26.9 ml/min; Globulin 2.6 gm/dl (2.5-4.0); Magnesium 2.2 mg/dl (1.7-2.4); Potassium 3.8 mmol/L (3.5-5.1); Total Protein 6.3 gm/dl (6.0-8.3)
[2024-09-25 16:21] LABS: Troponin I High Sensitivity 25.7 pg/ml (0-14)
[2024-09-25] MEDS: SODIUM CHLORIDE 0.9% 500 ML IV ONE (16:24)
[2024-09-25 16:30] LABS: Thyroid Stimulating Hormone 1.253 uIu/ml (0.300-4.500)
--- NOTE | 2024-09-25 16:58 | XRay Report ---
XR chest 1V portable CLINICAL HISTORY: weakness COMPARISON STUDY: Chest CT January 26, 2024. Chest radiograph June 14, 2024. FINDINGS: Lung volumes are normal. There is no consolidation to chest pneumonia. There is no pneumoth orax or pleural effusion. Cardiomegaly is unchanged. Mediastinal contours are normal. There is no pearl dence for pulmonary edema. IMPRESSION: No acute cardiopulmonary findings. No significant change in appearance of the chest. ACT 112: Negative or not required by law. Electronically signed by: Tucker Mathis M.D. 09/25/2024 4:56 PM
[2024-09-25 17:26] LABS: Appearance Urine Clear (Clear); Bacteria Urine Automated 4+ (None Seen); Bilirubin Urine Negative (Negative); Blood Urine Negative (Negative); Color Urine Yellow; Epithelial Cell Urine Auto 0-2 /hpf (0-2); Glucose Urine UA Negative (Negative); Ketones Urine Negative (Negative); Leukocyte Esterase Urine 2+ (Negative); Nitrite Urine Positive (Negative); Protein Urine Negative (Negative); RBC Urine Automated 0-2 /hpf (0-2); Specific Gravity Urine 1.011 (1.000-1.030); Urobilinogen Urine Negative (Negative); WBC Urine Automated 21-50 /hpf (0-5); pH Urine 5.5 (4.5-7.5)
[2024-09-25] MEDS: cefTRIAXone SODIUM 2,000 MG/50 ML BAG IV STA (17:46)
--- NOTE | 2024-09-25 18:57 | History & Physical Report ---
Date of Service September 25, 2024 Assessment & Plan (1) Urinary tract infection: (2) Imbalance: (3) Frequent falls: (4) (HFpEF) heart failure with preserved ejection fraction: (5) Depression: (6) Hypothyroidism: (7) Hypertension: (8) Vitamin D deficiency: (9) Chronic kidney disease, stage III (moderate): (10) Urinary incontinence: (11) Restless leg syndrome: (12) Peripheral neuropathy: (13) Hyperlipidemia: (14) GERD (gastroesophageal reflux disease): (15) CAD (coronary artery disease): (16) Ambulatory dysfunction: Plan 89-year-old female with a past medical history of CKD, DVT, CAD, GERD, peripheral neuropathy, hyperlipidemia, hypothyroidism, hypertension, RLS, urinary incontinence who presents with weakness and ambulatory dysfunction. #UTI: UA +nitrite, 2+LE 21-50 WBC, 4+bacteria Afebrile, WBC WNL Continue IV Ceftriaxone 2g Q24H Urine culture pending AM labs: CBC, BMP #Ambulatory Dysfunction/Weakness: Weakness, ambulatory dysfunction likely secondary to acute urinary tract infection Full body "shaking" isolated to periods of exertion ie. when she attempts to stand, denies lightheadedness/dizziness at present but could consider checking orthostatic vitals given h/o orthostasis PT/OT eval and treat CM following for placement needs #Elevated Troponin: Troponin 25.7->21.3, no chest pain/SOB EKG pending, low suspicion for ACS, more likely demand ischemia Chronic Problems: CAD, HFpEF, HTN: Continue home Aspirin, Losartan, Lasix, Isosorbide mononitrate DVT: DVT January 2024, continue home Eliquis GERD: Continue home famotidine RLS: Continue home ropinirole HLD: Continue home atorvastatin Peripheral Neuropathy: Continue home gabapentin Depression: Continue home Lexapro Hypothyroidism: Continue home levothyroxine Dispo: Admit to med-surg FEN/GI: HH diet VTE ppx: Eliquis Full Code History of Present Illness Primary Care Provider: ROSALIE Lopez 89-year-old female with a past medical history of CKD, DVT, CAD, GERD, peripheral neuropathy, hyperlipidemia, hypothyroidism, hypertension, RLS, urinary incontinence who presents with weakness and ambulatory dysfunction. Patient states that she has gotten shaky and unstable when she tries to stand up for the past week, but most noticeable over the past 2 days. Patient was recently discharged from rehab about 3 weeks ago, states that she was at baseline for the first 2 weeks but that she has gotten noticeably weaker over the past week. Patient reports 1-2 minor falls over the past 3 weeks, was able to get back up with help from , denies associated LOC or head trauma. Patient uses a walker to ambulate at baseline. Patient lives with in a 1.5 story home but patient is able to meet all needs without going upstairs. They have private in home help once per week. At present, patient denies fevers or chills, denies dysuria, is not able to tell whether she is having increased frequency or urgency due to baseline incontinence. Denies chest pain, SOB, abdominal pain, N/V/D. ED Course: Pt afebrile on admission, WBC WNL, UA +nitrite, 2+LE 21-50 WBC, 4+bacteria, troponin 25.7->21.3, Cr 1.70 Allergies Allergy/AdvReac Type Severity Reaction Status Date / Time atorvastatin [From Lipitor] Allergy Unknown ON [facility] Verified 09/25/24 10:41 LIST celecoxib [From Celebrex] Allergy Unknown ON [facility] Verified 09/25/24 10:41 LIST iodine Allergy Unknown Unknown Verified 09/25/24 10:41 Home Medications Medication Instructions Recorded Confirmed Type [id number] 250 2 tab PO Q6H PRN Pain 02/19/22 09/25/24 History mg-250 mg-65 mg tablet (Excedrin Extra Strength) nitroglycerin 0.4 mg sublingual 0.4 mg sublingual Q5M PRN chest 10/31/22 09/25/24 Rx tablet pain #25 tabs meclizine 25 mg tablet 12.5 - 25 mg (0.5 - 1 x 25 mg) PO 04/30/23 09/25/24 Rx QID PRN Dizziness Or Vertigo #30 tabs tramadol 50 mg tablet 50 mg PO BID PRN pain #60 tabs 05/28/23 09/25/24 Rx escitalopram oxalate 10 mg tablet 10 mg PO DAILY #30 tabs 03/20/24 09/25/24 Rx (Lexapro) famotidine 20 mg tablet 20 mg PO DAILY #30 tabs 03/20/24 09/25/24 Rx furosemide 40 mg tablet 40 mg PO BID #60 tabs 03/20/24 09/25/24 Rx gabapentin 100 mg capsule 200 mg (2 x 100 mg) PO TID 90 days 03/20/24 09/25/24 Rx #180 caps silver sulfadiazine 1 % topical 1 applic topical DAILY #25 grams 05/01/24 09/25/24 Rx cream (Silvadene) apixaban 5 mg tablet (Eliquis) 5 mg PO BID #60 tabs 05/28/24 09/25/24 Rx aspirin 81 mg tablet,delayed 81 mg PO QAM #30 tabs 06/19/24 09/25/24 Rx release isosorbide mononitrate 30 mg 30 mg PO QAM #30 tabs 06/19/24 09/25/24 Rx tablet,extended release 24 hr levothyroxine 50 mcg tablet 50 mcg PO QAM #30 tabs 06/19/24 09/25/24 Rx atorvastatin 20 mg tablet 0 mg PO DAILY 09/25/24 09/25/24 History diclofenac sodium 1 % topical gel 1 g topical Q6H PRN Left Shoulder 09/25/24 09/25/24 History Pain losartan 25 mg tablet 25 mg PO QAM #30 tabs 09/25/24 09/25/24 Rx lysine 500 mg tablet (L-Lysine) 2,000 mg PO DAILY 09/25/24 09/25/24 History ropinirole 1 mg tablet 1 mg PO QDL 09/25/24 09/25/24 History ropinirole 3 mg tablet 3 mg PO HS 09/25/24 09/25/24 History Past Med/Surg History Problem List (Updated 09/27/24 @ 09:22 by Amaury Campbell MD, PhD) Lactic acid blood increased Elevated troponin (Acute) Acute UTI (Acute) Shakiness (Acute) Acute dehydration (Acute) Anemia (Acute) Weakness (Acute) Ambulatory dysfunction Urinary tract infection Anemia Bilateral leg weakness (Acute) Acute buttock pain (Acute) Hematoma of right buttock Orthostasis Hypotension Cellulitis of left leg Wounds, multiple Medication non-compliance due to excessive pill burden Imbalance Frequent falls Multiple fractures of ribs of left side (Acute 01/26/24) mildly displaced fractures of the posterior and posterolateral aspects of the left seventh through ninth ribs the ninth rib fracture in at least 2 places from a fall-was admitted to [place] for pain control per ED note Venous insufficiency Chronic stable angina Mild aortic stenosis (HFpEF) heart failure with preserved ejection fraction Depression Hypothyroidism (Chronic) Hypertension (Chronic) Peripheral edema Fatigue Vertigo Osteoarthritis Hyperparathyroidism (Chronic) Impaired fasting glucose (Chronic) Osteoporosis (Acute) Lymph edema Dyspnea on exertion (Acute) Vitamin D deficiency (Chronic) Chronic kidney disease, stage III (moderate) (Chronic) Urinary incontinence (Chronic) Restless leg syndrome (Chronic) Dry eye syndrome (Chronic) Incomplete bladder emptying (Chronic) Peripheral neuropathy (Chronic) Hyperlipidemia (Chronic) GERD (gastroesophageal reflux disease) (Chronic) CAD (coronary artery disease) (Chronic) Medical History Acute metabolic encephalopathy Acute blood loss anemia Acute dehydration Fall NO (acute kidney injury) Lower leg DVT (deep venous thromboembolism), acute Provoked due to sedentary lifestyle, on Eliquis to treat for 3 months COVID-19 Chronic acquired lymphedema Aortic stenosis Sepsis Hypercalcemia Surgical History History of total knee arthroplasty History of total abdominal hysterectomy and bilateral salpingo-oophorectomy History of partial colectomy History of carpal tunnel surgery History of dilatation and curettage Status post laser cataract surgery of both eyes History of appendectomy Family History Father Prostate cancer Myocardial infarction Mother Cancer Other No significant family history Denies family history of Ovarian cancer Kidney disease Breast cancer Colorectal cancer Social History Smoking Status: Never smoker Tobacco Type: Declines Second Hand Exposure: No; Do You Dip or Chew Tobacco: No; Hx Alcohol Use: No Hx Substance Use: No Preferred Language: Venezuelan Communication Ability: Effective Visual Impairment: Limited Hearing Ability: Normal Pediatric Genetic Counselor Required: No Beliefs That Will Affect Care: None marital status: Current Living Situation: Spouse Current Living Situation Comment: with current occupational status: retired current occupation: housewife How many Children do You have: 3 Feels Safe at Home: Yes Childhood Exposure to Second-Hand Smoke: Yes Diet: regular caffeine: Yes during the past year weight has: remained stable Dental Care, Regularly: No Physical Activity Frequency: Does not Exercise Seatbelt Use: sometimes Sunscreen Use: No Do you think of yourself as: straight/heterosexual Gender Identity: Female Assistive Devices: Walker Review of Systems Review of Systems: as per HPI Physical Exam Physical Exam: General: Alert and oriented. No acute distress Cardiac: Regular rate and rhythm, no murmurs appreciated Respiratory: Lungs clear to auscultation bilaterally, No increased work of breathing Abdominal: Soft, non-tender, non-distended. Bowel sounds present. Neuro: AOx3, grossly normal and without focal deficits Results & Data Results & Data Vital Signs (Past 12 Hours) Vital Signs Temp Pulse Resp BP Pulse Ox O2 Del Method 09/25/24 18:00 122/83 09/25/24 17:45 61 24 96 09/25/24 17:06 63 16 116/68 95 09/25/24 16:16 65 09/25/24 16:03 64 20 124/66 96 09/25/24 15:50 65 22 97 Room Air 09/25/24 15:36 66 21 132/71 96 09/25/24 15:32 36.7 C 68 16 132/71 97 Room Air Code Status & VTE Plan VTE Prophylaxis Plan VTE Prophylaxis will be ordered: Yes Supervising Physician Co-Signing Physician Notes I personally saw and examined the patient. I independently reviewed the labs, EKG, imaging, problem list, medication list, past medical history and family history. I verified all arora points and agree with resident physician Dr Ammon Simmons with the following exceptions and/or additions: 89 year old female presents to the ER with generalized weakness and ambulatory dysfunction much worse over the last 2 days. Baseline incontinence. No specific respiratory, urinary, gastrointestinal complaints, fever or chills. O/E HS RRR, no murmurs, Chest CTAB, Abdo SNT, no CVA tenderness A/P UTI - ceftriaxone pending urine culture, PT/OT as appears unsafe for discharge at the current time Resident Activity Tracking Resident Involvement: Resident Care Provided Care Provided: Adult Hospital Medicine (4) (HFpEF) heart failure with preserved ejection fraction Heart failure chronicity: chronic Qualified Code(s): I50.32 - Chronic diastolic (congestive) heart failure
[2024-09-25] MEDS ORDERED: traMADol HCL 50 MG TABLET PO PRN (21:35)
[2024-09-25] MEDS ORDERED: DICLOFENAC SOD 1% GEL 100 GM TUBE EXT PRN (21:35)
[2024-09-25] MEDS: APIXABAN 5 MG TABLET PO SCH (22:08)
[2024-09-25] MEDS: FUROSEMIDE 40 MG TAB PO SCH (22:08)
[2024-09-25] MEDS: GABAPENTIN 100 MG CAP PO SCH (22:09)
[2024-09-25] MEDS: rOPINIRole HCL 1 MG TABLET PO SCH (22:10)
[2024-09-26 07:13] LABS: Hemoglobin 10.2 g/dl (12.0-16.0); Mean Corpuscular Hemoglobin 32.3 pg (25.0-34.0); Mean Corpuscular Hgb Conc 32.9 g/dL (32.0-36.0); Mean Corpuscular Volume 98.1 fL (80.0-100.0); Mean Platelet Volume 9.8 fL (9.4-12.4); Platelet Count 221 K/uL (130-400); RDW Coefficient of Variation 13.7 % (11.5-14.5); RDW Standard Deviation 49.9 fL (36.4-46.3); Red Blood Count 3.16 M/uL (4.20-5.40); White Blood Count 6.28 K/ul (4.8-10.8)
[2024-09-26 07:28] LABS: BUN Creatinine Ratio 18.2 (10-20); Calcium 9.6 mg/dl (8.6-10.3); Creatinine Clr Calc Pharmacy 25.6 ml/min
[2024-09-26] MEDS: ACETAMINOPHEN 325 MG TAB PO PRN (07:58)
--- NOTE | 2024-09-26 08:34 | Electrocardiogram Report ---
Test Reason : Blood Pressure : */* mmHG Vent. Rate : 65 BPM Atrial Rate : 65 BPM P-R Int : 206 ms QRS Dur : 86 ms QT Int : 424 ms P-R-T Axes : 50 19 49 degrees QTcB Int : 440 ms Normal sinus rhythm Normal ECG When compared with ECG of 17-Jun-2024 17:05, No significant change was found Confirmed by Zac Crow ([id number]) on 09/26/2024 8:33:52 AM Referred By: Salena Ruelas Confirmed By: Zac Crow
[2024-09-26] MEDS: ATORVASTATIN 20 MG TAB PO SCH (08:40)
[2024-09-26] MEDS: ESCITALOPRAM OXALATE 10 MG TAB PO SCH (08:40)
[2024-09-26] MEDS: FAMOTIDINE 20 MG TAB PO SCH (08:40)
[2024-09-26] MEDS: ASPIRIN 81 MG ECTAB PO SCH (08:40)
[2024-09-26] MEDS: LEVOTHYROXINE SODIUM 50 MCG TABLET PO SCH (08:41)
[2024-09-26] MEDS: ISOSORBIDE MONO EXTENDED REL 30 MG TABCR PO SCH (08:41)
[2024-09-26] MEDS: LOSARTAN POTASSIUM 25 MG TAB PO SCH (08:42)
[2024-09-26] MEDS ORDERED: NON-FORMULARY MEDICATION (Lysine [L-Lysine] 500 mg Tablet) PO SCH (09:00)
[2024-09-26] MEDS: rOPINIRole HCL 1 MG TABLET PO SCH (11:58)
[2024-09-26] MEDS: cefTRIAXone SODIUM 2,000 MG/50 ML BAG IV SCH (17:22)
[2024-09-26] MEDS: MELATONIN 3 MG TAB PO PRN (19:44)
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
[2024-09-27 06:14] LABS: Hematocrit (blood only) 29.4 % (37.0-47.0); Hemoglobin 9.4 g/dl (12.0-16.0); Mean Corpuscular Hemoglobin 31.9 pg (25.0-34.0); Mean Corpuscular Volume 99.7 fL (80.0-100.0); Mean Platelet Volume 9.7 fL (9.4-12.4); Platelet Count 201 K/uL (130-400); RDW Coefficient of Variation 14.2 % (11.5-14.5); RDW Standard Deviation 52.3 fL (36.4-46.3); Red Blood Count 2.95 M/uL (4.20-5.40); White Blood Count 5.61 K/ul (4.8-10.8)
[2024-09-27 06:29] LABS: BUN Creatinine Ratio 18.4 (10-20); Calcium 9.5 mg/dl (8.6-10.3); Creatinine Clr Calc Pharmacy 24.9 ml/min; Potassium 4.1 mmol/L (3.5-5.1)
[2024-09-27] MEDS: CEFDINIR 300 MG CAP PO SCH (10:09)
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
[2024-09-28 06:46] LABS: BUN Creatinine Ratio 19.1 (10-20); Calcium 9.8 mg/dl (8.6-10.3); Creatinine Clr Calc Pharmacy 26.8 ml/min; Potassium 4.2 mmol/L (3.5-5.1)
[2024-09-28] MEDS: FUROSEMIDE 40 MG TAB PO SCH (08:25)
[2024-09-28] MEDS: POLYETHYLENE (MIRALAX) 17 GM PACK PO PRN (10:27)
--- NOTE | 2024-09-28 17:39 | Electrocardiogram Report ---
Test Reason : Blood Pressure : */* mmHG Vent. Rate : 62 BPM Atrial Rate : 62 BPM P-R Int : 200 ms QRS Dur : 88 ms QT Int : 418 ms P-R-T Axes : 47 40 54 degrees QTcB Int : 424 ms Normal sinus rhythm Normal ECG When compared with ECG of 25-Sep-2024 15:32, No significant change was found Confirmed by Carrol Danielson (Palomo) on 09/28/2024 5:39:27 PM Referred By: Salena Ruelas Confirmed By: Carrol Danielson
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
--- NOTE | 2024-09-29 08:16 | Hospitalist Progress Note ---
Date of Service September 29, 2024 Assessment & Plan (1) Acute UTI: Plan: 89 years old female with PMH of, hyperlipidemia , GERD , CKD stage III, HTN, hypothyroidism, chronic macrocytic, normochromic/hypochromic anemia, major depression, left posterior tibial DVT, recent LLE cellulitis admitted with metabolic encepahlopahty and weakness unable to be cared for at home Acute kirkland-sensitive E. coli UTI 3 day therapy PT/OT Service evaluations Elevated troponin demand ischemia. Plan Other miscellaneous issues include: Vascular. DVT prophylaxis. with eliquis 5mg PO bid to treat acute left posterior tibial DVT Code status, FULL CODE @ home Admission and Anticipated Discharge Date Admission Date: September 25, 2024 Subjective PT did poorly at inpatient PT screening, she and her both were falling down at home. She is resistant to consider rehab placement Physical Exam Physical Exam: pleasant, weakened chronic lower extremity edema, some small excoriated areas cardiac is regular lungs are clear Results & Data Results & Data Vital Signs (Past 12 Hours) Vital Signs Temp Pulse Resp BP BP Pulse Ox O2 Del Method 09/29/24 07:00 98.2 F 64 18 158/62 H 91 Room Air 09/28/24 22:00 98.2 F 67 18 112/68 93 Room Air PG Care Time/CCT Total # of Minutes Spent Total Time Spent with Patient: Total time spent is greater than 50% in coordination of care (as documented) at patient's floor/unit and/or counseling patient: Coding Level of Care Code 59232 SUB INP/OBS CARE 2/35MIN Diagnoses Acute UTI N39.0
--- NOTE | 2024-09-30 09:10 | Hospitalist Progress Note ---
Date of Service September 30, 2024 Assessment & Plan (1) Acute UTI: Plan: 89 year old female with PMH of, hyperlipidemia , GERD , CKD stage III, HTN, hypothyroidism, chronic macrocytic, normochromic/hypochromic anemia, major depression, left posterior tibial DVT, recent LLE cellulitis admitted with metabolic encephalopathy and weakness unable to be cared for at home Acute kirkland-sensitive E. coli UTI 3 day therapy PT/OT Service evaluations recommending rehab, [facility] Elevated troponin demand ischemia. Plan Other miscellaneous issues include: Vascular. DVT prophylaxis. with eliquis 5mg PO bid to treat left posterior tibial DVT diagnosed in january 2024, will stop med and if not reason to anticoagulate as initial DVT documented as provoked, in 36 hours will start heparin or enoxaparin sc Code status, FULL CODE @ home Admission and Anticipated Discharge Date Admission Date: September 25, 2024 Results & Data Results & Data Vital Signs (Past 12 Hours) Vital Signs Temp Pulse Resp BP Pulse Ox O2 Del Method 09/30/24 07:40 97.9 F 63 17 133/75 93 Room Air 09/29/24 21:20 Room Air 09/29/24 21:16 99.3 F 75 20 114/64 94 Room Air PG Care Time/CCT Total # of Minutes Spent Total Time Spent with Patient: Total time spent is greater than 50% in coordination of care (as documented) at patient's floor/unit and/or counseling patient: Coding Level of Care Code 87715 SUB INP/OBS CARE 2/35MIN Diagnoses Acute UTI N39.0
--- NOTE | 2024-09-30 14:18 | Billing Data ---
Date of Service September 25, 2024 Coding Level of Care Code 30309 INT INP/OBS CARE
--- NOTE | 2024-10-01 11:02 | XRay Report ---
XR shoulder LT min 2V routine HISTORY: 89 years-old Female fall at home and anterior pain acute left shoulder pain status post fal l COMPARISON: 01/22/2020 TECHNIQUE: 3 views of the left shoulder FINDINGS: Severe glenohumeral and AC joint osteoarthritis. Demineralized appearance of the bones. Chronic later al left rib fracture deformities with displacement. No acute fracture or dislocation identified. IMPRESSION: 1. No acute fracture or dislocation identified. 2. Chronic displaced lateral left rib fracture deformities. ACT 112: Negative or not required by law. The above report was generated using voice recognition software. It may contain grammatical, syntax o r spelling errors. Electronically signed by: Christiano Ricketts M.D. 10/01/2024 11:00 AM
[2024-10-01] MEDS: DICLOFENAC SOD 1% GEL 100 GM TUBE EXT SCH (12:07)
--- NOTE | 2024-10-01 16:37 | Hospitalist Progress Note ---
Date of Service October 01, 2024 Assessment & Plan (1) Acute UTI: Plan: 89 year old female with PMH of, hyperlipidemia , GERD , CKD stage III, HTN, hypothyroidism, chronic macrocytic, normochromic/hypochromic anemia, major depression, left posterior tibial DVT, recent LLE cellulitis admitted with metabolic encephalopathy and weakness unable to be cared for at home Acute kirkland-sensitive E. coli UTI 3 day therapy PT/OT Service evaluations recommending rehab, [facility] Elevated troponin demand ischemia. Plan Other miscellaneous issues include: left shoulder pain, oa seen on x ray, old rib fractures from falls, try voltaren cream Vascular. DVT prophylaxis. with eliquis 5mg PO bid to treat left posterior tibial DVT diagnosed in january 2024, will stop med and if not reason to anticoagulate as initial DVT documented as provoked, in 36 hours will start heparin or enoxaparin sc Code status, FULL CODE @ home to snf 10/02 Admission and Anticipated Discharge Date Admission Date: September 25, 2024 Subjective pt still with left shoulder pain, xray does not show shoulder fracture, does have chronic left rib fractures likely to snf for rehab 10/02/24 Physical Exam Physical Exam: pleasant, weakened chronic lower extremity edema, some small excoriated areas on left ankel cardiac is regular lungs are clear left shoulder with crepitans and tender to move Results & Data Results & Data Vital Signs (Past 12 Hours) Vital Signs Temp Pulse Pulse Resp BP Pulse Ox O2 Del Method 10/01/24 15:32 98.1 F 88 18 116/64 94 Room Air 10/01/24 09:20 74 18 136/74 93 Room Air 10/01/24 08:00 98.1 F 65 16 116/71 94 Room Air 10/01/24 07:20 Room Air 10/01/24 07:11 97.2 F L 64 16 125/74 95 Room Air PG Care Time/CCT Total # of Minutes Spent Total Time Spent with Patient: Total time spent is greater than 50% in coordination of care (as documented) at patient's floor/unit and/or counseling patient: Coding Level of Care Code 30553 SUB INP/OBS CARE 2/35MIN Diagnoses Acute UTI N39.0
[2024-10-02 07:16] VITALS: TEMP 97.9
[2024-10-02 09:02] VITALS: BP 117/75; PULSE 68; RESP 18; O2SAT 97
--- NOTE | 2024-10-02 15:54 | Discharge Summary ---
Discharge Summary Date of Service October 02, 2024 Principal Dx & Hospital Course #1 = Principal Diagnosis (1) Acute UTI: 89 year old female with PMH of, hyperlipidemia , GERD , CKD stage III, HTN, hypothyroidism, chronic macrocytic, normochromic/hypochromic anemia, major depression, left posterior tibial DVT, recent LLE cellulitis admitted with metabolic encephalopathy and weakness unable to be cared for at home improving with treatment of urinary tract infection Acute kirkland-sensitive E. coli UTI 3 day therapy completed PT/OT Service evaluations recommending rehab subacute rehab arranged Center care Elevated troponin demand ischemia. Plan Other miscellaneous issues include: left shoulder pain, oa seen on x ray, old rib fractures from falls, try voltaren cream Vascular. DVT prophylaxis. with eliquis 5mg PO bid to treat left posterior tibial DVT diagnosed in january 2024, will stop med and if not reason to anticoagulate as initial DVT documented as provoked, in 36 hours will start heparin or enoxaparin sc Code status, FULL CODE @ home to snf 10/02 Notes For Next Care Provider Patient has significant shoulder discomfort x-rays did not reveal fracture arthritic change Admission HPI Per Admitting Provider 89-year-old female with a past medical history of CKD, DVT, CAD, GERD, peripheral neuropathy, hyperlipidemia, hypothyroidism, hypertension, RLS, urinary incontinence who presents with weakness and ambulatory dysfunction. Patient states that she has gotten shaky and unstable when she tries to stand up for the past week, but most noticeable over the past 2 days. Patient was recently discharged from rehab about 3 weeks ago, states that she was at baseline for the first 2 weeks but that she has gotten noticeably weaker over the past week. Patient reports 1-2 minor falls over the past 3 weeks, was able to get back up with help from , denies associated LOC or head trauma. Patient uses a walker to ambulate at baseline. Patient lives with in a 1.5 story home but patient is able to meet all needs without going upstairs. They have private in home help once per week. At present, patient denies fevers or chills, denies dysuria, is not able to tell whether she is having increased frequency or urgency due to baseline incontinence. Denies chest pain, SOB, abdominal pain, N/V/D. ED Course: Pt afebrile on admission, WBC WNL, UA +nitrite, 2+LE 21-50 WBC, 4+bacteria, troponin 25.7->21.3, Cr 1.70 Discharge Exam Awake alert appropriate. Crepitus to her left shoulder cardiac pulm exams unremarkable Discharge Plan Discharge Items Patient Disposition: Transfer Shelter Fac Reason For Visit: UTI, AMBULATORY DYSFUNCTION Discharge Diagnosis: weakness (metabolic encephalopathy) UTI poa (kirkland sensitive E coli) Condition on Discharge: Fair Activity: Per Instructions section Non-emergency contact: Primary Care Provider Call non-emergency contact if: your symptoms worsen Follow-up/Referrals: Salena Ruelas CRNP [Primary Care Provider] - Diet: Regular Addtl Attending Provider Instructions: pt has been on eliquis since january for provoked DVT, this has been decided to be stopped. pt has completed 3 days of treatment for e coli uti did have contusion left shoulder Pending Studies at Discharge: No Stand-Alone Forms: My [facility] Skilled Items Patient informed of condition?: Yes DNR: No Discharge Level of Care: Other Communicable Disease: No Discharge Prognosis: Stable Lines: None Urinary Catheter: No Medications and DC Order Prescriptions: Continued meclizine 25 mg tablet 12.5 - 25 mg PO QID PRN (Reason: Dizziness Or Vertigo) Qty: 30 5RF tramadol 50 mg tablet 50 mg PO BID PRN (Reason: pain) Qty: 60 0RF Rx Instructions: short term only levothyroxine 50 mcg tablet 50 mcg PO QAM Qty: 30 11RF Rx Instructions: Per preferred pharmacy, this script was sent to them from rehab but they haven't filled it as pt hasn't requested it. nitroglycerin 0.4 mg tablet, sublingual 0.4 mg sublingual Q5M PRN (Reason: chest pain) Qty: 25 3RF Rx Instructions: do not exceed 3 doses per episode escitalopram oxalate [Lexapro] 10 mg tablet 10 mg PO DAILY Qty: 30 11RF Rx Instructions: Per preferred pharmacy, this script was sent to them from rehab but they haven't filled it as pt hasn't requested it. famotidine 20 mg tablet 20 mg PO DAILY Qty: 30 11RF Rx Instructions: Per preferred pharmacy, this script was sent to them from rehab but they haven't filled it as pt hasn't requested it. furosemide 40 mg tablet 40 mg PO BID Qty: 60 11RF Rx Instructions: Per preferred pharmacy, this script was sent to them from rehab but they haven't filled it as pt hasn't requested it. gabapentin 100 mg capsule 200 mg PO TID 90 Days Qty: 180 11RF Rx Instructions: Per preferred pharmacy, this script was sent to them from rehab but they haven't filled it as pt hasn't requested it. losartan 25 mg tablet 25 mg PO QAM Qty: 30 11RF Hold Instructions: hypotensive Rx Instructions: Per preferred pharmacy, this script was sent to them from rehab but they haven't filled it as pt hasn't requested it. ropinirole 3 mg tablet 3 mg PO HS Rx Instructions: Per preferred pharmacy, this script was sent to them from rehab but they haven't filled it as pt hasn't requested it. lysine [L-Lysine] 500 mg Tablet 2,000 mg PO DAILY diclofenac sodium 1 % gel 1 g TOPICAL Q6H PRN (Reason: Left Shoulder Pain) atorvastatin 20 mg tablet 0 mg PO DAILY Rx Instructions: Original Directions: 20mg by mouth daily: Listed on allergy list, but preferred pharmacy and old list from personal care facility states the same. Pt has filled recently isosorbide mononitrate 30 mg Tablet Extended Release 24 Hr 30 mg PO QAM Qty: 30 0RF Rx Instructions: Per preferred pharmacy, this script was sent to them from rehab but they haven't filled it as pt hasn't requested it. aspirin 81 mg Tablet,Delayed Release (Dr/Ec) 81 mg PO QAM Qty: 30 0RF Rx Instructions: Unable to verify OTC meds at this date/time. Discontinued Eliquis 5 mg tablet 5 mg PO BID Qty: 60 2RF Rx Instructions: Per preferred pharmacy, this script was sent to them from rehab but they haven't filled it as pt hasn't requested it. silver sulfadiazine [Silvadene] 1 % cream 1 applic topical DAILY Qty: 25 1RF Hold Instructions: not using Rx Instructions: apply a 1.5 mm thickness. Unable to verify med at this date/time. Not on file w/ pharmacy Excedrin Extra Strength 250-250-65 mg Tablet 2 tab PO Q6H PRN (Reason: Pain) Rx Instructions: Unable to verify OTC meds at this date/time. ropinirole 1 mg tablet 1 mg PO QDL Rx Instructions: Per preferred pharmacy, this script was sent to them from rehab but they haven't filled it as pt hasn't requested it. Discharge Orders: Discharge Order (Routine); Ordered 10/02/24 Ordered By: Pj Brown Admission Data Admit Date/Time: 09/25/24 18:46 Attending Provider: Pj Brown Admit Provider: Ammon Simmons Primary Care Provider: Salena Ruelas Other Providers: Keyur Galan; [place]; [facility] [place] Other Interventions: Discharge Summary Assessment (RN) Last Done: 10/02/24 11:11 Hospital Stay Data Consultations 09/25/24 17:47 ED Decision to Admit Stat Pending Results Patient Have Any Pending Studies at Discharge: No Discharge Instructions Given to Patient (Per Discharging Provider) pt has been on eliquis since january for provoked DVT, this has been decided to be stopped. pt has completed 3 days of treatment for e coli uti did have contusion left shoulder Total Time Total Time Spent Total Time Spent (In Minutes): It required greater than 30 minutes to prepare this patient for discharge. Coding Level of Care Code 02040 INP/OBS DISCH >30 MIN Diagnoses Acute UTI N39.0
== END 2024-10-02 12:10 | DRG 689 ==
LOC: ED 15:24 → 3W 18:46 → INTOOBSV 18:46 → SUATTDRO 18:46 → 3W 21:09